=== PATIENT | female | born 1945 | race Caucasian/White ===

== ENCOUNTER 2016-07-25 14:02 | Observation (INO) ==
[2016-07-25] MEDS ORDERED: Naloxone 0.4 MG/ML INJ IVP STA ×2 (14:11→14:40)
--- NOTE | 2016-07-25 14:24 | Emergency Department Note ---
Disposition Clinical Impression: HCAP (healthcare-associated pneumonia) Disposition: Admitted As Inpatient Condition: Fair Time of Disposition: 19:25 Altered Mental Status HPI - General Chief Complaint: ED Altered Mental Status Stated Complaint: AMS Time Seen by Provider: 07/25/16 14:08 Source: EMS Limitations: altered mental status Nursing Notes Reviewed: Yes Vital Signs Reviewed: Yes - History of Present Illness HPI Narrative: Ms. Sarmiento, a 71yo female, [facility] from jail [facility] EMS with CC: altered mentation. jail notes the patient returned from dialysis back to the facility. Appx 1 hr prior to arrival, she became responsive only to pain with unusual black bruise-like marking on her arms and legs. PMH: ESRD on dialysis [facility]. - Related Data Home Medications Medication Instructions Recorded Confirmed Furosemide [Lasix] 80 mg PO BID 09/28/15 07/25/16 Levothyroxine Sodium [Tirosint] 150 mcg PO DAILY 09/28/15 07/25/16 Amlodipine [Norvasc] 10 mg PO DAILY 09/29/15 07/25/16 Clopidogrel [Plavix] 75 mg PO DAILY 09/29/15 07/25/16 Modafinil [Provigil] 200 mg PO QAM 09/29/15 07/25/16 Acetaminophen [Tylenol] 1,000 mg PO Q8HR PRN 12/05/15 07/25/16 Cinacalcet [Sensipar] 30 mg PO DAILY 12/05/15 07/25/16 Hydralazine HCl 50 mg PO BID 12/05/15 07/25/16 Insulin LISPRO [HumaLOG] 2 - 12 unit SQ ACHS 12/05/15 07/25/16 Omeprazole 20 mg PO QAM 12/05/15 07/25/16 B Complex W-C No.20/Folic Acid 1 mg PO DAILY 12/13/15 07/25/16 [Virt-Caps Softgel] Sevelamer [Renvela] 3,200 mg PO TID 12/13/15 07/25/16 Diltiazem HCl [Diltiazem ER] 120 mg PO DAILY 05/02/16 07/25/16 Folic Acid 1 mg PO DAILY 05/02/16 07/25/16 Ipratropium/Albuterol Neb [Duoneb] 3 ml IH Q4HR 05/02/16 07/25/16 Ammonium Lactate [Marisol-Hydrolac] 1 appl TP BID 05/25/16 07/25/16 HYDROcodone/Acet 5/325 mg [[place] 1 tab PO Q8H PRN 07/25/16 07/25/16 5-325 mg] Losartan Potassium [Cozaar] 100 mg PO DAILY 07/25/16 07/25/16 Metoprolol [Lopressor] 100 mg PO BID 07/25/16 07/25/16 Warfarin [Coumadin] 4 mg PO SUWE@1800 07/25/16 07/26/16 Warfarin [Coumadin] 5 mg PO MOTUTHFRSA@1800 07/26/16 07/26/16 Previous Rx's Medication Instructions Recorded Insulin Glargine [Lantus] 5 unit SQ DAILY #0 07/01/16 Gabapentin [Neurontin] 100 mg PO TID #90 capsule 07/26/16 Allergies Allergy/AdvReac Type Severity Reaction Status Date / Time No Known Allergies Allergy Verified 09/28/15 13:34 Limitations: ROS unobtainable due to patients medical condition Past Medical History - Past Medical History Medical history: Reports: arthritis, cardiomyopathy, COPD, coronary artery disease, diabetes, dialysis, GERD, hyperlipidemia, hypertension, osteoporosis, peripheral artery disease, renal disease, thyroid disease, other Surgical history: Reports: appendectomy, cholecystectomy, hip replacement, hysterectomy, orthopedic, other, ABIMAEL/BSO, other Psychiatric history: Reports: anxiety, depression, other - Social History Smoking Status: Current every day smoker Smokeless Tobacco Status: No Alcohol use: Reports: none Drug use: Reports: none, prescription drug abuse, other Physical Exam General: Patient is alert, oriented, and in no acute distress. HEENT: No facial asymmetry. Head is normocephalic and atraumatic. PERRLA. Trachea midline. Cardiovascular: Heart regular rate and rhythm without clicks, rubs, gallops, or murmurs. No JVD. PMI nondisplaced. Respiratory: Symmetric chest rise with poor respiratory effort. Bilateral breath sounds are have wheezing throughout. Abdomen: Bowel sounds present normoactive x-4 quadrants. Abdomen is soft, nondistended. Unable to assess tenderness as patient will not answer. Musculoskeletal: Unable to assess given patient's presentation. Neuro: Unable to assess given patient's presentation. Psych: Patient's affect is appropriate for situation. - General Limitations: altered mental status General appearance: alert, lethargic Course Course Narrative: GCS 13: E4, V5, M4. She will wake up and curse at you with sternal rub. Otherwise she is sleeping. Patient has a history of similar presentation secondary to opiate use. Will administer small increments of narcan. If she does not return to baseline, will perform AMS workup. After 0.4mg Narcan x2, patient's level of alertness has not improved. Will initiate AMS workup. 15:20 I called patient's daughter: Angélica, . We discussed her mother's initial presentation, stable vital signs, level of alertness, and unsuccessful narcan. Discussed the next steps; in particular the AMS workup and pending disposition. Once a disposition is decided, will update daughter. CT head negative. CXR suspicious for LLL atelectasis. This correlates with my physical exam findings. Suspect healthcare associated pneumonia. Will begin empiric antibiotics. Awaiting lab draw. Will page hospitalist once labs drawn. 17:[address] Cook. He requests CBC for the white count as well as CBC prior to accepting the patient. 18:30 Dr. Cook accepts the patient to his service. Vital Signs Temperature 100 F H 07/25/16 14:04 Pulse Rate 64 07/25/16 14:04 Respiratory Rate 16 07/25/16 14:04 Blood Pressure 162/60 07/25/16 14:04 O2 Sat by Pulse Oximetry 100 07/25/16 14:04 Temperature 98.3 F 07/26/16 11:43 Pulse Rate 75 07/26/16 11:43 Respiratory Rate 17 07/26/16 11:43 Blood Pressure 138/45 07/26/16 11:43 O2 Sat by Pulse Oximetry 96 07/26/16 11:43 Oxygen Delivery Oxygen Delivery Room Air Altered Mental Status - Medical Records Medical records reviewed: Yes I reviewed the patient's medical records. - Lab Data Lab results reviewed: Yes I reviewed the patient's lab results. Result diagrams: 07/26/16 05:47 07/26/16 05:47 Lab Results 07/25/16 07/25/16 07/25/16 Range/Units 14:18 16:00 16:11 WBC (4.3-11.1) K/mcL RBC (3.82-4.97) M/mcL Hgb (11.5-15.4) g/dL Hct (35.3-44.9) % MCV (83.0-100.0) fL MCH (28.0-33.3) pg MCHC (31.6-35.5) g/dL RDW (11.5-14.5) % Plt Count (140-400) K/mcL MPV (9.4-12.4) fL Immature Gran % (0-4) % Seg Neutrophils % % Lymphocytes % % Monocytes % % Eosinophils % % Basophils % % Neutrophils # (1.6-8.9) K/mcL Lymphocytes # (0.6-4.6) K/mcL Monocytes # (0.0-1.3) K/mcL Eosinophils # (0.0-0.6) K/mcL Basophils # (0.0-0.2) K/mcL PT 25.3 H (9.4-12.1) Seconds INR 2.3 APTT 42.0 H (26.0-36.0) Seconds Sodium (136-145) mEq/L Potassium (3.5-4.5) mEq/L Chloride (98-109) mEq/L Carbon Dioxide (19-29) mEq/L BUN (7-20) mg/dL Creatinine (0.57-1.11) mg/dL Est GFR ( Amer) (> 60) Est GFR (Non-Af Amer) (> 60) BUN/Creatinine Ratio (6-26) Glucose (70-99) mg/dL POC Glucose 185 H (58-89) Calculated Osmolality (280-300) Calcium (8.6-10.8) mg/dL Troponin I (0-0.03) ng/mL C-Reactive Protein (Less than 5) mg/L Urine Color Yellow (Yellow) Urine Clarity Turbid A (Clear) Urine pH 8.0 (5.0-8.0) pH Units Ur Specific [place] 1.014 (1.010-1.025) Urine Protein >=300 H (Neg-Trace) mg/dL Urine Glucose (UA) 250 H (Normal) mg/dL Urine Ketones Negative (Negative) mg/dL Urine Blood Trace H (Negative) Urine Nitrite Negative (Negative) Urine Bilirubin Negative (Negative) Urine Urobilinogen Normal (Normal) mg/dL Ur Leukocyte Esterase Trace H (Negative) Urine Microscopic RBC 5-15 H (0-3) per hpf Urine Microscopic WBC 30-50 H (0-3) per hpf Ur Squamous Epith Cells Many H (None-Few) per lpf Urine Bacteria Few (None-Few) per hpf Hyaline Casts None Seen (None-Few) per lpf Ur Culture Indicated? YES A (NO) 07/25/16 07/25/16 07/25/16 Range/Units 16:11 16:11 16:11 WBC (4.3-11.1) K/mcL RBC (3.82-4.97) M/mcL Hgb (11.5-15.4) g/dL Hct (35.3-44.9) % MCV (83.0-100.0) fL MCH (28.0-33.3) pg MCHC (31.6-35.5) g/dL RDW (11.5-14.5) % Plt Count (140-400) K/mcL MPV (9.4-12.4) fL Immature Gran % (0-4) % Seg Neutrophils % % Lymphocytes % % Monocytes % % Eosinophils % % Basophils % % Neutrophils # (1.6-8.9) K/mcL Lymphocytes # (0.6-4.6) K/mcL Monocytes # (0.0-1.3) K/mcL Eosinophils # (0.0-0.6) K/mcL Basophils # (0.0-0.2) K/mcL PT (9.4-12.1) Seconds INR APTT (26.0-36.0) Seconds Sodium 140 (136-145) mEq/L Potassium 5.6 H (3.5-4.5) mEq/L Chloride 103 (98-109) mEq/L Carbon Dioxide 24 (19-29) mEq/L BUN 27 H (7-20) mg/dL Creatinine 4.44 H (0.57-1.11) mg/dL Est GFR ( Amer) 12 L (> 60) Est GFR (Non-Af Amer) 10 L (> 60) BUN/Creatinine Ratio 6 (6-26) Glucose 158 H (70-99) mg/dL POC Glucose (58-89) Calculated Osmolality 298 (280-300) Calcium 9.5 (8.6-10.8) mg/dL Troponin I 0.03 (0-0.03) ng/mL C-Reactive Protein 15 H (Less than 5) mg/L Urine Color (Yellow) Urine Clarity (Clear) Urine pH (5.0-8.0) pH Units Ur Specific [place] (1.010-1.025) Urine Protein (Neg-Trace) mg/dL Urine Glucose (UA) (Normal) mg/dL Urine Ketones (Negative) mg/dL Urine Blood (Negative) Urine Nitrite (Negative) Urine Bilirubin (Negative) Urine Urobilinogen (Normal) mg/dL Ur Leukocyte Esterase (Negative) Urine Microscopic RBC (0-3) per hpf Urine Microscopic WBC (0-3) per hpf Ur Squamous Epith Cells (None-Few) per lpf Urine Bacteria (None-Few) per hpf Hyaline Casts (None-Few) per lpf Ur Culture Indicated? (NO) 07/25/16 Range/Units 17:55 WBC 9.6 (4.3-11.1) K/mcL RBC 3.89 (3.82-4.97) M/mcL Hgb 12.3 (11.5-15.4) g/dL Hct 39.9 (35.3-44.9) % MCV 102.6 H (83.0-100.0) fL MCH 31.6 (28.0-33.3) pg MCHC 30.8 L (31.6-35.5) g/dL RDW 15.5 H (11.5-14.5) % Plt Count 167 (140-400) K/mcL MPV 10.7 (9.4-12.4) fL Immature Gran % 0.4 (0-4) % Seg Neutrophils % 81.9 % Lymphocytes % 8.6 % Monocytes % 7.8 % Eosinophils % 1.1 % Basophils % 0.2 % Neutrophils # 7.9 (1.6-8.9) K/mcL Lymphocytes # 0.8 (0.6-4.6) K/mcL Monocytes # 0.8 (0.0-1.3) K/mcL Eosinophils # 0.1 (0.0-0.6) K/mcL Basophils # 0.0 (0.0-0.2) K/mcL PT (9.4-12.1) Seconds INR APTT (26.0-36.0) Seconds Sodium (136-145) mEq/L Potassium (3.5-4.5) mEq/L Chloride (98-109) mEq/L Carbon Dioxide (19-29) mEq/L BUN (7-20) mg/dL Creatinine (0.57-1.11) mg/dL Est GFR ( Amer) (> 60) Est GFR (Non-Af Amer) (> 60) BUN/Creatinine Ratio (6-26) Glucose (70-99) mg/dL POC Glucose (58-89) Calculated Osmolality (280-300) Calcium (8.6-10.8) mg/dL Troponin I (0-0.03) ng/mL C-Reactive Protein (Less than 5) mg/L Urine Color (Yellow) Urine Clarity (Clear) Urine pH (5.0-8.0) pH Units Ur Specific [place] (1.010-1.025) Urine Protein (Neg-Trace) mg/dL Urine Glucose (UA) (Normal) mg/dL Urine Ketones (Negative) mg/dL Urine Blood (Negative) Urine Nitrite (Negative) Urine Bilirubin (Negative) Urine Urobilinogen (Normal) mg/dL Ur Leukocyte Esterase (Negative) Urine Microscopic RBC (0-3) per hpf Urine Microscopic WBC (0-3) per hpf Ur Squamous Epith Cells (None-Few) per lpf Urine Bacteria (None-Few) per hpf Hyaline Casts (None-Few) per lpf Ur Culture Indicated? (NO) - Radiology Data Radiology results reviewed: Yes I reviewed the patient's radiology results. - EKG Data EKG attestation: Yes I reviewed and interpreted this EKG. EKG results narrative: EKG dated 25 Jul 2015 shows sinus rhythm with rate of 82. Normal intervals. Normal axis. Non specific STT changes. Copmared to EKG dated 06/30/16 showing no acute ischemic changes in comparison. Attestation Statement - Attestation Attestation: I examined this patient and my medical decision-making was reviewed with the Resident Physician. I agree with the documented findings, disposition and treatment plan as described.
[2016-07-25 16:13] LABS: Bilirubin,Urine Negative (Negative); Blood,Urine Trace (Negative); Clarity,Urine Turbid (Clear); Color,Urine Yellow (Yellow); Glucose,Urine (UA) 250 mg/dL (Normal); Ketones,Urine Negative (Negative); Leukocyte Esterase,Urine Trace (Negative); Nitrite,Urine Negative (Negative); Protein,Urine >=300 mg/dL (Neg-Trace); Specific Gravity,Urine 1.014 (1.010-1.025); Urobilinogen,Urine Normal (Normal)
[2016-07-25 16:14] LABS: Hyaline Casts,Urine None Seen per lpf (None-Few); Squamous Epithelial Cell,Urine Many per lpf (None-Few); WBC,Urine 30-50 per hpf (0-3)
[2016-07-25] MEDS ORDERED: Levofloxacin 500 MG/100 ML 500 MG/100 ML BAG IVPB ONE (16:17)
[2016-07-25] MEDS ORDERED: Vancomycin 1,000 MG in D5% in Water 250 ML IVPB STA ×2 (16:18→21:54)
[2016-07-25 16:36] LABS: Bacteria,Urine Few per hpf (None-Few)
[2016-07-25 16:46] LABS: INR 2.3; Prothrombin Time 25.3 Seconds (9.4-12.1)
[2016-07-25 16:53] LABS: Calcium 9.5 mg/dL (8.6-10.8); Potassium 5.6 mEq/L (3.5-4.5)
[2016-07-25 18:15] LABS: Basophils % 0.2 %; Eosinophils # 0.1 K/mcL (0.0-0.6); Eosinophils % 1.1 %; Hematocrit 39.9 % (35.3-44.9); Hemoglobin 12.3 g/dL (11.5-15.4); Immature Granulocytes % 0.4 % (0-4); Lymphocytes # 0.8 K/mcL (0.6-4.6); Lymphocytes % 8.6 %; Mean Corpuscular HGB Conc 30.8 g/dL (31.6-35.5); Mean Corpuscular Hemoglobin 31.6 pg (28.0-33.3); Mean Corpuscular Volume 102.6 fL (83.0-100.0); Mean Platelet Volume 10.7 fL (9.4-12.4); Monocytes # 0.8 K/mcL (0.0-1.3); Monocytes % 7.8 %; Neutrophils # 7.9 K/mcL (1.6-8.9); Platelet Count 167 K/mcL (140-400); Red Blood Count 3.89 M/mcL (3.82-4.97); Red Cell Distribution Width 15.5 % (11.5-14.5); Segmented Neutrophils % 81.9 %
[2016-07-25] MEDS ORDERED: Cefepime HCl 2,000 MG in D5% in Water (Mini-Bag+) 100 ML IVPB ONE (19:00)
[2016-07-25] MEDS ORDERED: Lactulose Oral Soln 20 GM/30 ML UDC PO STA (21:04)
--- NOTE | 2016-07-25 21:22 | Internal Med History&Physical ---
<EliazarJames villatoro - Last Filed: 07/25/16 22:13> Date of Encounter: 07/25/16 Time of Encounter: 20:15 Assessment and Plan (1) Acute encephalopathy Current visit: No Status: Resolved According to daughter, patient had episodes of diarrhea and vomiting after her dialysis session today, along with altered mental status. Daughter states that this has happened in the past and seems to happen after her dialysis session. Patient was initially Alert and oriented to person and time, but eventually was Alert and oriented x3. She does not remember what happened at the detention. Etiology possibly Metabolic. Consider altering dialysis parameters. Consult to nephrology for recommendations. empirically treating UTI with ceftriaxone. Patient received empiric Antibiotics in ED. CXR reviewed- increased vascular marking noted, but no definite indications for pneumonia. Patient has normal white count, vitals within normal limits. She does not meet SIRS criteria. Will get another CXR tomorrow morning with AP and lateral views. lactate pending- will trend. (2) Vomiting Current visit: No Status: Acute plan as above. Zofran PRN for nausea. Qualifiers: Vomiting type: unspecified Vomiting Intractability: unspecified Nausea presence: unspecified Qualified Code(s): R11.10 - Vomiting, unspecified (3) ESRD (end stage renal disease) Current visit: No Status: Acute Plan as #1 above. (4) Hyperkalemia Current visit: No Status: Acute potssium upon admission was 5.6. Etiology likely due to ESRD. patient given Kayexalate, lactulose Continue to monitor. (5) UTI (urinary tract infection) Current visit: No Status: Acute Patient's urine was significant for infection. Ceftriaxone Qualifiers: Urinary tract infection type: site unspecified Hematuria presence: without hematuria Qualified Code(s): N39.0 - Urinary tract infection, site not specified (6) COPD (chronic obstructive pulmonary disease) Current visit: No Status: Chronic continue home DuoNeb Qualifiers: COPD type: unspecified COPD Qualified Code(s): J44.9 - Chronic obstructive pulmonary disease, unspecified (7) Diabetes mellitus Current visit: No Status: Chronic low dose sliding scale insulin. Daughter states patient eats anything she wants at the detention. consult to asthma educator. Qualifiers: Diabetes mellitus type: type 2 Diabetes mellitus complication status: with kidney complications Diabetes mellitus complication detail: with chronic kidney disease Diabetes mellitus superintendent container terminal insulin use: with superintendent container terminal use Chronic kidney disease stage: on chronic dialysis Qualified Code(s): E11.22 - Type 2 diabetes mellitus with diabetic chronic kidney disease; N18.6 - End stage renal disease; Z79.4 - custodial (current) use of insulin; Z99.2 - Dependence on renal dialysis (8) HTN (hypertension) Current visit: No Status: Chronic continue hydralazine, metoprolol holding amlodipine. Qualifiers: Hypertension type: essential hypertension Qualified Code(s): I10 - Essential (primary) hypertension (9) Hypothyroidism Current visit: No Status: Chronic continue home med levothyroxine. Qualifiers: Hypothyroidism type: unspecified Qualified Code(s): E03.9 - Hypothyroidism , unspecified (10) PAF (paroxysmal atrial fibrillation) Current visit: No Status: Chronic continue diltiazem pharmacy dosing warfarin (11) DVT prophylaxis Current visit: No Status: Acute pharmacy dosing home med warfarin. Internal Medicine - H&P: HPI Chief complaint: altered mental status Admitted From: Emergency Dept Plans for Post Hospital Care: Home History of present illness: PCP: Dr. Susie PERRY: Angélica Woodard (daughter) Ms. Rico is a 71 year old female with PMHx of hypothyroidism, ESRD (on dialysis F- francisca Aleman), paroxysmal Afib, COPD, DM, HTN, PVD, bilateral carotid artery stenosis. Patient currently resides at [facility] , and has been there about one year for rehab after her hip surgery after she broke her hip from a fall. Patient was very angry about being sent to [facility] and was reluctant to answer questions. All of history was obtained from her daughter Angélica, who is also her POA. Patient received dialysis this morning. After her dialysis session, she called the nurse for help because she had two episodes of vomiting and fecal incontinence with diarrhea. About a half hour after she was cleaned up, the nurses were asking her questions but patient would only stare at them and not respond, which is why she was brought to [place]. Patient's daughter states that these episodes have happened before where she has confusion and altered mentation after her dialysis sessions. She has had mutliple admissions for this. Social History: Has been at [facility] for about a year. Used to live at home with her , but she is currently going through a divorce. Denies history of domestic abuse or domestic violence. She has smoked 1PPD for the past 47 years. Denies alcohol or illicit drug use. Surgical Hx: hip surgery, cholecystectomy, has had multiple foot surgeries by Dr. Traylor. Family Hx: mother: had DM, from a fall at 67. Father had lung cancer and at 65. One sister with no significant medical problems. Has one brother with no significant medical problems. Past Med Surg Social Fam HX - Past Medical History Medical history: arthritis, cardiomyopathy, COPD, coronary artery disease, diabetes, dialysis, GERD, hyperlipidemia, hypertension, osteoporosis, peripheral artery disease, renal disease, thyroid disease, other Psychiatric history: anxiety, depression, other - Past Surgical History Surgical History: appendectomy, cholecystectomy, hip replacement, hysterectomy, orthopedic, other, ABIMAEL/BSO, other - Social History Smoking Status: Current every day smoker Smokeless Tobacco Status: No Alcohol use: none Drug use: none, prescription drug abuse, other - Family History Mother Living Status: Hx Family Cardiac Disorders: Yes (Hypertension hyperlipidemia) Hx Family Endocrine Disorder: Yes (DMII) Father Living Status: Hx Family Cardiac Disorders: Yes (Hypertension hyperlipidemia) Hx Family Cancer: Yes (Lung cancer) Hx Family Endocrine Disorder: Yes (Diabetes) Internal Medicine - H&P: Meds Furosemide [Lasix] 80 mg PO BID 09/28/15 [History] Levothyroxine Sodium [Tirosint] 150 mcg PO DAILY 09/28/15 [History] Amlodipine [Norvasc] 10 mg PO DAILY 09/29/15 [History] Clopidogrel [Plavix] 75 mg PO DAILY 09/29/15 [History] Modafinil [Provigil] 200 mg PO QAM 09/29/15 [History] Acetaminophen [Tylenol] 1,000 mg PO Q8HR PRN 12/05/15 [History] Cinacalcet [Sensipar] 30 mg PO DAILY 12/05/15 [History] Gabapentin [Neurontin] 200 mg PO BID 12/05/15 [History] Hydralazine HCl 50 mg PO BID 12/05/15 [History] Insulin LISPRO [HumaLOG] 2 - 12 unit SQ ACHS 12/05/15 [History] Omeprazole 20 mg PO QAM 12/05/15 [History] B Complex W-C No.20/Folic Acid [Virt-Caps Softgel] 1 mg PO DAILY 12/13/15 [ History] Sevelamer [Renvela] 3,200 mg PO TID 12/13/15 [History] Diltiazem HCl [Diltiazem ER] 120 mg PO DAILY 05/02/16 [History] Folic Acid 1 mg PO DAILY 05/02/16 [History] Ipratropium/Albuterol Neb [Duoneb] 3 ml IH Q4HR 05/02/16 [History] Ammonium Lactate [Marisol-Hydrolac] 1 appl TP BID 05/25/16 [History] Insulin Glargine [Lantus] 5 unit SQ DAILY #0 07/01/16 [Rx] HYDROcodone/Acet 5/325 mg [[place] 5-325 mg] 1 tab PO Q8H PRN 07/25/16 [History] Losartan Potassium [Cozaar] 100 mg PO DAILY 07/25/16 [History] Metoprolol [Lopressor] 100 mg PO BID 07/25/16 [History] Warfarin [Coumadin] 4 mg PO SUWE 07/25/16 [History] Allergies No Known Allergies Allergy (Verified 09/28/15 13:34) All Systems PM: A 10-system review of systems was performed and is negative for pertinent findings except as documented above in the HPI. - Constitutional Constitutional: chills, fatigue, no anorexia, no fever(s) - EENT Eyes: no blurry vision, no change in vision - Cardiovascular Cardiovascular ROS IM: no chest pain, no lightheadedness, no syncope - Respiratory Respiratory: cough, no hemoptysis - Gastrointestinal Gastrointestinal: vomiting, no abdominal pain, no change in bowel habits - Constitutional Vitals: Temp Pulse Resp BP Pulse Ox 100 F H 70 18 107/62 93 L 07/25/16 14:04 07/25/16 19:52 07/25/16 20:01 07/25/16 20:01 07/25/16 19:52 General appearance: Present: A&O X 3, no acute distress - Head Head exam: Present: atraumatic, normocephalic - Eye Eye exam: Present: sclera anicteric - ENT ENT exam: Present: mucous membranes moist - Neck Neck exam general surgery: Present: supple, trachea midline - Respiratory Respiratory exam: Present: rhonchi, wheezes - Cardiovascular Cardiovascular exam: Present: irregular rhythm - GI/Abdominal GI/Abdominal exam: Present: normal bowel sounds, soft. Absent: distended, guarding - Extremities Exam Extremities exam: Absent: pedal edema Additional comments: upper and lower extremities have dark discoloration bilaterally. Lower extremities feel cold-likely due to hx of PVD. Lower extremity pulses diminished. - Neurological Exam Neurological exam: Present: alert, oriented X3. Absent: facial droop - Psychiatric Psychiatric exam: Present: agitated, anxious Internal Med - H&P Results - Labs CBC & Chem 7: 07/25/16 17:55 07/25/16 16:11 <Jesenia Thomas - Last Filed: 07/26/16 02:33> Date of Encounter: 07/25/16 Internal Medicine - H&P: HPI History of present illness: Ms. Rico is a 71 year old female All Systems PM: A 10-system review of systems was performed and is negative for pertinent findings except as documented above in the HPI. - Constitutional Vitals: Temp Pulse Resp BP Pulse Ox 98.3 F 77 18 130/41 83 L 07/25/16 21:18 07/25/16 21:18 07/26/16 00:45 07/25/16 21:18 07/26/16 00:45 Internal Med - H&P Results - Labs CBC & Chem 7: 07/25/16 17:55 07/25/16 16:11 - Attending Attestation I examined this patient and my medical decision-making was reviewed with the CHILD SPECIALIST/PA/Advanced Practice Nurse/Resident Physician. I agree with the documented findings, disposition and treatment plan as described except to the extent set forth below. I have personally examined and evaluated the patient and discussed details with the resident/regulatory intern. 71-year-old female with past medical history significant for ESRD on hemodialysis, Paroxysmal A fib on warfarin. Per the daughter at the bed side, pt had episodes of diarrhea and confusion in the detention. Apparently the staff at detention also noted some skin color changes and sent the pt to the ER. In the ER the patient has given antibiotics for suspected healthcare associated pneumonia. I have personally reviewed the chest x-ray, and also reviewed the radiologists report of chest x-ray - suspicion for a pulmonary edema. Personally am not convinced that there is pneumonia. Repeat chest x-ray in the morning (AP and lateral views), after IV Lasix. Possible UTI and is empirically started on ceftriaxone. Confusion apparently happens on dialysis days, after dialysis I wonder if she has episodes of hypotension with cerebral hypoperfusion, leading to confusion will consult Senior Manager Mmcoe for further advice; and also for hyperkalemia. (pt refused kayexalate). Will get stool culture and c diff toxin to evaluate for diarrhea. Pt's mental status is back to baseline (per daughter), at the time of my evaluation. She is alert and oriented x 3. wants to go back to the SNF. Current smoker - smoking cessation advised. She does not want nicotine patches.
[2016-07-25] MEDS ORDERED: Furosemide 40 MG/4 ML VIAL IVP ONE (21:49)
[2016-07-25] MEDS ORDERED: *HR* HYDROcodone/Acet 5/325 mg TABLET PO PRN (22:44)
[2016-07-25] MEDS ORDERED: Naloxone 0.4 MG/ML INJ IVP PRN (22:53)
[2016-07-25] MEDS ORDERED: Ondansetron 4 MG/2 ML VIAL IVP PRN (22:53)
[2016-07-25] MEDS ORDERED: Acetaminophen 325 MG TABLET PO PRN (22:53)
[2016-07-25] MEDS ORDERED: Dextrose Gel 15 GM PO PRN ×2 (23:01)
[2016-07-25] MEDS ORDERED: *HR* Dextrose 50 % in Water (Syg) 50 ML SYRINGE IVP PRN (23:01)
[2016-07-25] MEDS ORDERED: D5% in Water 1,000 ML IV PRN (23:01)
[2016-07-26] MEDS: Ipratropium/Albuterol Neb 3 ML IH SCH ×4 (00:45→11:23)
[2016-07-26 06:25] LABS: Basophils % 0.3 %; Eosinophils # 0.2 K/mcL (0.0-0.6); Eosinophils % 2.6 %; Hematocrit 37.1 % (35.3-44.9); Hemoglobin 11.3 g/dL (11.5-15.4); Immature Granulocytes % 0.1 % (0-4); Lymphocytes # 1.4 K/mcL (0.6-4.6); Mean Corpuscular HGB Conc 30.5 g/dL (31.6-35.5); Mean Corpuscular Hemoglobin 31.6 pg (28.0-33.3); Mean Corpuscular Volume 103.6 fL (83.0-100.0); Mean Platelet Volume 11.2 fL (9.4-12.4); Monocytes # 1.2 K/mcL (0.0-1.3); Monocytes % 12.4 %; Neutrophils # 6.5 K/mcL (1.6-8.9); Platelet Count 176 K/mcL (140-400); Red Blood Count 3.58 M/mcL (3.82-4.97); Red Cell Distribution Width 15.2 % (11.5-14.5); Segmented Neutrophils % 69.6 %
[2016-07-26 06:26] LABS: INR 2.2; Prothrombin Time 24.6 Seconds (9.4-12.1)
[2016-07-26 06:38] LABS: Albumin 2.9 g/dL (3.5-5.0); Albumin/Globulin Ratio 0.7 (1.1-2.2); Bilirubin,Total 0.4 mg/dL (0.2-1.2); Globulin 4.4 g/dL (2.4-3.5); Magnesium 1.8 mg/dL (1.6-2.6); Phosphorous 6.2 mg/dL (2.3-4.7); Potassium 5.6 mEq/L (3.5-4.5); Total Protein 7.3 g/dL (6.0-8.3)
[2016-07-26] MEDS ORDERED: Furosemide 40 MG TABLET PO SCH (08:00)
--- NOTE | 2016-07-26 08:42 | Nephrology Consult Note ---
Date of Encounter: 07/26/16 Time of Encounter: 08:40 Assessment and Plan (1) ESRD (end stage renal disease) Current Visit: No Status: Acute Patient has incisional disease and receives dialysis every Saturday. I do not believe that the dialysis contributed to the patient's most recent episode of altered mental status. Vital signs were stable on dialysis and she was stable and she left the dialysis unit and when she first arrived at the retirement. I am wondering if she could have some type of recurrent delirium related to symptoms type of medication. I requested updated medication list from the retirement and we will review that list. Today the patient is back at baseline and appears to be stable. (2) Altered mental status Current Visit: No Status: Acute Qualifiers: Altered mental status type: delirium Qualified Code(s): R41.0 - Disorientation, unspecified (3) Anemia in CKD (chronic kidney disease) Current Visit: No Status: Chronic (4) Atrial fibrillation Current Visit: No Status: Chronic Qualifiers: Atrial fibrillation type: chronic Qualified Code(s): I48.2 - Chronic atrial fibrillation (5) COPD (chronic obstructive pulmonary disease) Current Visit: No Status: Chronic Qualifiers: COPD type: unspecified COPD Qualified Code(s): J44.9 - Chronic obstructive pulmonary disease, unspecified History of Present Illness - History of Present Illness This is a 71-year-old female with long-standing end-stage renal disease who receives dialysis in [place] Saturday. Patient had outpatient dialysis yesterday. She remained stable throughout her dialysis run. Postdialysis her vital signs including blood pressure were stable. She was sent back to the retirement. [facility] reported to the dialysis unit there when the patient arrived she was stable and alert. Sometime thereafter patient was noted to have mental status changes and an episode of diarrhea. Patient was subsequently sent to the emergency room and admitted to the hospital for further evaluation. Patient states that when she returned to the retirement from dialysis she did receive some medication. We do not know what that medication is. This morning the patient is sitting up in a chair. She is completely alert and oriented and has no acute complaints. She is requesting discharge back to the retirement. Past Med Surg Social Fam HX - Past Medical History Medical history: arthritis, cardiomyopathy, COPD, coronary artery disease, diabetes, dialysis, GERD, hyperlipidemia, hypertension, osteoporosis, peripheral artery disease, renal disease, thyroid disease, other Psychiatric history: anxiety, depression, other - Past Surgical History Surgical History: appendectomy, cholecystectomy, hip replacement, hysterectomy, orthopedic, other, ABIMAEL/BSO, other - Social History Smoking Status: Current every day smoker Packs per day: 1 Smokeless Tobacco Status: No Alcohol use: none Drug use: none, prescription drug abuse, other - Family History Mother Living Status: Hx Family Cardiac Disorders: Yes (Hypertension hyperlipidemia) Hx Family Endocrine Disorder: Yes (DMII) Father Living Status: Hx Family Cardiac Disorders: Yes (Hypertension hyperlipidemia) Hx Family Cancer: Yes (Lung cancer) Hx Family Endocrine Disorder: Yes (Diabetes) Medications and Allergies Furosemide [Lasix] 80 mg PO BID 09/28/15 [History] Levothyroxine Sodium [Tirosint] 150 mcg PO DAILY 09/28/15 [History] Amlodipine [Norvasc] 10 mg PO DAILY 09/29/15 [History] Clopidogrel [Plavix] 75 mg PO DAILY 09/29/15 [History] Modafinil [Provigil] 200 mg PO QAM 09/29/15 [History] Acetaminophen [Tylenol] 1,000 mg PO Q8HR PRN 12/05/15 [History] Cinacalcet [Sensipar] 30 mg PO DAILY 12/05/15 [History] Gabapentin [Neurontin] 200 mg PO BID 12/05/15 [History] Hydralazine HCl 50 mg PO BID 12/05/15 [History] Insulin LISPRO [HumaLOG] 2 - 12 unit SQ ACHS 12/05/15 [History] Omeprazole 20 mg PO QAM 12/05/15 [History] B Complex W-C No.20/Folic Acid [Virt-Caps Softgel] 1 mg PO DAILY 12/13/15 [ History] Sevelamer [Renvela] 3,200 mg PO TID 12/13/15 [History] Diltiazem HCl [Diltiazem ER] 120 mg PO DAILY 05/02/16 [History] Folic Acid 1 mg PO DAILY 05/02/16 [History] Ipratropium/Albuterol Neb [Duoneb] 3 ml IH Q4HR 05/02/16 [History] Ammonium Lactate [Marisol-Hydrolac] 1 appl TP BID 05/25/16 [History] Insulin Glargine [Lantus] 5 unit SQ DAILY #0 07/01/16 [Rx] HYDROcodone/Acet 5/325 mg [[place] 5-325 mg] 1 tab PO Q8H PRN 07/25/16 [History] Losartan Potassium [Cozaar] 100 mg PO DAILY 07/25/16 [History] Metoprolol [Lopressor] 100 mg PO BID 07/25/16 [History] Warfarin [Coumadin] 4 mg PO SUWE 07/25/16 [History] Allergies No Known Allergies Allergy (Verified 09/28/15 13:34) Review of Systems Constitutional: as per HPI, weakness Nose, mouth and throat: no dizziness, no headache(s) Cardiovascular: as per HPI, dyspnea on exertion Respiratory: as per HPI, cough, dyspnea on exertion Gastrointestinal: no abdominal pain, no change in bowel habits Musculoskeletal: no muscle weakness, no numbness Integumentary: change in pigmentation Neurological: as per HPI, confusion Psychiatric: no depression, no difficulty concentrating Endocrine: as per HPI Exam - Vital Signs Vital signs: Initial Vital Signs Temp Pulse Resp BP Pulse Ox 100 F H 64 16 162/60 100 07/25/16 14:04 07/25/16 14:04 07/25/16 14:04 07/25/16 14:04 07/25/16 14:04 Vital Signs - Last 8 Hours Temp Pulse Resp BP Pulse Ox 07/26/16 08:05 98.1 F 71 16 137/58 94 L 07/26/16 07:35 20 98 07/26/16 04:12 16 95 07/26/16 03:58 98.2 F 69 18 104/35 98 07/26/16 00:45 18 83 L Intake and Output 07/25/16 07/26/16 07/26/16 23:59 07:59 15:59 Intake Total 100 / 200 0 / 0 Output Total 0 / 0 Balance 100 / 200 0 / 0 Intake: IV Fluids 100 / 100 Rocephin 1,000 MG In 100 / 100 Dextrose 5% (Minibag+) 100 ML 100 ML @ 200 mls/ hr IVPB ONCE ONE Rx#: [id number] Oral 0 / 0 Output: Urine 0 / 0 Other: Weight 52.4 kg Blood Glucose* 148 Patient Weight 07/26/16 23:59 Weight 52.4 kg - General Appearance Exam: Patient is alert and oriented. She is in no acute distress. Neck is supple. Lungs diminished breath sounds. No wheezing rales or rhonchi. Heart irregular rate and rhythm with a 2/6 soft ejection murmur. Abdomen shows normal bowel sounds bruits masses, or tenderness. Lower extremities show no peripheral edema. There is a functioning AV fistula in the left arm. Patient has increased pigmentation of her skin in both upper and lower extremities. Results - Lab Results 07/26/16 05:47 07/26/16 05:47 Most recent lab results Calcium 10.0 mg/dL (8.6-10.8) 07/26/16 05:47 Phosphorus 6.2 mg/dL (2.3-4.7) H 07/26/16 05:47 Magnesium 1.8 mg/dL (1.6-2.6) 07/26/16 05:47 Consult Discharge Plan - Plan Referrals: Praveen Tran MD [Primary Care Provider] -
[2016-07-26] MEDS ORDERED: hydrALAZINE 25 MG TABLET PO SCH (09:00)
[2016-07-26] MEDS ORDERED: Gabapentin 100 MG CAPSULE PO SCH (09:00)
[2016-07-26] MEDS ORDERED: Diltiazem CD (24hr) 120 MG CAPSULE PO SCH (09:00)
[2016-07-26] MEDS ORDERED: Folic Acid 1 MG TABLET PO SCH (09:00)
[2016-07-26] MEDS ORDERED: Metoprolol 100 MG TABLET PO SCH (09:00)
[2016-07-26] MEDS ORDERED: Renal Vitamin 1 MG CAPSULE PO SCH (09:00)
[2016-07-26] MEDS ORDERED: amLODIPine 5 MG TABLET PO SCH (09:00)
--- NOTE | 2016-07-26 09:12 | Event Note ---
Date of Encounter: 07/26/16 Time of Encounter: 09:11 The [facility] reports that when the patient returned there from dialysis yesterday she was given 15 medications. Included in those medications are Cardizem 120 mg Lopressor 100 mg hydralazine 50 mg losartan 100 mg and amlodipine 10 mg. I suspect the patient became hypotensive and that was the reason for her mental status changes. She also received gabapentin. She did not receive any narcotic analgesics at that time.
[2016-07-26] MEDS: Insulin LISPRO 300 UNITS/3 ML VIAL SQ SCH ×2 (09:13→11:54)
[2016-07-26 11:45] VITALS: BP 138/45
[2016-07-26] MEDS ORDERED: *HR* HYDROcodone/Acet 5/325 mg TABLET PO PRN (12:18)
[2016-07-26] MEDS ORDERED: Ipratropium/Albuterol Neb 3 ML IH PRN (12:19)
--- NOTE | 2016-07-26 13:42 | Discharge Summary ---
Date of Encounter: 07/27/16 Time of Encounter: 13:39 - Discharge Diagnosis (1) Altered mental status Priority: Primary Status: Acute Qualifiers: Altered mental status type: delirium Qualified Code(s): R41.0 - Disorientation, unspecified (2) Demand ischemia of myocardium Priority: Secondary Status: Acute (3) ESRD (end stage renal disease) Priority: Secondary Status: Acute - Discharge Medications Prescriptions: Gabapentin [Neurontin] 100 mg PO TID #90 capsule Home Medications: Furosemide [Lasix] 80 mg PO BID 09/28/15 [History] Levothyroxine Sodium [Tirosint] 150 mcg PO DAILY 09/28/15 [History] Amlodipine [Norvasc] 10 mg PO DAILY 09/29/15 [History] Clopidogrel [Plavix] 75 mg PO DAILY 09/29/15 [History] Modafinil [Provigil] 200 mg PO QAM 09/29/15 [History] Acetaminophen [Tylenol] 1,000 mg PO Q8HR PRN 12/05/15 [History] Cinacalcet [Sensipar] 30 mg PO DAILY 12/05/15 [History] Hydralazine HCl 50 mg PO BID 12/05/15 [History] Insulin LISPRO [HumaLOG] 2 - 12 unit SQ ACHS 12/05/15 [History] Omeprazole 20 mg PO QAM 12/05/15 [History] B Complex W-C No.20/Folic Acid [Virt-Caps Softgel] 1 mg PO DAILY 12/13/15 [ History] Sevelamer [Renvela] 3,200 mg PO TID 12/13/15 [History] Diltiazem HCl [Diltiazem ER] 120 mg PO DAILY 05/02/16 [History] Folic Acid 1 mg PO DAILY 05/02/16 [History] Ipratropium/Albuterol Neb [Duoneb] 3 ml IH Q4HR 05/02/16 [History] Ammonium Lactate [Marisol-Hydrolac] 1 appl TP BID 05/25/16 [History] Insulin Glargine [Lantus] 5 unit SQ DAILY #0 07/01/16 [Rx] HYDROcodone/Acet 5/325 mg [[place] 5-325 mg] 1 tab PO Q8H PRN 07/25/16 [History] Losartan Potassium [Cozaar] 100 mg PO DAILY 07/25/16 [History] Metoprolol [Lopressor] 100 mg PO BID 07/25/16 [History] Warfarin [Coumadin] 4 mg PO SUWE@1800 07/25/16 [History] Gabapentin [Neurontin] 100 mg PO TID #90 capsule 07/26/16 [Rx] Warfarin [Coumadin] 5 mg PO MOTUTHFRSA@1800 07/26/16 [History] Allergies/Adverse Reactions: Allergies No Known Allergies Allergy (Verified 09/28/15 13:34) Date of admission: 07/25/16 18:47 Primary care physician: Praveen Tran MD Consults: 07/25/16 21:49 Consult to Nephrology [CONS] Routine Consulting Provider: [facility] joao LOPEZ Reason for Consult: ESRD on HD; Hyperkalemia; AMS after HD Call Completed: No 07/25/16 22:59 Consult to Meat Apprentice [CONS] Routine Reason for SW Consult: discharge/ shelter care planning. 07/25/16 23:01 Consult to Knit Goods Cutter Hand [CONS] Stat Comment: Discharging clinician: Ashleigh De La Cruz Anticipated date of discharge: 07/26/16 - Patient Status Disposition: Transfer SNF Condition: Fair Functional capacity at discharge: independent ambulation Overall status at discharge: patient is back to baseline - Discharge Instructions Follow Up With: Praveen Tran MD [Primary Care Provider] - Additional Instructions: she should not get all the anti hypertensive medication at once after HD sesions which is probably making her hypotensive/confused. - Diet and Activity Activity: as per physical therapy Diet: other (renal diet) Interval History: Ms. Rico is a 71 year old female with PMHx of hypothyroidism, ESRD (on dialysis MWF- [facility]), paroxysmal Afib, COPD, DM, HTN, PVD, bilateral carotid artery stenosis. Patient currently resides at [facility] , and has been there about one year for rehab after her hip surgery after she broke her hip from a fall.According to daughter, patient had episodes of diarrhea and vomiting after her dialysis session today, along with altered mental status. Daughter states that this has happened in the past and seems to happen after her dialysis session. Patient was initially Alert and oriented to person and time, but eventually was Alert and oriented x3. She does not remember what happened at the [facility]. Patient received empiric Antibiotics in ED. CXR reviewed- increased vascular marking noted, but no definite indications for pneumonia. Patient has normal white count, vitals within normal limits. She does not meet SIRS criteria. antibiotics was discontinued, CT head was normal/ renal was consulted and reported that her AMS Is less likely due to HD and more from the meds. as per the patient she feels that she is getting too [facility] meds at the CT. her medication list was reviewed, gabapentin dose was adjusted, otherwise she is not on any sedative meds or high dose pain meds. The [facility] reports that when the patient returned there from dialysis yesterday she was given 15 medications. Included in those medications are Cardizem 120 mg Lopressor 100 mg hydralazine 50 mg losartan 100 mg and amlodipine 10 mg. at the hospital she remained stable and her BP remained stable with her mental status at baseline. she is being dc in stable condition. she should not get all the antihypertensives at the same time which can make her hypotensive and confused. this was explained to the patinet and will be relayed to the CT. Hospital course: Ms. Rico is a 71 year old female Time spent discussing smoking cessation with patient: more than 10 minutes - Time Spent with Patient Total time spent providing and/or coordinating discharge services: Greater than 30 minutes - Constitutional Vitals: Temp Pulse Resp BP Pulse Ox 98.3 F 75 17 138/45 96 07/26/16 11:43 07/26/16 11:43 07/26/16 11:43 07/26/16 11:43 07/26/16 11:43 General appearance: Present: A&O X 3, no acute distress Exam: Head Head exam: Present: atraumatic, normocephalic - Eye Eye exam: Present: sclera anicteric - ENT ENT exam: Present: mucous membranes moist - Neck Neck exam general surgery: Present: supple, trachea midline - Respiratory Respiratory exam: Present: rhonchi, wheezes - Cardiovascular Cardiovascular exam: Present: irregular rhythm - GI/Abdominal GI/Abdominal exam: Present: normal bowel sounds, soft. Absent: distended, guarding - Extremities Exam Extremities exam: Absent: pedal edema - Neurological Exam Neurological exam: Present: alert, oriented X3. Absent: facial droop - VTE Reasons for not Prescribing Prophylaxis: Not indicated-Anticoagulated or INR therapeutic
--- NOTE | 2016-07-26 13:53 | Physician Discharge Referral ---
ExtendedCare Referral Info Transfer To: ECF Provider in Charge: princess gonzalez Institutional Level of Care: Intermediate - MR - Diagnosis (1) Altered mental status Status: Acute (2) Demand ischemia of myocardium Status: Acute (3) ESRD (end stage renal disease) Status: Acute - Transfer Medications Prescriptions: Gabapentin [Neurontin] 100 mg PO TID #90 capsule Home Medications: Furosemide [Lasix] 80 mg PO BID 09/28/15 [History] Levothyroxine Sodium [Tirosint] 150 mcg PO DAILY 09/28/15 [History] Amlodipine [Norvasc] 10 mg PO DAILY 09/29/15 [History] Clopidogrel [Plavix] 75 mg PO DAILY 09/29/15 [History] Modafinil [Provigil] 200 mg PO QAM 09/29/15 [History] Acetaminophen [Tylenol] 1,000 mg PO Q8HR PRN 12/05/15 [History] Cinacalcet [Sensipar] 30 mg PO DAILY 12/05/15 [History] Hydralazine HCl 50 mg PO BID 12/05/15 [History] Insulin LISPRO [HumaLOG] 2 - 12 unit SQ ACHS 12/05/15 [History] Omeprazole 20 mg PO QAM 12/05/15 [History] B Complex W-C No.20/Folic Acid [Virt-Caps Softgel] 1 mg PO DAILY 12/13/15 [ History] Sevelamer [Renvela] 3,200 mg PO TID 12/13/15 [History] Diltiazem HCl [Diltiazem ER] 120 mg PO DAILY 05/02/16 [History] Folic Acid 1 mg PO DAILY 05/02/16 [History] Ipratropium/Albuterol Neb [Duoneb] 3 ml IH Q4HR 05/02/16 [History] Ammonium Lactate [Marisol-Hydrolac] 1 appl TP BID 05/25/16 [History] Insulin Glargine [Lantus] 5 unit SQ DAILY #0 07/01/16 [Rx] HYDROcodone/Acet 5/325 mg [[place] 5-325 mg] 1 tab PO Q8H PRN 07/25/16 [History] Losartan Potassium [Cozaar] 100 mg PO DAILY 07/25/16 [History] Metoprolol [Lopressor] 100 mg PO BID 07/25/16 [History] Warfarin [Coumadin] 4 mg PO SUWE 07/25/16 [History] Gabapentin [Neurontin] 100 mg PO TID #90 capsule 07/26/16 [Rx] Allergies/Adverse Reactions: Allergies No Known Allergies Allergy (Verified 09/28/15 13:34) - Respiratory Orders Smoking Cessation: Smoking cessation has been advised. For more information, call the [place] Tobacco Quit Line at 2-942-SBRI-NOW. - Advance Directives Code Status: Full Code - Mobility Orders Chair, Ambulate - Rehabiliation Orders Rehab Potential: Fair Rehab Orders: Evaluation for Physical Therapy, Evaluation for Occupational Therapy - Diet Orders Renal CERTIFICATION: I certify that the transfer of the above named patient to an Extended Care Facility is necessary for the continuing treatment of the diagnosis listed. The above information is true and accurate reflection of patient's current condition. Confidential - Redisclosure prohibited without a patient's written consent.
[2016-07-26] MEDS ORDERED: *HR* Warfarin 5 MG TABLET PO SCH (18:00)
[2016-07-26] MEDS ORDERED: Warfarin perPT PO PRN (18:00)
[2016-07-26] MEDS ORDERED: Insulin LISPRO 300 UNITS/3 ML VIAL SQ SCH (21:00)
[2016-07-27] MEDS ORDERED: Gabapentin 100 MG CAPSULE PO SCH (07:00)
--- NOTE | 2016-07-27 09:56 | Electrocardiograph Report ---
[address] [place] [address] Test Date: 2016-07-25 Pat Name: Lulu Rico Department: 103 Room: 2A22 Gender: F Tester Sound: : 1945 Requested By: Colten Kurtz Order Number: [id number] Reading MD: Gilda Montesinos Measurements Intervals [place] Rate: 82 P: 58 ND: 131 QRS: -5 QRSD: 84 T: 95 QT: 373 QTc: 412 Interpretive Statements SINUS RHYTHM ST DEVIATION AND MODERATE T-WAVE ABNORMALITY, CONSIDER LATERAL ISCHEMIA Electronically Signed On 07-27-2016 9:55:13 EST by Gilda Montesinos
[2016-07-29] MEDS ORDERED: *HR* Warfarin 4 MG TABLET PO SCH (18:00)
== END 2016-07-26 15:34 ==
LOC: EMEROO 14:02 → 3BNU 14:02 → 2ANU 20:14
PROVIDERS: ADMIT Family Medicine; ATTEND Nurse Practitioner Family

== ENCOUNTER 2016-08-28 02:55 | Inpatient (IN) ==
--- NOTE | 2016-08-28 03:00 | Emergency Department Note ---
Disposition Clinical Impression: Hyperkalemia, ESRD (end stage renal disease) on dialysis, HCAP (healthcare- associated pneumonia) Altered mental status Qualifiers: Altered mental status type: unspecified Qualified Code(s): R41.82 - Altered mental status, unspecified Disposition: Admitted As Inpatient Condition: Fair Time of Disposition: 04:18 General Adult HPI - General Chief complaint: ED Shortness of Breath/Dyspnea Stated complaint: Hypoxia Source: EMS Mode of arrival: EMS Limitations: altered mental status Nursing Notes Reviewed: Yes Vital Signs Reviewed: Yes - History of Present Illness HPI Narrative: 71-year-old female with end-stage renal disease reportedly gets hemodialysis Saturday and COPD on 2L home oxygen presents via EMS from longterm for labor breathing, hypoxia and altered mental status. Patient was found to be hypoxic 89% with her 2L oxygen. She reportedly had a fever 100.4 and is not acting her baseline. EMS squad is very familiar with her states this is not her baseline. She opens her eyes to voice and moves all 4 extremities to pain. Point of care glucose 69. Lungs sounds course bilaterally. Sepsis workup initiated. - Related Data Home Medications Medication Instructions Recorded Confirmed Furosemide [Lasix] 80 mg PO BID 09/28/15 07/25/16 Levothyroxine Sodium [Tirosint] 150 mcg PO DAILY 09/28/15 07/25/16 Amlodipine [Norvasc] 10 mg PO DAILY 09/29/15 07/25/16 Clopidogrel [Plavix] 75 mg PO DAILY 09/29/15 07/25/16 Modafinil [Provigil] 200 mg PO QAM 09/29/15 07/25/16 Acetaminophen [Tylenol] 1,000 mg PO Q8HR PRN 12/05/15 07/25/16 Cinacalcet [Sensipar] 30 mg PO DAILY 12/05/15 07/25/16 Hydralazine HCl 50 mg PO BID 12/05/15 07/25/16 Insulin LISPRO [HumaLOG] 2 - 12 unit SQ ACHS 12/05/15 07/25/16 Omeprazole 20 mg PO QAM 12/05/15 07/25/16 B Complex W-C No.20/Folic Acid 1 mg PO DAILY 12/13/15 07/25/16 [Virt-Caps Softgel] Sevelamer [Renvela] 3,200 mg PO TID 12/13/15 07/25/16 Diltiazem HCl [Diltiazem ER] 120 mg PO DAILY 05/02/16 07/25/16 Folic Acid 1 mg PO DAILY 05/02/16 07/25/16 Ipratropium/Albuterol Neb [Duoneb] 3 ml IH Q4HR 05/02/16 07/25/16 Ammonium Lactate [Marisol-Hydrolac] 1 appl TP BID 05/25/16 07/25/16 HYDROcodone/Acet 5/325 mg [[place] 1 tab PO Q8H PRN 07/25/16 07/25/16 5-325 mg] Losartan Potassium [Cozaar] 100 mg PO DAILY 07/25/16 07/25/16 Metoprolol [Lopressor] 100 mg PO BID 07/25/16 07/25/16 Warfarin [Coumadin] 4 mg PO SUWE@1800 07/25/16 07/26/16 Warfarin [Coumadin] 5 mg PO MOTUTHFRSA@1800 07/26/16 07/26/16 Previous Rx's Medication Instructions Recorded Insulin Glargine [Lantus] 5 unit SQ DAILY #0 07/01/16 Gabapentin [Neurontin] 100 mg PO TID #90 capsule 07/26/16 Allergies Allergy/AdvReac Type Severity Reaction Status Date / Time No Known Allergies Allergy Verified 09/28/15 13:34 Limitations: ROS unobtainable due to patients medical condition (Altered mental status) Past Medical History - Past Medical History Attestation: Yes The following information was validated with the patient. Source: patient Medical history: Reports: arthritis, cardiomyopathy, COPD, coronary artery disease, diabetes, dialysis, GERD, hyperlipidemia, hypertension, osteoporosis, peripheral artery disease, renal disease, thyroid disease, other Surgical history: Reports: appendectomy, cholecystectomy, hip replacement, hysterectomy, orthopedic, other, ABIMAEL/BSO, other Psychiatric history: Reports: anxiety, depression, other - Social History Smoking Status: Current every day smoker Smokeless Tobacco Status: No Alcohol use: Reports: none Drug use: Reports: none, prescription drug abuse, other Physical Exam - General Limitations: altered mental status General appearance: in no apparent distress, lethargic - Head Head exam: atraumatic, normocephalic, normal inspection - Eye Eye exam: Present: normal appearance, PERRL, EOMI, miosis - ENT ENT exam: normal exam, normal oropharynx, mucous membranes dry - Neck Neck exam: Present: normal inspection, full ROM, trachea midline - Chest Chest inspection: Present: normal inspection, symmetric chest wall rise. Absent : tenderness, rash - Respiratory Respiratory exam: Present: respiratory distress, other (COARSE BREATH SOUNDS L > R, HYPOXIC) - Expanded Respiratory Exam Location: rales: Left - Cardiovascular Cardiovascular exam: Present: regular rate, normal rhythm, normal heart sounds - Abdominal Exam Abdominal exam: Present: soft, Non-Tender, normal bowel sounds. Absent: tenderness, distention, guarding, rebound, rigidity - Extremities Exam Extremities exam: Present: normal inspection, full ROM, other (right arm shunt with bruit) - Expanded Neurological Exam Coma Scale Eye Opening: To Voice Coma Scale Motor Response: Localizes to Pain Coma Scale Verbal Response: Confused Coma Scale Total: 12 - Psychiatric Psychiatric exam: Present: normal affect, normal mood - Skin Skin exam: Present: warm, dry, intact, normal color Course - Reevaluation(s) Reevaluation #1: Potassium elevated at 7.8. Creatinine is 9. EKG shows some hyperacute T waves. Will treat with calcium, bicarb, albuterol, and D50. CXR reveals left lung consolidation and likely edema, will treat for HCAP. Was previously admitted 07/25 for 48 hours as well as being a dialysis patient. Called dialysis center appears she did not get her dialysis as she was not feeling well and refused treatment. Dr. Nayak is her Price Checker. Will not fluid resuscitate 30 mL/ hr as she is fluid overloaded but will temporize her K with the D5 NS fluids. Troponin is elevated 0.10 suspect this is due to renal insufficiency. CT of the head does not reveal hemorrhage or intracranial abnormality. Time: 04:06 Reevaluation #2: Will treat her hypertension with Labetalol. She continues to respond to pain and will speak a few words before becoming somnolent. She moves all extremities and does not have any focal neuro deficits. Time: 05:31 - Consultations Consultation #1: Spoke with her Price Checker Dr. Nayak, requested hemodialysis but recommends to continue to temporize potassium until dialysis later today. Recommends giving Kaxyelate. Time: 04:34 Consultation #2: Spoke to shante Hinton to admit for HCAP, K 7.8, missed dialysis, and hypoxia. Patient is currently on 6L ventimask 95%. He is aware and will speak with Dr. Nayak for urgent hemodialysis. Time: 04:53 Vital Signs Temperature 97.6 F 08/28/16 02:57 Pulse Rate 79 08/28/16 02:57 Respiratory Rate 18 08/28/16 02:57 Blood Pressure 196/66 08/28/16 02:57 O2 Sat by Pulse Oximetry 97 08/28/16 02:57 Temperature 97.6 F 08/28/16 02:57 Pulse Rate 82 08/28/16 05:58 Respiratory Rate 16 08/28/16 06:09 Blood Pressure 203/75 08/28/16 06:09 O2 Sat by Pulse Oximetry 94 L 08/28/16 05:58 Oxygen Delivery Oxygen Delivery [place] Medical Decision Making - Medical Records Medical records reviewed: Yes I reviewed the patient's medical records. - Lab Data Lab results reviewed: Yes I reviewed the patient's lab results. Result diagrams: 08/28/16 03:13 08/28/16 03:13 Lab Results 08/28/16 08/28/16 08/28/16 Range/Units 03:02 03:13 03:13 WBC 13.3 H (4.3-11.1) K/mcL RBC 3.61 L (3.82-4.97) M/mcL Hgb 11.4 L (11.5-15.4) g/dL Hct 37.0 (35.3-44.9) % MCV 102.5 H (83.0-100.0) fL MCH 31.6 (28.0-33.3) pg MCHC 30.8 L (31.6-35.5) g/dL RDW 14.9 H (11.5-14.5) % Plt Count 167 (140-400) K/mcL MPV 11.1 (9.4-12.4) fL Immature Gran % 0.5 (0-4) % Seg Neutrophils % 76.5 % Lymphocytes % 11.6 % Monocytes % 6.9 % Eosinophils % 3.9 % Basophils % 0.6 % Neutrophils # 10.1 H (1.6-8.9) K/mcL Lymphocytes # 1.5 (0.6-4.6) K/mcL Monocytes # 0.9 (0.0-1.3) K/mcL Eosinophils # 0.5 (0.0-0.6) K/mcL Basophils # 0.1 (0.0-0.2) K/mcL PT (9.4-12.1) Seconds INR APTT (26.0-36.0) Seconds VBG pH (7.32-7.42) pH Units VBG pCO2 (41-51) mmHg VBG pO2 (25-40) mmHg VBG HCO3 (21-27) mEq/L Sodium 138 (136-145) mEq/L Potassium 7.8 H* (3.5-4.5) mEq/L Chloride 100 (98-109) mEq/L Carbon Dioxide 24 (19-29) mEq/L BUN 63 H (7-20) mg/dL Creatinine 9.97 H (0.57-1.11) mg/dL Est GFR ( Amer) 5 L (> 60) Est GFR (Non-Af Amer) 4 L (> 60) BUN/Creatinine Ratio 6 (6-26) Glucose 83 (70-99) mg/dL POC Glucose 79 (58-89) Calculated Osmolality 303 H (280-300) Lactic Acid (0.5-2.2) mmol/L Calcium 9.3 (8.6-10.8) mg/dL Phosphorus 5.8 H (2.3-4.7) mg/dL Magnesium 2.6 (1.6-2.6) mg/dL Total Bilirubin 0.5 (0.2-1.2) mg/dL Direct Bilirubin 0.2 (0.0-0.5) mg/dL Indirect Bilirubin 0.3 (0.0-1.2) mg/dL AST 15 (5-34) Units/L ALT 12 (0-55) Units/L Alkaline Phosphatase 105 (38-126) Units/L Troponin I (0-0.03) ng/mL Serum Total Protein 7.8 (6.0-8.3) g/dL Albumin 2.9 L (3.5-5.0) g/dL Globulin 4.9 H (2.4-3.5) g/dL Albumin/Globulin Ratio 0.6 L (1.1-2.2) 08/28/16 08/28/16 08/28/16 Range/Units 03:13 03:13 03:13 WBC (4.3-11.1) K/mcL RBC (3.82-4.97) M/mcL Hgb (11.5-15.4) g/dL Hct (35.3-44.9) % MCV (83.0-100.0) fL MCH (28.0-33.3) pg MCHC (31.6-35.5) g/dL RDW (11.5-14.5) % Plt Count (140-400) K/mcL MPV (9.4-12.4) fL Immature Gran % (0-4) % Seg Neutrophils % % Lymphocytes % % Monocytes % % Eosinophils % % Basophils % % Neutrophils # (1.6-8.9) K/mcL Lymphocytes # (0.6-4.6) K/mcL Monocytes # (0.0-1.3) K/mcL Eosinophils # (0.0-0.6) K/mcL Basophils # (0.0-0.2) K/mcL PT (9.4-12.1) Seconds INR APTT (26.0-36.0) Seconds VBG pH 7.30 L (7.32-7.42) pH Units VBG pCO2 48 (41-51) mmHg VBG pO2 50 H (25-40) mmHg VBG HCO3 23.6 (21-27) mEq/L Sodium (136-145) mEq/L Potassium (3.5-4.5) mEq/L Chloride (98-109) mEq/L Carbon Dioxide (19-29) mEq/L BUN (7-20) mg/dL Creatinine (0.57-1.11) mg/dL Est GFR ( Amer) (> 60) Est GFR (Non-Af Amer) (> 60) BUN/Creatinine Ratio (6-26) Glucose (70-99) mg/dL POC Glucose (58-89) Calculated Osmolality (280-300) Lactic Acid 0.7 (0.5-2.2) mmol/L Calcium (8.6-10.8) mg/dL Phosphorus (2.3-4.7) mg/dL Magnesium (1.6-2.6) mg/dL Total Bilirubin (0.2-1.2) mg/dL Direct Bilirubin (0.0-0.5) mg/dL Indirect Bilirubin (0.0-1.2) mg/dL AST (5-34) Units/L ALT (0-55) Units/L Alkaline Phosphatase (38-126) Units/L Troponin I 0.10 H* (0-0.03) ng/mL Serum Total Protein (6.0-8.3) g/dL Albumin (3.5-5.0) g/dL Globulin (2.4-3.5) g/dL Albumin/Globulin Ratio (1.1-2.2) 08/28/ Range/Units 03:13 WBC (4.3-11.1) K/mcL RBC (3.82-4.97) M/mcL Hgb (11.5-15.4) g/dL Hct (35.3-44.9) % MCV (83.0-100.0) fL MCH (28.0-33.3) pg MCHC (31.6-35.5) g/dL RDW (11.5-14.5) % Plt Count (140-400) K/mcL MPV (9.4-12.4) fL Immature Gran % (0-4) % Seg Neutrophils % % Lymphocytes % % Monocytes % % Eosinophils % % Basophils % % Neutrophils # (1.6-8.9) K/mcL Lymphocytes # (0.6-4.6) K/mcL Monocytes # (0.0-1.3) K/mcL Eosinophils # (0.0-0.6) K/mcL Basophils # (0.0-0.2) K/mcL PT 30.9 H (9.4-12.1) Seconds INR 2.8 APTT 52.5 H (26.0-36.0) Seconds VBG pH (7.32-7.42) pH Units VBG pCO2 (41-51) mmHg VBG pO2 (25-40) mmHg VBG HCO3 (21-27) mEq/L Sodium (136-145) mEq/L Potassium (3.5-4.5) mEq/L Chloride (98-109) mEq/L Carbon Dioxide (19-29) mEq/L BUN (7-20) mg/dL Creatinine (0.57-1.11) mg/dL Est GFR ( Amer) (> 60) Est GFR (Non-Af Amer) (> 60) BUN/Creatinine Ratio (6-26) Glucose (70-99) mg/dL POC Glucose (58-89) Calculated Osmolality (280-300) Lactic Acid (0.5-2.2) mmol/L Calcium (8.6-10.8) mg/dL Phosphorus (2.3-4.7) mg/dL Magnesium (1.6-2.6) mg/dL Total Bilirubin (0.2-1.2) mg/dL Direct Bilirubin (0.0-0.5) mg/dL Indirect Bilirubin (0.0-1.2) mg/dL AST (5-34) Units/L ALT (0-55) Units/L Alkaline Phosphatase (38-126) Units/L Troponin I (0-0.03) ng/mL Serum Total Protein (6.0-8.3) g/dL Albumin (3.5-5.0) g/dL Globulin (2.4-3.5) g/dL Albumin/Globulin Ratio (1.1-2.2) - Radiology Data Radiology results reviewed: Yes I reviewed the patient's radiology results. Chest X-Ray 08/28/16 03:01 IMPRESSION: Dense consolidation in the left upper lung zone may represent atelectasis, perhaps a result of mucous plugging or central obstruction. Acute pneumonia or asymmetric pulmonary edema may also be considered clinically. D/ / Armando Clarke MD / Armando Clarke MD Interpreting Provider: Armando Clarke MD Head CT 08/28/16 03:04 IMPRESSION: 1. No acute intracranial abnormality, and no interval change. 2. Chronic opacification of mastoid air cells bilaterally. D/ / Armando Clarke MD / Armando Clarke MD Interpreting Provider: Armando Clarke MD - EKG Data EKG #1 EKG attestation: Yes I reviewed and interpreted this EKG. EKG results narrative: EKG performed 0353 normal sinus rhythm 75 bpm, good R-R wave progression, normal axis, there are hyperacute T waves in precordial leads, there are no ST elevations or depressions, no T-wave inversions. Intervals are within normal limits [place] interval 162 QRS 96 QT QTC 385 415. Compared to old EKG performed 10/17 shows normal T waves. No acute ichemic changes. Critical Care Time Critical Care Time: Yes Total Critical Care Time: 35 Attestation: Acute hyperkalemia and hypoxia Attestation Statement - Attestation Attestation: Dr. Domínguez note: Patient was seen in conjunction with resident : Please see history for complete documentation. I placed an [id number] time with the patient and I agree with the patient's treatment and disposition. Patient presented with hypoxia and fluid load and hyperkalemia after refusing her dialysis treatment today which the longterm apparently did not in any way forced her to proceed with and told our RN in the ER that " she didn't want to get up"; x ray and blood work reviewed
[2016-08-28] MEDS ORDERED: *HR* Dextrose 50 % in Water (Syg) 50 ML SYRINGE IVP ONE (03:03)
[2016-08-28 03:31] LABS: Basophils # 0.1 K/mcL (0.0-0.2); Basophils % 0.6 %; Eosinophils # 0.5 K/mcL (0.0-0.6); Eosinophils % 3.9 %; Hemoglobin 11.4 g/dL (11.5-15.4); Immature Granulocytes % 0.5 % (0-4); Lymphocytes # 1.5 K/mcL (0.6-4.6); Lymphocytes % 11.6 %; Mean Corpuscular HGB Conc 30.8 g/dL (31.6-35.5); Mean Corpuscular Hemoglobin 31.6 pg (28.0-33.3); Mean Corpuscular Volume 102.5 fL (83.0-100.0); Mean Platelet Volume 11.1 fL (9.4-12.4); Monocytes # 0.9 K/mcL (0.0-1.3); Monocytes % 6.9 %; Neutrophils # 10.1 K/mcL (1.6-8.9); Platelet Count 167 K/mcL (140-400); Red Blood Count 3.61 M/mcL (3.82-4.97); Red Cell Distribution Width 14.9 % (11.5-14.5); Segmented Neutrophils % 76.5 %
[2016-08-28 03:36] LABS: INR 2.8; Prothrombin Time 30.9 Seconds (9.4-12.1)
[2016-08-28 03:38] LABS: Activated Partial Thrombo Time 52.5 Seconds (26.0-36.0)
[2016-08-28 03:40] LABS: VBG HCO3 23.6 mEq/L (21-27); VBG PH 7.3 pH Units (7.32-7.42)
[2016-08-28 03:45] LABS: Albumin 2.9 g/dL (3.5-5.0); Albumin/Globulin Ratio 0.6 (1.1-2.2); Bilirubin,Direct 0.2 mg/dL (0.0-0.5); Bilirubin,Indirect 0.3 mg/dL (0.0-1.2); Bilirubin,Total 0.5 mg/dL (0.2-1.2); Calcium 9.3 mg/dL (8.6-10.8); Globulin 4.9 g/dL (2.4-3.5); Magnesium 2.6 mg/dL (1.6-2.6); Phosphorous 5.8 mg/dL (2.3-4.7); Total Protein 7.8 g/dL (6.0-8.3)
[2016-08-28 03:47] LABS: Potassium 7.8 mEq/L (3.5-4.5)
[2016-08-28] MEDS ORDERED: Calcium Gluconate 2,000 MG in D5% in Water 100 ML IVPB ONE (03:54)
[2016-08-28] MEDS ORDERED: Sodium Bicarbonate 50 MEQ/50 ML VIAL IVP ONE ×2 (03:57→04:55)
[2016-08-28] MEDS ORDERED: Albuterol 2.5 MG/3 ML NEBULIZER IH ONE (03:58)
[2016-08-28] MEDS ORDERED: D5% in 0.45% NACL 1,000 ML IVC SCH (04:45)
[2016-08-28] MEDS ORDERED: Insulin LISPRO 300 UNITS/3 ML VIAL SQ ONE (04:57)
[2016-08-28] MEDS ORDERED: Furosemide 40 MG/4 ML VIAL IVP ONE (04:59)
[2016-08-28] MEDS ORDERED: *HR* Labetalol 20 MG/4 ML SYRINGE IVP ONE (05:20)
[2016-08-28] MEDS ORDERED: Acetaminophen 650 MG RECTAL SUPP RC PRN (05:38)
[2016-08-28] MEDS ORDERED: Naloxone 0.4 MG/ML INJ IVP PRN (05:38)
[2016-08-28 05:47] LABS: ABG Base Excess 2.2 mEq/L (-2.0 to 3.0); ABG HCO3 27.8 mEQ/L (21-27); ABG Oxygen Saturation 88 % (95-98); ABG PCO2 47 mmHg (35-45); ABG PH 7.38 pH Units (7.32-7.45); ABG PO2 56 mmHg (85-104); ABG TCO2 29.2 mEq/L (20-26)
[2016-08-28 05:48] LABS: Blood Gas FiO2 40 %; Blood Gas Liter Flow 7 L/MIN
[2016-08-28] MEDS ORDERED: D5% in Water 1,000 ML IV PRN (05:50)
[2016-08-28] MEDS ORDERED: Dextrose Gel 15 GM PO PRN ×2 (05:50)
[2016-08-28] MEDS ORDERED: *HR* Dextrose 50 % in Water (Syg) 50 ML SYRINGE IVP PRN (05:50)
--- NOTE | 2016-08-28 05:50 | Internal Med History&Physical ---
<Tashi Marin - Last Filed: 08/28/16 05:49> Time of Encounter: 05:15 Internal Medicine - H&P: HPI History of present illness: Ms. Rico is a 71 year old female Past Med Surg Social Fam HX - Past Medical History Medical history: arthritis, cardiomyopathy, COPD, coronary artery disease, diabetes, dialysis, GERD, hyperlipidemia, hypertension, osteoporosis, peripheral artery disease, renal disease, thyroid disease, other Psychiatric history: anxiety, depression, other - Past Surgical History Surgical History: appendectomy, cholecystectomy, hip replacement, hysterectomy, orthopedic, other, ABIMAEL/BSO, other - Social History Smoking Status: Current every day smoker Smokeless Tobacco Status: No Alcohol use: none Drug use: none, prescription drug abuse, other - Family History Mother Living Status: Hx Family Cardiac Disorders: Yes (Hypertension hyperlipidemia) Hx Family Endocrine Disorder: Yes (DMII) Father Living Status: Hx Family Cardiac Disorders: Yes (Hypertension hyperlipidemia) Hx Family Cancer: Yes (Lung cancer) Hx Family Endocrine Disorder: Yes (Diabetes) Internal Medicine - H&P: Meds Furosemide [Lasix] 80 mg PO BID 09/28/15 [History] Levothyroxine Sodium [Tirosint] 150 mcg PO DAILY 09/28/15 [History] Amlodipine [Norvasc] 10 mg PO DAILY 09/29/15 [History] Clopidogrel [Plavix] 75 mg PO DAILY 09/29/15 [History] Modafinil [Provigil] 200 mg PO QAM 09/29/15 [History] Acetaminophen [Tylenol] 1,000 mg PO Q8HR PRN 12/05/15 [History] Cinacalcet [Sensipar] 30 mg PO DAILY 12/05/15 [History] Hydralazine HCl 50 mg PO BID 12/05/15 [History] Insulin LISPRO [HumaLOG] 2 - 12 unit SQ ACHS 12/05/15 [History] Omeprazole 20 mg PO QAM 12/05/15 [History] B Complex W-C No.20/Folic Acid [Virt-Caps Softgel] 1 mg PO DAILY 12/13/15 [ History] Sevelamer [Renvela] 3,200 mg PO TID 12/13/15 [History] Diltiazem HCl [Diltiazem ER] 120 mg PO DAILY 05/02/16 [History] Folic Acid 1 mg PO DAILY 05/02/16 [History] Ipratropium/Albuterol Neb [Duoneb] 3 ml IH Q4HR 05/02/16 [History] Ammonium Lactate [Marisol-Hydrolac] 1 appl TP BID 05/25/16 [History] Insulin Glargine [Lantus] 5 unit SQ DAILY #0 07/01/16 [Rx] HYDROcodone/Acet 5/325 mg [[place] 5-325 mg] 1 tab PO Q8H PRN 07/25/16 [History] Losartan Potassium [Cozaar] 100 mg PO DAILY 07/25/16 [History] Metoprolol [Lopressor] 100 mg PO BID 07/25/16 [History] Warfarin [Coumadin] 4 mg PO SUWE@1800 07/25/16 [History] Gabapentin [Neurontin] 100 mg PO TID #90 capsule 07/26/16 [Rx] Warfarin [Coumadin] 5 mg PO MOTUTHFRSA@1800 07/26/16 [History] Allergies No Known Allergies Allergy (Verified 09/28/15 13:34) All Systems PM: A 10-system review of systems was performed and is negative for pertinent findings except as documented above in the HPI. - Constitutional Vitals: Temp Pulse Resp BP Pulse Ox 97.6 F 84 17 183/136 93 L 08/28/16 02:57 08/28/16 04:23 08/28/16 05:40 08/28/16 04:23 08/28/16 05:40 Internal Med - H&P Results - Labs CBC & Chem 7: 08/28/16 03:13 08/28/16 03:13 - ABG Interpretation ABG results: 08/28/16 05:30 ABG pH 7.38 ABG pCO2 47 H ABG pO2 56 L ABG HCO3 27.8 H ABG Total CO2 29.2 H ABG O2 Saturation 88 L ABG Base Excess 2.2 <Edilberto Espitia - Last Filed: 08/28/16 05:52> Date of Encounter: 08/28/16 Internal Medicine - H&P: HPI History of present illness: Ms. Rico is a 71 year old female All Systems PM: A 10-system review of systems was performed and is negative for pertinent findings except as documented above in the HPI. - Constitutional Vitals: Temp Pulse Resp BP Pulse Ox 97.6 F 84 17 183/136 93 L 08/28/16 02:57 08/28/16 04:23 08/28/16 05:40 08/28/16 04:23 08/28/16 05:40 Internal Med - H&P Results - Labs CBC & Chem 7: 08/28/16 03:13 08/28/16 03:13 - ABG Interpretation ABG results: 08/28/16 05:30 ABG pH 7.38 ABG pCO2 47 H ABG pO2 56 L ABG HCO3 27.8 H ABG Total CO2 29.2 H ABG O2 Saturation 88 L ABG Base Excess 2.2
--- NOTE | 2016-08-28 05:51 | Event Note ---
Date of Encounter: 08/28/16 Time of Encounter: 05:47 Patient seen and examined the medical transcription supervisor. Patient presented from the group home with altered mental status and hypoxia. Patient is an end-stage renal disease on hemodialysis home missed her dialysis session yesterday. Patient is in acute pulmonary edema has been recording non-rebreather mask on arrival to the emergency room. Agent is also hypercalcemic with a potassium of 7.8 with hypokalemic EKG changes including hyperAcute T waves. I have discussed the case immediately with Dr. Aleman who kindly arranged for immediate dialysis of the patient. Arterial blood gas will be performed. Patient will be placed immediately on BiPAP. Recent blood pressure is 200 systolic and therefore I will start her on nitroglycerin drip. Patient x-ray showing whitening out to the left lung which may be unilateral pulmonary edema however there is shift of mediastinum to the left side so there may be an element of lung collapse. Patient admitted to the intensive care unit. Patient is full code. If no improvement in her respiratory status with BiPAP, patient will be intubated
[2016-08-28] MEDS: Nitroglycerin 25 MG/250 ML INFUS..BTL IVC SCH (05:54)
[2016-08-28] MEDS ORDERED: Vancomycin (wt based) 1,000 MG VIAL IVPB SCH (06:00)
[2016-08-28] MEDS ORDERED: *HR* Heparin 5,000 UNIT/ML VIAL SQ SCH (06:00)
[2016-08-28] MEDS ORDERED: Piperacillin/Tazobactam 3.375 GM in D5% in Water (Mini-Bag+) 100 ML IVPB SCH (06:00)
[2016-08-28] MEDS ORDERED: 0.9 % Sodium Chloride 2,000 ML ONE (06:20)
[2016-08-28] MEDS ORDERED: 0.9 % Sodium Chloride 250 ML IV PRN (06:31)
[2016-08-28] MEDS ORDERED: 0.9 % Sodium Chloride 1,000 ML PRIME SCH (06:45)
[2016-08-28 07:24] LABS: Calcium 9.8 mg/dL (8.6-10.8)
--- NOTE | 2016-08-28 07:40 | Nephrology Consult Note ---
Date of Encounter: 08/28/16 Time of Encounter: 07:38 Assessment and Plan (1) ESRD (end stage renal disease) on dialysis Current Visit: Yes Status: Acute Patient has end-stage renal disease. She presents with hyperkalemia after not receiving her usual dialysis yesterday as an outpatient. She currently is undergoing emergent dialysis with a 1K bath. She presents with an elevated blood pressure. Volume removal on dialysis is 3 kg. Her blood pressure starting to improve. She has hypoxemia and a consolidation at the left upper lobe likely a result of pneumonia possible mucus plugging. She does have underlying COPD and continues to smoke. She will require antibiotics. She will require cultures. She will require the initiation of her usual outpatient antihypertensive medications. (2) HCAP (healthcare-associated pneumonia) Current Visit: Yes Status: Suspected (3) Hyperkalemia Current Visit: Yes Status: Acute History of Present Illness - History of Present Illness This is a 71-year-old female with end-stage renal disease who dialyzes in [place] every Saturday. Patient was transferred from the [facility] to the emergency room because of hypoxemia and mental status changes. Apparently the patient did not receive her dialysis yesterday. She presents now with a potassium of 7.8 elevated blood pressure hypoxemia. She currently is in the intensive care unit on BiPAP. She is undergoing urgent dialysis. She is somewhat responsive but unable to answer a lot of questions. She does follow simple commands. She will arouse to verbal stimuli and she seems to know her name Past Med Surg Social [facility] HX - Past Medical History Medical history: arthritis, cardiomyopathy, COPD, coronary artery disease, diabetes, dialysis, GERD, hyperlipidemia, hypertension, osteoporosis, peripheral artery disease, renal disease, thyroid disease, other Psychiatric history: anxiety, depression, other - Past Surgical History Surgical History: appendectomy, cholecystectomy, hip replacement, hysterectomy, orthopedic, other, ABIMAEL/BSO, other - Social History Smoking Status: Current every day smoker Smokeless Tobacco Status: No Alcohol use: none Drug use: none, prescription drug abuse, other - Family History Mother Living Status: Hx Family Cardiac Disorders: Yes (Hypertension hyperlipidemia) Hx Family Endocrine Disorder: Yes (DMII) Father Living Status: Hx Family Cardiac Disorders: Yes (Hypertension hyperlipidemia) Hx Family Cancer: Yes (Lung cancer) Hx Family Endocrine Disorder: Yes (Diabetes) Medications and Allergies Furosemide [Lasix] 80 mg PO BID 09/28/15 [History] Levothyroxine Sodium [Tirosint] 150 mcg PO DAILY 09/28/15 [History] Clopidogrel [Plavix] 75 mg PO DAILY 09/29/15 [History] Modafinil [Provigil] 200 mg PO QAM 09/29/15 [History] Acetaminophen [Tylenol] 1,000 mg PO Q8HR PRN 12/05/15 [History] Cinacalcet [Sensipar] 30 mg PO DAILY 12/05/15 [History] Insulin LISPRO [HumaLOG] 2 - 12 unit SQ QID PRN 12/05/15 [History] Omeprazole 20 mg PO QAM 12/05/15 [History] B Complex W-C No.20/Folic Acid [Virt-Caps Softgel] 1 mg PO DAILY 12/13/15 [ History] Sevelamer [Renvela] 4,000 mg PO TID 12/13/15 [History] Diltiazem HCl [Diltiazem ER] 120 mg PO DAILY 05/02/16 [History] Folic Acid 1 mg PO DAILY 05/02/16 [History] Ipratropium/Albuterol Neb [Duoneb] 3 ml IH Q4HR 05/02/16 [History] Ammonium Lactate [Marisol-Hydrolac] 1 appl TP BID 05/25/16 [History] HYDROcodone/Acet 5/325 mg [[place] 5-325 mg] 1 tab PO Q8H PRN 07/25/16 [History] Losartan Potassium [Cozaar] 100 mg PO QAM 07/25/16 [History] Metoprolol [Lopressor] 100 mg PO BID 07/25/16 [History] Warfarin [Coumadin] 4 mg PO MOTH 07/25/16 [History] Gabapentin [Neurontin] 100 mg PO TID #90 capsule 07/26/16 [Rx] Warfarin [Coumadin] 5 mg PO SUTUWEFRSA 07/26/16 [History] Insulin Glargine [Lantus] 5 unit SQ HS 08/28/16 [History] Allergies No Known Allergies Allergy (Verified 08/28/16 07:56) Review of Systems ROS unobtainable: due to mental status Exam - Vital Signs Vital signs: Initial Vital Signs Temp Pulse Resp BP Pulse Ox 97.6 F 79 18 196/66 97 08/28/16 02:57 08/28/16 02:57 08/28/16 02:57 08/28/16 02:57 08/28/16 02:57 Vital Signs - Last 8 Hours Temp Pulse Resp BP Pulse Ox 08/28/16 07:00 86 20 208/85 94 L 08/28/16 06:40 99.2 F 83 22 211/74 94 L 08/28/16 06:09 16 203/75 08/28/16 05:58 82 17 204/82 94 L 08/28/16 05:40 17 93 L Intake and Output 08/27/16 08/27/16 08/28/16 15:59 23:59 07:59 Other: Weight 58.7 kg Blood Glucose* 134 Patient Weight 08/28/16 23:59 Weight 58.7 kg - General Appearance Exam: Patient is on BiPAP. She is currently undergoing dialysis. She is in no acute distress. She is able to follow simple commands and arouses to her name. Lungs diminished breath sounds especially on the left. Heart regular rate and rhythm with a 2/6 systolic ejection murmur. Abdomen is soft. Bowel sounds are present. No masses or organomegaly tenderness or guarding. Lower extremities show no peripheral edema. She does have a functioning AV fistula in the right upper extremity. Results - Lab Results 08/31/16 05:07 08/31/16 05:07 Most recent lab results ABG pH 7.38 pH Units (7.32-7.45) 08/28/16 05:30 ABG pCO2 47 mmHg (35-45) H 08/28/16 05:30 ABG pO2 56 mmHg (85-104) L 08/28/16 05:30 ABG HCO3 27.8 mEQ/L (21-27) H 08/28/16 05:30 ABG O2 Saturation 88 % (95-98) L 08/28/16 05:30 Calcium 9.8 mg/dL (8.6-10.8) 08/28/16 07:02 Phosphorus 5.8 mg/dL (2.3-4.7) H 08/28/16 03:13 Magnesium 2.6 mg/dL (1.6-2.6) 08/28/16 03:13 Consult Discharge Plan - Plan Referrals: NO,PCP [Primary Care Provider] -
[2016-08-28] MEDS: Ipratropium/Albuterol Neb 3 ML IH SCH ×5 (07:54→23:11)
[2016-08-28] MEDS: Insulin LISPRO 300 UNITS/3 ML VIAL SQ SCH ×4 (08:14→23:52)
[2016-08-28] MEDS: Vancomycin 1,250 MG in D5% in Water 250 ML IVPB ONE ×2 (08:19→10:15)
[2016-08-28] MEDS: Pantoprazole 40 MG VIAL IVPB SCH (08:33)
[2016-08-28] MEDS ORDERED: *HR* Midazolam HCl 5 MG/5 ML VIAL IVP ONE (08:42)
[2016-08-28] MEDS ORDERED: *HR* Etomidate 20 MG/10 ML AMPUL IVP ONE (08:42)
--- NOTE | 2016-08-28 09:09 | Pulmonology History & Physical ---
Date of Encounter: 08/28/16 Time of Encounter: 09:04 Assessment and Plan (1) Acute metabolic encephalopathy Current visit: Yes Status: Acute 2nd to ESRD and missing dialysis, hyperkalemia and acute on chronic respiratory failure with hypoxia and hypercania 2nd to pulmonary edema/pneumonia -initially patient was only responsive to painful stimuli -undergoing dialysis on BIAPAP and now follows simple commands -continue to monitor repirtory status -CBC and BMP AM -will start home medications after dialysis. (2) Acute and chronic respiratory failure Current visit: Yes Status: Acute suspected 2nd to pneumonia (HCAP) and/ or pulmonary edema 2nd t fluid overload from missing dialysis CXR indicates left side pulmonary edema/ pneumonia/muccous plugging. -patients daughter was called for consent for intubation and diagnostic/ therapeutic bronchoscopy and BAL oxygenation improved on BIAPAP, will continue continue vanc and zosyn reassess respiratory status after dialysis. Qualifiers: Respiratory failure complication: hypoxia and hypercapnia Qualified Code(s) : J96.21 - Acute and chronic respiratory failure with hypoxia; J96.22 - Acute and chronic respiratory failure with hypercapnia (3) ESRD (end stage renal disease) on dialysis Current visit: Yes Status: Acute hx of ESRD with MWF dialysis missed dialysis Saturday undergoing urgent dialysis nephrology following. (4) Hyperkalemia Current visit: Yes Status: Acute presented with K+ of 7.8. EKG showed peaked t waves received calcium gluconate, bicarbonate, D50 and insulin, and albuterol undergoing urgent dialysis BMP after dialysis. (5) HCAP (healthcare-associated pneumonia) Current visit: Yes Status: Suspected CXR shows left sided opacification. Patient came from ECF WBC 13.3 with left shift continue vanc, zosyn (6) Atrial fibrillation Current visit: No Status: Chronic rate controlled. and anti coagulated with warfarin. Qualifiers: Atrial fibrillation type: chronic Qualified Code(s): I48.2 - Chronic atrial fibrillation (7) DVT prophylaxis Current visit: No Status: Acute on warfarin for afib. History of Present Illness Chief complaint: Altered mental status HPI: Ms. Rico is a 71 year old female hx of COPD, ESRD, HTN presented to ER with AMS from ECF. Patient thas MWF dialysis and missed her dialysis yesterday. According to time study statistician report she was altered and responsive to painful stimuli. She had a potassium of 7.8. EKG showed peaked t waves. SHe received calcium gluconate, bicarb, D50 and insulin, albuterol and urgent dialysis. Furthermore she was hypoxemic and hypercapnic requiring BIPAP. CXR showed left lung opacification, possibly pneumonia/mucoucs plugning/pulmonary edema. Past Med Surg Social Fam HX - Past Medical History Medical history: arthritis, cardiomyopathy, COPD, coronary artery disease, diabetes, dialysis, GERD, hyperlipidemia, hypertension, osteoporosis, peripheral artery disease, renal disease, thyroid disease, other Psychiatric history: anxiety, depression, other - Past Surgical History Surgical History: appendectomy, cholecystectomy, hip replacement, hysterectomy, orthopedic, other, ABIMAEL/BSO, other - Social History Smoking Status: Current every day smoker Smokeless Tobacco Status: No Alcohol use: none Drug use: none, prescription drug abuse, other - Family History Mother Living Status: Hx Family Cardiac Disorders: Yes (Hypertension hyperlipidemia) Hx Family Endocrine Disorder: Yes (DMII) Father Living Status: Hx Family Cardiac Disorders: Yes (Hypertension hyperlipidemia) Hx Family Cancer: Yes (Lung cancer) Hx Family Endocrine Disorder: Yes (Diabetes) Medications and Allergies Furosemide [Lasix] 80 mg PO BID 09/28/15 [History] Levothyroxine Sodium [Tirosint] 150 mcg PO DAILY 09/28/15 [History] Clopidogrel [Plavix] 75 mg PO DAILY 09/29/15 [History] Modafinil [Provigil] 200 mg PO QAM 09/29/15 [History] Acetaminophen [Tylenol] 1,000 mg PO Q8HR PRN 12/05/15 [History] Cinacalcet [Sensipar] 30 mg PO DAILY 12/05/15 [History] Insulin LISPRO [HumaLOG] 2 - 12 unit SQ QID PRN 12/05/15 [History] Omeprazole 20 mg PO QAM 12/05/15 [History] B Complex W-C No.20/Folic Acid [Virt-Caps Softgel] 1 mg PO DAILY 12/13/15 [ History] Sevelamer [Renvela] 4,000 mg PO TID 12/13/15 [History] Diltiazem HCl [Diltiazem ER] 120 mg PO DAILY 05/02/16 [History] Folic Acid 1 mg PO DAILY 05/02/16 [History] Ipratropium/Albuterol Neb [Duoneb] 3 ml IH Q4HR 05/02/16 [History] Ammonium Lactate [Marisol-Hydrolac] 1 appl TP BID 05/25/16 [History] HYDROcodone/Acet 5/325 mg [[place] 5-325 mg] 1 tab PO Q8H PRN 07/25/16 [History] Losartan Potassium [Cozaar] 100 mg PO QAM 07/25/16 [History] Metoprolol [Lopressor] 100 mg PO BID 07/25/16 [History] Warfarin [Coumadin] 4 mg PO MOTH 07/25/16 [History] Gabapentin [Neurontin] 100 mg PO TID #90 capsule 07/26/16 [Rx] Warfarin [Coumadin] 5 mg PO SUTUWEFRSA 07/26/16 [History] Insulin Glargine [Lantus] 5 unit SQ HS 08/28/16 [History] Allergies No Known Allergies Allergy (Verified 08/28/16 07:56) ROS unobtainable: due to mental status All Systems: A 10-system review of systems was performed and is negative for pertinent findings except as documented above in the HPI. Physical Examination Vital Signs: Vital Signs, Last 4 Hours Temp Pulse Resp BP Pulse Ox 08/28/16 09:00 122/53 08/28/16 08:45 155/107 08/28/16 08:30 131/91 08/28/16 08:15 161/60 08/28/16 08:00 99.2 F 90 19 179/97 94 L 08/28/16 07:55 20 94 L 08/28/16 07:45 150/116 08/28/16 07:30 191/78 08/28/16 07:15 99.2 F 20 208/70 08/28/16 07:00 86 20 208/85 94 L 08/28/16 06:40 99.2 F 83 22 211/74 94 L 08/28/16 06:09 16 203/75 08/28/16 05:58 82 17 204/82 94 L 08/28/16 05:40 17 93 L General appearance: no acute distress, alert, other (follows simple commands but does not answer questions, has full body tremor ) Eyes: nonicteric Mallampati (class): 2 Effort: mildly labored Inspection: kyphosis Auscultation: left: diminished breath sounds, rales, right: clear Cardiovascular: regular rate and rhythm Gastrointestinal: normoactive bowel sounds, soft, non-tender Integumentary: normal Extremities: no cyanosis, no edema, no clubbing, pulses normal unable to assess due to mental status Results - Laboratory Findings CBC and BMP: 08/28/16 03:13 08/28/16 07:02 ABG ABG pH 7.38 pH Units (7.32-7.45) 08/28/16 05:30 ABG pCO2 47 mmHg (35-45) H 08/28/16 05:30 ABG pO2 56 mmHg (85-104) L 08/28/16 05:30 ABG O2 Saturation 88 % (95-98) L 08/28/16 05:30 PT/INR, D-dimer PT 30.9 Seconds (9.4-12.1) H 08/28/16 03:13 Abnormal lab findings: Abnormal lab results WBC 13.3 K/mcL (4.3-11.1) H 08/28/16 03:13 RBC 3.61 M/mcL (3.82-4.97) L 08/28/16 03:13 Hgb 11.4 g/dL (11.5-15.4) L 08/28/16 03:13 MCV 102.5 fL (83.0-100.0) H 08/28/16 03:13 MCHC 30.8 g/dL (31.6-35.5) L 08/28/16 03:13 RDW 14.9 % (11.5-14.5) H 08/28/16 03:13 Neutrophils # 10.1 K/mcL (1.6-8.9) H 08/28/16 03:13 PT 30.9 Seconds (9.4-12.1) H 08/28/16 03:13 APTT 52.5 Seconds (26.0-36.0) H 08/28/16 03:13 ABG pCO2 47 mmHg (35-45) H 08/28/16 05:30 ABG pO2 56 mmHg (85-104) L 08/28/16 05:30 ABG HCO3 27.8 mEQ/L (21-27) H 08/28/16 05:30 ABG Total CO2 29.2 mEq/L (20-26) H 08/28/16 05:30 ABG O2 Saturation 88 % (95-98) L 08/28/16 05:30 VBG pH 7.30 pH Units (7.32-7.42) L 08/28/16 03:13 VBG pO2 50 mmHg (25-40) H 08/28/16 03:13 Potassium 7.0 mEq/L (3.5-4.5) H* 08/28/16 07:02 BUN 63 mg/dL (7-20) H 08/28/16 07:02 Creatinine 9.83 mg/dL (0.57-1.11) H 08/28/16 07:02 Est GFR ( Amer) 5 (> 60) L 08/28/16 07:02 Est GFR (Non-Af Amer) 4 (> 60) L 08/28/16 07:02 Glucose 128 mg/dL (70-99) H 08/28/16 07:02 POC Glucose 134 (58-89) H 08/28/16 06:42 Calculated Osmolality 308 (280-300) H 08/28/16 07:02 Phosphorus 5.8 mg/dL (2.3-4.7) H 08/28/16 03:13 Troponin I 0.10 ng/mL (0-0.03) H* 08/28/16 03:13 Albumin 2.9 g/dL (3.5-5.0) L 08/28/16 03:13 Globulin 4.9 g/dL (2.4-3.5) H 08/28/16 03:13 Albumin/Globulin Ratio 0.6 (1.1-2.2) L 08/28/16 03:13 - Diagnostic Findings Chest x-ray: report reviewed (right lung opacification )
[2016-08-28] MEDS: Piperacillin/Tazobactam 3.375 GM in D5% in Water (Mini-Bag+) 100 ML IVPB SCH (11:00)
[2016-08-28 11:36] LABS: Calcium 9.1 mg/dL (8.6-10.8)
[2016-08-28] MEDS ORDERED: *HR* FentaNYL (PF) 100 MCG/2 ML VIAL ONE (12:21)
[2016-08-28] MEDS ORDERED: *HR* FentaNYL (PF) 100 MCG/2 ML VIAL IVP ONE (12:29)
[2016-08-28] MEDS ORDERED: Lacri-Lube 3.5 GM TUBE BOTH EYES PRN (12:29)
--- NOTE | 2016-08-28 12:40 | Procedure Note ---
Date of procedure: 08/28/16 Pre-op diagnosis: Atelectasis, acute respiratory failure with hypoxia Post-op diagnosis: same Procedure: Bronchoscopy with washing performed. Immediately following endotracheal intubation, a flexible bronchoscope was placed through the endotracheal tube into the airways. Endotracheal tube was appropriately positioned approximately 2 cm above the wilman. The right-sided airways were clear overall with a few mucoid secretions which were suctioned. There were copious mucoid secretions in the left mainstem bronchus. Therapeutic suctioning and washings were performed, and the specimen was sent for culture. After therapeutic suctioning was performed the left-sided airways were evaluated which revealed normal mucosa. The bronchoscope was withdrawn. Anesthesia: IV sedation (Propofol drip, fentanyl 100 g IV push) Surgeon: Adilson Ferrer Estimated blood loss (cc): 0 Condition: critical Disposition: ICU
--- NOTE | 2016-08-28 12:41 | Procedure Note ---
Date of procedure: 08/28/16 Pre-op diagnosis: Acute respirtory failure Post-op diagnosis: same Procedure: Consent was obtained over the phone by Dr. Manuel with the POA of the patient. Endotracheal intubation A time-out was completed verifying correct patient, procedure, site, positioning , and special equipment if applicable. The patient was placed in a flat position. Sedation was obtained using Versed 5mg, and additionally with Etomidate 20mg. The patient was easily ventilated using an ambu bag. The [employer] was used and inserted into the oropharynx at which time there was a Grade 1 view of the vocal cords. A 7-niuean endotracheal tube was inserted and visualized going through the vocal cords. The stylette was removed. Balloon was inflated. Colorimetric change was visualized on the CO2 meter. Breath sounds were heard in both lung hinojosa equally. The endotracheal tube was placed at 22 cm, measured at the teeth. Dr. Ferrer was present for the entire procedure. A chest x-ray was ordered to assess for~pneumothorax~and verify~ endotrachealtube placement. Estimated Blood Loss: 0 The patient tolerated the procedure well and there were no complications. Anesthesia: GETA Estimated blood loss (cc): 0 IV fluids (cc): 0 Urine output (cc): 0 Condition: stable Disposition: ICU
[2016-08-28] MEDS: FentaNYL (PF) 1,000 MCG in 0.9 % Sodium Chloride 80 ML IVC SCH ×2 (13:19→23:54)
[2016-08-28 13:49] LABS: ABG Base Excess 12.1 mEq/L (-2.0 to 3.0); ABG HCO3 36.7 mEQ/L (21-27); ABG Oxygen Saturation 100 % (95-98); ABG PCO2 47 mmHg (35-45); ABG PO2 278 mmHg (85-104); ABG TCO2 38.1 mEq/L (20-26)
[2016-08-28 13:50] LABS: Blood Gas FiO2 100 %; Blood Gas Respiration Rate 16; Blood Gas VT 400 cc
[2016-08-28] MEDS: Gabapentin 100 MG CAPSULE GTUBE SCH ×2 (13:57→20:08)
[2016-08-28] MEDS ORDERED: Gabapentin 100 MG CAPSULE PO SCH (15:00)
[2016-08-28] MEDS: Lacri-Lube 3.5 GM TUBE BOTH EYES SCH ×3 (15:26→23:52)
--- NOTE | 2016-08-28 15:54 | Electrocardiograph Report ---
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
[2016-08-28] MEDS: Furosemide 40 MG TABLET PO SCH (16:13)
[2016-08-28 17:02] LABS: Bilirubin,Urine Negative (Negative); Blood,Urine Moderate (Negative); Clarity,Urine Turbid (Clear); Color,Urine Yellow (Yellow); Glucose,Urine (UA) 100 mg/dL (Normal); Ketones,Urine Negative (Negative); Leukocyte Esterase,Urine Moderate (Negative); Nitrite,Urine Negative (Negative); PH,Urine 7.5 pH Units (5.0-8.0); Protein,Urine >=1000 mg/dL (Neg-Trace); Specific Gravity,Urine 1.016 (1.010-1.025); Urobilinogen,Urine Normal (Normal)
[2016-08-28 17:04] LABS: Bacteria,Urine None Seen per hpf (None-Few); Hyaline Casts,Urine None Seen per lpf (None-Few); Squamous Epithelial Cell,Urine Many per lpf (None-Few); WBC,Urine TNTC per hpf (0-3)
[2016-08-28 17:09] LABS: Renal Epithelial Cells,Urine Few per hpf (None-Few); Yeast,Urine Few per hpf (None Seen)
[2016-08-28 17:10] LABS: Transitional Epi Cells,Urine Few per hpf (None-Few)
[2016-08-28] MEDS ORDERED: *HR* Warfarin 5 MG TABLET PO SCH (18:00)
[2016-08-28] MEDS ORDERED: *HR* Warfarin 5 MG TABLET GTUBE SCH (18:00)
[2016-08-28 18:41] LABS: Potassium 5.1 mEq/L (3.5-4.5)
[2016-08-28] MEDS: Chlorhexidine Rinse 15 ML MOUTHWASH MM SCH (20:06)
[2016-08-28] MEDS: Metoprolol 100 MG TABLET GTUBE SCH (20:08)
[2016-08-28] MEDS ORDERED: Metoprolol 100 MG TABLET PO SCH (21:00)
[2016-08-29] MEDS: Piperacillin/Tazobactam 3.375 GM in D5% in Water (Mini-Bag+) 100 ML IVPB SCH
[2016-08-29] MEDS: Nitroglycerin 25 MG/250 ML INFUS..BTL IVC SCH ×2 (03:34→05:34)
[2016-08-29 03:46] LABS: ABG Base Excess 9.4 mEq/L (-2.0 to 3.0); ABG HCO3 35.9 mEQ/L (21-27); ABG Oxygen Saturation 87 % (95-98); ABG PCO2 58 mmHg (35-45); ABG PO2 53 mmHg (85-104); ABG TCO2 37.7 mEq/L (20-26)
[2016-08-29 03:47] LABS: Blood Gas FiO2 30 %
[2016-08-29] MEDS: Ipratropium/Albuterol Neb 3 ML IH SCH ×6 (03:54→23:15)
[2016-08-29 03:58] LABS: Basophils # 0.1 K/mcL (0.0-0.2); Basophils % 0.5 %; Eosinophils # 0.6 K/mcL (0.0-0.6); Eosinophils % 5.1 %; Hematocrit 36.3 % (35.3-44.9); Immature Granulocytes % 0.4 % (0-4); Lymphocytes # 2.1 K/mcL (0.6-4.6); Lymphocytes % 19.1 %; Mean Corpuscular HGB Conc 30.3 g/dL (31.6-35.5); Mean Corpuscular Hemoglobin 31.4 pg (28.0-33.3); Mean Corpuscular Volume 103.7 fL (83.0-100.0); Mean Platelet Volume 11.1 fL (9.4-12.4); Monocytes # 1.1 K/mcL (0.0-1.3); Monocytes % 9.8 %; Neutrophils # 7.3 K/mcL (1.6-8.9); Platelet Count 164 K/mcL (140-400); Segmented Neutrophils % 65.1 %
[2016-08-29] MEDS: Lacri-Lube 3.5 GM TUBE BOTH EYES SCH ×2 (04:00→07:54)
[2016-08-29 04:06] LABS: Calcium 9.5 mg/dL (8.6-10.8); Magnesium 2.1 mg/dL (1.6-2.6)
[2016-08-29 04:16] LABS: Potassium 5.4 mEq/L (3.5-4.5)
[2016-08-29] MEDS: Insulin LISPRO 300 UNITS/3 ML VIAL SQ SCH ×4 (05:26→23:44)
[2016-08-29] MEDS ORDERED: Aminoglycoside Consult 1 EACH MC ONE (07:44)
[2016-08-29] MEDS: Metoprolol 100 MG TABLET GTUBE SCH (07:52)
[2016-08-29] MEDS: Chlorhexidine Rinse 15 ML MOUTHWASH MM SCH (07:52)
[2016-08-29] MEDS: Pantoprazole 40 MG VIAL IVPB SCH (07:53)
[2016-08-29] MEDS: Furosemide 40 MG TABLET PO SCH (07:53)
[2016-08-29] MEDS: Gabapentin 100 MG CAPSULE GTUBE SCH (07:53)
[2016-08-29] MEDS ORDERED: Diltiazem CD (24hr) 120 MG CAPSULE PO SCH (09:00)
--- NOTE | 2016-08-29 09:16 | Pulmonology Progress Note ---
Date of Encounter: 08/29/16 Time of Encounter: 09:11 Assessment and Plan (1) Acute metabolic encephalopathy Current Visit: Yes Status: Resolved 2nd to ESRD and missing dialysis, hyperkalemia and acute on chronic respiratory failure with hypoxia and hypercania 2nd to left lung atelectasis 2nd to mucous plug/left pleural effusion. On admission patient was only responsive to painful stimuli. She underwent urgent dialysis yesterday and was intubated to undergo bronchosocopy. -this morning patient is following all commands, alert and awake. -plan is to extubate her this morning -will undergo scheduled dialysis today (2) Acute and chronic respiratory failure Current Visit: Yes Status: Acute suspected 2nd to atelectasis from mucous plug/ plerural effusion CXR on admission indicates left side pneumonia/muccous plugging. -patients underwent intubation and diagnostic/therapeutic bronchoscopy and BAL: left mainstem bronchus had copious mucoid secretions which were suctioned. -repeat CXR shows improvement in left lung opacification BAL, sputum cultures, urine antigens all negative: d/c vancomycin and zosyn and start seven day course of ceftriaxone. Patient passed weaning parameters this morning and will be extubated. Qualifiers: Respiratory failure complication: hypoxia and hypercapnia Qualified Code(s) : J96.21 - Acute and chronic respiratory failure with hypoxia; J96.22 - Acute and chronic respiratory failure with hypercapnia (3) Uncontrolled hypertension Current Visit: Yes Status: Acute Last night patient's BP increased to 200/70. SHe was started on nitro drip. This morning b/p was 155/56 and nitro drip was titrated down. However her BP lynne to 189 systolic. Currently patient is also on Losartan, metoprolol, lasix, diltiazem. -d/c lasix as patient does not produce urine -d/c nitro drip. -start on hydralazine 25mg Q8h. (4) ESRD (end stage renal disease) on dialysis Current Visit: Yes Status: Acute hx of ESRD with MWF dialysis. Missed dialysis Saturday. Patient came in with AMS. Underwent urgent dialysis. Will resume her scheduled dialysis today. patient does not produce urine: will d/c furosemide. Nephrology following. (5) Hyperkalemia Current Visit: Yes Status: Acute presented with K+ of 7.8. EKG showed peaked t waves. Received calcium gluconate , bicarbonate, D50 and insulin, and albuterol and urgent dialysis. -K+ decreased to 4 after dialysis and today is 6 -will undergo dialysis again today. (6) HCAP (healthcare-associated pneumonia) Current Visit: Yes Status: Suspected CXR shows left sided opacification which is more likely atelectasis 2nd to mucous plugging patient respiratory status continues to improve post bronchoscopy -d/c vanc and zosyn and start ceftriaxone. (7) Atrial fibrillation Current Visit: No Status: Chronic rate controlled. and anti coagulated with warfarin. Qualifiers: Atrial fibrillation type: chronic Qualified Code(s): I48.2 - Chronic atrial fibrillation (8) DVT prophylaxis Current Visit: No Status: Acute on warfarin for afib. Subjective Principal diagnosis: AMS and acute respirtory failure Interval history: Overnight patient's BP increased to 200 systolic at 5Am this morning. She was started on nitro drip. Otherwise patient had an uneventful night. This morning patient was started on CPAP and patient passed weaning parameters. She will be extubated today. Objective PUL Vital signs: Last Vital Signs Temp 98.2 F 08/29/16 07:55 Pulse 74 08/29/16 08:00 Resp 13 08/29/16 08:00 BP 155/56 08/29/16 08:00 Pulse Ox 99 08/29/16 08:00 General appearance: no acute distress, alert Eyes: nonicteric ENT: oropharynx moist Mallampati (class): 2 Neck: supple, no JVD Effort: normal Auscultation: bilateral: clear Cardiovascular: regular rate and rhythm Gastrointestinal: normoactive bowel sounds, soft, non-tender Integumentary: normal Extremities: no cyanosis, no edema, no clubbing normal mental status mood appropriate Ventilator Settings Ventilator Settings: Ventilator Settings, Last 8 Hours Ventilator Mode CPAP Ventilator Mode CPAP Ventilator Mode CPAP Ventilator Mode CPAP Ventilator Mode A/C Ventilator Mode A/C Ventilator Mode A/C Ventilator Mode A/C Ventilator Mode A/C Ventilator Mode A/C Ventilator Mode A/C Ventilator Mode A/C Ventilator Tidal Volume 400 Setting Ventilator Tidal Volume 400 Setting Ventilator Tidal Volume 400 Setting Ventilator Tidal Volume 400 Setting Ventilator Tidal Volume 400 Setting Ventilator Tidal Volume 400 Setting Ventilator Tidal Volume 400 Setting Ventilator Tidal Volume 400 Setting Ventilator Tidal Volume 400 Setting Ventilator Respiratory Rate 16 Setting Ventilator Respiratory Rate 16 Setting Ventilator Respiratory Rate 16 Setting Ventilator Respiratory Rate 16 Setting Ventilator Respiratory Rate 16 Setting Ventilator Respiratory Rate 16 Setting Ventilator Respiratory Rate 16 Setting Ventilator Respiratory Rate 16 Setting Actual Respiratory Rate 12 Actual Respiratory Rate 12 Actual Respiratory Rate 12 Actual Respiratory Rate 10 Actual Respiratory Rate 16 Actual Respiratory Rate 16 Actual Respiratory Rate 16 Actual Respiratory Rate 16 Actual Respiratory Rate 16 Actual Respiratory Rate 16 Actual Respiratory Rate 16 Positive End Expiratory 5 Pressure Positive End Expiratory 5 Pressure Positive End Expiratory 5 Pressure Positive End Expiratory 5 Pressure Positive End Expiratory 5 Pressure Positive End Expiratory 5 Pressure Positive End Expiratory 5 Pressure Positive End Expiratory 5 Pressure Positive End Expiratory 5 Pressure Positive End Expiratory 5 Pressure Positive End Expiratory 5 Pressure Peak Inspiratory Airway 14 Pressure Peak Inspiratory Airway 15 Pressure Peak Inspiratory Airway 15 Pressure Peak Inspiratory Airway 17 Pressure Peak Inspiratory Airway 30 Pressure Peak Inspiratory Airway 30 Pressure Peak Inspiratory Airway 30 Pressure Peak Inspiratory Airway 32 Pressure Peak Inspiratory Airway 30 Pressure Peak Inspiratory Airway 30 Pressure Peak Inspiratory Airway 32 Pressure Results - Laboratory Findings CBC and BMP: 08/29/16 03:37 08/29/16 03:37 ABG ABG pH 7.40 pH Units (7.32-7.45) 08/29/16 03:35 ABG pCO2 58 mmHg (35-45) H 08/29/16 03:35 ABG pO2 53 mmHg (85-104) L 08/29/16 03:35 ABG O2 Saturation 87 % (95-98) L 08/29/16 03:35 PT/INR, D-dimer PT 30.9 Seconds (9.4-12.1) H 08/28/16 03:13 Abnormal lab findings: Abnormal lab results WBC 11.2 K/mcL (4.3-11.1) H 08/29/16 03:37 RBC 3.50 M/mcL (3.82-4.97) L 08/29/16 03:37 Hgb 11.0 g/dL (11.5-15.4) L 08/29/16 03:37 MCV 103.7 fL (83.0-100.0) H 08/29/16 03:37 MCHC 30.3 g/dL (31.6-35.5) L 08/29/16 03:37 RDW 15.0 % (11.5-14.5) H 08/29/16 03:37 PT 30.9 Seconds (9.4-12.1) H 08/28/16 03:13 APTT 52.5 Seconds (26.0-36.0) H 08/28/16 03:13 ABG pCO2 58 mmHg (35-45) H 08/29/16 03:35 ABG pO2 53 mmHg (85-104) L 08/29/16 03:35 ABG HCO3 35.9 mEQ/L (21-27) H 08/29/16 03:35 ABG Total CO2 37.7 mEq/L (20-26) H 08/29/16 03:35 ABG O2 Saturation 87 % (95-98) L 08/29/16 03:35 ABG Base Excess 9.4 mEq/L (-2.0 to 3.0) H 08/29/16 03:35 VBG pH 7.30 pH Units (7.32-7.42) L 08/28/16 03:13 VBG pO2 50 mmHg (25-40) H 08/28/16 03:13 Potassium 5.4 mEq/L (3.5-4.5) H 08/29/16 03:37 Chloride 96 mEq/L (98-109) L 08/29/16 03:37 BUN 33 mg/dL (7-20) H 08/29/16 03:37 Creatinine 6.02 mg/dL (0.57-1.11) H 08/29/16 03:37 Est GFR ( Amer) 8 (> 60) L 08/29/16 03:37 Est GFR (Non-Af Amer) 7 (> 60) L 08/29/16 03:37 BUN/Creatinine Ratio 5 (6-26) L 08/29/16 03:37 Phosphorus 5.8 mg/dL (2.3-4.7) H 08/28/16 03:13 Troponin I 0.10 ng/mL (0-0.03) H* 08/28/16 03:13 Albumin 2.9 g/dL (3.5-5.0) L 08/28/16 03:13 Globulin 4.9 g/dL (2.4-3.5) H 08/28/16 03:13 Albumin/Globulin Ratio 0.6 (1.1-2.2) L 08/28/16 03:13 Urine Clarity Turbid (Clear) A 08/28/16 16:50 Urine Protein >=1000 mg/dL (Neg-Trace) H 08/28/16 16:50 Urine Glucose (UA) 100 mg/dL (Normal) H 08/28/16 16:50 Urine Blood Moderate (Negative) H 08/28/16 16:50 Ur Leukocyte Esterase Moderate (Negative) H 08/28/16 16:50 Urine Microscopic RBC 3-5 per hpf (0-3) H 08/28/16 16:50 Urine Microscopic WBC TNTC per hpf (0-3) H 08/28/16 16:50 Ur Squamous Epith Cells Many per lpf (None-Few) H 08/28/16 16:50 Urine Yeast Few per hpf (None Seen) H 08/28/16 16:50 Ur Culture Indicated? YES (NO) A 08/28/16 16:50 - Microbiology Findings Microbiology Findings: Microbiology, Last 48 Hours 08/28/16 14:15 Sputum Culture - Preliminary Sputum 08/28/16 16:50 Legionella Antigen - Final Urine,Catheterized 08/28/16 16:50 Streptococcus pneumoniae Antigen (M - Final Urine,Clean Catch - Diagnostic Findings Chest x-ray: report reviewed (improved left lung opacity and left lung effusion ) - Clinical Findings Intake & Output: Intake & Output 08/28/16 08/29/16 08/29/16 23:59 07:59 15:59 Intake Total 212 / 212 212 / 212 Output Total 50 / 50 0 / 0 0 / 0 Balance 162 / 162 212 / 212 0 / 0 Weight 57.742 kg Consult Discharge Plan - Plan Referrals: NO,PCP [Primary Care Provider] -
[2016-08-29] MEDS ORDERED: 0.9 % Sodium Chloride 250 ML IV PRN (09:52)
[2016-08-29] MEDS ORDERED: 0.9 % Sodium Chloride 2,000 ML ONE (10:06)
--- NOTE | 2016-08-29 10:21 | Nephrology Progress Note ---
Date of Encounter: 08/29/16 Time of Encounter: 09:30 - Assessment and Plan (1) ESRD (end stage renal disease) on dialysis Current Visit: Yes Status: Acute ESRD. Potassium improved following emergent dialysis on 1K bath yesterday. Will do HD today, keeping MWF schedule. Orders given. Subjective Principal diagnosis: AMS and acute respirtory failure Interval history: On vent, attempt to wean. Objective - Vital Signs Vital signs: Vital Signs Temp Pulse Resp BP Pulse Ox 08/29/16 10:00 64 13 152/58 99 08/29/16 09:00 72 12 150/54 99 08/29/16 08:00 74 13 155/56 99 08/29/16 07:55 98.2 F 08/29/16 07:32 12 193/68 100 08/29/16 07:30 74 16 193/68 100 08/29/16 06:30 78 12 197/68 98 08/29/16 06:07 10 98 08/29/16 06:00 77 16 209/65 98 08/29/16 05:00 79 16 209/67 98 08/29/16 04:00 97.7 F 66 16 160/56 90 L 08/29/16 03:55 16 93 L 08/29/16 03:00 71 16 153/52 96 08/29/16 02:00 62 16 148/59 96 08/29/16 01:58 16 94 L 08/29/16 01:00 62 16 135/53 95 08/29/16 00:14 98.9 F 08/29/16 00:00 62 16 115/50 95 08/28/16 23:12 16 97 08/28/16 23:00 66 16 136/50 95 08/28/16 22:31 16 97 08/28/16 22:00 64 16 117/46 97 08/28/16 21:00 65 16 165/78 97 08/28/16 20:32 16 97 08/28/16 20:00 98.7 F 72 16 126/48 95 08/28/16 19:00 68 16 122/46 95 08/28/16 18:00 74 16 106/44 94 L 08/28/16 17:45 16 94 L 08/28/16 17:00 72 16 94/39 93 L 08/28/16 16:00 72 16 114/50 100 08/28/16 15:55 16 103/45 99 08/28/16 15:00 98.7 F 76 16 83/40 95 Intake and Output 08/28/16 08/29/16 08/29/16 23:59 07:59 15:59 Intake Total 212 / 212 212 / 212 Output Total 50 / 50 0 / 0 0 / 0 Balance 162 / 162 212 / 212 0 / 0 Intake: IV Fluids 112 / 112 212 / 212 FentaNYL (PF) 1,000 MCG 90 / 90 52 / 52 In 0.9 % Sodium Chloride 80 ML @ 50 MCG/HR 5 mls/ hr IVC CONT [facility] Rx#: [id number] Nitroglycerin 25 mg In 8 / 8 250 ml @ 5 MCG/MIN 3 mls/ hr IVC .Q24H GARY Rx#: [id number] Diprivan 1,000 mg In 100 22 / 22 52 / 52 ml @ 5 MCG/KG/MIN 1.761 mls/hr IVC .Q24H [facility]ARY Rx#: [id number] Zosyn 3.375 GM In 100 / 100 Dextrose 5% (Minibag+) 100 ML 100 ML @ 25 mls/hr IVPB Q12H GARY Rx#: [id number] Oral 0 / 0 0 / 0 Free Water 100 / 100 Output: Urine 0 / 0 0 / 0 0 / 0 Urethral (Faye) 0 / 0 0 / 0 0 / 0 Catheter 50 / 50 0 / 0 Other: Weight 57.742 kg Blood Glucose* 86 80 Patient Weight 08/29/16 23:59 Weight 57.742 kg - General Appearance General appearance: Present: chronically ill, intubated, frail EENT: Present: mucous membranes moist Neck: Present: no JVD Respiratory: Present: clear Cardiology: Present: no edema, regular rate, regular rhythm Gastrointestinal: Present: hypoactive bowel sounds, no tenderness Integumentary: Present: warm and dry - Lab 08/29/16 03:37 08/29/16 03:37 Most recent lab results ABG pH 7.40 pH Units (7.32-7.45) 08/29/16 03:35 ABG pCO2 58 mmHg (35-45) H 08/29/16 03:35 ABG pO2 53 mmHg (85-104) L 08/29/16 03:35 ABG HCO3 35.9 mEQ/L (21-27) H 08/29/16 03:35 ABG O2 Saturation 87 % (95-98) L 08/29/16 03:35 Calcium 9.5 mg/dL (8.6-10.8) 08/29/16 03:37 Phosphorus 5.8 mg/dL (2.3-4.7) H 08/28/16 03:13 Magnesium 2.1 mg/dL (1.6-2.6) 08/29/16 03:37 Consult Discharge Plan - Plan Referrals: NO,PCP [Primary Care Provider] -
[2016-08-29 10:34] LABS: INR 2.9; Prothrombin Time 32.5 Seconds (9.4-12.1)
[2016-08-29] MEDS ORDERED: *HR* Labetalol 20 MG/4 ML SYRINGE IVP PRN (10:52)
[2016-08-29] MEDS: Ondansetron 4 MG/2 ML VIAL IVP PRN ×2 (12:42→17:01)
[2016-08-29] MEDS: Gabapentin 100 MG CAPSULE PO SCH ×2 (16:36→21:26)
[2016-08-29] MEDS: hydrALAZINE 25 MG TABLET PO SCH ×2 (16:36→23:44)
[2016-08-29] MEDS ORDERED: *HR* Warfarin 5 MG TABLET PO SCH (18:00)
[2016-08-29] MEDS ORDERED: Warfarin perPT PO PRN (18:00)
[2016-08-29] MEDS: Metoprolol 100 MG TABLET PO SCH (21:28)
[2016-08-30] MEDS: Ipratropium/Albuterol Neb 3 ML IH SCH ×5 (04:08→20:32)
[2016-08-30 05:02] LABS: INR 4.2
[2016-08-30 05:33] LABS: Prothrombin Time 47.8 Seconds (9.4-12.1)
[2016-08-30] MEDS: Insulin LISPRO 300 UNITS/3 ML VIAL SQ SCH ×3 (05:33→21:40)
[2016-08-30 07:43] LABS: Basophils # 0.1 K/mcL (0.0-0.2); Basophils % 0.6 %; Eosinophils # 0.5 K/mcL (0.0-0.6); Eosinophils % 4.8 %; Hematocrit 31.1 % (35.3-44.9); Hemoglobin 9.7 g/dL (11.5-15.4); Immature Granulocytes % 0.2 % (0-4); Lymphocytes # 1.5 K/mcL (0.6-4.6); Lymphocytes % 14.1 %; Mean Corpuscular HGB Conc 31.2 g/dL (31.6-35.5); Mean Corpuscular Hemoglobin 32.3 pg (28.0-33.3); Mean Corpuscular Volume 103.7 fL (83.0-100.0); Mean Platelet Volume 11.6 fL (9.4-12.4); Monocytes # 1.2 K/mcL (0.0-1.3); Monocytes % 11.4 %; Neutrophils # 7.2 K/mcL (1.6-8.9); Platelet Count 170 K/mcL (140-400); Red Cell Distribution Width 14.8 % (11.5-14.5); Segmented Neutrophils % 68.9 %
[2016-08-30 07:49] LABS: Calcium 8.8 mg/dL (8.6-10.8); Potassium 4.6 mEq/L (3.5-4.5)
[2016-08-30] MEDS: Pantoprazole 40 MG VIAL IVPB SCH (08:16)
[2016-08-30] MEDS: hydrALAZINE 25 MG TABLET PO SCH ×3 (08:17→23:59)
[2016-08-30] MEDS: Gabapentin 100 MG CAPSULE PO SCH ×2 (08:17→21:36)
[2016-08-30] MEDS: Metoprolol 100 MG TABLET PO SCH ×2 (08:17→21:36)
--- NOTE | 2016-08-30 08:20 | Nephrology Progress Note ---
Date of Encounter: 08/30/16 Time of Encounter: 07:55 - Assessment and Plan (1) ESRD (end stage renal disease) on dialysis Current Visit: Yes Status: Acute ESRD. PNA, COPD. No current labs. HD on Saturday, keeping MWF schedule. Subjective Principal diagnosis: AMS and acute respirtory failure Interval history: extubated on Nc=c O2. States does not remember how came to hospital or surrounding events. Wants to go back to nursing facility. Objective - Vital Signs Vital signs: Vital Signs Temp Pulse Resp BP Pulse Ox 08/30/16 07:51 97.8 F 08/30/16 07:38 18 91 L 08/30/16 07:00 67 20 142/55 92 L 08/30/16 06:00 67 18 158/56 99 08/30/16 05:00 68 16 126/46 96 08/30/16 01:00 65 16 112/44 97 08/30/16 00:00 72 20 139/50 100 08/29/16 23:54 98.0 F 08/29/16 23:15 16 91 L 08/29/16 23:12 73 08/29/16 23:00 73 16 128/51 100 08/29/16 22:00 73 16 124/48 95 08/29/16 21:00 77 16 146/56 94 L 08/29/16 20:00 98.5 F 75 16 121/48 95 08/29/16 19:50 75 08/29/16 19:48 17 100 08/29/16 19:00 76 18 105/47 97 08/29/16 18:00 146 14 85/51 96 08/29/16 17:00 126 14 154/68 99 08/29/16 16:00 131 14 85/57 99 08/29/16 15:00 98.6 F 131 14 100/64 97 08/29/16 14:00 135 16 124/54 99 08/29/16 13:15 98.1 F 18 110/50 08/29/16 13:05 132/56 08/29/16 13:00 132 14 103/67 95 08/29/16 12:50 115/65 08/29/16 12:35 113/70 08/29/16 12:20 113/70 08/29/16 12:05 125/68 08/29/16 12:03 98.1 F 03/15/17 12:00 98.1 F 105 16 125/68 97 08/29/16 11:56 16 97 08/29/16 11:50 135/57 08/29/16 11:35 179/58 08/29/16 11:20 172/58 08/29/16 11:05 181/59 08/29/16 11:00 70 16 185/54 97 08/29/16 10:50 185/54 08/29/16 10:35 98.2 F 16 171/60 08/29/16 10:33 20 99 08/29/16 10:00 64 13 152/58 99 08/29/16 09:00 72 12 150/54 99 Intake and Output 08/29/16 08/30/16 08/30/16 23:59 07:59 15:59 Intake Total Output Total 0 / 0 Balance Intake: IV Fluids Cardizem 125 MG In Dextrose 5% 100 ML @ 5 MG /HR 5 mls/hr IVC .Q24H [facility] Rx#:[id number] Oral 0 / 0 Output: Urine 0 / 0 Other: Weight 55.3 kg Blood Glucose* 112 106 - General Appearance General appearance: Present: chronically ill, frail EENT: Present: mucous membranes moist Neck: Present: no JVD Respiratory: Present: wheezing, rhonchi Cardiology: Present: no murmurs, no edema, regular rate, regular rhythm Gastrointestinal: Present: normoactive bowel sounds, no tenderness Integumentary: Present: warm and dry Neurologic: Present: alert and oriented x3 Psychiatric: Present: mood/affect appropriate, cooperative - Lab 08/30/16 04:12 08/30/16 04:12 Most recent lab results ABG pH 7.40 pH Units (7.32-7.45) 08/29/16 03:35 ABG pCO2 58 mmHg (35-45) H 08/29/16 03:35 ABG pO2 53 mmHg (85-104) L 08/29/16 03:35 ABG HCO3 35.9 mEQ/L (21-27) H 08/29/16 03:35 ABG O2 Saturation 87 % (95-98) L 08/29/16 03:35 Calcium 8.8 mg/dL (8.6-10.8) 08/30/16 04:12 Phosphorus 5.8 mg/dL (2.3-4.7) H 08/28/16 03:13 Magnesium 2.1 mg/dL (1.6-2.6) 08/29/16 03:37 Consult Discharge Plan - Plan Referrals: NO,PCP [Primary Care Provider] -
--- NOTE | 2016-08-30 08:21 | Pulmonology Progress Note ---
Date of Encounter: 08/30/16 Time of Encounter: 08:20 Assessment and Plan (1) Acute metabolic encephalopathy Current Visit: Yes Status: Resolved 2nd to ESRD and missing dialysis, hyperkalemia and acute on chronic respiratory failure with hypoxia and hypercania 2nd to left lung atelectasis 2nd to mucous plug and gram negative pneumonia. On admission patient was only responsive to painful stimuli. She underwent urgent dialysis yesterday and was intubated to undergo bronchosocopy day of admission. Yesterday patient was extubated and has had no complications. Resolved. -this morning patient is following all commands, alert and awake. -will most likely be transferred to hospital floor. -Start clear liquid diet. -PT/OT (2) Acute and chronic respiratory failure Current Visit: Yes Status: Resolved suspected 2nd to atelectasis from mucous plug and gram negative pneumonia CXR on admission indicates left side pneumonia/muccous plugging. -patients underwent intubation and diagnostic/therapeutic bronchoscopy and BAL: left mainstem bronchus had copious mucoid secretions which were suctioned. -repeat CXR shows improvement in left lung opacification BAL, sputum cultures: Gram - logan: continue ceftriaxone day 2 urine antigens all negative CBC and BMP in morning. Qualifiers: Respiratory failure complication: hypoxia and hypercapnia Qualified Code(s) : J96.21 - Acute and chronic respiratory failure with hypoxia; J96.22 - Acute and chronic respiratory failure with hypercapnia (3) HCAP (healthcare-associated pneumonia) Current Visit: Yes Status: Suspected CXR shows left sided opacification which is more likely atelectasis 2nd to mucous plugging patient respiratory status continues to improve post bronchoscopy -gram - pneumonia: continue ceftriaxone. will await sensitivities for any abx changes. (4) Atrial fibrillation Current Visit: No Status: Chronic Yesterday patient's HR incrased to 150s after dialysis. EKG showed afib rvr which was refractory to labetelol. Her BP started to decrease to 90s systolic. She was put on cardizem drip. THis morning patient has been weaned off cardizem drip and will continue with home metoprolol and cardizem. Qualifiers: Atrial fibrillation type: chronic Qualified Code(s): I48.2 - Chronic atrial fibrillation (5) Uncontrolled hypertension Current Visit: Yes Status: Resolved patient's BP increased to 200/70 on night of admission. SHe was started on nitro drip. This morning b/p was 155/56 and nitro drip was titrated down. However her BP lynne to 189 systolic. Resolved. Currently patient is also on Losartan, metoprolol, lasix, diltiazem. -continue hydralazine 25mg Q8h and labetelol PRN. (6) ESRD (end stage renal disease) on dialysis Current Visit: Yes Status: Acute hx of ESRD with MWF dialysis. Missed dialysis Saturday. Patient came in with AMS. Underwent urgent dialysis. Continue MWF dialysis Patient does not produce urine. Nephrology following. (7) Hyperkalemia Current Visit: Yes Status: Acute presented with K+ of 7.8. EKG showed peaked t waves. Received calcium gluconate , bicarbonate, D50 and insulin, and albuterol and urgent dialysis. Patient will usually be hyperkalemic between days of dialysis due to ESRD. (8) DVT prophylaxis Current Visit: No Status: Acute on warfarin for afib. Subjective Principal diagnosis: AMS and acute respirtory failure Interval history: Patient had no acute events overnight. This morning she is awake and alert and conversing well. She has no complaints. Objective PUL Vital signs: Last Vital Signs Temp 97.8 F 08/30/16 07:51 Pulse 67 08/30/16 07:00 Resp 18 08/30/16 07:38 BP 142/55 08/30/16 07:00 Pulse Ox 91 L 08/30/16 07:38 General appearance: no acute distress, alert Effort: normal Auscultation: bilateral: rhonchi Cardiovascular: regular rate and rhythm Gastrointestinal: normoactive bowel sounds, soft, non-tender Integumentary: normal Extremities: no cyanosis, no edema, no clubbing normal mental status mood appropriate Results - Laboratory Findings CBC and BMP: 08/30/16 04:12 08/30/16 04:12 ABG ABG pH 7.40 pH Units (7.32-7.45) 08/29/16 03:35 ABG pCO2 58 mmHg (35-45) H 08/29/16 03:35 ABG pO2 53 mmHg (85-104) L 08/29/16 03:35 ABG O2 Saturation 87 % (95-98) L 08/29/16 03:35 PT/INR, D-dimer PT 47.8 Seconds (9.4-12.1) H* 08/30/16 04:12 Abnormal lab findings: Abnormal lab results RBC 3.00 M/mcL (3.82-4.97) L 08/30/16 04:12 Hgb 9.7 g/dL (11.5-15.4) L 08/30/16 04:12 Hct 31.1 % (35.3-44.9) L 08/30/16 04:12 MCV 103.7 fL (83.0-100.0) H 08/30/16 04:12 MCHC 31.2 g/dL (31.6-35.5) L 08/30/16 04:12 RDW 14.8 % (11.5-14.5) H 08/30/16 04:12 PT 47.8 Seconds (9.4-12.1) H* 08/30/16 04:12 APTT 52.5 Seconds (26.0-36.0) H 08/28/16 03:13 ABG pCO2 58 mmHg (35-45) H 08/29/16 03:35 ABG pO2 53 mmHg (85-104) L 08/29/16 03:35 ABG HCO3 35.9 mEQ/L (21-27) H 08/29/16 03:35 ABG Total CO2 37.7 mEq/L (20-26) H 08/29/16 03:35 ABG O2 Saturation 87 % (95-98) L 08/29/16 03:35 ABG Base Excess 9.4 mEq/L (-2.0 to 3.0) H 08/29/16 03:35 VBG pH 7.30 pH Units (7.32-7.42) L 08/28/16 03:13 VBG pO2 50 mmHg (25-40) H 08/28/16 03:13 Potassium 4.6 mEq/L (3.5-4.5) H 08/30/16 04:12 Chloride 96 mEq/L (98-109) L 08/30/16 04:12 BUN 31 mg/dL (7-20) H 08/30/16 04:12 Creatinine 4.59 mg/dL (0.57-1.11) H 08/30/16 04:12 Est GFR ( Amer) 11 (> 60) L 08/30/16 04:12 Est GFR (Non-Af Amer) 9 (> 60) L 08/30/16 04:12 POC Glucose 106 (58-89) H 08/30/16 05:32 Phosphorus 5.8 mg/dL (2.3-4.7) H 08/28/16 03:13 Troponin I 0.11 ng/mL (0-0.03) H* 08/29/16 16:06 Albumin 2.9 g/dL (3.5-5.0) L 08/28/16 03:13 Globulin 4.9 g/dL (2.4-3.5) H 08/28/16 03:13 Albumin/Globulin Ratio 0.6 (1.1-2.2) L 08/28/16 03:13 Urine Clarity Turbid (Clear) A 08/28/16 16:50 Urine Protein >=1000 mg/dL (Neg-Trace) H 08/28/16 16:50 Urine Glucose (UA) 100 mg/dL (Normal) H 08/28/16 16:50 Urine Blood Moderate (Negative) H 08/28/16 16:50 Ur Leukocyte Esterase Moderate (Negative) H 08/28/16 16:50 Urine Microscopic RBC 3-5 per hpf (0-3) H 08/28/16 16:50 Urine Microscopic WBC TNTC per hpf (0-3) H 08/28/16 16:50 Ur Squamous Epith Cells Many per lpf (None-Few) H 08/28/16 16:50 Urine Yeast Few per hpf (None Seen) H 08/28/16 16:50 Ur Culture Indicated? YES (NO) A 08/28/16 16:50 - Microbiology Findings Microbiology Findings: Microbiology, Last 48 Hours 08/28/16 14:15 Sputum Culture - Preliminary Sputum Gram Negative Logan 08/28/16 16:50 Urine Culture - Final Urine,Clean Catch No growth. 08/28/16 16:50 Legionella Antigen - Final Urine,Catheterized 08/28/16 16:50 Streptococcus pneumoniae Antigen (M - Final Urine,Clean Catch - Clinical Findings Intake & Output: Intake & Output 08/29/16 08/30/16 08/30/16 23:59 07:59 15:59 Intake Total Output Total 0 / 0 Balance Weight 55.3 kg Consult Discharge Plan - Plan Referrals: NO,PCP [Primary Care Provider] -
[2016-08-30] MEDS ORDERED: Diltiazem CD (24hr) 120 MG CAPSULE PO SCH (09:00)
--- NOTE | 2016-08-30 09:03 | ECHO - Doppler Report ---
Echocardiogram Name: Lulu Rico Date of Study: 08/29/2016 Date: 1945 Ht: 63.0 in Medical Record#: [id number] Age: 71 Wt: 127.0 lb Gender: Female BSA: 1.59 Order #: [id number] Location: [facility] Room #: IC10 Reading Physician: Kerry Escalona DO Freelance Makeup Artist: Minerva Coto RDCS Ordering Physician: Adilson Ferrer MD Primary Physician: None Indications: Elevated Troponin Impressions: LVEF 60%. Normal left ventricular size and systolic function. There is evidence of mild diastolic dysfunction of the left ventricle. Moderate-severely increased LV wall thickness. Normal right ventricular size and function. Mild tricuspid regurgitation. At least mild pulmonary hypertension by TR gradient, 39 mmHg. IVC is not well visualized. Left Ventricular Wall Motion: Rest Echo Findings All wall segments showed normal motion. Findings: Study Quality * Technically adequate exam. ECG Findings * Normal sinus rhythm. Left Ventricle * LVEF 60%. * Mild left ventricular diastolic dysfunction. * Moderately to severely thickened LV. Aortic Valve * No aortic regurgitation. * Leaflet morphology is not well visualized. * No aortic stenosis. Mitral Valve * No mitral regurgitation. * No mitral stenosis. * Mildly calcified mitral valve leaflets. Tricuspid Valve * Normal tricuspid valve structure. * Mild tricuspid regurgitation. Pulmonic Valve * Pulmonic valve is not well visualized. * No pulmonic stenosis. * No pulmonic regurgitation. Pulmonary Artery * Pulmonary artery not well visualized. Right Ventricle * Normal right ventricular structure and function. Left Atrium * Normal left atrial size. Right Atrium * Normal right atrial size. Interatrial Septum * Interatrial septum not well evaluated. IVC * The IVC is not well evaluated. Pericardium * There is no pericardial effusion present. Aorta * Normally sized aortic root. History Hypertension Diabetes Hypercholesteremia Family History of CAD History of CAD/PTCA 09/19/2015 a Previous Echo was performed. Measurements: BP: 154/ 68 2D Normal Values RVIDd: 3.01 cm <2.7 cm IVSd: 1.80 cm 0.6 - 1.0 cm LVIDd: 3.80 cm 3.7 - 5.6 cm LVPWd: 1.50 cm 0.6 - 1.1 cm LVIDs: 1.95 cm 1.5 - 3.6 cm AO: 2.10 cm < 4.0 cm LA: 3.30 cm 2.0 - 4.0cm %FS: 48.70 cm >25 % LA volume: 36 Mitral Valve Peak E:1.09 m/sec Peak A:1.22 m/sec E/A Ratio:0.9 Tricuspid Valve TV Regurg Peak Grad: 27.00mmHg TV Regurg Peak Delbert: 2.61m/sec Updated by Kerry Escalona on 08/30/2016 8:59:04 AM electronically signed on 08/30/2016 9:00:19 AM with status of Final Wall Motion Acharya: 1=Normal, 2=Hypokinesis, 3=Akinesis, 4=Dyskinesis, 5=Aneurysmal, 6=Hyperkinetic, X=Not Visualized (Blank)=Missing
[2016-08-30] MEDS ORDERED: Insulin LISPRO 300 UNITS/3 ML VIAL SQ SCH ×2 (11:30→21:00)
[2016-08-30] MEDS ORDERED: Acetaminophen 650 MG RECTAL SUPP RC PRN (14:25)
[2016-08-30] MEDS ORDERED: *HR* Labetalol 20 MG/4 ML SYRINGE IVP PRN (14:25)
[2016-08-30] MEDS ORDERED: Dextrose Gel 15 GM PO PRN ×2 (14:25)
[2016-08-30] MEDS ORDERED: Ondansetron 4 MG/2 ML VIAL IVP PRN (14:25)
[2016-08-30] MEDS ORDERED: *HR* Dextrose 50 % in Water (Syg) 50 ML SYRINGE IVP PRN (14:25)
[2016-08-30] MEDS ORDERED: Naloxone 0.4 MG/ML INJ IVP PRN (14:25)
[2016-08-30] MEDS ORDERED: D5% in Water 1,000 ML IV PRN (14:25)
[2016-08-30] MEDS ORDERED: Warfarin perPT PO PRN (14:25)
[2016-08-30] MEDS: Acetylcysteine 10% 2 ML INHSOL IH SCH ×2 (15:33→20:31)
[2016-08-30] MEDS ORDERED: *HR* Warfarin 4 MG TABLET PO SCH ×2 (18:00)
[2016-08-30] MEDS ORDERED: *HR* Warfarin 4 MG TABLET GTUBE SCH (18:00)
[2016-08-30] MEDS ORDERED: Gabapentin 100 MG CAPSULE PO SCH (21:00)
[2016-08-31] MEDS: Acetylcysteine 10% 2 ML INHSOL IH SCH ×7 (01:01→23:09)
[2016-08-31] MEDS: Ipratropium/Albuterol Neb 3 ML IH SCH ×7 (01:01→23:09)
[2016-08-31 05:50] LABS: Basophils % 0.4 %; Eosinophils # 0.7 K/mcL (0.0-0.6); Eosinophils % 7.6 %; Hematocrit 30.7 % (35.3-44.9); Hemoglobin 9.5 g/dL (11.5-15.4); INR 3.4; Immature Granulocytes % 0.5 % (0-4); Lymphocytes # 1.7 K/mcL (0.6-4.6); Lymphocytes % 17.7 %; Mean Corpuscular HGB Conc 30.9 g/dL (31.6-35.5); Mean Corpuscular Hemoglobin 31.9 pg (28.0-33.3); Mean Platelet Volume 11.3 fL (9.4-12.4); Monocytes # 1.1 K/mcL (0.0-1.3); Monocytes % 11.4 %; Platelet Count 174 K/mcL (140-400); Prothrombin Time 37.6 Seconds (9.4-12.1); Red Blood Count 2.98 M/mcL (3.82-4.97); Red Cell Distribution Width 14.6 % (11.5-14.5); Segmented Neutrophils % 62.4 %
[2016-08-31 06:10] LABS: Calcium 8.4 mg/dL (8.6-10.8); Potassium 4.6 mEq/L (3.5-4.5)
[2016-08-31] MEDS: Insulin LISPRO 300 UNITS/3 ML VIAL SQ SCH ×4 (08:19→21:12)
[2016-08-31] MEDS: Gabapentin 100 MG CAPSULE PO SCH ×2 (08:20→21:09)
[2016-08-31] MEDS ORDERED: Pantoprazole 40 MG VIAL IVPB SCH (09:00)
--- NOTE | 2016-08-31 09:18 | Nephrology Progress Note ---
Date of Encounter: 08/31/16 Time of Encounter: : - Assessment and Plan (1) ESRD (end stage renal disease) on dialysis Current Visit: Yes Status: Acute Patient has end-stage renal disease. She will have her usual dialysis today. Potassium is controlled. Hemoglobin is satisfactory. Blood pressure is suboptimal. Some changes will be made to her antihypertensive medications. She continues on antibiotics for left upper lobe pneumonia. She status post bronchoscopy for removal of a left mainstem bronchus mucous plug. (2) HCAP (healthcare-associated pneumonia) Current Visit: Yes Status: Suspected (3) Hyperkalemia Current Visit: Yes Status: Acute Subjective Principal diagnosis: AMS and acute respirtory failure Interval history: Patient voices no complaints. She is scheduled for her usual dialysis today. Blood pressure control is suboptimal. I will make some changes to her medications. Objective - Vital Signs Vital signs: Vital Signs Temp Pulse Resp BP Pulse Ox 08/31/16 07:31 14 99 08/31/16 06:46 97.9 F 73 14 195/72 99 08/31/16 04:47 97.8 F 62 18 172/57 99 08/31/16 04:27 98 08/31/16 01:01 17 98 08/31/16 00:02 65 08/30/16 23:48 98.9 F 65 20 148/43 98 08/30/16 20:33 99.0 F 70 18 162/58 98 08/30/16 19:26 65 08/30/16 18:02 65 18 133/49 99 08/30/16 16:00 97.5 F L 63 16 126/44 100 08/30/16 15:27 20 100 08/30/16 15:12 68 20 147/57 100 08/30/16 14:17 68 20 147/57 100 08/30/16 12:18 97.7 F 08/30/16 12:00 67 08/30/16 11:41 20 100 08/30/16 10:00 98.0 F 66 20 150/50 100 Intake and Output 08/30/16 08/31/16 08/31/16 23:59 07:59 15:59 Intake Total 220 / 220 120 / 120 Output Total 0 / 0 Balance 220 / 220 120 / 120 Intake: Oral 220 / 220 120 / 120 Output: Urine 0 / 0 Other: Meal Breakfast Percent of Meal Consumed 50% Stool Size Moderate Stool Consistency loose Stool Color Brown # Bowel Movements 0 Blood Glucose* 326 142 - General Appearance Exam: Patient appears alert and oriented. She appears chronically ill. She is in no acute distress. Lungs bilateral rhonchi. Heart irregular rate and rhythm. Abdomen is benign. There is no lower extremity swelling. There is a functioning AV fistula in the right upper extremity. - Lab 08/31/16 05:07 08/31/16 05:07 Most recent lab results ABG pH 7.40 pH Units (7.32-7.45) 08/29/16 03:35 ABG pCO2 58 mmHg (35-45) H 08/29/16 03:35 ABG pO2 53 mmHg (85-104) L 08/29/16 03:35 ABG HCO3 35.9 mEQ/L (21-27) H 08/29/16 03:35 ABG O2 Saturation 87 % (95-98) L 08/29/16 03:35 Calcium 8.4 mg/dL (8.6-10.8) L 08/31/16 05:07 Phosphorus 5.8 mg/dL (2.3-4.7) H 08/28/16 03:13 Magnesium 2.1 mg/dL (1.6-2.6) 08/29/16 03:37 Consult Discharge Plan - Plan Referrals: NO,PCP [Primary Care Provider] -
[2016-08-31] MEDS ORDERED: 0.9 % Sodium Chloride 250 ML IV PRN (09:19)
[2016-08-31] MEDS: Diltiazem CD (24hr) 120 MG CAPSULE PO SCH (09:27)
[2016-08-31] MEDS ORDERED: 0.9 % Sodium Chloride 2,000 ML ONE (09:43)
[2016-08-31] MEDS: hydrALAZINE 25 MG TABLET PO SCH ×3 (11:41→23:50)
[2016-08-31] MEDS: Metoprolol 100 MG TABLET PO SCH ×2 (13:57→21:08)
--- NOTE | 2016-08-31 16:01 | Internal Med Progress Note ---
Date of Encounter: 08/31/16 Time of Encounter: 15:00 - Assessment and plan (1) Acute and chronic respiratory failure Current Visit: Yes Status: Resolved Assessment and plan: Has improved with treatment. Continue to monitor. Qualifiers: Respiratory failure complication: hypoxia Qualified Code(s): J96.21 - Acute and chronic respiratory failure with hypoxia (2) Mucus plugging of bronchi Current Visit: Yes Status: Acute Assessment and plan: Mucus plugging s/p bronch. Doing OK so far. Some rhonchi noted. (3) Hyperkalemia Current Visit: Yes Status: Resolved Assessment and plan: Improved with dialysis. (4) PAF (paroxysmal atrial fibrillation) Current Visit: No Status: Chronic Assessment and plan: No acute issues at this time. (5) Uncontrolled hypertension Current Visit: Yes Status: Chronic Assessment and plan: Better controlled at this time. (6) Anemia in CKD (chronic kidney disease) Current Visit: No Status: Chronic Assessment and plan: Following. Transfuse as needed. (7) Acute metabolic encephalopathy Current Visit: Yes Status: Resolved (8) HCAP (healthcare-associated pneumonia) Current Visit: Yes Status: Suspected Assessment and plan: On abx coverage. (9) ESRD (end stage renal disease) on dialysis Current Visit: Yes Status: Chronic Assessment and plan: Per renal service. - Subjective Interval history: Ms. Rico is currently admitted for acute hypoxic respiratory failure and hyperkalemia. She remains moderate to high risk due to potential for worsening respiratory status. Ms. Rico just returned from dialysis. She is still coughing and congested. No fever or chills. No CP. Tolerated dialysis OK. No specific complaints now. No GI symptoms. Appetite fair. - Constitutional Vitals: Temp Pulse Resp BP Pulse Ox 98 F 68 16 173/64 98 08/31/16 15:23 08/31/16 15:23 08/31/16 15:55 08/31/16 15:23 08/31/16 15:55 General appearance: Present: A&O X 3, answers questions appropriately - Head Head exam: Present: normocephalic - Eye Eye exam: Present: EOMI, conjuntiva pink - ENT ENT exam: Present: mucous membranes moist - Respiratory Respiratory exam: Present: rhonchi. Absent: rales, wheezes - Cardiovascular Cardiovascular exam: Present: RRR. Absent: tachycardia - GI/Abdominal GI/Abdominal exam: Present: soft. Absent: mass, tenderness - Extremities Exam Extremities exam: Present: warm - Neurological Exam Neurological exam: Present: alert, oriented X3, no focal deficits - Psychiatric Psychiatric exam: Present: normal affect, normal mood - Skin Skin exam: Present: warm. Absent: rash Internal Medicine: Result - Labs CBC & Chem 7: 08/31/16 05:07 08/31/16 05:07 Labs: Short CBC 08/31/16 Range/Units 05:07 WBC 9.6 (4.3-11.1) K/mcL Hgb 9.5 L (11.5-15.4) g/dL Hct 30.7 L (35.3-44.9) % Plt Count 174 (140-400) K/mcL Neutrophils # 6.0 (1.6-8.9) K/mcL BMP 08/31/16 05:07 Sodium 140 Potassium 4.6 H Chloride 95 L Carbon Dioxide 28 BUN 45 H D Creatinine 6.35 H Glucose 150 H Calcium 8.4 L - ABG Interpretation ABG results: ABG ABG pH 7.40 pH Units (7.32-7.45) 08/29/16 03:35 ABG pCO2 58 mmHg (35-45) H 08/29/16 03:35 ABG pO2 53 mmHg (85-104) L 08/29/16 03:35 ABG O2 Saturation 87 % (95-98) L 08/29/16 03:35 PT/INR, D-dimer PT 37.6 Seconds (9.4-12.1) H 08/31/16 05:07 - Impressions Impressions Chest X-Ray 08/28/16 15:00 IMPRESSION: 1. Endotracheal tube tip approximately 4.2 cm above the wilman. 2. Overall improvement of airspace opacities and pleural effusion in the left chest. No discrete pneumothorax identified. D/ / 08/28/2016 15:49:52 Winnie Masters MD / [email or web address] Interpreting Provider: Winnie Masters MD Consult Discharge Plan - Plan Referrals: NO,PCP [Primary Care Provider] -
[2016-09-01] MEDS ORDERED: Acetaminophen 325 MG TABLET PO PRN (04:02)
[2016-09-01] MEDS: Ipratropium/Albuterol Neb 3 ML IH SCH ×3 (04:21→11:13)
[2016-09-01] MEDS: Acetylcysteine 10% 2 ML INHSOL IH SCH ×3 (04:21→11:12)
[2016-09-01 06:39] LABS: INR 1.4; Prothrombin Time 15.5 Seconds (9.4-12.1)
[2016-09-01 07:37] VITALS: BP 139/52
--- NOTE | 2016-09-01 07:56 | Nephrology Progress Note ---
Date of Encounter: 09/01/16 Time of Encounter: 07:54 - Assessment and Plan (1) ESRD (end stage renal disease) on dialysis Current Visit: Yes Status: Chronic Patient is stable from a renal perspective. She continues to have dialysis every Saturday. Her blood pressures under better control. She is having frequent loose stools. We will check a stool for C. difficile. (2) HCAP (healthcare-associated pneumonia) Current Visit: Yes Status: Suspected (3) Hyperkalemia Current Visit: Yes Status: Resolved Subjective Principal diagnosis: AMS and acute respirtory failure Interval history: Patient reports she is having frequent loose stools. She denies any shortness of breath. She had dialysis yesterday. Her blood pressure is under better control. Objective - Vital Signs Vital signs: Vital Signs Temp Pulse Resp BP Pulse Ox 09/01/16 07:31 98.5 F 69 16 139/52 92 L 09/01/16 04:21 18 98 09/01/16 04:14 98.3 F 67 16 124/50 99 08/31/16 23:18 98.2 F 70 18 160/60 100 08/31/16 23:09 18 90 L 08/31/16 21:17 98.3 F 66 18 156/51 96 08/31/16 20:28 18 98 08/31/16 15:55 16 98 08/31/16 15:23 98 F 68 16 173/64 98 08/31/16 13:37 98.4 F 72 16 159/64 97 08/31/16 12:55 22 127/41 08/31/16 12:40 157/49 08/31/16 12:25 162/48 08/31/16 12:10 150/49 08/31/16 11:55 158/51 08/31/16 11:40 161/54 08/31/16 11:25 157/55 08/31/16 11:10 146/53 08/31/16 10:55 140/47 08/31/16 10:40 144/53 08/31/16 10:25 139/51 08/31/16 10:10 151/53 08/31/16 09:55 97.9 F 24 167/61 08/31/16 09:28 155/59 Intake and Output 08/31/16 08/31/16 09/01/16 15:59 23:59 07:59 Intake Total 840 / 840 120 / 120 Output Total 2600 / 2600 0 / 0 Balance -1760 / -1760 120 / 120 Intake: Oral 240 / 240 120 / 120 Intake, Rinseback and 600 / 600 Flushes Output: Urine 0 / 0 0 / 0 Total Dialysis Output 2600 / 2600 Other: Meal Lunch Dinner Percent of Meal Consumed 85% 20% Stool Size Small Stool Consistency loose Stool Color Brown # Voids 2 # Bowel Movement Diapers 1 Blood Glucose* 128 289 181 Hemodialysis Net Fluid 2600 Removed (mL) - General Appearance Exam: Patient is alert and oriented. She is in no acute distress. She appears chronically ill. Lungs diminished breath sounds. Heart irregular rate and rhythm. Abdomen is benign. There is no peripheral edema. There is a functioning AV fistula in the right upper extremity. - Lab 08/31/16 05:07 08/31/16 05:07 Most recent lab results ABG pH 7.40 pH Units (7.32-7.45) 08/29/16 03:35 ABG pCO2 58 mmHg (35-45) H 08/29/16 03:35 ABG pO2 53 mmHg (85-104) L 08/29/16 03:35 ABG HCO3 35.9 mEQ/L (21-27) H 08/29/16 03:35 ABG O2 Saturation 87 % (95-98) L 08/29/16 03:35 Calcium 8.4 mg/dL (8.6-10.8) L 08/31/16 05:07 Phosphorus 5.8 mg/dL (2.3-4.7) H 08/28/16 03:13 Magnesium 2.1 mg/dL (1.6-2.6) 08/29/16 03:37 Consult Discharge Plan - Plan Referrals: NO,PCP [Primary Care Provider] -
[2016-09-01] MEDS: Insulin LISPRO 300 UNITS/3 ML VIAL SQ SCH (08:24)
[2016-09-01] MEDS: Gabapentin 100 MG CAPSULE PO SCH (08:25)
[2016-09-01] MEDS: Diltiazem CD (24hr) 120 MG CAPSULE PO SCH (08:25)
[2016-09-01] MEDS: Metoprolol 100 MG TABLET PO SCH (08:25)
[2016-09-01] MEDS: hydrALAZINE 25 MG TABLET PO SCH (08:25)
--- NOTE | 2016-09-01 08:38 | Discharge Summary ---
Date of Encounter: 09/01/16 Time of Encounter: 08:15 - Discharge Diagnosis (1) Acute and chronic respiratory failure Priority: Primary Status: Resolved Qualifiers: Respiratory failure complication: hypoxia Qualified Code(s): J96.21 - Acute and chronic respiratory failure with hypoxia (2) Pneumonia Priority: Primary Status: Acute Comments: Acinetobacter lwolfii Qualifiers: Pneumonia type: due to other aerobic Gram-negative bacteria Laterality: right Lung location: upper lobe of lung Qualified Code(s): J15.6 - Pneumonia due to other aerobic Gram-negative bacteria (3) Mucus plugging of bronchi Priority: Primary Status: Resolved (4) Hyperkalemia Priority: Primary Status: Resolved (5) PAF (paroxysmal atrial fibrillation) Priority: Secondary Status: Chronic (6) Uncontrolled hypertension Priority: Secondary Status: Chronic (7) Anemia in CKD (chronic kidney disease) Priority: Secondary Status: Chronic (8) Acute metabolic encephalopathy Priority: Primary Status: Resolved (9) ESRD (end stage renal disease) on dialysis Priority: Secondary Status: Chronic - Discharge Medications Prescriptions: HYDROcodone/Acet 5/325 mg [Carol[place] 5-325 mg] 1 tab PO Q8H PRN #10 tablet PRN Reason: Moderate to Severe Pain Levofloxacin [Levaquin] 750 mg PO Q48H #4 tablet Home Medications: Furosemide [Lasix] 80 mg PO BID 09/28/15 [History] Levothyroxine Sodium [Tirosint] 150 mcg PO DAILY 09/28/15 [History] Clopidogrel [Plavix] 75 mg PO DAILY 09/29/15 [History] Modafinil [Provigil] 200 mg PO QAM 09/29/15 [History] Acetaminophen [Tylenol] 1,000 mg PO Q8HR PRN 12/05/15 [History] Cinacalcet [Sensipar] 30 mg PO DAILY 12/05/15 [History] Insulin LISPRO [HumaLOG] 2 - 12 unit SQ QID PRN 12/05/15 [History] Omeprazole 20 mg PO QAM 12/05/15 [History] B Complex W-C No.20/Folic Acid [Virt-Caps Softgel] 1 mg PO DAILY 12/13/15 [ History] Diltiazem HCl [Diltiazem ER] 120 mg PO DAILY 05/02/16 [History] Folic Acid 1 mg PO DAILY 05/02/16 [History] Ipratropium/Albuterol Neb [Duoneb] 3 ml IH Q4HR 05/02/16 [History] Ammonium Lactate [Marisol-Hydrolac] 1 appl TP BID 05/25/16 [History] Metoprolol [Lopressor] 100 mg PO BID 07/25/16 [History] Warfarin [Coumadin] 4 mg PO MOTH 07/25/16 [History] Warfarin [Coumadin] 5 mg PO SUTUWEFRSA 07/26/16 [History] Insulin Glargine [Lantus] 5 unit SQ HS 08/28/16 [History] Diltiazem CD (24hr) [Cardizem CD] 120 mg PO DAILY cap.er.24h 09/01/16 [Rx] Gabapentin [Neurontin] 100 mg PO BID capsule 09/01/16 [Rx] GuaiFENesin ER [Mucinex] 1,200 mg PO BID tbbp.12hr 09/01/16 [Rx] HYDROcodone/Acet 5/325 mg [[place] 5-325 mg] 1 tab PO Q8H PRN #10 tablet 09/01/16 [Rx] HydrALAZINE 25 mg PO Q8HR tablet 09/01/16 [Rx] Levofloxacin [Levaquin] 750 mg PO Q48H #4 tablet 09/01/16 [Rx] Losartan [Cozaar] 50 mg PO DAILY tablet 09/01/16 [Rx] Omeprazole [PriLOSEC] 20 mg PO DAILY@0730 capsule. 09/01/16 [Rx] Sevelamer [Renvela] 1,600 mg PO TIDWM tablet 09/01/16 [Rx] Allergies/Adverse Reactions: Allergies No Known Allergies Allergy (Verified 08/28/16 07:56) Procedures/tests Complete & Pending: Procedures Performed prior 72 hours Category Date Time Status EV echocardiogram Routine Y 08/29/16 13:25 Completed Date of admission: 08/28/16 14:12 Primary care physician: PCP NO Consults: 08/29/16 10:00 Consult to Dialysis [CONS] ONCE 08/30/16 08:14 Consult to Occupational Therapy [CONS] Routine Comment: Evaluate, develop and implement POC Consult to Physical Therapy [CONS] Routine Comment: Evaluate, develop and implement POC 08/31/16 08:56 Consult to [employer] Helper [CONS] Routine Reason for SW Consult: rtn to wmp 08/31/16 09:30 Consult to Dialysis [CONS] ONCE Discharging clinician: Bala Roberts Anticipated date of discharge: 09/01/16 - Patient Status Disposition: Transfer LTC Condition: Fair Functional capacity at discharge: uses cane/walker Overall status at discharge: patient is progressing back to baseline - Discharge Instructions Follow Up With: NO,PCP [Primary Care Provider] - - Diet and Activity Activity: increase activity as tolerated Diet: advance to your usual diet Hospital course: Ms. Rico is a 71 year old female dialysis dependent presented to ED with acute mental status change. She had missed a day of dialysis and was found unresponsive. In ED she was found to be hyperkalemic and admitted to the ICU after acute treatment. CXR at that time was concerning for acute pneumonia and possible mucus plugging. Ms. Rico was admitted to ICU. Emergent dialysis was performed. She initially was maintained on bipap but ultimately was endotracheally intubated. Shortly after she undewent bronchoscopy and a large mucus plug was removed. This resulted in improvement of her CXR. She was able to be extubated the next day. Cultures ultimately grew Acinetobacter lwolfii. Abx were adjusted. She was transferred to [facility] and had routine dialysis. She had continued improvement in her symptoms. On 09/01/16 she was up in the chair eating breakfast. She had no new issues. Her BP was stable and she was afebrile. At that time she was felt ready for return to [facility]. - Time Spent with Patient Total time spent providing and/or coordinating discharge services: 44min - Constitutional Vitals: Temp Pulse Resp BP Pulse Ox 98.5 F 69 16 139/52 92 L 09/01/16 07:31 09/01/16 07:31 09/01/16 07:31 09/01/16 07:31 09/01/16 07:31 General appearance: Present: A&O X 3, answers questions appropriately - Head Head exam: Present: normocephalic - Eye Eye exam: Present: EOMI, conjuntiva pink - ENT ENT exam: Present: mucous membranes moist - Respiratory Respiratory exam: Present: decreased breath sounds, CTAB - Cardiovascular Cardiovascular exam: Present: RRR. Absent: tachycardia - GI/Abdominal GI/Abdominal exam: Present: soft. Absent: tenderness - Extremities Exam Extremities exam: Present: warm - Neurological Exam Neurological exam: Present: alert, oriented X3, no focal deficits - Skin Skin exam: Present: dry, warm. Absent: rash
--- NOTE | 2016-09-01 08:58 | Physician Discharge Referral ---
ExtendedCare Referral Info Transfer To: [facility] Provider in Charge after Transfer: PCP Institutional Level of Care: Intermediate - MR - Diagnosis (1) Acute and chronic respiratory failure Priority: Primary Status: Resolved (2) Pneumonia Priority: Primary Status: Acute (3) Mucus plugging of bronchi Priority: Primary Status: Resolved (4) Hyperkalemia Priority: Primary Status: Resolved (5) PAF (paroxysmal atrial fibrillation) Priority: Secondary Status: Chronic (6) Uncontrolled hypertension Priority: Secondary Status: Chronic (7) Anemia in CKD (chronic kidney disease) Priority: Secondary Status: Chronic (8) Acute metabolic encephalopathy Priority: Secondary Status: Resolved (9) ESRD (end stage renal disease) on dialysis Priority: Secondary Status: Chronic Expected Duration of Placement: Greater than 30 days Prognosis: Fair Aware of Diagnosis: Patient Aware of Prognosis: Patient - Transfer Medications Prescriptions: HYDROcodone/Acet 5/325 mg [Brun[place] 5-325 mg] 1 tab PO Q8H PRN #10 tablet PRN Reason: Moderate to Severe Pain Levofloxacin [Levaquin] 750 mg PO Q48H #4 tablet Home Medications: Furosemide [Lasix] 80 mg PO BID 09/28/15 [History] Levothyroxine Sodium [Tirosint] 150 mcg PO DAILY 09/28/15 [History] Clopidogrel [Plavix] 75 mg PO DAILY 09/29/15 [History] Modafinil [Provigil] 200 mg PO QAM 09/29/15 [History] Acetaminophen [Tylenol] 1,000 mg PO Q8HR PRN 12/05/15 [History] Cinacalcet [Sensipar] 30 mg PO DAILY 12/05/15 [History] Insulin LISPRO [HumaLOG] 2 - 12 unit SQ QID PRN 12/05/15 [History] Omeprazole 20 mg PO QAM 12/05/15 [History] B Complex W-C No.20/Folic Acid [Virt-Caps Softgel] 1 mg PO DAILY 12/13/15 [ History] Diltiazem HCl [Diltiazem ER] 120 mg PO DAILY 05/02/16 [History] Folic Acid 1 mg PO DAILY 05/02/16 [History] Ipratropium/Albuterol Neb [Duoneb] 3 ml IH Q4HR 05/02/16 [History] Ammonium Lactate [Marisol-Hydrolac] 1 appl TP BID 05/25/16 [History] Metoprolol [Lopressor] 100 mg PO BID 07/25/16 [History] Warfarin [Coumadin] 4 mg PO MOTH 07/25/16 [History] Warfarin [Coumadin] 5 mg PO SUTUWEFRSA 07/26/16 [History] Insulin Glargine [Lantus] 5 unit SQ HS 08/28/16 [History] Diltiazem CD (24hr) [Cardizem CD] 120 mg PO DAILY cap.er.24h 09/01/16 [Rx] Gabapentin [Neurontin] 100 mg PO BID capsule 09/01/16 [Rx] GuaiFENesin ER [Mucinex] 1,200 mg PO BID tbbp.12hr 09/01/16 [Rx] HYDROcodone/Acet 5/325 mg [Brunson 5-325 mg] 1 tab PO Q8H PRN #10 tablet 09/01/16 [Rx] HydrALAZINE 25 mg PO Q8HR tablet 09/01/16 [Rx] Levofloxacin [Levaquin] 750 mg PO Q48H #4 tablet 09/01/16 [Rx] Losartan [Cozaar] 50 mg PO DAILY tablet 09/01/16 [Rx] Omeprazole [PriLOSEC] 20 mg PO DAILY@0730 capsule. 09/01/16 [Rx] Sevelamer [Renvela] 1,600 mg PO TIDWM tablet 09/01/16 [Rx] Allergies/Adverse Reactions: Allergies No Known Allergies Allergy (Verified 08/28/16 07:56) - Respiratory Orders Other (Keep sat greater than 90%) Smoking Cessation: Smoking cessation has been advised. For more information, call the [place] Tobacco Quit Line at 4-882-BVEY-NOW. - Ancillary Orders May use pressure relief devices daily prn, May go on TROY w/family/respon constitution party w /meds at nurse discretion PRN, May consult with Dentist, Office Employee, Hydraulic Press In Operator PRN - Advance Directives Code Status: Full Code - History and Physical History/Physical reviewed & approved w/add comments: Pt more alert and less dyspneic - Mobility Orders Ambulate - Rehabiliation Orders Rehab Potential: Fair Rehab Orders: Evaluation for Physical Therapy, Evaluation for Occupational Therapy - Treatments Skin tear care topically daily PRN per policy, May check for fecal impaction rectally daily PRN, Fleet enema rectally every other day PRN cleansing purposes - Diet Orders No Concentrated Sweets, Renal CERTIFICATION: I certify that the transfer of the above named patient to an Extended Care Facility is necessary for the continuing treatment of the diagnosis listed. The above information is true and accurate reflection of patient's current condition. Confidential - Redisclosure prohibited without a patient's written consent.
[2016-09-01] MEDS ORDERED: *HR* Warfarin 5 MG TABLET PO ONE (18:00)
== END 2016-09-01 11:19 | DRG 208 ==
LOC: EMEROO 02:55 → ICNU 02:55 → SUATTDRO 14:12 → 2ANU 08-30 20:30
PROVIDERS: ADMIT Hospitalist; ATTEND Internal Medicine

== ENCOUNTER 2016-11-26 06:01 | Inpatient (IN) ==
[2016-11-26] MEDS ORDERED: 0.9 % Sodium Chloride 1,000 ML IVC ONE (06:07)
[2016-11-26] MEDS ORDERED: Acetaminophen 650 MG RECTAL SUPP RC ONE (06:09)
--- NOTE | 2016-11-26 06:09 | Emergency Department Note ---
Disposition Clinical Impression: HCAP (healthcare-associated pneumonia), ESRD (end stage renal disease), Hyperkalemia, Elevated troponin Sepsis Qualifiers: Sepsis type: sepsis due to unspecified organism Qualified Code(s): A41.9 - Sepsis, unspecified organism Altered mental status Qualifiers: Altered mental status type: unspecified Qualified Code(s): R41.82 - Altered mental status, unspecified Disposition: Still a Patient Condition: Serious Referrals: Joey Rihcards Jr, MD [Primary Care Provider] - Forms: ED Satisfaction Letter Altered Mental Status HPI - General Chief Complaint: ED Altered Mental Status Stated Complaint: AMS, lethargic Time Seen by Provider: 11/26/16 06:06 Source: EMS Mode of arrival: EMS Limitations: altered mental status Nursing Notes Reviewed: Yes Vital Signs Reviewed: Yes - History of Present Illness HPI Narrative: 71-year-old female history of CAD, and stage renal disease dialysis dependent, COPD who presents to the ER from dialysis due to altered mental status and decreased responsiveness. EMS reports that when she arrived at the dialysis center there was concern for her mental status. They report that she is usually more with it. Patient arrives altered with an initial GCS of 9. She does withdraw to pain and would follow simple commands. We spoke with the nursing facility who reports at 4 AM she was in her normal state of health and mentating appropriately. They do report that she has had multiple episodes of pneumonia in the past. Patient is febrile here at 103.2 with a heart rate in the 90s. She is unable to provide any history. 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 confirmed by: caregiver Pain Severity: none Context: other (Dialysis dependent) Associated symptoms: Reports: cough, fever - Related Data Home Medications Medication Instructions Recorded Confirmed Furosemide [Lasix] 80 mg PO BID 09/28/15 08/28/16 Levothyroxine Sodium [Tirosint] 150 mcg PO DAILY 09/28/15 08/28/16 Clopidogrel [Plavix] 75 mg PO DAILY 09/29/15 08/28/16 Modafinil [Provigil] 200 mg PO QAM 09/29/15 08/28/16 Acetaminophen [Tylenol] 1,000 mg PO Q8HR PRN 12/05/15 08/28/16 Cinacalcet [Sensipar] 30 mg PO DAILY 12/05/15 08/28/16 Insulin LISPRO [HumaLOG] 2 - 12 unit SQ QID PRN 12/05/15 08/28/16 Omeprazole 20 mg PO QAM 12/05/15 08/28/16 B Complex W-C No.20/Folic Acid 1 mg PO DAILY 12/13/15 08/28/16 [Virt-Caps Softgel] Diltiazem HCl [Diltiazem ER] 120 mg PO DAILY 05/02/16 08/28/16 Folic Acid 1 mg PO DAILY 05/02/16 08/28/16 Ipratropium/Albuterol Neb [Duoneb] 3 ml IH Q4HR 05/02/16 08/28/16 Ammonium Lactate [Marisol-Hydrolac] 1 appl TP BID 05/25/16 08/28/16 Metoprolol [Lopressor] 100 mg PO BID 07/25/16 08/28/16 Warfarin [Coumadin] 4 mg PO MOTH 07/25/16 08/28/16 Warfarin [Coumadin] 5 mg PO SUTUWEFRSA 07/26/16 08/28/16 Insulin Glargine [Lantus] 5 unit SQ HS 08/28/16 08/28/16 Previous Rx's Medication Instructions Recorded Diltiazem CD (24hr) [Cardizem CD] 120 mg PO DAILY cap.er.24h 09/01/16 Gabapentin [Neurontin] 100 mg PO BID capsule 09/01/16 GuaiFENesin ER [Mucinex] 1,200 mg PO BID tbbp.12hr 09/01/16 HYDROcodone/Acet 5/325 mg [[place] 1 tab PO Q8H PRN #10 tablet 09/01/16 5-325 mg] Levofloxacin [Levaquin] 750 mg PO Q48H #4 tablet 09/01/16 Losartan [Cozaar] 50 mg PO DAILY tablet 09/01/16 Omeprazole [PriLOSEC] 20 mg PO DAILY@0730 capsule. 09/01/16 Sevelamer [Renvela] 1,600 mg PO TIDWM tablet 09/01/16 hydrALAZINE [HydrALAZINE] 25 mg PO Q8HR tablet 09/01/16 Allergies Allergy/AdvReac Type Severity Reaction Status Date / Time No Known Allergies Allergy Verified 08/28/16 07:56 Limitations: ROS unobtainable due to patients medical condition Past Medical History - Past Medical History Attestation: Yes The following information was validated with the patient. Source: old records reviewed Medical history: Reports: arthritis, cardiomyopathy, COPD, coronary artery disease, diabetes, dialysis, GERD, hyperlipidemia, hypertension, osteoporosis, peripheral artery disease, renal disease, thyroid disease, other Surgical history: Reports: appendectomy, cholecystectomy, hip replacement, hysterectomy, orthopedic, other, ABIMAEL/BSO, other Psychiatric history: Reports: anxiety, depression, other WHOLESALE DIAMOND BROKER history: Reports: no WHOLESALE DIAMOND BROKER history - Social History Smoking Status: Current every day smoker Smokeless Tobacco Status: No Alcohol use: Reports: none Drug use: Reports: none, prescription drug abuse, other Physical Exam - General Limitations: altered mental status General appearance: obtunded - Head Head exam: atraumatic, normocephalic, normal inspection - Eye Eye exam: Present: normal appearance, EOMI - ENT ENT exam: normal exam - Neck Neck exam: Present: normal inspection - Chest Chest inspection: Present: normal inspection, symmetric chest wall rise - Respiratory Respiratory exam: Present: other (There are diminished breath sounds on the left with rhonchi.). Absent: respiratory distress, wheezes, accessory muscle use - Cardiovascular Cardiovascular exam: Present: regular rate, normal rhythm, normal heart sounds - Abdominal Exam Abdominal exam: Present: soft, Non-Tender. Absent: tenderness - Extremities Exam Extremities exam: Present: normal inspection - Expanded Upper Extremity Exam Shoulder exam: Present: normal inspection Arm exam: Present: normal inspection Elbow exam: Present: normal inspection Forearm/Wrist exam: Present: normal inspection Hand exam: Present: normal inspection - Expanded Lower Extremity Exam Hip/Pelvis exam: Present: normal inspection Upper leg exam: Present: normal inspection Knee exam: Present: normal inspection Lower leg exam: Present: normal inspection Ankle exam: Present: normal inspection Foot/toe exam: Present: normal inspection - Neurological Exam Neurological exam: Present: other (Follows simple commands and withdraws to pain. She does arouse with needle stick for IV placement) - Expanded Neurological Exam Coma Scale Eye Opening: To Pain Coma Scale Motor Response: Localizes to Pain Coma Scale Verbal Response: Incomprehensible Coma Scale Total: 9 - Skin Skin exam: Present: warm, dry, intact, normal color Course Course Narrative: Patient seen and examined. Vital signs reviewed. She is febrile here at 103.2 with a heart rate in the 90s. We will get blood cultures and lactate as well as labs, CT of her head and chest x-ray. We will begin IV fluid resuscitation. Patient ordered rectal Tylenol for her fever. - Reevaluation(s) Reevaluation #1: Patient did have a desaturation event here to 80-89% on room air and placed on nasal cannula at 6 L. We attempted BiPAP but the patient would not comply. Her chest x-ray shows developing pneumonia given her dialysis she meets healthcare associated pneumonia criteria. We will start her on vancomycin and Zosyn and Levaquin. Her potassium also resulted at 6.7 with a creatinine of 8.2. She does have some slightly peaked T waves and will receive insulin D50 and calcium. Vital Signs Temperature 103.2 F H 11/26/16 06:03 Pulse Rate 90 11/26/16 06:03 Respiratory Rate 18 11/26/16 06:03 Blood Pressure 157/59 11/26/16 06:03 O2 Sat by Pulse Oximetry 93 11/26/16 06:03 Temperature 103.2 F H 11/26/16 06:03 Pulse Rate 90 11/26/16 06:03 Respiratory Rate 18 11/26/16 06:03 Blood Pressure 157/59 11/26/16 06:03 O2 Sat by Pulse Oximetry 98 11/26/16 06:13 Oxygen Delivery Oxygen Delivery Room Air Altered Mental Status - MDM Narrative Medical decision making narrative: 71-year-old female presents to the ER from dialysis due to altered mental status and decreased responsiveness. The nursing facility reports that she was her usual self at 4 AM this morning prior to going to dialysis. At dialysis it was noted that she had decreased responsiveness. She did not receive any dialysis prior to arrival. Upon arrival she has a GCS of 9 and is guarding her airway. She was the satting to 88-89% and placed on 6 L nasal cannula. Her x- ray shows concern for pneumonia. She is febrile here with her in the 90s and meet sepsis criteria. Patient receiving antibiotics for healthcare associated pneumonia. Although she meets sepsis criteria the patient only received 1 L of fluids in the ED as her blood pressure is stable and she appears volume overloaded with a BNP over 4000. Her potassium was also 6.7 and treated with insulin, D50 and calcium due to some hyperacute T waves. Her workup is currently pending and will be signed out to the daysilft team. - Lab Data Lab results reviewed: Yes I reviewed the patient's lab results. Result diagrams: 11/26/16 06:15 11/26/16 06:15 Lab Results 11/26/16 11/26/16 11/26/16 Range/Units 06:15 06:15 06:15 WBC 14.3 H (4.3-11.1) K/mcL RBC 3.08 L (3.82-4.97) M/mcL Hgb 10.1 L (11.5-15.4) g/dL Hct 33.2 L (35.3-44.9) % MCV 107.8 H (83.0-100.0) fL MCH 32.8 (28.0-33.3) pg MCHC 30.4 L (31.6-35.5) g/dL RDW 13.7 (11.5-14.5) % Plt Count 209 (140-400) K/mcL MPV 10.9 (9.4-12.4) fL Immature Gran % 0.5 (0-4) % Seg Neutrophils % 84.2 % Lymphocytes % 6.6 % Monocytes % 7.4 % Eosinophils % 1.0 % Basophils % 0.3 % Neutrophils # 12.1 H (1.6-8.9) K/mcL Lymphocytes # 1.0 (0.6-4.6) K/mcL Monocytes # 1.1 (0.0-1.3) K/mcL Eosinophils # 0.1 (0.0-0.6) K/mcL Basophils # 0.0 (0.0-0.2) K/mcL PT 14.7 H (9.4-12.1) Seconds INR 1.4 APTT 37.6 H (26.0-36.0) Seconds Sodium 137 (136-145) mEq/L Potassium 6.7 H* (3.5-4.5) mEq/L Chloride 95 L (98-109) mEq/L Carbon Dioxide 26 (19-29) mEq/L BUN 49 H (7-20) mg/dL Creatinine 8.20 H (0.57-1.11) mg/dL Est GFR ( Amer) 6 L (> 60) Est GFR (Non-Af Amer) 5 L (> 60) BUN/Creatinine Ratio 6 (6-26) Glucose 159 H (70-99) mg/dL Calculated Osmolality 300 (280-300) Lactic Acid (0.5-2.2) mmol/L Calcium 10.0 (8.6-10.8) mg/dL Phosphorus 7.9 H (2.3-4.7) mg/dL Magnesium 2.3 (1.6-2.6) mg/dL Total Bilirubin 0.5 (0.2-1.2) mg/dL Direct Bilirubin 0.3 (0.0-0.5) mg/dL Indirect Bilirubin 0.2 (0.0-1.2) mg/dL AST 15 (5-34) Units/L ALT 11 (0-55) Units/L Alkaline Phosphatase 88 (38-126) Units/L Troponin I (0-0.03) ng/mL B-Natriuretic Peptide (0-100) pg/mL Serum Total Protein 8.4 H (6.0-8.3) g/dL Albumin 3.0 L (3.5-5.0) g/dL Globulin 5.4 H (2.4-3.5) g/dL Albumin/Globulin Ratio 0.6 L (1.1-2.2) 11/26/16 11/26/16 11/26/16 Range/Units 06:15 06:15 06:15 WBC (4.3-11.1) K/mcL RBC (3.82-4.97) M/mcL Hgb (11.5-15.4) g/dL Hct (35.3-44.9) % MCV (83.0-100.0) fL MCH (28.0-33.3) pg MCHC (31.6-35.5) g/dL RDW (11.5-14.5) % Plt Count (140-400) K/mcL MPV (9.4-12.4) fL Immature Gran % (0-4) % Seg Neutrophils % % Lymphocytes % % Monocytes % % Eosinophils % % Basophils % % Neutrophils # (1.6-8.9) K/mcL Lymphocytes # (0.6-4.6) K/mcL Monocytes # (0.0-1.3) K/mcL Eosinophils # (0.0-0.6) K/mcL Basophils # (0.0-0.2) K/mcL PT (9.4-12.1) Seconds INR APTT (26.0-36.0) Seconds Sodium (136-145) mEq/L Potassium (3.5-4.5) mEq/L Chloride (98-109) mEq/L Carbon Dioxide (19-29) mEq/L BUN (7-20) mg/dL Creatinine (0.57-1.11) mg/dL Est GFR ( Amer) (> 60) Est GFR (Non-Af Amer) (> 60) BUN/Creatinine Ratio (6-26) Glucose (70-99) mg/dL Calculated Osmolality (280-300) Lactic Acid 1.0 (0.5-2.2) mmol/L Calcium (8.6-10.8) mg/dL Phosphorus (2.3-4.7) mg/dL Magnesium (1.6-2.6) mg/dL Total Bilirubin (0.2-1.2) mg/dL Direct Bilirubin (0.0-0.5) mg/dL Indirect Bilirubin (0.0-1.2) mg/dL AST (5-34) Units/L ALT (0-55) Units/L Alkaline Phosphatase (38-126) Units/L Troponin I 0.05 H* (0-0.03) ng/mL B-Natriuretic Peptide 4355 H (0-100) pg/mL Serum Total Protein (6.0-8.3) g/dL Albumin (3.5-5.0) g/dL Globulin (2.4-3.5) g/dL Albumin/Globulin Ratio (1.1-2.2) - Radiology Data Radiology results reviewed: Yes I reviewed the patient's radiology results. - EKG Data EKG attestation: Yes I reviewed and interpreted this EKG. EKG results narrative: EKG demonstrates sinus rhythm with a rate of 91 bpm. Normal axis. Normal intervals. No ST elevations or depressions. No acute ischemic findings. Critical Care Time Critical Care Time: Yes Total Critical Care Time: 45 Attestation: Critical care performed: Time is exclusive of separately billable procedures. Time includes: direct patient care, patient reassessment, coordination of patient care, interpretation of data (laboratory data, radiology data, and respiratory data), review of patient's medical records, medical consultation and documentation of patient care. Procedures included in critical care time: Procedures excluded from critical care time: Ted - Ted Situation: Demographics, MOA Background: Presenting Complaint, Relevant PMH, Meds, & Allergies Assessment: Vital Signs, Course and respsone to treatment, Exam Concerns, Patient/Family Expectation, Pertinant Lab Results, Outstanding Labs Recommendation: Barrier(s) to disposition, Recommendation based on pending studies, treatments, or consults [place] Report Given to: [facility] physicians Ted Repor Time: 06:51 Attestation Statement - Attestation Attestation: I, Riley Villa MD, personally evaluated this patient and discussed their management with the resident physician. I reviewed the resident's note and agree with the documented findings, medical decision making, and plan of care. 71-year-old female presents to the emergency department by ambulance from dialysis with altered mental status and fever. She is a jail resident and when taken to dialysis this morning she was found to be febrile and dialysis center here. On arrival here patient is unresponsive but does respond to painful stimuli. She is in no distress. Temperature is 103.2 orally. No respiratory distress. Oxygen saturation in the upper 90s on room air. senior living reports the patient was normal this morning when she left the jail. She is a full code. She has a history of recurrent pneumonia and has had to be intubated in the past. On examination patient is a well-developed well-nourished elderly female. There is no cyanosis or diaphoresis. She does respond to painful stimuli only. Mucous membranes are dry. Breath sounds are decreased bilaterally with some coarse bilateral rales. No wheezes noted. Heart regular with a mild tachycardia. Abdomen is soft with normal bowel sounds. Chest x-ray concerning for pneumonia. She meets severe sepsis criteria. Cultures obtained and antibiotics initiated. At shift change patient is being signed out to the oncoming patient team, Dr. Ford and Dr. Hitchcock.
[2016-11-26 06:19] LABS: Basophils % 0.3 %; Eosinophils # 0.1 K/mcL (0.0-0.6); Hematocrit 33.2 % (35.3-44.9); Hemoglobin 10.1 g/dL (11.5-15.4); Immature Granulocytes % 0.5 % (0-4); Lymphocytes % 6.6 %; Mean Corpuscular HGB Conc 30.4 g/dL (31.6-35.5); Mean Corpuscular Hemoglobin 32.8 pg (28.0-33.3); Mean Corpuscular Volume 107.8 fL (83.0-100.0); Mean Platelet Volume 10.9 fL (9.4-12.4); Monocytes # 1.1 K/mcL (0.0-1.3); Monocytes % 7.4 %; Neutrophils # 12.1 K/mcL (1.6-8.9); Platelet Count 209 K/mcL (140-400); Red Blood Count 3.08 M/mcL (3.82-4.97); Red Cell Distribution Width 13.7 % (11.5-14.5); Segmented Neutrophils % 84.2 %
[2016-11-26 06:24] LABS: INR 1.4; Prothrombin Time 14.7 Seconds (9.4-12.1)
[2016-11-26 06:26] LABS: Activated Partial Thrombo Time 37.6 Seconds (26.0-36.0)
[2016-11-26 06:33] LABS: Albumin/Globulin Ratio 0.6 (1.1-2.2); Bilirubin,Direct 0.3 mg/dL (0.0-0.5); Bilirubin,Indirect 0.2 mg/dL (0.0-1.2); Bilirubin,Total 0.5 mg/dL (0.2-1.2); Globulin 5.4 g/dL (2.4-3.5); Magnesium 2.3 mg/dL (1.6-2.6); Phosphorous 7.9 mg/dL (2.3-4.7); Total Protein 8.4 g/dL (6.0-8.3)
[2016-11-26] MEDS ORDERED: Piperacillin/Tazobactam 3.375 GM in D5% in Water (Mini-Bag+) 100 ML IVPB ONE (06:34)
[2016-11-26] MEDS ORDERED: Vancomycin 1,000 MG in D5% in Water 250 ML IVPB ONE (06:34)
[2016-11-26] MEDS ORDERED: Levofloxacin 750 MG/150 ML 750 MG/150 ML BAG IVPB ONE (06:34)
[2016-11-26 06:35] LABS: Potassium 6.7 mEq/L (3.5-4.5)
[2016-11-26] MEDS ORDERED: Calcium Gluconate 1,000 MG in D5% in Water 100 ML IVPB ONE (06:36)
[2016-11-26] MEDS ORDERED: Insulin Human Regular 10 UNIT in 0.9 % Sodium Chloride 10 ML IV ONE (06:36)
[2016-11-26] MEDS ORDERED: *HR* Dextrose 50 % in Water (Syg) 50 ML SYRINGE IVP ONE (06:36)
--- NOTE | 2016-11-26 07:21 | Emergency Department Note ---
Disposition Clinical Impression: HCAP (healthcare-associated pneumonia), ESRD (end stage renal disease), Hyperkalemia, Elevated troponin, Otitis media Altered mental status Qualifiers: Altered mental status type: unspecified Qualified Code(s): R41.82 - Altered mental status, unspecified Mastoiditis Qualifiers: Laterality: bilateral Qualified Code(s): H70.93 - Unspecified mastoiditis, bilateral Disposition: Admitted As Inpatient Condition: Serious Referrals: Joey Richards Jr, MD [Primary Care Provider] - Forms: ED Satisfaction Letter General Adult HPI - General Chief complaint: ED Altered Mental Status Stated complaint: AMS, lethargic Time Seen by Provider: 11/26/16 06:06 Source: EMS Mode of arrival: EMS Limitations: altered mental status Nursing Notes Reviewed: Yes Vital Signs Reviewed: Yes - History of Present Illness Pain Scale: 0 - Related Data Home Medications Medication Instructions Recorded Confirmed Furosemide [Lasix] 80 mg PO BID 09/28/15 08/28/16 Levothyroxine Sodium [Tirosint] 150 mcg PO DAILY 09/28/15 08/28/16 Clopidogrel [Plavix] 75 mg PO DAILY 09/29/15 08/28/16 Modafinil [Provigil] 200 mg PO QAM 09/29/15 08/28/16 Acetaminophen [Tylenol] 1,000 mg PO Q8HR PRN 12/05/15 08/28/16 Cinacalcet [Sensipar] 30 mg PO DAILY 12/05/15 08/28/16 Insulin LISPRO [HumaLOG] 2 - 12 unit SQ QID PRN 12/05/15 08/28/16 Omeprazole 20 mg PO QAM 12/05/15 08/28/16 B Complex W-C No.20/Folic Acid 1 mg PO DAILY 12/13/15 08/28/16 [Virt-Caps Softgel] Diltiazem HCl [Diltiazem ER] 120 mg PO DAILY 05/02/16 08/28/16 Folic Acid 1 mg PO DAILY 05/02/16 08/28/16 Ipratropium/Albuterol Neb [Duoneb] 3 ml IH Q4HR 05/02/16 08/28/16 Ammonium Lactate [Marisol-Hydrolac] 1 appl TP BID 05/25/16 08/28/16 Metoprolol [Lopressor] 100 mg PO BID 07/25/16 08/28/16 Warfarin [Coumadin] 4 mg PO MOTH 07/25/16 08/28/16 Warfarin [Coumadin] 5 mg PO SUTUWEFRSA 07/26/16 08/28/16 Insulin Glargine [Lantus] 5 unit SQ HS 08/28/16 08/28/16 Previous Rx's Medication Instructions Recorded Diltiazem CD (24hr) [Cardizem CD] 120 mg PO DAILY cap.er.24h 09/01/16 Gabapentin [Neurontin] 100 mg PO BID capsule 09/01/16 GuaiFENesin ER [Mucinex] 1,200 mg PO BID tbbp.12hr 09/01/16 HYDROcodone/Acet 5/325 mg [[place] 1 tab PO Q8H PRN #10 tablet 09/01/16 5-325 mg] Levofloxacin [Levaquin] 750 mg PO Q48H #4 tablet 09/01/16 Losartan [Cozaar] 50 mg PO DAILY tablet 09/01/16 Omeprazole [PriLOSEC] 20 mg PO DAILY@0730 capsule. 09/01/16 Sevelamer [Renvela] 1,600 mg PO TIDWM tablet 09/01/16 hydrALAZINE [HydrALAZINE] 25 mg PO Q8HR tablet 09/01/16 Allergies Allergy/AdvReac Type Severity Reaction Status Date / Time No Known Allergies Allergy Verified 08/28/16 07:56 Past Medical History - Past Medical History Medical history: Reports: arthritis, cardiomyopathy, COPD, coronary artery disease, diabetes, dialysis, GERD, hyperlipidemia, hypertension, osteoporosis, peripheral artery disease, renal disease, thyroid disease, other Surgical history: Reports: appendectomy, cholecystectomy, hip replacement, hysterectomy, orthopedic, other, ABIMAEL/BSO, other Psychiatric history: Reports: anxiety, depression, other SURGICAL ASSISTANT history: Reports: no SURGICAL ASSISTANT history - Social History Smoking Status: Current every day smoker Smokeless Tobacco Status: No Alcohol use: Reports: none Drug use: Reports: none, prescription drug abuse, other Physical Exam - General Limitations: altered mental status General appearance: obtunded Course Vital Signs Pulse Rate 93 11/26/16 06:02 Blood Pressure 177/62 11/26/16 06:02 Temperature 103.2 F H 11/26/16 06:03 Pulse Rate 83 06/12/17 07:13 Respiratory Rate 16 11/26/16 07:13 Blood Pressure 124/55 11/26/16 07:13 O2 Sat by Pulse Oximetry 100 11/26/16 07:17 Oxygen Delivery Oxygen Delivery Nasal Cannula Medical Decision Making - MDM Narrative Medical decision making narrative: I examined this patient and my medical decision-making was reviewed with the TROUBLE OPERATOR/PA/Advanced Practice Nurse/Resident Physician. I agree with the documented findings, disposition and treatment plan as described except to the extent set forth below. Patient was signed out from the evening ER physician Dr. Villa to Dr. Ford and myself, I agree with Dr. Ford evaluation and management plan supervised the care of the patient outstay. Patient been worked up during the evening for an altered mental status. She is a renal dialysis patient once unable to receive dialysis this morning. Patient does not have any complaints but is not very verbal here. She had IV established does have elevated white count and was apparently febrile since she got cultured and started on antibiotics. CT scan was ordered chest x-rays ordered and we spoke with Dr. Yost who is her oracle bpm developer, he said he will be happy to consult on her admit to hospitalist. Waiting to speak with hospitalist and waiting on final read of x-rays by radiology and then we will update the hospitalist on her need for admission. Chest X-Ray 11/26/16 06:07 IMPRESSION: Bilateral airspace disease suspicious for pneumonia. D/ / Zac Greco MD / Zac Greco MD Interpreting Provider: Zac Greco MD Head CT 11/26/16 06:08 IMPRESSION: 1. Small vessel chronic ischemic changes with no acute hemorrhage or definite evidence for acute ischemia. 2. Bilateral mastoiditis with left-sided otitis media. D/ / Zac Greco MD / Zac Greco MD Interpreting Provider: Zac Greco MD 0720 hrs. patient has concerns and chest x-ray pneumonia and on CT for mastoiditis. Up with left-sided otitis media. She is getting antibiotics going now. We will page hospitalist in bring her in for admission. Patient does not appear septic at this time. Her lactate is normal. 737 hours: Hospices accepted patient. - Lab Data Result diagrams: 11/26/16 06:15 11/26/16 06:15 Lab Results 11/26/16 11/26/16 11/26/16 Range/Units 06:15 06:15 06:15 WBC 14.3 H (4.3-11.1) K/mcL RBC 3.08 L (3.82-4.97) M/mcL Hgb 10.1 L (11.5-15.4) g/dL Hct 33.2 L (35.3-44.9) % MCV 107.8 H (83.0-100.0) fL MCH 32.8 (28.0-33.3) pg MCHC 30.4 L (31.6-35.5) g/dL RDW 13.7 (11.5-14.5) % Plt Count 209 (140-400) K/mcL MPV 10.9 (9.4-12.4) fL Immature Gran % 0.5 (0-4) % Seg Neutrophils % 84.2 % Lymphocytes % 6.6 % Monocytes % 7.4 % Eosinophils % 1.0 % Basophils % 0.3 % Neutrophils # 12.1 H (1.6-8.9) K/mcL Lymphocytes # 1.0 (0.6-4.6) K/mcL Monocytes # 1.1 (0.0-1.3) K/mcL Eosinophils # 0.1 (0.0-0.6) K/mcL Basophils # 0.0 (0.0-0.2) K/mcL PT 14.7 H (9.4-12.1) Seconds INR 1.4 APTT 37.6 H (26.0-36.0) Seconds Sodium 137 (136-145) mEq/L Potassium 6.7 H* (3.5-4.5) mEq/L Chloride 95 L (98-109) mEq/L Carbon Dioxide 26 (19-29) mEq/L BUN 49 H (7-20) mg/dL Creatinine 8.20 H (0.57-1.11) mg/dL Est GFR ( Amer) 6 L (> 60) Est GFR (Non-Af Amer) 5 L (> 60) BUN/Creatinine Ratio 6 (6-26) Glucose 159 H (70-99) mg/dL Calculated Osmolality 300 (280-300) Lactic Acid (0.5-2.2) mmol/L Calcium 10.0 (8.6-10.8) mg/dL Phosphorus 7.9 H (2.3-4.7) mg/dL Magnesium 2.3 (1.6-2.6) mg/dL Total Bilirubin 0.5 (0.2-1.2) mg/dL Direct Bilirubin 0.3 (0.0-0.5) mg/dL Indirect Bilirubin 0.2 (0.0-1.2) mg/dL AST 15 (5-34) Units/L ALT 11 (0-55) Units/L Alkaline Phosphatase 88 (38-126) Units/L Troponin I (0-0.03) ng/mL B-Natriuretic Peptide (0-100) pg/mL Serum Total Protein 8.4 H (6.0-8.3) g/dL Albumin 3.0 L (3.5-5.0) g/dL Globulin 5.4 H (2.4-3.5) g/dL Albumin/Globulin Ratio 0.6 L (1.1-2.2) 11/26/16 11/26/16 11/26/16 Range/Units 06:15 06:15 06:15 WBC (4.3-11.1) K/mcL RBC (3.82-4.97) M/mcL Hgb (11.5-15.4) g/dL Hct (35.3-44.9) % MCV (83.0-100.0) fL MCH (28.0-33.3) pg MCHC (31.6-35.5) g/dL RDW (11.5-14.5) % Plt Count (140-400) K/mcL MPV (9.4-12.4) fL Immature Gran % (0-4) % Seg Neutrophils % % Lymphocytes % % Monocytes % % Eosinophils % % Basophils % % Neutrophils # (1.6-8.9) K/mcL Lymphocytes # (0.6-4.6) K/mcL Monocytes # (0.0-1.3) K/mcL Eosinophils # (0.0-0.6) K/mcL Basophils # (0.0-0.2) K/mcL PT (9.4-12.1) Seconds INR APTT (26.0-36.0) Seconds Sodium (136-145) mEq/L Potassium (3.5-4.5) mEq/L Chloride (98-109) mEq/L Carbon Dioxide (19-29) mEq/L BUN (7-20) mg/dL Creatinine (0.57-1.11) mg/dL Est GFR ( Amer) (> 60) Est GFR (Non-Af Amer) (> 60) BUN/Creatinine Ratio (6-26) Glucose (70-99) mg/dL Calculated Osmolality (280-300) Lactic Acid 1.0 (0.5-2.2) mmol/L Calcium (8.6-10.8) mg/dL Phosphorus (2.3-4.7) mg/dL Magnesium (1.6-2.6) mg/dL Total Bilirubin (0.2-1.2) mg/dL Direct Bilirubin (0.0-0.5) mg/dL Indirect Bilirubin (0.0-1.2) mg/dL AST (5-34) Units/L ALT (0-55) Units/L Alkaline Phosphatase (38-126) Units/L Troponin I 0.05 H* (0-0.03) ng/mL B-Natriuretic Peptide 4355 H (0-100) pg/mL Serum Total Protein (6.0-8.3) g/dL Albumin (3.5-5.0) g/dL Globulin (2.4-3.5) g/dL Albumin/Globulin Ratio (1.1-2.2)
--- NOTE | 2016-11-26 07:32 | Emergency Department Note ---
Disposition Clinical Impression: HCAP (healthcare-associated pneumonia), ESRD (end stage renal disease), Hyperkalemia, Elevated troponin Altered mental status Qualifiers: Altered mental status type: unspecified Qualified Code(s): R41.82 - Altered mental status, unspecified Mastoiditis Qualifiers: Laterality: bilateral Qualified Code(s): H70.93 - Unspecified mastoiditis, bilateral Otitis media Qualifiers: Laterality: left Suppurative otitis media location: unspecified location Disposition: Still a Patient Condition: Serious Referrals: Joey Richards Jr, MD [Primary Care Provider] - Forms: ED Satisfaction Letter Altered Mental Status HPI - General Chief Complaint: ED Altered Mental Status Stated Complaint: AMS, lethargic Time Seen by Provider: 11/26/16 06:06 Source: EMS Mode of arrival: EMS Limitations: altered mental status - History of Present Illness Pain Severity: none Associated symptoms: Reports: cough, fever - Related Data Home Medications Medication Instructions Recorded Confirmed Furosemide [Lasix] 80 mg PO BID 09/28/15 08/28/16 Levothyroxine Sodium [Tirosint] 150 mcg PO DAILY 09/28/15 08/28/16 Clopidogrel [Plavix] 75 mg PO DAILY 09/29/15 08/28/16 Modafinil [Provigil] 200 mg PO QAM 09/29/15 08/28/16 Acetaminophen [Tylenol] 1,000 mg PO Q8HR PRN 12/05/15 08/28/16 Cinacalcet [Sensipar] 30 mg PO DAILY 12/05/15 08/28/16 Insulin LISPRO [HumaLOG] 2 - 12 unit SQ QID PRN 12/05/15 08/28/16 Omeprazole 20 mg PO QAM 12/05/15 08/28/16 B Complex W-C No.20/Folic Acid 1 mg PO DAILY 12/13/15 08/28/16 [Virt-Caps Softgel] Diltiazem HCl [Diltiazem ER] 120 mg PO DAILY 05/02/16 08/28/16 Folic Acid 1 mg PO DAILY 05/02/16 08/28/16 Ipratropium/Albuterol Neb [Duoneb] 3 ml IH Q4HR 05/02/16 08/28/16 Ammonium Lactate [Marisol-Hydrolac] 1 appl TP BID 05/25/16 08/28/16 Metoprolol [Lopressor] 100 mg PO BID 07/25/16 08/28/16 Warfarin [Coumadin] 4 mg PO MOTH 07/25/16 08/28/16 Warfarin [Coumadin] 5 mg PO [id number] 07/26/16 08/28/16 Insulin Glargine [Lantus] 5 unit SQ HS 08/28/16 08/28/16 Previous Rx's Medication Instructions Recorded Diltiazem CD (24hr) [Cardizem CD] 120 mg PO DAILY cap.er.24h 09/01/16 Gabapentin [Neurontin] 100 mg PO BID capsule 09/01/16 GuaiFENesin ER [Mucinex] 1,200 mg PO BID tbbp.12hr 09/01/16 HYDROcodone/Acet 5/325 mg [[place] 1 tab PO Q8H PRN #10 tablet 09/01/16 5-325 mg] Levofloxacin [Levaquin] 750 mg PO Q48H #4 tablet 09/01/16 Losartan [Cozaar] 50 mg PO DAILY tablet 09/01/16 Omeprazole [PriLOSEC] 20 mg PO DAILY@0730 capsule. 09/01/16 Sevelamer [Renvela] 1,600 mg PO TIDWM tablet 09/01/16 hydrALAZINE [HydrALAZINE] 25 mg PO Q8HR tablet 09/01/16 Allergies Allergy/AdvReac Type Severity Reaction Status Date / Time No Known Allergies Allergy Verified 08/28/16 07:56 Past Medical History - Past Medical History Medical history: Reports: arthritis, cardiomyopathy, COPD, coronary artery disease, diabetes, dialysis, GERD, hyperlipidemia, hypertension, osteoporosis, peripheral artery disease, renal disease, thyroid disease, other Surgical history: Reports: appendectomy, cholecystectomy, hip replacement, hysterectomy, orthopedic, other, ABIMAEL/BSO, other Psychiatric history: Reports: anxiety, depression, other LICENSED PRACTICAL NURSE history: Reports: no LICENSED PRACTICAL NURSE history - Social History Smoking Status: Current every day smoker Smokeless Tobacco Status: No Alcohol use: Reports: none Drug use: Reports: none, prescription drug abuse, other Physical Exam - General Limitations: altered mental status General appearance: obtunded Course - Reevaluation(s) Reevaluation #1: Patient taken over at signout from Dr. Thanh. Patient seen and evaluated at bedside. Patient awakens to verbal stimuli and is not in any respiratory distress on nasal cannula. Patient is able to respond in complete sentences to questions. Patient does have rhonchorous breath sounds bilaterally. CT scan concerning for left otitis media as well as mastoiditis. On clinical exam the left TM is erythematous and bulging. Patient is alert and been given calcium as well as insulin and dextrose. Patient been given vancomycin, Levaquin, Zosyn. Dr. Quesada was called and the patient will be set up for dialysis later today. Hospitalist Dr. Osei was called, the case was discussed, the patient was accepted for admission. Patient does not receive 30cc/kg secondary to her history of heart disease as well as dialysis. Patient's heart rate and blood pressure stable at this time. Lactate normal Vital Signs Pulse Rate 93 11/26/16 06:02 Blood Pressure 177/62 11/26/16 06:02 Temperature 103.2 F H 11/26/16 06:03 Pulse Rate 83 11/26/16 07:13 Respiratory Rate 16 11/26/16 07:13 Blood Pressure 124/55 11/26/16 07:13 O2 Sat by Pulse Oximetry 100 11/26/16 07:17 Oxygen Delivery Oxygen Delivery Nasal Cannula Altered Mental Status - Lab Data Result diagrams: 11/26/16 06:15 11/26/16 06:15 Lab Results 11/26/16 11/26/16 11/26/16 Range/Units 06:15 06:15 06:15 WBC 14.3 H (4.3-11.1) K/mcL RBC 3.08 L (3.82-4.97) M/mcL Hgb 10.1 L (11.5-15.4) g/dL Hct 33.2 L (35.3-44.9) % MCV 107.8 H (83.0-100.0) fL MCH 32.8 (28.0-33.3) pg MCHC 30.4 L (31.6-35.5) g/dL RDW 13.7 (11.5-14.5) % Plt Count 209 (140-400) K/mcL MPV 10.9 (9.4-12.4) fL Immature Gran % 0.5 (0-4) % Seg Neutrophils % 84.2 % Lymphocytes % 6.6 % Monocytes % 7.4 % Eosinophils % 1.0 % Basophils % 0.3 % Neutrophils # 12.1 H (1.6-8.9) K/mcL Lymphocytes # 1.0 (0.6-4.6) K/mcL Monocytes # 1.1 (0.0-1.3) K/mcL Eosinophils # 0.1 (0.0-0.6) K/mcL Basophils # 0.0 (0.0-0.2) K/mcL PT 14.7 H (9.4-12.1) Seconds INR 1.4 APTT 37.6 H (26.0-36.0) Seconds Sodium 137 (136-145) mEq/L Potassium 6.7 H* (3.5-4.5) mEq/L Chloride 95 L (98-109) mEq/L Carbon Dioxide 26 (19-29) mEq/L BUN 49 H (7-20) mg/dL Creatinine 8.20 H (0.57-1.11) mg/dL Est GFR ( Amer) 6 L (> 60) Est GFR (Non-Af Amer) 5 L (> 60) BUN/Creatinine Ratio 6 (6-26) Glucose 159 H (70-99) mg/dL Calculated Osmolality 300 (280-300) Lactic Acid (0.5-2.2) mmol/L Calcium 10.0 (8.6-10.8) mg/dL Phosphorus 7.9 H (2.3-4.7) mg/dL Magnesium 2.3 (1.6-2.6) mg/dL Total Bilirubin 0.5 (0.2-1.2) mg/dL Direct Bilirubin 0.3 (0.0-0.5) mg/dL Indirect Bilirubin 0.2 (0.0-1.2) mg/dL AST 15 (5-34) Units/L ALT 11 (0-55) Units/L Alkaline Phosphatase 88 (38-126) Units/L Troponin I (0-0.03) ng/mL B-Natriuretic Peptide (0-100) pg/mL Serum Total Protein 8.4 H (6.0-8.3) g/dL Albumin 3.0 L (3.5-5.0) g/dL Globulin 5.4 H (2.4-3.5) g/dL Albumin/Globulin Ratio 0.6 L (1.1-2.2) 11/26/16 11/26/16 11/26/16 Range/Units 06:15 06:15 06:15 WBC (4.3-11.1) K/mcL RBC (3.82-4.97) M/mcL Hgb (11.5-15.4) g/dL Hct (35.3-44.9) % MCV (83.0-100.0) fL MCH (28.0-33.3) pg MCHC (31.6-35.5) g/dL RDW (11.5-14.5) % Plt Count (140-400) K/mcL MPV (9.4-12.4) fL Immature Gran % (0-4) % Seg Neutrophils % % Lymphocytes % % Monocytes % % Eosinophils % % Basophils % % Neutrophils # (1.6-8.9) K/mcL Lymphocytes # (0.6-4.6) K/mcL Monocytes # (0.0-1.3) K/mcL Eosinophils # (0.0-0.6) K/mcL Basophils # (0.0-0.2) K/mcL PT (9.4-12.1) Seconds INR APTT (26.0-36.0) Seconds Sodium (136-145) mEq/L Potassium (3.5-4.5) mEq/L Chloride (98-109) mEq/L Carbon Dioxide (19-29) mEq/L BUN (7-20) mg/dL Creatinine (0.57-1.11) mg/dL Est GFR ( Amer) (> 60) Est GFR (Non-Af Amer) (> 60) BUN/Creatinine Ratio (6-26) Glucose (70-99) mg/dL Calculated Osmolality (280-300) Lactic Acid 1.0 (0.5-2.2) mmol/L Calcium (8.6-10.8) mg/dL Phosphorus (2.3-4.7) mg/dL Magnesium (1.6-2.6) mg/dL Total Bilirubin (0.2-1.2) mg/dL Direct Bilirubin (0.0-0.5) mg/dL Indirect Bilirubin (0.0-1.2) mg/dL AST (5-34) Units/L ALT (0-55) Units/L Alkaline Phosphatase (38-126) Units/L Troponin I 0.05 H* (0-0.03) ng/mL B-Natriuretic Peptide 4355 H (0-100) pg/mL Serum Total Protein (6.0-8.3) g/dL Albumin (3.5-5.0) g/dL Globulin (2.4-3.5) g/dL Albumin/Globulin Ratio (1.1-2.2) TPA Checklist - LKW: 3-4.5 hrs Add. Contraindications Patient/family understanding: The patient/family members have been counseled and understood the risk, benefit , and alternatives of treatment.
[2016-11-26] MEDS ORDERED: Acetaminophen 325 MG TABLET PO PRN (07:35)
[2016-11-26] MEDS ORDERED: Naloxone 0.4 MG/ML INJ IVP PRN (07:35)
[2016-11-26] MEDS ORDERED: Ondansetron 4 MG/2 ML VIAL IVP PRN (07:35)
--- NOTE | 2016-11-26 07:45 | Internal Med History&Physical ---
Date of Encounter: 11/26/16 Time of Encounter: 07:50 Assessment and Plan (1) Sepsis Current visit: Yes Status: Acute SIRS 3/4 (fever, leukocytosis and tachcyardia). source is otitis media complicated by mastoiditis and PNA. Patient lives in a [facility]ci and was sent this morning to dialysis center where she was found altered. Patient is very confused and only oriented to person, she does not remember what happened. Her only complain is excruciating feet pain and is requesting to have her home dose of gabapentin now. Upon questioning, she reports left sided hearing loss. She denies any headache, earache, chest pain, shortness of breath, diarrhea, abdominal pain, bleeding, or cough. In our ED, patient was febrile 103.2, tachycardic and confused. WBC 14. CT head showed left-sided otitis media and bilateral mastoiditis. CXR shows bibasal airspace disease. Started on IV Vancomycin, levaquin and Zosyn. received 1L IVF. blood cultures taken. Qualifiers: Sepsis type: sepsis due to unspecified organism Qualified Code(s): A41.9 - Sepsis, unspecified organism (2) Otitis media Current visit: Yes Status: Acute plan as above. Qualifiers: Otitis media type: suppurative Laterality: left Chronicity: acute Recurrence: not specified as recurrent Spontaneous tympanic membrane rupture: without spontaneous rupture Qualified Code(s): H66.002 - Acute suppurative otitis media without spontaneous rupture of ear drum, left ear (3) Mastoiditis Current visit: Yes Status: Acute plan as sepsis Qualifiers: Laterality: bilateral Qualified Code(s): H70.93 - Unspecified mastoiditis, bilateral (4) Acute metabolic encephalopathy Current visit: Yes Status: Acute secondary to infection. treat underlying etiology. (5) Elevated troponin Current visit: Yes Status: Chronic minimal elevation of troponin at 0.05. history of chronic elevation of troponins up to 0.64 while on afib rvr in 12/2015. likely demand ischemia due to sepsis. front desk monitor. (6) End stage renal disease on dialysis Current visit: No Status: Chronic consulted nephrology. (7) Hyperkalemia Current visit: Yes Status: Acute K 6.7. EKG reviewed by me, minimal peaked t waves. received IV insulin/dextrose and calcium gluconate in ED. stat kayexalate. repeat K. (8) HCAP (healthcare-associated pneumonia) Current visit: Yes Status: Acute Zosyn, levaquin, and vancomycin. nebs. mucinex. budesonide. check sputum culture , legionella/strep antigen and respiratory panel. (9) HTN (hypertension) Current visit: No Status: Chronic hold antihypertensive due to sepsis. Qualifiers: Hypertension type: essential hypertension Qualified Code(s): I10 - Essential (primary) hypertension (10) COPD (chronic obstructive pulmonary disease) Current visit: No Status: Chronic nebs. Qualifiers: COPD type: COPD with acute lower respiratory infection Qualified Code(s): J44.0 - Chronic obstructive pulmonary disease with acute lower respiratory infection (11) Atrial fibrillation Current visit: No Status: Chronic hr is adequate. continue home meds. Qualifiers: Atrial fibrillation type: chronic Qualified Code(s): I48.2 - Chronic atrial fibrillation (12) Diabetes mellitus Current visit: No Status: Chronic sliding scale insulin. diabetic diet. 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 Rico is a 71 year old female with past medical history of ESRD on HD, CAD, atrial fibrillation, COPD, HTN, and DM who lives in a fci and was sent this morning to dialysis center where she was found altered. Patient is very confused and oriented to person, she does not remember what happened. Her only complain is severe feet pain and is requesting to have her gabapentin now. Upon questioning, she reports left sided hearing loss. She denies any headache, earache, chest pain, shortness of breath, diarrhea, abdominal pain, bleeding, LE edema or cough. In our ED, patient was febrile 103.2, tachycardic and confused. WBC 14. CT head showed left-sided otitis media and bilateral mastoiditis. CXR shows bibasal airspace disease. Started on IV Vancomycin, levaquin and Zosyn. Past Med Surg Social Fam HX - Past Medical History Medical history: arthritis, cardiomyopathy, COPD, coronary artery disease, diabetes, dialysis, GERD, hyperlipidemia, hypertension, osteoporosis, peripheral artery disease, renal disease, thyroid disease, other Psychiatric history: anxiety, depression, other - Past Surgical History Surgical History: appendectomy, cholecystectomy, hip replacement, hysterectomy, orthopedic, other, ABIMAEL/BSO, other - Social History Smoking Status: Current every day smoker Smokeless Tobacco Status: No Alcohol use: none Drug use: none, prescription drug abuse, other - Family History Mother Living Status: Hx Family Cardiac Disorders: Yes (Hypertension hyperlipidemia) Hx Family Endocrine Disorder: Yes (DMII) Father Living Status: Hx Family Cardiac Disorders: Yes (Hypertension hyperlipidemia) Hx Family Cancer: Yes (Lung cancer) Hx Family Endocrine Disorder: Yes (Diabetes) Internal Medicine - H&P: Meds Furosemide [Lasix] 80 mg PO BID 09/28/15 [History] Levothyroxine Sodium [Tirosint] 150 mcg PO 0630 09/28/15 [History] Clopidogrel [Plavix] 75 mg PO DAILY 09/29/15 [History] Modafinil [Provigil] 200 mg PO QAM 09/29/15 [History] Acetaminophen [Tylenol] 1,000 mg PO Q8HR PRN 12/05/15 [History] Cinacalcet [Sensipar] 30 mg PO DAILY 12/05/15 [History] Insulin LISPRO [HumaLOG] 2 - 12 unit SQ QID PRN 12/05/15 [History] B Complex W-C No.20/Folic Acid [Virt-Caps Softgel] 1 mg PO DAILY 12/13/15 [ History] Diltiazem HCl [Diltiazem ER] 120 mg PO DAILY 05/02/16 [History] Folic Acid 1 mg PO DAILY 05/02/16 [History] Ipratropium/Albuterol Neb [Duoneb] 3 ml IH Q4HR 05/02/16 [History] Metoprolol [Lopressor] 100 mg PO BID 07/25/16 [History] Gabapentin [Neurontin] 100 mg PO BID capsule 09/01/16 [Rx] HYDROcodone/Acet 5/325 mg [[place] 5-325 mg] 1 tab PO Q8H PRN #10 tablet 09/01/16 [Rx] Losartan [Cozaar] 50 mg PO DAILY tablet 09/01/16 [Rx] Omeprazole [PriLOSEC] 20 mg PO DAILY@0730 capsule. 09/01/16 [Rx] hydrALAZINE [HydrALAZINE] 25 mg PO Q8HR tablet 09/01/16 [Rx] Chlorpheniramine/Dextromethorp [Coricidin Hbp Cough & Cold Tab] 1 each PO Q4H PRN 11/26/16 [History] Fexofenadine HCl [Allergy Relief] 180 mg PO DAILY 11/26/16 [History] GuaiFENesin ER [Mucinex] 1,200 mg PO BID PRN 11/26/16 [History] Insulin DETEMIR [Levemir] 5 unit SQ HS 11/26/16 [History] Sevelamer [Renvela] 800 mg PO TIDWM 11/26/16 [History] Warfarin Sodium [Coumadin] 6 mg PO HS 11/26/16 [History] Allergies No Known Allergies Allergy (Verified 08/28/16 07:56) ROS unobtainable: due to mental status All Systems PM: A 10-system review of systems was performed and is negative for pertinent findings except as documented above in the HPI. - Constitutional Vitals: Temp Pulse Resp BP Pulse Ox 103.2 F H 83 16 124/55 100 11/26/16 06:03 11/26/16 07:13 11/26/16 07:13 11/26/16 07:13 11/26/16 07:17 General appearance: Present: A&O X 1, mild distress (pain in both feet.), pleasant. Absent: answers questions appropriately - Eye Eye exam: Present: sclera anicteric - ENT Additional comments: no tragus sign. - Neck Neck exam general surgery: Present: supple, trachea midline. Absent: lymphadenopathy - Respiratory Respiratory exam: Present: rales, rhonchi. Absent: wheezes - Cardiovascular Cardiovascular exam: Present: irregular rhythm - GI/Abdominal GI/Abdominal exam: Present: normal bowel sounds, soft. Absent: distended, tenderness - Extremities Exam Extremities exam: Absent: pedal edema - Neurological Exam Neurological exam: Present: alert Additional comments: moves all her extremities.strength 5/5. - Skin Skin exam: Absent: intact (distal leg: healing ulcer, no signs of infection. ) Internal Med - H&P Results - Labs CBC & Chem 7: 11/26/16 06:15 11/26/16 08:27 Labs: Short CBC 11/26/16 Range/Units 06:15 WBC 14.3 H (4.3-11.1) K/mcL Hgb 10.1 L (11.5-15.4) g/dL Hct 33.2 L (35.3-44.9) % Plt Count 209 (140-400) K/mcL Neutrophils # 12.1 H (1.6-8.9) K/mcL BMP 11/26/16 06:15 Sodium 137 Potassium 6.7 H* Chloride 95 L Carbon Dioxide 26 BUN 49 H Creatinine 8.20 H Glucose 159 H Calcium 10.0 Cardiac Enzymes 11/26/16 Range/Units 06:15 Troponin I 0.05 H* (0-0.03) ng/mL Liver Function 11/26/16 Range/Units 06:15 Total Bilirubin 0.5 (0.2-1.2) mg/dL Direct Bilirubin 0.3 (0.0-0.5) mg/dL AST 15 (5-34) Units/L ALT 11 (0-55) Units/L Alkaline Phosphatase 88 (38-126) Units/L Albumin 3.0 L (3.5-5.0) g/dL - Impressions ITS Impressions Chest X-Ray 11/26/16 06:07 IMPRESSION: Bilateral airspace disease suspicious for pneumonia. D/ / Zac Greco MD / Zac Greco MD Interpreting Provider: Zac Greco MD Head CT 11/26/16 06:08 IMPRESSION: 1. Small vessel chronic ischemic changes with no acute hemorrhage or definite evidence for acute ischemia. 2. Bilateral mastoiditis with left-sided otitis media. D/ / Zac Greco MD / Zac Greco MD Interpreting Provider: Zac Greco MD
[2016-11-26] MEDS ORDERED: Ipratropium/Albuterol Neb 3 ML IH ONE (08:00)
[2016-11-26] MEDS ORDERED: Dextrose Gel 15 GM PO PRN ×2 (08:04)
[2016-11-26] MEDS ORDERED: *HR* Dextrose 50 % in Water (Syg) 50 ML SYRINGE IVP PRN (08:04)
[2016-11-26] MEDS ORDERED: D5% in Water 1,000 ML IVC PRN (08:04)
--- NOTE | 2016-11-26 08:58 | Nephrology Consult Note ---
Date of Encounter: 11/26/16 Time of Encounter: 08:56 Assessment and Plan (1) End stage renal disease on dialysis Current Visit: No Status: Chronic The patient has end-stage renal disease, could have a hyperkalemia. She will undergo dialysis this morning. She presents with altered mental status likely related to [facility]. She also presents with fever or evidence of pneumonia as well as otitis media and mastoiditis. Cultures have been done and she has been placed on empiric antibiotics. (2) Altered mental status Current Visit: No Status: Resolved Qualifiers: Altered mental status type: delirium Qualified Code(s): R41.0 - Disorientation, unspecified (3) COPD (chronic obstructive pulmonary disease) Current Visit: No Status: Chronic Qualifiers: COPD type: COPD with acute lower respiratory infection Qualified Code(s): J44.0 - Chronic obstructive pulmonary disease with acute lower respiratory infection (4) Pneumonia Current Visit: No Status: Acute Qualifiers: Pneumonia type: due to unspecified organism Laterality: bilateral Lung location: unspecified part of lung Qualified Code(s): J18.9 - Pneumonia, unspecified organism History of Present Illness - History of Present Illness This is a 71-year-old female with end-stage renal disease. She receives dialysis every Saturday in [place]. Patient presented [facility] the [facility] early this morning at around 5:30 AM. Patient was noted to be unresponsive. She could not be aroused. She subsequently was sent to the emergency room. She was noted to have a temperature of 103.2. Chest x-ray suggested bilateral airspace disease possible pneumonia. CT scan of the head suggested otitis media and mastoiditis. Patient has been cultured and placed on empiric antibiotics. Patient is now seen and examined in the emergency room. Currently she is alert and oriented and her mental status is back to her usual baseline. She is requesting additional gabapentin for bilateral foot pain. Patient was noted to have a white count of 14.3 and a potassium of 6.7. Potassium was 5.6 on recheck. Patient has a history of poor compliance with dialysis. She frequently signs off early. She continues to smoke even though she has been counseled multiple times regarding the need to discontinue smoking in the face of progressive chronic lung disease and recurrent pneumonia. Past Med Surg Social Fam HX - Past Medical History Medical history: arthritis, cardiomyopathy, COPD, coronary artery disease, diabetes, dialysis, GERD, hyperlipidemia, hypertension, osteoporosis, peripheral artery disease, renal disease, thyroid disease, other Psychiatric history: anxiety, depression, other - Past Surgical History Surgical History: appendectomy, cholecystectomy, hip replacement, hysterectomy, orthopedic, other, ABIMAEL/BSO, other - Social History Smoking Status: Current every day smoker Smokeless Tobacco Status: No Alcohol use: none Drug use: none, prescription drug abuse, other - Family History Mother Living Status: Hx Family Cardiac Disorders: Yes (Hypertension hyperlipidemia) Hx Family Endocrine Disorder: Yes (DMII) Father Living Status: Hx Family Cardiac Disorders: Yes (Hypertension hyperlipidemia) Hx Family Cancer: Yes (Lung cancer) Hx Family Endocrine Disorder: Yes (Diabetes) Medications and Allergies Furosemide [Lasix] 80 mg PO BID 09/28/15 [History] Levothyroxine Sodium [Tirosint] 150 mcg PO DAILY 09/28/15 [History] Clopidogrel [Plavix] 75 mg PO DAILY 09/29/15 [History] Modafinil [Provigil] 200 mg PO QAM 09/29/15 [History] Acetaminophen [Tylenol] 1,000 mg PO Q8HR PRN 12/05/15 [History] Cinacalcet [Sensipar] 30 mg PO DAILY 12/05/15 [History] Insulin LISPRO [HumaLOG] 2 - 12 unit SQ QID PRN 12/05/15 [History] Omeprazole 20 mg PO QAM 12/05/15 [History] B Complex W-C No.20/Folic Acid [Virt-Caps Softgel] 1 mg PO DAILY 12/13/15 [ History] Diltiazem HCl [Diltiazem ER] 120 mg PO DAILY 05/02/16 [History] Folic Acid 1 mg PO DAILY 05/02/16 [History] Ipratropium/Albuterol Neb [Duoneb] 3 ml IH Q4HR 05/02/16 [History] Ammonium Lactate [Marisol-Hydrolac] 1 appl TP BID 05/25/16 [History] Metoprolol [Lopressor] 100 mg PO BID 07/25/16 [History] Warfarin [Coumadin] 4 mg PO MOTH 07/25/16 [History] Warfarin [Coumadin] 5 mg PO SUTUWEFRSA 07/26/16 [History] Insulin Glargine [Lantus] 5 unit SQ HS 08/28/16 [History] Diltiazem CD (24hr) [Cardizem CD] 120 mg PO DAILY cap.er.24h 09/01/16 [Rx] Gabapentin [Neurontin] 100 mg PO BID capsule 09/01/16 [Rx] GuaiFENesin ER [Mucinex] 1,200 mg PO BID tbbp.12hr 09/01/16 [Rx] HYDROcodone/Acet 5/325 mg [Stratton 5-325 mg] 1 tab PO Q8H PRN #10 tablet 09/01/16 [Rx] Levofloxacin [Levaquin] 750 mg PO Q48H #4 tablet 09/01/16 [Rx] Losartan [Cozaar] 50 mg PO DAILY tablet 09/01/16 [Rx] Omeprazole [PriLOSEC] 20 mg PO DAILY@0730 capsule. 09/01/16 [Rx] Sevelamer [Renvela] 1,600 mg PO TIDWM tablet 09/01/16 [Rx] hydrALAZINE [HydrALAZINE] 25 mg PO Q8HR tablet 09/01/16 [Rx] Allergies No Known Allergies Allergy (Verified 08/28/16 07:56) Review of Systems Constitutional: as per HPI Eyes: bilateral: blurred vision (patient denies), diplopia (patient denies) Nose, mouth and throat: no dizziness, no headache(s) Cardiovascular: dyspnea, dyspnea on exertion, edema Respiratory: cough, dyspnea, dyspnea on exertion, wheezing Gastrointestinal: no abdominal pain, no change in bowel habits Musculoskeletal: no muscle weakness, no numbness Musculoskeletal: bilateral: foot pain Integumentary: bleeding lesions, sores, unusual bruising, no hirsutism, no striae Neurological: as per HPI, weakness Psychiatric: no depression, no difficulty concentrating Endocrine: as per HPI Hematologic/Lymphatic: no easy bruising, no lymphadenopathy Exam - Vital Signs Vital signs: Initial Vital Signs Pulse BP 93 177/62 11/26/16 06:02 11/26/16 06:02 Vital Signs - Last 8 Hours Temp Resp BP 11/26/16 08:14 99.0 F 18 147/44 Intake and Output 11/25/16 11/26/16 11/26/16 23:59 07:59 15:59 Intake Total 110 / 110 150 / 150 Balance 110 / 110 150 / 150 Intake: IV Fluids 110 / 110 150 / 150 Calcium Gluconate 1,000 110 / 110 MG In Dextrose 5% 100 ML @ 220 mls/hr IVPB ONCE ONE Rx#:[id number] Levaquin Premix 750mg/150 150 / 150 mL 750 mg In 150 ml @ 100 mls/hr IVPB ONCE ONE Rx#:[id number] - General Appearance Exam: Patient is seen and examined in the emergency room. She is easily awakened. She is oriented to person time and place. She is in no acute distress. Temperature is now 99 degrees. Blood pressure 147/44. Neck supple. Lungs exhibit diminished breath sounds bilateral rhonchi and wheezing. Heart regular rate and rhythm with a 2/6 soft ejection murmur. Abdomen is benign. There is mild H M.D. swelling. There is evidence of venous stasis as well as arterial insufficiency. There is a functioning AV fistula in the right upper extremity. Results - Lab Results 11/26/16 06:15 11/26/16 08:27 Most recent lab results Calcium 10.0 mg/dL (8.6-10.8) 11/26/16 06:15 Phosphorus 7.9 mg/dL (2.3-4.7) H 11/26/16 06:15 Magnesium 2.3 mg/dL (1.6-2.6) 11/26/16 06:15 Consult Discharge Plan - Plan Referrals: Joey Richards Jr, MD [Primary Care Provider] -
[2016-11-26] MEDS ORDERED: 0.9 % Sodium Chloride 250 ML IVC PRN (09:01)
--- NOTE | 2016-11-26 10:21 | Electrocardiograph Report ---
[address] [place] [address] Test Date: 2016-11-26 Pat Name: Lulu Rico Department: 105 Room: 2A34 Gender: F Md Physician Dermatologist: : [id number] Requested By: Daryl Law Order Number: [id number] Reading MD: Jim Hunter MD Measurements Intervals [employer] Rate: 91 P: 40 DC: 120 QRS: -1 QRSD: 91 T: 110 QT: 354 QTc: 402 Interpretive Statements SINUS RHYTHM LATERAL ISCHEMIA BASELINE ARTIFACT Poor R wave progression Electronically Signed On 11-26-2016 10:20:01 EDT by Jim Hunter MD
[2016-11-26 11:32] LABS: Hepatitis B Surface Antibody 23.91 mIU/mL
[2016-11-26 11:35] LABS: Hepatitis B Surface Antigen Reactive (Nonreactive)
[2016-11-26] MEDS: Acetylcysteine 10% 2 ML INHSOL IH SCH ×3 (11:49→22:27)
[2016-11-26] MEDS: Budesonide Neb 0.25 MG/2 ML IH SCH ×2 (11:50→22:27)
[2016-11-26] MEDS: Insulin LISPRO 300 UNITS/3 ML VIAL SQ SCH ×3 (14:21→22:05)
[2016-11-26] MEDS: Pantoprazole 40 MG VIAL IVP SCH (14:28)
[2016-11-26] MEDS: Gabapentin 100 MG CAPSULE PO SCH ×2 (14:30→22:02)
[2016-11-26] MEDS: *HR* Heparin 5,000 UNIT/ML VIAL SQ SCH (16:53)
[2016-11-26] MEDS: Ipratropium/Albuterol Neb 3 ML IH SCH ×2 (17:22→22:27)
[2016-11-26] MEDS: *HR* HYDROcodone/Acet 5/325 mg TABLET PO PRN (17:59)
[2016-11-26 20:36] LABS: Adenovirus Not Detected (Not Detect); Bordetella Pertussis Not Detected (Not Detect); Chlamydophila pneumoniae Not Detected (Not Detect); Coronavirus 229E Not Detected (Not Detect); Coronavirus HKU1 Not Detected (Not Detect); Coronavirus NL63 Not Detected (Not Detect); Coronavirus OC43 Not Detected (Not Detect); Human Metapneumovirus Not Detected (Not Detect); Human Rhinovirus/Enterovirus Not Detected (Not Detect); Influenza A Subtype 2009 H1 Not Detected (Not Detect); Influenza A Untypeable Not Detected (Not Detect); Influenza B Not Detected (Not Detect); Mycoplasma pneumoniae Not Detected (Not Detect); Parainfluenza Virus 1 Not Detected (Not Detect); Parainfluenza Virus 2 Not Detected (Not Detect); Parainfluenza Virus 3 Not Detected (Not Detect); Parainfluenza Virus 4 Not Detected (Not Detect); Respiratory Syncytial Virus Not Detected (Not Detect)
[2016-11-27] MEDS: *HR* HYDROcodone/Acet 5/325 mg TABLET PO PRN ×2 (02:17→02:40)
[2016-11-27] MEDS: *HR* Heparin 5,000 UNIT/ML VIAL SQ SCH ×2 (05:29→17:21)
[2016-11-27 07:18] LABS: Basophils % 0.5 %; Eosinophils # 0.2 K/mcL (0.0-0.6); Eosinophils % 2.6 %; Hematocrit 29.4 % (35.3-44.9); Hemoglobin 9.1 g/dL (11.5-15.4); Immature Granulocytes % 0.8 % (0-4); Lymphocytes # 1.4 K/mcL (0.6-4.6); Lymphocytes % 17.7 %; Mean Corpuscular Hemoglobin 32.9 pg (28.0-33.3); Mean Corpuscular Volume 106.1 fL (83.0-100.0); Mean Platelet Volume 11.1 fL (9.4-12.4); Monocytes # 0.7 K/mcL (0.0-1.3); Neutrophils # 5.4 K/mcL (1.6-8.9); Platelet Count 169 K/mcL (140-400); Red Blood Count 2.77 M/mcL (3.82-4.97); Red Cell Distribution Width 13.4 % (11.5-14.5); Segmented Neutrophils % 69.4 %
[2016-11-27 07:26] LABS: Calcium 10.2 mg/dL (8.6-10.8); Phosphorous 7.1 mg/dL (2.3-4.7); Potassium 5.3 mEq/L (3.5-4.5)
[2016-11-27] MEDS: Ipratropium/Albuterol Neb 3 ML IH SCH ×3 (07:42→22:54)
[2016-11-27] MEDS: Acetylcysteine 10% 2 ML INHSOL IH SCH ×3 (07:44→22:55)
[2016-11-27] MEDS: hydrALAZINE 25 MG TABLET PO SCH ×2 (09:00→17:21)
[2016-11-27] MEDS: Gabapentin 100 MG CAPSULE PO SCH ×2 (09:00→20:59)
[2016-11-27] MEDS: Pantoprazole 40 MG VIAL IVP SCH (09:00)
[2016-11-27] MEDS: Insulin LISPRO 300 UNITS/3 ML VIAL SQ SCH ×4 (09:01→20:58)
--- NOTE | 2016-11-27 10:04 | Internal Med Progress Note ---
<Tashi Marin - Last Filed: 11/27/16 16:08> Date of Encounter: 11/27/16 Time of Encounter: 09:50 - Assessment and plan (1) Sepsis Current Visit: Yes Status: Acute Assessment and plan: Patient is resident of [facility]. Presents today with altered mental status, otitis media, mastoiditis, and findings suspicious for pneumonia on chest x-ray. Patient had tachycardia, elevated temperature, and leukocytosis at the time of presentation. Patient started on empiric antibiotics and cultures obtained. Continue empiric Zosyn, Levaquin, and vancomycin day 2 Blood cultures taken will wait results for consideration of de-escalation of antibiotics Continue pain control Continue breathing treatments with DuoNeb's and budesonide Dose medications renally Qualifiers: Sepsis type: sepsis due to unspecified organism Qualified Code(s): A41.9 - Sepsis, unspecified organism (2) Otitis media Current Visit: Yes Status: Acute Assessment and plan: On otoscope examination of patient ear, no perforation observed with bulging of tympanic membrane and dried blood seen in external auditory canal. Findings concerning for otitis media Plan as above Qualifiers: Otitis media type: suppurative Laterality: left Chronicity: acute Recurrence: not specified as recurrent Spontaneous tympanic membrane rupture: without spontaneous rupture Qualified Code(s): H66.002 - Acute suppurative otitis media without spontaneous rupture of ear drum, left ear (3) Pneumonia Current Visit: No Status: Acute Assessment and plan: Plan as above Qualifiers: Pneumonia type: due to unspecified organism Laterality: bilateral Lung location: unspecified part of lung Qualified Code(s): J18.9 - Pneumonia, unspecified organism (4) Mastoiditis of both sides Current Visit: No Status: Acute Assessment and plan: Bilateral Mastoiditis seen on CT examination of the patient had Plan as above (5) Hyperkalemia Current Visit: Yes Status: Acute Assessment and plan: Patient potassium 6.7 at presentation. Underwent dialysis yesterday with improvement of her potassium seen. Today potassium at 5.3, will continue to monitor on telemetry We will recheck potassium in the morning (6) Acute metabolic encephalopathy Current Visit: Yes Status: Resolved Assessment and plan: Patient metabolic encephalopathy likely secondary to infection, will treat underlying etiology as above (7) ESRD (end stage renal disease) on dialysis Current Visit: No Status: Chronic Assessment and plan: Patient has ESRD on HD, follows with Dr. Aleman. Hyperkalemia observed at presentation, taken for HD yesterday with improvement patient potassium seen. Currently at 5.3. Nephrology is following and appreciate continued recommendations for management/ care Continue to observe renal function with daily labs Reglan dose medications (8) HTN (hypertension) Current Visit: No Status: Chronic Assessment and plan: Patient home blood pressure medications were held due to concerns of sepsis. Currently patient is hypertensive and will begin to reintroduce home blood pressure medications. Home blood pressure medications consist of metoprolol, losartan, diltiazem. Patient has 25 mg by mouth hydralazine ordered currently Will begin to reintroduce patient home antihypertensive medications Qualifiers: Hypertension type: essential hypertension Qualified Code(s): I10 - Essential (primary) hypertension (9) Atrial fibrillation Current Visit: No Status: Chronic Assessment and plan: Heart rate will controlled currently, no signs of RVR. Continue home warfarin, dosed per pharmacy Qualifiers: Atrial fibrillation type: chronic Qualified Code(s): I48.2 - Chronic atrial fibrillation (10) COPD (chronic obstructive pulmonary disease) Current Visit: No Status: Chronic Assessment and plan: No wheezing auscultated on exam Continue breathing treatments with duo nebs, budesonide Supplemental oxygen as needed, wean as tolerated Qualifiers: COPD type: COPD with acute lower respiratory infection Qualified Code(s): J44.0 - Chronic obstructive pulmonary disease with acute lower respiratory infection (11) Diabetes mellitus Current Visit: No Status: Chronic Assessment and plan: We will start low-dose sliding scale insulin before meals at bedtime Continue Diabetic diet 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 Does not appear to be ACS at this time (13) DVT prophylaxis Current Visit: No Status: Acute Assessment and plan: Patient has history of atrial fibrillation currently on Coumadin. Subtherapeutic with INR of 1.4. Continued Coumadin dose per pharmacy We will start EPCDs - Subjective Interval history: Patient reports feeling well this morning with no complaints. She denies ear pain, dizziness, or headache. She denies ever/chills, denies shortness of breath, reports diaphoresis at night normally. Denies nausea/vomiting. - Constitutional Vitals: Temp Pulse Resp BP Pulse Ox 98.4 F 69 16 176/62 100 11/27/16 07:15 11/27/16 07:15 11/27/16 07:45 11/27/16 07:15 11/27/16 07:45 General appearance: Present: A&O X 1, pleasant. Absent: answers questions appropriately Exam: General: Cooperative, pleasant, no acute distress, alert and oriented 3, answers questions appropriately HEENT: Normocephalic, atraumatic, neck supple, trachea midline, Conjunctiva pink , sclera anicteric, oral mucosa moist, no orophargeal erythema or exudates, otoscope examination: Cerumen present, tympanic membrane intact with slight wall gene identified, dried blood on wall of external auditory meatus Respiratory: No accessory muscle usage, bilateral Rales auscultated in lung bases Cardiovascular: Regular rate and rhythm, S1 and S2 present, no murmurs/rubs/ gallops/clicks appreciated GI/abdominal: Nondistended, nontender, soft, normal bowel sounds, no peritoneal signs Extremities: No calf tenderness, noncyanotic, no pedal edema appreciated, warm, lower extremity pulses palpable and symmetrical Neurological: Alert and oriented 3, no facial droop, no focal deficits Skin: Dry, intact, chronic darkening of hands and legs Internal Medicine: Result - Labs CBC & Chem 7: 11/27/16 06:58 11/27/16 06:58 Labs: Short CBC 11/27/16 Range/Units 06:58 WBC 7.8 (4.3-11.1) K/mcL Hgb 9.1 L (11.5-15.4) g/dL Hct 29.4 L (35.3-44.9) % Plt Count 169 (140-400) K/mcL Neutrophils # 5.4 (1.6-8.9) K/mcL BMP 11/27/16 06:58 Sodium 136 Potassium 5.3 H Chloride 97 L Carbon Dioxide 29 BUN 27 H D Creatinine 4.72 H Glucose 136 H Calcium 10.2 Cardiac Enzymes 11/26/16 Range/Units 14:02 Troponin I 0.05 H* (0-0.03) ng/mL - ABG Interpretation ABG results: PT/INR, D-dimer PT 14.7 Seconds (9.4-12.1) H 11/26/16 06:15 Consult Discharge Plan - Plan Referrals: Joey Richards Jr, MD [Primary Care Provider] - 12/04/16 11:00 am <Christine Monahan - Last Filed: 11/27/16 17:22> Date of Encounter: 11/27/16 - Assessment and plan (1) Sepsis Current Visit: Yes Status: Acute Qualifiers: Sepsis type: sepsis due to unspecified organism Qualified Code(s): A41.9 - Sepsis, unspecified organism (2) Otitis media Current Visit: Yes Status: Acute Qualifiers: Otitis media type: suppurative Laterality: left Chronicity: acute Recurrence: not specified as recurrent Spontaneous tympanic membrane rupture: without spontaneous rupture Qualified Code(s): H66.002 - Acute suppurative otitis media without spontaneous rupture of ear drum, left ear (3) Mastoiditis Current Visit: Yes Status: Acute Qualifiers: Laterality: bilateral Qualified Code(s): H70.93 - Unspecified mastoiditis, bilateral (4) Acute metabolic encephalopathy Current Visit: Yes Status: Resolved (5) Elevated troponin Current Visit: Yes Status: Chronic (6) End stage renal disease on dialysis Current Visit: No Status: Chronic (7) Hyperkalemia Current Visit: Yes Status: Acute (8) HCAP (healthcare-associated pneumonia) Current Visit: Yes Status: Acute (9) HTN (hypertension) Current Visit: No Status: Chronic Qualifiers: Hypertension type: essential hypertension Qualified Code(s): I10 - Essential (primary) hypertension (10) COPD (chronic obstructive pulmonary disease) Current Visit: No Status: Chronic Qualifiers: COPD type: COPD with acute lower respiratory infection Qualified Code(s): J44.0 - Chronic obstructive pulmonary disease with acute lower respiratory infection (11) Atrial fibrillation Current Visit: No Status: Chronic Qualifiers: Atrial fibrillation type: chronic Qualified Code(s): I48.2 - Chronic atrial fibrillation (12) Diabetes mellitus Current Visit: No Status: Chronic Qualifiers: Diabetes mellitus type: type 2 Diabetes mellitus complication status: with kidney complications Diabetes mellitus complication detail: with chronic kidney disease 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 Chronic kidney disease stage: on chronic dialysis Qualified Code(s): E11.22 - Type 2 diabetes mellitus with diabetic chronic kidney disease; N18.6 - End stage renal disease; Z79.4 - intermediate (current) use of insulin; Z99.2 - Dependence on renal dialysis (13) Tobacco use Current Visit: No Status: Chronic - Constitutional Vitals: Temp Pulse Resp BP Pulse Ox 98.2 F 69 16 193/50 99 11/27/16 16:15 11/27/16 16:15 11/27/16 16:15 11/27/16 16:15 11/27/16 16:15 Internal Medicine: Result - Labs CBC & Chem 7: 11/27/16 06:58 11/27/16 06:58 Labs: Short CBC 11/27/16 Range/Units 06:58 WBC 7.8 (4.3-11.1) K/mcL Hgb 9.1 L (11.5-15.4) g/dL Hct 29.4 L (35.3-44.9) % Plt Count 169 (140-400) K/mcL Neutrophils # 5.4 (1.6-8.9) K/mcL BMP 11/27/16 06:58 Sodium 136 Potassium 5.3 H Chloride 97 L Carbon Dioxide 29 BUN 27 H D Creatinine 4.72 H Glucose 136 H Calcium 10.2 - ABG Interpretation ABG results: PT/INR, D-dimer PT 15.2 Seconds (9.4-12.1) H 11/27/16 10:07 - Attending Attestation I examined this patient and reviewed laboratory, imaging and all diagnostic data. My medical decision-making was reviewed with Dr Tashi Marin - Resident Physician. I agree with the documented findings, disposition and treatment plan as described above.
[2016-11-27 10:23] LABS: INR 1.4; Prothrombin Time 15.2 Seconds (9.4-12.1)
[2016-11-27] MEDS: Budesonide Neb 0.25 MG/2 ML IH SCH ×2 (10:27→22:54)
[2016-11-27] MEDS ORDERED: Levofloxacin 500 MG/100 ML 500 MG/100 ML BAG IVPB SCH (11:00)
[2016-11-27] MEDS ORDERED: Vancomycin 1,000 MG in D5% in Water 250 ML IVPB SCH (11:00)
[2016-11-27] MEDS ORDERED: Aminoglycoside Consult 1 EACH MC ONE (12:00)
[2016-11-27] MEDS ORDERED: Vancomycin 1,000 MG in D5% in Water 250 ML IVPB ONE (12:00)
[2016-11-27] MEDS ORDERED: Ipratropium/Albuterol Neb 3 ML IH SCH (12:00)
[2016-11-27] MEDS: Metoprolol 100 MG TABLET PO SCH ×2 (12:21→20:59)
[2016-11-27] MEDS ORDERED: Warfarin perPT PO PRN (18:00)
[2016-11-27] MEDS ORDERED: *HR* Warfarin 3 MG TABLET PO ONE (18:00)
[2016-11-28] MEDS: hydrALAZINE 25 MG TABLET PO SCH ×2 (00:51→16:31)
[2016-11-28 04:47] LABS: INR 1.2; Prothrombin Time 13.4 Seconds (9.4-12.1)
[2016-11-28 04:52] LABS: Basophils % 0.2 %; Eosinophils # 0.2 K/mcL (0.0-0.6); Eosinophils % 2.5 %; Hematocrit 26.4 % (35.3-44.9); Hemoglobin 8.1 g/dL (11.5-15.4); Immature Granulocytes % 0.5 % (0-4); Lymphocytes # 1.4 K/mcL (0.6-4.6); Lymphocytes % 15.7 %; Mean Corpuscular HGB Conc 30.7 g/dL (31.6-35.5); Mean Corpuscular Hemoglobin 32.5 pg (28.0-33.3); Monocytes # 0.7 K/mcL (0.0-1.3); Neutrophils # 6.3 K/mcL (1.6-8.9); Platelet Count 163 K/mcL (140-400); Red Blood Count 2.49 M/mcL (3.82-4.97); Red Cell Distribution Width 13.2 % (11.5-14.5); Segmented Neutrophils % 73.1 %
[2016-11-28 04:56] LABS: Calcium 9.5 mg/dL (8.6-10.8); Magnesium 1.9 mg/dL (1.6-2.6); Phosphorous 7.8 mg/dL (2.3-4.7); Potassium 5.4 mEq/L (3.5-4.5)
[2016-11-28] MEDS: *HR* Heparin 5,000 UNIT/ML VIAL SQ SCH (05:13)
[2016-11-28] MEDS: Acetylcysteine 10% 2 ML INHSOL IH SCH ×2 (07:25→16:05)
[2016-11-28] MEDS: Ipratropium/Albuterol Neb 3 ML IH SCH ×2 (07:25→16:05)
[2016-11-28] MEDS: Budesonide Neb 0.25 MG/2 ML IH SCH (07:26)
[2016-11-28] MEDS: Gabapentin 100 MG CAPSULE PO SCH (07:59)
[2016-11-28] MEDS: Insulin LISPRO 300 UNITS/3 ML VIAL SQ SCH ×3 (08:00→17:03)
[2016-11-28] MEDS: Pantoprazole 40 MG VIAL IVP SCH (08:00)
[2016-11-28] MEDS ORDERED: 0.9 % Sodium Chloride 250 ML IVC PRN (08:39)
--- NOTE | 2016-11-28 08:39 | Nephrology Progress Note ---
Date of Encounter: 11/28/16 Time of Encounter: 08:37 - Assessment and Plan (1) End stage renal disease on dialysis Current Visit: No Status: Chronic Patient will undergo dialysis today. She will be dialyzed on a 2K bath. Phosphorus is 7.8. The Renvela will be increased. Hemoglobin is 8.1. She is currently on Aranesp. (2) COPD (chronic obstructive pulmonary disease) Current Visit: No Status: Chronic Qualifiers: COPD type: COPD with acute lower respiratory infection Qualified Code(s): J44.0 - Chronic obstructive pulmonary disease with acute lower respiratory infection (3) Pneumonia Current Visit: No Status: Acute Qualifiers: Pneumonia type: due to unspecified organism Laterality: bilateral Lung location: unspecified part of lung Qualified Code(s): J18.9 - Pneumonia, unspecified organism Subjective Interval history: Patient denies any complaints. Mental status is at baseline. She does continue to have a productive cough. She denies any shortness of breath. She is scheduled for her usual dialysis today. Objective - Vital Signs Vital signs: Vital Signs Temp Pulse Resp BP Pulse Ox 11/28/16 07:26 18 98 11/28/16 06:33 99.2 F 75 18 169/51 92 11/28/16 00:29 97.9 F 74 16 182/54 96 11/27/16 22:55 16 99 11/27/16 19:54 97.9 F 68 16 173/70 98 11/27/16 16:15 98.2 F 69 16 193/50 99 11/27/16 11:43 98.4 F 76 16 152/64 96 11/27/16 10:29 16 93 Intake and Output 11/27/16 11/28/16 11/28/16 23:59 07:59 15:59 Other: Weight 63.4 kg Blood Glucose* 167 259 Patient Weight 11/28/16 23:59 Weight 63.4 kg - General Appearance Exam: Patient is alert and oriented. She is in no acute distress. Lungs bilateral rhonchi and diminished breath sounds. Heart irregular rate and rhythm. Abdomen is benign. There is minimal lower extremity swelling. There is a right arm AV fistula. - Lab 11/28/16 04:34 11/28/16 04:34 Most recent lab results Calcium 9.5 mg/dL (8.6-10.8) 11/28/16 04:34 Phosphorus 7.8 mg/dL (2.3-4.7) H 11/28/16 04:34 Magnesium 1.9 mg/dL (1.6-2.6) 11/28/16 04:34 - VTE Documentation of Mechanical Device: Intermittent pneumatic compression device Consult Discharge Plan - Plan Referrals: Joey Richards Jr, MD [Primary Care Provider] - 12/04/16 11:00 am
[2016-11-28] MEDS ORDERED: Folic Acid 1 MG TABLET PO SCH (09:00)
[2016-11-28] MEDS ORDERED: Diltiazem CD (24hr) 120 MG CAPSULE PO SCH (09:30)
--- NOTE | 2016-11-28 10:07 | Internal Med Progress Note ---
<Tashi Marin - Last Filed: 11/28/16 10:21> Date of Encounter: 11/28/16 Time of Encounter: 09:15 - Assessment and plan (1) Sepsis Current Visit: Yes Status: Acute Assessment and plan: Patient is resident of [facility]. Presented yesterday with altered mental status, otitis media, mastoiditis, and findings suspicious for pneumonia on chest x-ray. Patient had tachycardia, elevated temperature, and leukocytosis at the time of presentation. Patient started on empiric antibiotics and cultures obtained. She has since had resolution of her temperature, heart rate, leukocytosis. Continue empiric Zosyn, Levaquin, and vancomycin day 3 Preliminary blood cultures taken on 11/26/16 preliminarily show no growth to date Sputum cultures show no growth Continue pain control Continue breathing treatments with DuoNeb's and budesonide Dose medications renally Qualifiers: Sepsis type: sepsis due to unspecified organism Qualified Code(s): A41.9 - Sepsis, unspecified organism (2) Otitis media Current Visit: Yes Status: Acute Assessment and plan: On otoscope examination of patient ear, no perforation observed with bulging of tympanic membrane and dried blood seen in external auditory canal. Findings concerning for otitis media Plan as above Qualifiers: Otitis media type: suppurative Laterality: left Chronicity: acute Recurrence: not specified as recurrent Spontaneous tympanic membrane rupture: without spontaneous rupture Qualified Code(s): H66.002 - Acute suppurative otitis media without spontaneous rupture of ear drum, left ear (3) Pneumonia Current Visit: No Status: Acute Assessment and plan: Plan as above Qualifiers: Pneumonia type: due to unspecified organism Laterality: bilateral Lung location: unspecified part of lung Qualified Code(s): J18.9 - Pneumonia, unspecified organism (4) Mastoiditis of both sides Current Visit: No Status: Acute Assessment and plan: Bilateral Mastoiditis seen on CT examination of the patient had Plan as above (5) Hyperkalemia Current Visit: Yes Status: Acute Assessment and plan: Patient potassium 6.7 at presentation. Underwent dialysis yesterday with improvement of her potassium seen. Today potassium at 5.4, DIalysis per usual schedule, HD today Nephrology is following will continue to monitor on telemetry We will recheck potassium in the morning (6) Acute metabolic encephalopathy Current Visit: Yes Status: Resolved Assessment and plan: Patient presented with metabolic encephalopathy likely secondary to infection, will treat underlying etiology as above patient appears to be at baseline (7) ESRD (end stage renal disease) on dialysis Current Visit: No Status: Chronic Assessment and plan: Patient has ESRD on HD, follows with Dr. Aleman. Hyperkalemia observed at presentation, taken for HD yesterday with improvement patient potassium seen. Currently at 5.4. Nephrology is following and appreciate continued recommendations for management/ care Continue to observe renal function with daily labs Reglan dose medications (8) HTN (hypertension) Current Visit: No Status: Chronic Assessment and plan: Patient home blood pressure medications were held due to concerns of sepsis. Currently patient is hypertensive and will begin to reintroduce home blood pressure medications. Home blood pressure medications consist of metoprolol, losartan, diltiazem. Patient has 25 mg by mouth hydralazine ordered currently Will start diltiazem today Will begin to reintroduce patient home antihypertensive medications Qualifiers: Hypertension type: essential hypertension Qualified Code(s): I10 - Essential (primary) hypertension (9) Atrial fibrillation Current Visit: No Status: Chronic Assessment and plan: Heart rate will controlled currently, no signs of RVR. Current INR sub- therapeutic Continue home warfarin, dosed per pharmacy Qualifiers: Atrial fibrillation type: chronic Qualified Code(s): I48.2 - Chronic atrial fibrillation (10) COPD (chronic obstructive pulmonary disease) Current Visit: No Status: Chronic Assessment and plan: No wheezing auscultated on exam Continue breathing treatments with duo nebs, budesonide Supplemental oxygen as needed, wean as tolerated Qualifiers: COPD type: COPD with acute lower respiratory infection Qualified Code(s): J44.0 - Chronic obstructive pulmonary disease with acute lower respiratory infection (11) Diabetes mellitus Current Visit: No Status: Chronic Assessment and plan: We will start low-dose sliding scale insulin before meals at bedtime Continue Diabetic diet Qualifiers: Diabetes mellitus type: type 2 Diabetes mellitus complication status: with kidney complications Diabetes mellitus complication detail: with chronic kidney disease Diabetes mellitus terminal superintendent insulin use: with terminal superintendent use Chronic kidney disease stage: on chronic dialysis Qualified Code(s): E11.22 - Type 2 diabetes mellitus with diabetic chronic kidney disease; N18.6 - End stage renal disease; Z79.4 - terminal superintendent (current) use of insulin; Z99.2 - Dependence on renal dialysis (12) Anemia Current Visit: Yes Status: Acute Assessment and plan: Given patient does not urinate, any fluid input will contribute to dilution of her Hgb. Will continue to monitor. Nephrology following due to patient chronic anemia with her ESRD. Qualifiers: Anemia type: unspecified type Qualified Code(s): D64.9 - Anemia, unspecified (13) Elevated troponin Current Visit: No Status: Chronic Assessment and plan: Patient has long history of slightly elevated troponins, current levels are not usually elevated above her baseline and likely explained by her other medical conditions currently. Does not appear to be ACS at this time (14) DVT prophylaxis Current Visit: No Status: Acute Assessment and plan: Patient has history of atrial fibrillation currently on Coumadin. Subtherapeutic with INR of 1.2. Continued Coumadin dose per pharmacy We will start EPCDs - Subjective Interval history: Patient reports doing well this morning, but she continues to report loss of hearing in her left ear. She has no other concerns/complaints this morning feels like she is comfortable to go home. She denies any other symptoms. - Constitutional Vitals: Temp Pulse Resp BP Pulse Ox 99.2 F 75 18 169/51 98 11/28/16 06:33 11/28/16 06:33 11/28/16 07:26 11/28/16 06:33 11/28/16 07:26 General appearance: Present: A&O X 1, pleasant Exam: General: Cooperative, pleasant, no acute distress, alert and oriented 3, answers questions appropriately HEENT: Normocephalic, atraumatic, neck supple, trachea midline, Conjunctiva pink , sclera anicteric, oral mucosa moist, no orophargeal erythema or exudates Respiratory: No accessory muscle usage, slight bilateral Rales auscultated in lung bases Cardiovascular: Regular rate and rhythm, S1 and S2 present, no murmurs/rubs/ gallops/clicks appreciated GI/abdominal: Nondistended, nontender, soft, normal bowel sounds, no peritoneal signs Extremities: No calf tenderness, noncyanotic, no pedal edema appreciated, warm, lower extremity pulses palpable and symmetrical Neurological: Alert and oriented 3, no facial droop, no focal deficits Skin: Dry, intact, chronic darkening of hands and legs Internal Medicine: Result - Labs CBC & Chem 7: 11/28/16 04:34 11/28/16 04:34 Labs: Short CBC 11/28/16 Range/Units 04:34 WBC 8.7 (4.3-11.1) K/mcL Hgb 8.1 L (11.5-15.4) g/dL Hct 26.4 L (35.3-44.9) % Plt Count 163 (140-400) K/mcL Neutrophils # 6.3 (1.6-8.9) K/mcL BMP 11/28/16 04:34 Sodium 134 L Potassium 5.4 H Chloride 96 L Carbon Dioxide 24 BUN 42 H D Creatinine 6.24 H Glucose 273 H Calcium 9.5 - ABG Interpretation ABG results: PT/INR, D-dimer PT 13.4 Seconds (9.4-12.1) H 11/28/16 04:34 - VTE Documentation of Mechanical Device: Intermittent pneumatic compression device Consult Discharge Plan - Plan Referrals: Joey Richards Jr, MD [Primary Care Provider] - 12/04/16 11:00 am <Christine Monahan - Last Filed: 11/28/16 16:26> Date of Encounter: 11/28/16 - Assessment and plan (1) Sepsis Current Visit: Yes Status: Acute Qualifiers: Sepsis type: sepsis due to unspecified organism Qualified Code(s): A41.9 - Sepsis, unspecified organism (2) Otitis media Current Visit: Yes Status: Acute Qualifiers: Otitis media type: suppurative Laterality: left Chronicity: acute Recurrence: not specified as recurrent Spontaneous tympanic membrane rupture: without spontaneous rupture Qualified Code(s): H66.002 - Acute suppurative otitis media without spontaneous rupture of ear drum, left ear (3) Mastoiditis Current Visit: Yes Status: Acute Qualifiers: Laterality: bilateral Qualified Code(s): H70.93 - Unspecified mastoiditis, bilateral (4) Acute metabolic encephalopathy Current Visit: Yes Status: Resolved (5) Elevated troponin Current Visit: Yes Status: Chronic (6) End stage renal disease on dialysis Current Visit: No Status: Chronic (7) Hyperkalemia Current Visit: Yes Status: Acute (8) HCAP (healthcare-associated pneumonia) Current Visit: Yes Status: Acute (9) HTN (hypertension) Current Visit: No Status: Chronic Qualifiers: Hypertension type: essential hypertension Qualified Code(s): I10 - Essential (primary) hypertension (10) COPD (chronic obstructive pulmonary disease) Current Visit: No Status: Chronic Qualifiers: COPD type: COPD with acute lower respiratory infection Qualified Code(s): J44.0 - Chronic obstructive pulmonary disease with acute lower respiratory infection (11) Atrial fibrillation Current Visit: No Status: Chronic Qualifiers: Atrial fibrillation type: chronic Qualified Code(s): I48.2 - Chronic atrial fibrillation (12) Diabetes mellitus Current Visit: No Status: Chronic Qualifiers: Diabetes mellitus type: type 2 Diabetes mellitus complication status: with kidney complications Diabetes mellitus complication detail: with chronic kidney disease Diabetes mellitus skilled nursing insulin use: with terminal superintendent use Chronic kidney disease stage: on chronic dialysis Qualified Code(s): E11.22 - Type 2 diabetes mellitus with diabetic chronic kidney disease; N18.6 - End stage renal disease; Z79.4 - retirement (current) use of insulin; Z99.2 - Dependence on renal dialysis (13) Tobacco use Current Visit: No Status: Chronic - Constitutional Vitals: Temp Pulse Resp BP Pulse Ox 98.2 F 75 18 171/68 96 11/28/16 15:38 11/28/16 15:38 11/28/16 16:05 11/28/16 15:38 11/28/16 16:05 Internal Medicine: Result - Labs CBC & Chem 7: 11/28/16 04:34 11/28/16 04:34 Labs: Short CBC 11/28/16 Range/Units 04:34 WBC 8.7 (4.3-11.1) K/mcL Hgb 8.1 L (11.5-15.4) g/dL Hct 26.4 L (35.3-44.9) % Plt Count 163 (140-400) K/mcL Neutrophils # 6.3 (1.6-8.9) K/mcL BMP 11/28/16 04:34 Sodium 134 L Potassium 5.4 H Chloride 96 L Carbon Dioxide 24 BUN 42 H D Creatinine 6.24 H Glucose 273 H Calcium 9.5 - ABG Interpretation ABG results: PT/INR, D-dimer PT 13.4 Seconds (9.4-12.1) H 11/28/16 04:34 - Impressions Impressions Head CT 11/28/16 09:30 IMPRESSION: No acute intracranial abnormality. Stable appearance of bilateral mastoid effusions and opacification of the left middle ear. D/ / 11/28/2016 11:48:51 Irma Molina MD / juan jose Interpreting Provider: Irma Molina MD - Attending Attestation I examined this patient and reviewed laboratory, imaging and all diagnostic data. My medical decision-making was reviewed with Dr Joel Mott - Resident Physician. I agree with the documented findings, disposition and treatment plan as described above.
[2016-11-28] MEDS ORDERED: 0.9 % Sodium Chloride 2,000 ML ONE (11:01)
[2016-11-28 15:49] VITALS: BP 171/68
[2016-11-28] MEDS: Metoprolol 100 MG TABLET PO SCH (16:33)
--- NOTE | 2016-11-28 16:52 | Discharge Summary ---
Date of Encounter: 11/28/16 Time of Encounter: 16:47 - Discharge Diagnosis (1) Sepsis Priority: Primary Status: Acute Qualifiers: Sepsis type: sepsis due to unspecified organism Qualified Code(s): A41.9 - Sepsis, unspecified organism (2) Otitis media Priority: Primary Status: Acute Qualifiers: Otitis media type: suppurative Laterality: left Chronicity: acute Recurrence: not specified as recurrent Spontaneous tympanic membrane rupture: without spontaneous rupture Qualified Code(s): H66.002 - Acute suppurative otitis media without spontaneous rupture of ear drum, left ear (3) Mastoiditis Priority: Primary Status: Acute Qualifiers: Laterality: bilateral Qualified Code(s): H70.93 - Unspecified mastoiditis, bilateral (4) Acute metabolic encephalopathy Priority: Primary Status: Resolved (5) Elevated troponin Priority: Primary Status: Chronic (6) End stage renal disease on dialysis Priority: Primary Status: Chronic (7) Hyperkalemia Priority: Primary Status: Acute (8) HCAP (healthcare-associated pneumonia) Priority: Primary Status: Acute (9) HTN (hypertension) Priority: Secondary Status: Chronic Qualifiers: Hypertension type: essential hypertension Qualified Code(s): I10 - Essential (primary) hypertension (10) COPD (chronic obstructive pulmonary disease) Priority: Secondary Status: Chronic Qualifiers: COPD type: COPD with acute lower respiratory infection Qualified Code(s): J44.0 - Chronic obstructive pulmonary disease with acute lower respiratory infection (11) Atrial fibrillation Priority: Secondary Status: Chronic Qualifiers: Atrial fibrillation type: chronic Qualified Code(s): I48.2 - Chronic atrial fibrillation (12) Diabetes mellitus Priority: Secondary Status: Chronic Qualifiers: Diabetes mellitus type: type 2 Diabetes mellitus complication status: with kidney complications Diabetes mellitus complication detail: with chronic kidney disease Diabetes mellitus laborer marine terminal insulin use: with nursing home use Chronic kidney disease stage: on chronic dialysis Qualified Code(s): E11.22 - Type 2 diabetes mellitus with diabetic chronic kidney disease; N18.6 - End stage renal disease; Z79.4 - [facility]PC (current) use of insulin; Z99.2 - Dependence on renal dialysis (13) Tobacco use Priority: Secondary Status: Chronic - Discharge Medications Prescriptions: HYDROcodone/Acet 5/325 mg [[place] 5-325 mg] 1 tab PO Q8H PRN #10 tablet PRN Reason: Moderate to Severe Pain Levofloxacin [Levaquin] 500 mg PO Q48H #6 tablet Home Medications: Furosemide [Lasix] 80 mg PO BID 09/28/15 [History] Levothyroxine Sodium [Tirosint] 150 mcg PO 0630 09/28/15 [History] Clopidogrel [Plavix] 75 mg PO DAILY 09/29/15 [History] Modafinil [Provigil] 200 mg PO QAM 09/29/15 [History] Acetaminophen [Tylenol] 1,000 mg PO Q8HR PRN 12/05/15 [History] Cinacalcet [Sensipar] 30 mg PO DAILY 12/05/15 [History] Insulin LISPRO [HumaLOG] 2 - 12 unit SQ QID PRN 12/05/15 [History] B Complex W-C No.20/Folic Acid [Virt-Caps Softgel] 1 mg PO DAILY 12/13/15 [ History] Diltiazem HCl [Diltiazem ER] 120 mg PO DAILY 05/02/16 [History] Folic Acid 1 mg PO DAILY 05/02/16 [History] Ipratropium/Albuterol Neb [Duoneb] 3 ml IH Q4HR 05/02/16 [History] Metoprolol [Lopressor] 100 mg PO BID 07/25/16 [History] Gabapentin [Neurontin] 100 mg PO BID capsule 09/01/16 [Rx] Losartan [Cozaar] 50 mg PO DAILY tablet 09/01/16 [Rx] Omeprazole [PriLOSEC] 20 mg PO DAILY@0730 capsule. 09/01/16 [Rx] Chlorpheniramine/Dextromethorp [Coricidin Hbp Cough & Cold Tab] 1 each PO Q4H PRN 11/26/16 [History] Fexofenadine HCl [Allergy Relief] 180 mg PO DAILY 11/26/16 [History] GuaiFENesin ER [Mucinex] 1,200 mg PO BID PRN 11/26/16 [History] Insulin DETEMIR [Levemir] 5 unit SQ HS 11/26/16 [History] Sevelamer [Renvela] 800 mg PO TIDWM 11/26/16 [History] Warfarin Sodium [Coumadin] 6 mg PO HS 11/26/16 [History] Acetylcysteine 10% 2 ml IH [id number] inhsol 11/28/16 [Rx] Budesonide Neb [Pulmicort Neb] 0.25 mg IH BIDR inhsol 11/28/16 [Rx] Darbepoetin [Aranesp] 60 mcg SQ QWEEK syringe 11/28/16 [Rx] HYDROcodone/Acet 5/325 mg [[place] 5-325 mg] 1 tab PO Q8H PRN #10 tablet 11/28/16 [Rx] Levofloxacin [Levaquin] 500 mg PO Q48H #6 tablet 11/28/16 [Rx] hydrALAZINE [HydrALAZINE] 75 mg PO Q8HR tablet 11/28/16 [Rx] Allergies/Adverse Reactions: Allergies No Known Allergies Allergy (Verified 08/28/16 07:56) Procedures/tests Complete & Pending: Procedures Performed prior 72 hours Category Date Time Status CT head/brain wo con [CT] Routine Cat Scan 11/28/16 09:30 Draft Date of admission: 11/26/16 07:48 Primary care physician: Joey Richards Jr, MD Consults: 11/26/16 07:57 Consult to Nephrology [CONS] Routine Consulting Provider: [facility] JESSICA Reason for Consult: ESRD HD. hyperkalemia Call Completed: Yes 11/26/16 09:15 Consult to Dialysis [CONS] ONCE 11/26/16 10:58 Consult to Nitrate Operator [CONS] Routine Reason for SW Consult: return to ECF 11/26/16 19:10 Consult to Wound Care [CONS] Routine Reason for Consult: Bilateral heel wounds Call Completed: No 11/28/16 08:45 Consult to Dialysis [CONS] ONCE - Patient Status Disposition: Transfer SNF Condition: Good Functional capacity at discharge: uses cane/walker Overall status at discharge: patient is progressing back to baseline - Discharge Instructions Follow Up With: Joey Richards Jr, MD [Primary Care Provider] - 12/04/16 11:00 am (f/u in ENT clinic in 1 week) - Diet and Activity Activity: resume usual activities as tolerated Diet: diabetic diet, low fat, low cholesterol, low salt diet, other (renal) Hospital course: Ms. Rico is a 71 year old female with past medical history of ESRD on HD, CAD, atrial fibrillation, COPD, HTN, and DM who lives in a shelter and was found confused in dialysis center. positive for left sided hearing loss. She denies any headache, earache, chest pain, shortness of breath, diarrhea, abdominal pain, bleeding, LE edema or cough. In our ED, patient was febrile 103.2, tachycardic and confused. WBC 14. CT head showed left-sided otitis media and bilateral mastoiditis. CXR shows bibasal airspace disease. Started on IV Vancomycin, levaquin and Zosyn with fast clinical improvement. Blood cultures were negative. She was de-escalated to IV levaquin without any complications. repeat CT head showed stable mastoiditis and left otitis media. her blood pressure medications were adjusted for a BP < 170/95 PLAN: continue oral levaquin for a total of 14 days. Follow up in the ENT clinic in 1 week. - Time Spent with Patient Total time spent providing and/or coordinating discharge services: - Constitutional Vitals: Temp Pulse Resp BP Pulse Ox 98.2 F 75 18 171/68 96 11/28/16 15:38 11/28/16 15:38 11/28/16 16:05 11/28/16 15:38 11/28/16 16:05 General appearance: Present: A&O X 1, pleasant - VTE Documentation of Mechanical Device: Intermittent pneumatic compression device
--- NOTE | 2016-11-28 17:04 | Physician Discharge Referral ---
ExtendedCare Referral Info Transfer To: [facility] Provider in Charge: yumi Provider in Charge after Transfer: PCP Institutional Level of Care: Skilled - Diagnosis (1) Sepsis Status: Acute (2) Otitis media Status: Acute (3) Mastoiditis Status: Acute (4) Acute metabolic encephalopathy Status: Resolved (5) Elevated troponin Status: Chronic (6) End stage renal disease on dialysis Status: Chronic (7) Hyperkalemia Status: Acute (8) HCAP (healthcare-associated pneumonia) Status: Acute (9) HTN (hypertension) Status: Chronic (10) COPD (chronic obstructive pulmonary disease) Status: Chronic (11) Atrial fibrillation Status: Chronic (12) Diabetes mellitus Status: Chronic (13) Tobacco use Status: Chronic - Transfer Medications Prescriptions: HYDROcodone/Acet 5/325 mg [[place] 5-325 mg] 1 tab PO Q8H PRN #10 tablet PRN Reason: Moderate to Severe Pain Levofloxacin [Levaquin] 500 mg PO Q48H #6 tablet Home Medications: Furosemide [Lasix] 80 mg PO BID 09/28/15 [History] Levothyroxine Sodium [Tirosint] 150 mcg PO 0630 09/28/15 [History] Clopidogrel [Plavix] 75 mg PO DAILY 09/29/15 [History] Modafinil [Provigil] 200 mg PO QAM 09/29/15 [History] Acetaminophen [Tylenol] 1,000 mg PO Q8HR PRN 12/05/15 [History] Cinacalcet [Sensipar] 30 mg PO DAILY 12/05/15 [History] Insulin LISPRO [HumaLOG] 2 - 12 unit SQ QID PRN 12/05/15 [History] B Complex W-C No.20/Folic Acid [Virt-Caps Softgel] 1 mg PO DAILY 12/13/15 [ History] Diltiazem HCl [Diltiazem ER] 120 mg PO DAILY 05/02/16 [History] Folic Acid 1 mg PO DAILY 05/02/16 [History] Ipratropium/Albuterol Neb [Duoneb] 3 ml IH Q4HR 05/02/16 [History] Metoprolol [Lopressor] 100 mg PO BID 07/25/16 [History] Gabapentin [Neurontin] 100 mg PO BID capsule 09/01/16 [Rx] Losartan [Cozaar] 50 mg PO DAILY tablet 09/01/16 [Rx] Omeprazole [PriLOSEC] 20 mg PO DAILY@0730 capsule. 09/01/16 [Rx] Chlorpheniramine/Dextromethorp [Coricidin Hbp Cough & Cold Tab] 1 each PO Q4H PRN 11/26/16 [History] Fexofenadine HCl [Allergy Relief] 180 mg PO DAILY 11/26/16 [History] GuaiFENesin ER [Mucinex] 1,200 mg PO BID PRN 11/26/16 [History] Insulin DETEMIR [Levemir] 5 unit SQ HS 11/26/16 [History] Sevelamer [Renvela] 800 mg PO TIDWM 11/26/16 [History] Warfarin Sodium [Coumadin] 6 mg PO HS 11/26/16 [History] Acetylcysteine 10% 2 ml IH [id number] inhsol 11/28/16 [Rx] Budesonide Neb [Pulmicort Neb] 0.25 mg IH BIDR inhsol 11/28/16 [Rx] Darbepoetin [Aranesp] 60 mcg SQ QWEEK syringe 11/28/16 [Rx] HYDROcodone/Acet 5/325 mg [[place] 5-325 mg] 1 tab PO Q8H PRN #10 tablet 11/28/16 [Rx] Levofloxacin [Levaquin] 500 mg PO Q48H #6 tablet 11/28/16 [Rx] hydrALAZINE [HydrALAZINE] 75 mg PO Q8HR tablet 11/28/16 [Rx] Allergies/Adverse Reactions: Allergies No Known Allergies Allergy (Verified 08/28/16 07:56) - Respiratory Orders Oxygen / L per min (3), Other (pulmonary toilet) Smoking Cessation: Smoking cessation has been advised. For more information, call the [place] Tobacco Quit Line at 7-721-KGAZ-NOW. - Lab Orders Lab Orders: Other (include drug levels w/frequency) (INR daily monitor) - Ancillary Orders May use pressure relief devices daily prn, May go on TROY w/family/respon democrat w /meds at nurse discretion PRN - Advance Directives Code Status: Full Code - Mobility Orders Other (per PT) - Rehabiliation Orders Rehab Potential: Fair Rehab Orders: Evaluation for Physical Therapy, Evaluation for Occupational Therapy - Treatments Skin tear care topically daily PRN per policy, May check for fecal impaction rectally daily PRN List/Other: follow up in the ENT clinic in 1 week - Diet Orders No Added Salt (CARL), No Concentrated Sweets, Renal, Cardiac CERTIFICATION: I certify that the transfer of the above named patient to an Extended Care Facility is necessary for the continuing treatment of the diagnosis listed. The above information is true and accurate reflection of patient's current condition. Confidential - Redisclosure prohibited without a patient's written consent.
[2016-11-28] MEDS ORDERED: *HR* Warfarin 3 MG TABLET PO ONE (18:00)
[2016-11-28] MEDS ORDERED: Aminoglycoside Consult 1 EACH MC ONE (18:23)
== END 2016-11-28 18:24 | DRG 871 ==
LOC: 2ANU 06:01 → EMEROO 06:01 → SUATTDRO 07:48 → 2ANU 09:20
PROVIDERS: ADMIT Internal Medicine; ATTEND Internal Medicine

== ENCOUNTER 2017-01-13 16:08 | Inpatient (IN) ==
--- NOTE | 2017-01-13 16:13 | Emergency Department Note ---
Disposition Clinical Impression: Hyperkalemia Mental status change Qualifiers: Altered mental status type: unspecified Qualified Code(s): R41.82 - Altered mental status, unspecified UTI (urinary tract infection) Qualifiers: Urinary tract infection type: acute cystitis Hematuria presence: with hematuria Qualified Code(s): N30.01 - Acute cystitis with hematuria Disposition: Admitted As Inpatient Condition: Fair Forms: ED Satisfaction Letter Time of Disposition: 18:24 Altered Mental Status HPI - General Chief Complaint: ED Altered Mental Status Stated Complaint: AMS Time Seen by Provider: 01/13/17 16:09 Source: EMS Mode of arrival: EMS Limitations: altered mental status Nursing Notes Reviewed: Yes Vital Signs Reviewed: Yes - History of Present Illness HPI Narrative: 71-year-old dialysis patient's comes [facility] for altered mental status. She was pretty much unresponsive for the squad they were getting ready to bag her but gave her a milligram of Narcan and it did seem to improve her status on arrival here she is somnolent but arouses and answers questions. MD complaint: altered mental status Onset (ago): Just GENETICS PHYSICIAN Timing confirmed by: caregiver Associated symptoms: Reports: denies other symptoms - Related Data Home Medications Medication Instructions Recorded Confirmed Furosemide [Lasix] 80 mg PO BID 09/28/15 11/26/16 Levothyroxine Sodium [Tirosint] [place] [address]/28/15 11/26/16 Clopidogrel [Plavix] 75 mg PO DAILY 09/29/15 11/26/16 Modafinil [Provigil] 200 mg PO QAM 09/29/15 11/26/16 Acetaminophen [Tylenol] 1,000 mg PO Q8HR PRN 12/05/15 11/26/16 Cinacalcet [Sensipar] 30 mg PO DAILY 12/05/15 11/26/16 Insulin LISPRO [HumaLOG] 2 - 12 unit SQ QID PRN 12/05/15 11/26/16 B Complex W-C No.20/Folic Acid 1 mg PO DAILY 12/13/15 11/26/16 [Virt-Caps Softgel] Diltiazem HCl [Diltiazem ER] 120 mg PO DAILY 05/02/16 11/26/16 Folic Acid 1 mg PO DAILY 05/02/16 11/26/16 Ipratropium/Albuterol Neb [Duoneb] 3 ml IH Q4HR 05/02/16 11/26/16 Metoprolol [Lopressor] 100 mg PO BID 07/25/16 11/26/16 Chlorpheniramine/Dextromethorp 1 each PO Q4H PRN 11/26/16 11/26/16 [Coricidin Hbp Cough & Cold Tab] Fexofenadine HCl [Allergy Relief] 180 mg PO DAILY 11/26/16 11/26/16 GuaiFENesin ER [Mucinex] 1,200 mg PO BID PRN 11/26/16 11/26/16 Insulin DETEMIR [Levemir] 5 unit SQ HS 11/26/16 11/26/16 Sevelamer [Renvela] 800 mg PO TIDWM 11/26/16 11/26/16 Warfarin Sodium [Coumadin] 6 mg PO HS 11/26/16 11/26/16 Previous Rx's Medication Instructions Recorded Gabapentin [Neurontin] 100 mg PO BID capsule 09/01/16 Losartan [Cozaar] 50 mg PO DAILY tablet 09/01/16 Omeprazole [PriLOSEC] 20 mg PO DAILY@0730 capsule. 09/01/16 Acetylcysteine 10% 2 ml IH [id number] inhsol 11/28/16 Budesonide Neb [Pulmicort Neb] 0.25 mg IH BIDR inhsol 11/28/16 Darbepoetin [Aranesp] 60 mcg SQ QWEEK syringe 11/28/16 HYDROcodone/Acet 5/325 mg [[place] 1 tab PO Q8H PRN #10 tablet 11/28/16 5-325 mg] Levofloxacin [Levaquin] 500 mg PO Q48H #6 tablet 11/28/16 hydrALAZINE [HydrALAZINE] 75 mg PO Q8HR tablet 11/28/16 Allergies Allergy/AdvReac Type Severity Reaction Status Date / Time No Known Allergies Allergy Verified 08/28/16 07:56 All systems ED: reviewed and negative except as stated. Constitutional: Denies: fever, chills, weakness, weight change Eyes: Denies: eye pain, eye discharge, vision change ENT ED: Denies: ear pain, throat pain, dental pain, hearing loss, epistaxis, congestion, dysphagia Cardiovascular: Denies: chest pain, palpitations, dyspnea on exertion, edema, syncope Respiratory: Denies: cough, dyspnea, wheezes, hemoptysis, stridor Gastrointestinal: Denies: abdominal pain, nausea, vomiting, diarrhea, constipation, hematemesis, melena, hematochezia Genitourinary: Denies: dysuria, frequency, hematuria, discharge Musculoskeletal: Denies: back pain, neck pain, arthralgia, myalgia Integumentary: Denies: rash, abrasion, lesions Neurological: Reports: other (Altered mental status). Denies: headache, weakness, numbness, paresthesias, confusion, vertigo Psychiatric: Denies: anxiety, depression, suicidal thoughts, homicidal thoughts , auditory hallucinations, visual hallucinations Endocrine: Denies: fatigue Hematological/Lymphatic: Denies: easy bleeding, easy bruising Allergic/Immunologic: Denies: facial swelling, urticaria Past Medical History - Past Medical History Medical history: Reports: arthritis, cardiomyopathy, COPD, coronary artery disease, diabetes, dialysis, GERD, hyperlipidemia, hypertension, osteoporosis, peripheral artery disease, renal disease, thyroid disease, other Surgical history: Reports: appendectomy, cholecystectomy, hip replacement, hysterectomy, orthopedic, other, ABIMAEL/BSO, other Psychiatric history: Reports: anxiety, depression, other FAST FOOD MANAGER history: Reports: no FAST FOOD MANAGER history - Social History Smoking Status: Current every day smoker Smokeless Tobacco Status: No Alcohol use: Reports: none Drug use: Reports: none, prescription drug abuse, other Physical Exam - General Limitations: altered mental status General appearance: alert, in no apparent distress - Head Head exam: atraumatic, normocephalic, normal inspection - Eye Eye exam: Present: normal appearance, PERRL, EOMI - ENT ENT exam: normal exam, normal oropharynx, mucous membranes moist - Neck Neck exam: Present: normal inspection, full ROM, trachea midline - Chest Chest inspection: Present: normal inspection, symmetric chest wall rise - Respiratory Respiratory exam: Present: normal lung sounds bilaterally - Cardiovascular Cardiovascular exam: Present: regular rate, normal rhythm, normal heart sounds - Abdominal Exam Abdominal exam: Present: soft, Non-Tender. Absent: tenderness, distention, guarding, rebound, rigidity - Extremities Exam Extremities exam: Present: normal inspection, full ROM. Absent: tenderness, pedal edema - Expanded Lower Extremity Exam Neurovascular/Tendon exam: Absent: motor deficit, sensory deficit, tendon deficit Gait: not tested/not observed - Back Exam Back exam: Present: normal inspection - Expanded Neurological Exam Patient oriented to: Present: place Coma Scale Eye Opening: Spontaneous Coma Scale Motor Response: Obeys Commands Coma Scale Verbal Response: Oriented Coma Scale Total: 15 - Psychiatric Psychiatric exam: Present: normal affect - Skin Skin exam: Present: warm, dry, intact, normal color Course - Reevaluation(s) Reevaluation #1: 71-year-old female who [facility] basically unresponsive was given Narcan and had improvement in her mental status. Workup here included too numerous to count white cells in her urine she does make some urine she is a dialysis patient. She was found to have a potassium of 6.9. She was treated with IV antibiotics and hyperkalemia regiment. Time: 18:19 - Consultations Consultation #1: Discussed with Jennie Anderson, admit Time: 18:34 Consultation #2: Discussed with , admit Kayexalate either orally or rectally and repeat potassium in 4 hours Time: 18:37 Vital Signs Temperature 98.9 F 01/13/17 16:09 Pulse Rate 59 01/13/17 16:09 Respiratory Rate 24 01/13/17 16:09 Blood Pressure 145/60 01/13/17 16:09 O2 Sat by Pulse Oximetry 98 01/13/17 16:09 Temperature 98.9 F 01/13/17 16:09 Pulse Rate 67 01/13/17 18:19 Respiratory Rate 14 01/13/17 18:28 Blood Pressure 166/55 01/13/17 18:19 O2 Sat by Pulse Oximetry 100 01/13/17 18:28 Oxygen Delivery Oxygen Delivery Nasal Cannula Altered Mental Status - Lab Data Result diagrams: 01/13/17 17:46 01/13/17 17:46 Lab Results 01/13/17 01/13/17 01/13/17 Range/Units 16:14 16:59 16:59 WBC (4.3-11.1) K/mcL RBC (3.82-4.97) M/mcL Hgb (11.5-15.4) g/dL Hct (35.3-44.9) % MCV (83.0-100.0) fL MCH (28.0-33.3) pg MCHC (31.6-35.5) g/dL RDW (11.5-14.5) % Plt Count (140-400) K/mcL MPV (9.4-12.4) fL Immature Gran % (0-4) % Seg Neutrophils % % Lymphocytes % % Monocytes % % Eosinophils % % Basophils % % Neutrophils # (1.6-8.9) K/mcL Lymphocytes # (0.6-4.6) K/mcL Monocytes # (0.0-1.3) K/mcL Eosinophils # (0.0-0.6) K/mcL Basophils # (0.0-0.2) K/mcL PT (9.4-12.1) Seconds INR APTT (26.0-36.0) Seconds ABG pH 7.38 (7.32-7.45) pH Units ABG pCO2 43 (35-45) mmHg ABG pO2 72 L (85-104) mmHg ABG HCO3 25.4 (21-27) mEQ/L ABG Total CO2 26.7 H (20-26) mEq/L ABG O2 Saturation 94 L (95-98) % ABG Base Excess 0.1 (-2.0 to 3.0) mEq/L Blood Gas Modality ARB Inspired O2 100 % Sodium (136-145) mEq/L Potassium (3.5-4.5) mEq/L Chloride (98-109) mEq/L Carbon Dioxide (19-29) mEq/L BUN (7-20) mg/dL Creatinine (0.57-1.11) mg/dL Est GFR ( Amer) (> 60) Est GFR (Non-Af Amer) (> 60) BUN/Creatinine Ratio (6-26) Glucose (70-99) mg/dL Calculated Osmolality (280-300) Calcium (8.6-10.8) mg/dL Total Bilirubin (0.2-1.2) mg/dL Direct Bilirubin (0.0-0.5) mg/dL Indirect Bilirubin (0.0-1.2) mg/dL AST (5-34) Units/L ALT (0-55) Units/L Alkaline Phosphatase (38-126) Units/L Troponin I (0-0.03) ng/mL Serum Total Protein (6.0-8.3) g/dL Albumin (3.5-5.0) g/dL Globulin (2.4-3.5) g/dL Albumin/Globulin Ratio (1.1-2.2) Urine Color Brown (Yellow) Urine Clarity Turbid A (Clear) Urine pH 7.5 (5.0-8.0) pH Units Ur Specific Reader 1.018 (1.010-1.025) Urine Protein >=300 H (Neg-Trace) mg/dL Urine Glucose (UA) 250 H (Normal) mg/dL Urine Ketones Negative (Negative) mg/dL Urine Blood Small H (Negative) Urine Nitrite Negative (Negative) Urine Bilirubin Negative (Negative) Urine Urobilinogen Normal (Normal) mg/dL Ur Leukocyte Esterase Large H (Negative) Urine Microscopic RBC TNTC H (0-3) per hpf Urine Microscopic WBC TNTC H (0-3) per hpf Ur Squamous Epith Cells Many H (None-Few) per lpf Ur Transition Epith Cell Moderate H (None-Few) per hpf Ur Renal Epithelial Cell Few (None-Few) per hpf Calcium Oxalate Crystal Present Amorphous Sediment Many H (Few) Urine Bacteria Moderate H (None-Few) per hpf Hyaline Casts None Seen (None-Few) per lpf Ur Culture Indicated? YES A (NO) Urine Opiates Screen Negative (Skgbbm=107) ng/mL Ur Barbiturates Screen Negative (Pgrjym=179) ng/mL Ur Phencyclidine Scrn Negative (Cutoff=25) ng/mL Ur Amphetamines Screen Negative (Kfgeut=2337) ng/mL U Benzodiazepines Scrn Negative (Mdlkbt=108) ng/mL Urine Cocaine Screen Negative (Cutoff= 300) ng/mL U Marijuana (THC) Screen Negative (Cutoff = 50) ng/mL Ethyl Alcohol (0-10) mg/dL 01/13/17 01/13/17 01/13/17 Range/Units 17:46 17:46 17:46 WBC 12.9 H (4.3-11.1) K/mcL RBC 3.37 L (3.82-4.97) M/mcL Hgb 10.8 L (11.5-15.4) g/dL Hct 35.2 L (35.3-44.9) % MCV 104.5 H (83.0-100.0) fL MCH 32.0 (28.0-33.3) pg MCHC 30.7 L (31.6-35.5) g/dL RDW 13.6 (11.5-14.5) % Plt Count 230 (140-400) K/mcL MPV 10.3 (9.4-12.4) fL Immature Gran % 0.5 (0-4) % Seg Neutrophils % 87.7 % Lymphocytes % 5.7 % Monocytes % 4.7 % Eosinophils % 1.0 % Basophils % 0.4 % Neutrophils # 11.3 H (1.6-8.9) K/mcL Lymphocytes # 0.7 (0.6-4.6) K/mcL Monocytes # 0.6 (0.0-1.3) K/mcL Eosinophils # 0.1 (0.0-0.6) K/mcL Basophils # 0.1 (0.0-0.2) K/mcL PT 26.1 H (9.4-12.1) Seconds INR 2.4 APTT 51.0 H (26.0-36.0) Seconds ABG pH (7.32-7.45) pH Units ABG pCO2 (35-45) mmHg ABG pO2 (85-104) mmHg ABG HCO3 (21-27) mEQ/L ABG Total CO2 (20-26) mEq/L ABG O2 Saturation (95-98) % ABG Base Excess (-2.0 to 3.0) mEq/L Blood Gas Modality Inspired O2 % Sodium 127 L (136-145) mEq/L Potassium 6.9 H* (3.5-4.5) mEq/L Chloride 89 L (98-109) mEq/L Carbon Dioxide 23 (19-29) mEq/L BUN 32 H (7-20) mg/dL Creatinine 6.39 H (0.57-1.11) mg/dL Est GFR ( Amer) 8 L (> 60) Est GFR (Non-Af Amer) 6 L (> 60) BUN/Creatinine Ratio 5 L (6-26) Glucose 183 H (70-99) mg/dL Calculated Osmolality 276 L (280-300) Calcium 10.5 (8.6-10.8) mg/dL Total Bilirubin 0.7 (0.2-1.2) mg/dL Direct Bilirubin 0.2 (0.0-0.5) mg/dL Indirect Bilirubin 0.5 (0.0-1.2) mg/dL AST 25 (5-34) Units/L ALT 22 (0-55) Units/L Alkaline Phosphatase 125 (38-126) Units/L Troponin I (0-0.03) ng/mL Serum Total Protein 8.7 H (6.0-8.3) g/dL Albumin 3.4 L (3.5-5.0) g/dL Globulin 5.3 H (2.4-3.5) g/dL Albumin/Globulin Ratio 0.6 L (1.1-2.2) Urine Color (Yellow) Urine Clarity (Clear) Urine pH (5.0-8.0) pH Units Ur Specific Reader (1.010-1.025) Urine Protein (Neg-Trace) mg/dL Urine Glucose (UA) (Normal) mg/dL Urine Ketones (Negative) mg/dL Urine Blood (Negative) Urine Nitrite (Negative) Urine Bilirubin (Negative) Urine Urobilinogen (Normal) mg/dL Ur Leukocyte Esterase (Negative) Urine Microscopic RBC (0-3) per hpf Urine Microscopic WBC (0-3) per hpf Ur Squamous Epith Cells (None-Few) per lpf Ur Transition Epith Cell (None-Few) per hpf Ur Renal Epithelial Cell (None-Few) per hpf Calcium Oxalate Crystal Amorphous Sediment (Few) Urine Bacteria (None-Few) per hpf Hyaline Casts (None-Few) per lpf Ur Culture Indicated? (NO) Urine Opiates Screen (Ebkxhq=356) ng/mL Ur Barbiturates Screen (Ckctzj=427) ng/mL Ur Phencyclidine Scrn (Cutoff=25) ng/mL Ur Amphetamines Screen (Jgrvjy=3405) ng/mL U Benzodiazepines Scrn (Bkhlek=458) ng/mL Urine Cocaine Screen (Cutoff= 300) ng/mL U Marijuana (THC) Screen (Cutoff = 50) ng/mL Ethyl Alcohol < 10 (0-10) mg/dL 01/13/17 Range/Units 17:46 WBC (4.3-11.1) K/mcL RBC (3.82-4.97) M/mcL Hgb (11.5-15.4) g/dL Hct (35.3-44.9) % MCV (83.0-100.0) fL MCH (28.0-33.3) pg MCHC (31.6-35.5) g/dL RDW (11.5-14.5) % Plt Count (140-400) K/mcL MPV (9.4-12.4) fL Immature Gran % (0-4) % Seg Neutrophils % % Lymphocytes % % Monocytes % % Eosinophils % % Basophils % % Neutrophils # (1.6-8.9) K/mcL Lymphocytes # (0.6-4.6) K/mcL Monocytes # (0.0-1.3) K/mcL Eosinophils # (0.0-0.6) K/mcL Basophils # (0.0-0.2) K/mcL PT (9.4-12.1) Seconds INR APTT (26.0-36.0) Seconds ABG pH (7.32-7.45) pH Units ABG pCO2 (35-45) mmHg ABG pO2 (85-104) mmHg ABG HCO3 (21-27) mEQ/L ABG Total CO2 (20-26) mEq/L ABG O2 Saturation (95-98) % ABG Base Excess (-2.0 to 3.0) mEq/L Blood Gas Modality Inspired O2 % Sodium (136-145) mEq/L Potassium (3.5-4.5) mEq/L Chloride (98-109) mEq/L Carbon Dioxide (19-29) mEq/L BUN (7-20) mg/dL Creatinine (0.57-1.11) mg/dL Est GFR ( Amer) (> 60) Est GFR (Non-Af Amer) (> 60) BUN/Creatinine Ratio (6-26) Glucose (70-99) mg/dL Calculated Osmolality (280-300) Calcium (8.6-10.8) mg/dL Total Bilirubin (0.2-1.2) mg/dL Direct Bilirubin (0.0-0.5) mg/dL Indirect Bilirubin (0.0-1.2) mg/dL AST (5-34) Units/L ALT (0-55) Units/L Alkaline Phosphatase (38-126) Units/L Troponin I 0.07 H* (0-0.03) ng/mL Serum Total Protein (6.0-8.3) g/dL Albumin (3.5-5.0) g/dL Globulin (2.4-3.5) g/dL Albumin/Globulin Ratio (1.1-2.2) Urine Color (Yellow) Urine Clarity (Clear) Urine pH (5.0-8.0) pH Units Ur Specific Reader (1.010-1.025) Urine Protein (Neg-Trace) mg/dL Urine Glucose (UA) (Normal) mg/dL Urine Ketones (Negative) mg/dL Urine Blood (Negative) Urine Nitrite (Negative) Urine Bilirubin (Negative) Urine Urobilinogen (Normal) mg/dL Ur Leukocyte Esterase (Negative) Urine Microscopic RBC (0-3) per hpf Urine Microscopic WBC (0-3) per hpf Ur Squamous Epith Cells (None-Few) per lpf Ur Transition Epith Cell (None-Few) per hpf Ur Renal Epithelial Cell (None-Few) per hpf Calcium Oxalate Crystal Amorphous Sediment (Few) Urine Bacteria (None-Few) per hpf Hyaline Casts (None-Few) per lpf Ur Culture Indicated? (NO) Urine Opiates Screen (Idyirc=916) ng/mL Ur Barbiturates Screen (Foaspm=141) ng/mL Ur Phencyclidine Scrn (Cutoff=25) ng/mL Ur Amphetamines Screen (Zuwucz=9002) ng/mL U Benzodiazepines Scrn (Lmjzkt=025) ng/mL Urine Cocaine Screen (Cutoff= 300) ng/mL U Marijuana (THC) Screen (Cutoff = 50) ng/mL Ethyl Alcohol (0-10) mg/dL - EKG Data EKG attestation: Yes I reviewed and interpreted this EKG. EKG shows normal: sinus rhythm Rate: normal Rhythm: NSR Interpretation: no acute changes TPA Checklist - LKW: 3-4.5 hrs Add. Warnings/Precautions Patient/family understanding: The patient/family members have been counseled and understood the risk, benefit , and alternatives of treatment.
[2017-01-13 16:22] LABS: ABG Base Excess 0.1 mEq/L (-2.0 to 3.0); ABG HCO3 25.4 mEQ/L (21-27); ABG Oxygen Saturation 94 % (95-98); ABG PCO2 43 mmHg (35-45); ABG PH 7.38 pH Units (7.32-7.45); ABG PO2 72 mmHg (85-104); ABG TCO2 26.7 mEq/L (20-26); Blood Gas FiO2 100 %
[2017-01-13 17:12] LABS: Bilirubin,Urine Negative (Negative); Blood,Urine Small (Negative); Clarity,Urine Turbid (Clear); Glucose,Urine (UA) 250 mg/dL (Normal); Ketones,Urine Negative (Negative); Leukocyte Esterase,Urine Large (Negative); Nitrite,Urine Negative (Negative); PH,Urine 7.5 pH Units (5.0-8.0); Protein,Urine >=300 mg/dL (Neg-Trace); Specific Gravity,Urine 1.018 (1.010-1.025); Urobilinogen,Urine Normal (Normal)
[2017-01-13 17:14] LABS: Hyaline Casts,Urine None Seen per lpf (None-Few); Squamous Epithelial Cell,Urine Many per lpf (None-Few); WBC,Urine TNTC per hpf (0-3)
[2017-01-13 17:15] LABS: Color,Urine Brown (Yellow)
[2017-01-13 17:18] LABS: Amphetamine Screen,Urine Negative ng/mL (Cutoff=1000); Barbiturate Screen,Urine Negative ng/mL (Cutoff=200); Benzodiazepines Screen,Urine Negative ng/mL (Cutoff=200); Cannabinoid Screen,Urine Negative ng/mL (Cutoff = 50); Cocaine Screen,Urine Negative ng/mL (Cutoff= 300); Opiate Screen,Urine Negative ng/mL (Cutoff=300); Phencyclidine Screen,Urine Negative ng/mL (Cutoff=25)
[2017-01-13 17:23] LABS: Calcium Oxalate Crystals,Urine Present; Renal Epithelial Cells,Urine Few per hpf (None-Few); Transitional Epi Cells,Urine Moderate per hpf (None-Few)
[2017-01-13 17:24] LABS: Amorphous Sediment,Urine Many (Few); Bacteria,Urine Moderate per hpf (None-Few)
[2017-01-13 17:29] LABS: RBC,Urine TNTC per hpf (0-3)
[2017-01-13 17:57] LABS: Basophils # 0.1 K/mcL (0.0-0.2); Basophils % 0.4 %; Eosinophils # 0.1 K/mcL (0.0-0.6); Hematocrit 35.2 % (35.3-44.9); Hemoglobin 10.8 g/dL (11.5-15.4); Immature Granulocytes % 0.5 % (0-4); Lymphocytes # 0.7 K/mcL (0.6-4.6); Lymphocytes % 5.7 %; Mean Corpuscular HGB Conc 30.7 g/dL (31.6-35.5); Mean Corpuscular Volume 104.5 fL (83.0-100.0); Mean Platelet Volume 10.3 fL (9.4-12.4); Monocytes # 0.6 K/mcL (0.0-1.3); Monocytes % 4.7 %; Neutrophils # 11.3 K/mcL (1.6-8.9); Platelet Count 230 K/mcL (140-400); Red Blood Count 3.37 M/mcL (3.82-4.97); Red Cell Distribution Width 13.6 % (11.5-14.5); Segmented Neutrophils % 87.7 %
[2017-01-13 18:00] LABS: INR 2.4; Prothrombin Time 26.1 Seconds (9.4-12.1)
[2017-01-13 18:11] LABS: Alanine Aminotransferase 22 Units/L (0-55); Albumin 3.4 g/dL (3.5-5.0); Albumin/Globulin Ratio 0.6 (1.1-2.2); Alkaline Phosphatase 125 Units/L (38-126); Aspartate Amino Transferase 25 Units/L (5-34); BUN/Creatinine Ratio 5 (6-26); Bilirubin,Direct 0.2 mg/dL (0.0-0.5); Bilirubin,Indirect 0.5 mg/dL (0.0-1.2); Bilirubin,Total 0.7 mg/dL (0.2-1.2); Blood Urea Nitrogen 32 mg/dL (7-20); Calcium 10.5 mg/dL (8.6-10.8); Carbon Dioxide 23 mEq/L (19-29); Chloride 89 mEq/L (98-109); Globulin 5.3 g/dL (2.4-3.5); Glucose 183 mg/dL (70-99); Osmolality,Calculated 276 (280-300); Sodium 127 mEq/L (136-145); Total Protein 8.7 g/dL (6.0-8.3); eGFR For African Americans 8 (> 60); eGFR For Non-African Americans 6 (> 60)
[2017-01-13 18:12] LABS: Ethanol < 10 mg/dL (0-10)
[2017-01-13] MEDS ORDERED: Sodium Bicarbonate 50 MEQ/50 ML VIAL IVP ONE (18:14)
[2017-01-13] MEDS ORDERED: Albuterol 2.5 MG/3 ML NEBULIZER IH ONE (18:14)
[2017-01-13 18:15] LABS: Potassium 6.9 mEq/L (3.5-4.5)
[2017-01-13] MEDS: Insulin Human Regular 10 UNIT in 0.9 % Sodium Chloride 10 ML IV ONE ×2 (19:06→21:38)
[2017-01-13] MEDS: *HR* Dextrose 50 % in Water (Syg) 50 ML SYRINGE IVP ONE ×2 (19:06→21:37)
[2017-01-13] MEDS ORDERED: Ondansetron 4 MG/2 ML VIAL IVP PRN (19:23)
[2017-01-13] MEDS ORDERED: Naloxone 0.4 MG/ML INJ IVP PRN (19:23)
[2017-01-13] MEDS ORDERED: D5% in Water 1,000 ML IVC PRN (19:38)
--- NOTE | 2017-01-13 19:53 | Internal Med History&Physical ---
Date of Encounter: 01/13/17 Time of Encounter: 19:00 Assessment and Plan (1) Acute metabolic encephalopathy Current visit: Yes Status: Acute 1 patient was found by nursing staff today at her ECF unresponsive upon arrival by the EMS patient was given Narcan and was somewhat arousable. She was brought to the ER CT of her head was negative, suspect that this is related to electrolytes imbalance secondary to her renal disease. Potassium was 6.9 sodium was 127 she was treated with hyperkalemia -ER physician did speak with Dr. Quesada who request recheck a potassium in 4 hours she will require dialysis in the a.m. however no improvement she will be dialyzed this evening. Urinalysis was sent there was a large amount of leuk esterase as well as moderate of Bacteria, cultures were drawn and urine culture sent she was given Rocephin. I do not suspect that this is the cause of her encephalopathy however we will continue with Rocephin for now awaiting culture results. 2 place patient on aspiration precautions (2) ESRD (end stage renal disease) Current visit: Yes Status: Acute 1 we will continue to closely monitor electrolytes-nephrology has been consulted and she will undergo dialysis either tonight or tomorrow morning 2 monitor intake and output daily weights 3 avoid nephrotoxins (3) Elevated troponin Current visit: Yes Status: Acute 1 this appears to be chronic, we will continue to trend 2 continuous cardiac monitoring (4) Hyperkalemia Current visit: Yes Status: Acute 1 presently potassium is 6.9 there is no tenting of T waves at this time. Patient was given The late glucose insulin and bicarbonate. We will recheck potassium in 4 hours if there is no improvement we will notify Dr. Quesada for urgent dialysis. 2 continuous cardiac monitoring (5) UTI (urinary tract infection) Current visit: Yes Status: Acute 1 we will continue with Rocephin-pending urine and blood culture results Qualifiers: Urinary tract infection type: site unspecified Hematuria presence: without hematuria Qualified Code(s): N39.0 - Urinary tract infection, site not specified (6) Atrial fibrillation Current visit: No Status: Chronic 1 presently rate controlled we will continue with Cardizem as well as Coumadin pharmacy to dose present INR is 2.4 goal is 2-3 Qualifiers: Atrial fibrillation type: chronic Qualified Code(s): I48.2 - Chronic atrial fibrillation (7) COPD (chronic obstructive pulmonary disease) Current visit: No Status: Chronic 1 is stable we will continue with oxygen titrated to maintain SPO2 greater than 92% 2 continue with bronchodilators Qualifiers: COPD type: COPD with acute lower respiratory infection Qualified Code(s): J44.0 - Chronic obstructive pulmonary disease with acute lower respiratory infection (8) Diabetes mellitus Current visit: No Status: Chronic 1 presently the patient is nothing by mouth due to altered mental state. 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 Chronic kidney disease stage: on chronic dialysis Qualified Code(s): E11.22 - Type 2 diabetes mellitus with diabetic chronic kidney disease; N18.6 - End stage renal disease; Z79.4 - residential (current) use of insulin; Z99.2 - Dependence on renal dialysis (9) Hypothyroidism Current visit: No Status: Chronic 1 continue with Synthroid Qualifiers: Hypothyroidism type: unspecified Qualified Code(s): E03.9 - Hypothyroidism , unspecified (10) DVT prophylaxis Current visit: Yes Status: Acute Patient is on Coumadin-SCDs Internal Medicine - H&P: HPI Chief complaint: AMS Admitted From: Emergency Dept Plans for Post Hospital Care: Transfer Long-Term Facility History of present illness: Ms. Rico is a 71 year old female past medical history of COPD coronary disease diabetes end-stage renal disease on dialysis hypertension atrial fibrillation PAD thyroid disease. Patient resides in an ECF she was found by the nursing staff unresponsive. Upon arrival of the EMS she was given Narcan which she did arouse. She was brought to the ER for evaluation. Upon arrival to ER lab work was obtained which did reveal the ABC at 12.9 sodium 127 potassium was 6.9 BUN is 32 creatinine 6.39 troponin was 0.07 ABG pH 7.3 PCO2 43 PO2 72 bicarbonate 25.4 urinalysis large amount of leuk esterase moderate amount urine bacteria. CT of head was obtained which was negative for any intracranial abnormalities. She was treated with IV antibiotics and hyperkalemic regiment. ER physician did speak with Dr. Quesada advised to administer collects late either orally or rectally and repeat potassium in 4 hours. Patient's been there for further workup and evaluation. Renaldo patient is lethargic she does arouse to verbal stimuli she is oriented to name and place. She does fall asleep during assessment and is not cooperative. She is maintaining her airway oxygen saturations are 100% on 2 L nasal cannula. Her lung sounds are clear heart sounds are regular S1-S2 with no rubs clicks murmurs noted. EKG with no peaked T waves she is hemodynamically stable at this time. I reviewed this case with who agrees with plan Past Med Surg Social Fam HX - Past Medical History Medical history: arthritis, cardiomyopathy, COPD, coronary artery disease, diabetes, dialysis, GERD, hyperlipidemia, hypertension, osteoporosis, peripheral artery disease, renal disease, thyroid disease, other Psychiatric history: anxiety, depression, other - Past Surgical History Surgical History: appendectomy, cholecystectomy, hip replacement, hysterectomy, orthopedic, other, ABIMAEL/BSO, other - Social History Smoking Status: Current every day smoker Smokeless Tobacco Status: No Alcohol use: none Drug use: none, prescription drug abuse, other - Family History Mother Living Status: Hx Family Cardiac Disorders: Yes (Hypertension hyperlipidemia) Hx Family Endocrine Disorder: Yes (DMII) Father Living Status: Hx Family Cardiac Disorders: Yes (Hypertension hyperlipidemia) Hx Family Cancer: Yes (Lung cancer) Hx Family Endocrine Disorder: Yes (Diabetes) Internal Medicine - H&P: Meds Furosemide [Lasix] 80 mg PO BID 09/28/15 [History] Levothyroxine Sodium [Tirosint] 150 mcg PO 0630 09/28/15 [History] Clopidogrel [Plavix] 75 mg PO DAILY 09/29/15 [History] Modafinil [Provigil] 200 mg PO QAM 09/29/15 [History] Acetaminophen [Tylenol] 1,000 mg PO Q8HR PRN 12/05/15 [History] Cinacalcet [Sensipar] 30 mg PO DAILY 12/05/15 [History] Insulin LISPRO [HumaLOG] 2 - 12 unit SQ QID PRN 12/05/15 [History] B Complex W-C No.20/Folic Acid [Virt-Caps Softgel] 1 mg PO DAILY 12/13/15 [ History] Diltiazem HCl [Diltiazem ER] 120 mg PO DAILY 05/02/16 [History] Folic Acid 1 mg PO DAILY 05/02/16 [History] Ipratropium/Albuterol Neb [Duoneb] 3 ml IH Q4HR 05/02/16 [History] Metoprolol [Lopressor] 100 mg PO BID 07/25/16 [History] Gabapentin [Neurontin] 100 mg PO BID capsule 09/01/16 [Rx] Losartan [Cozaar] 50 mg PO DAILY tablet 09/01/16 [Rx] Omeprazole [PriLOSEC] 20 mg PO DAILY@0730 capsule. 09/01/16 [Rx] Chlorpheniramine/Dextromethorp [Coricidin Hbp Cough & Cold Tab] 1 each PO Q4H PRN 11/26/16 [History] Fexofenadine HCl [Allergy Relief] 180 mg PO DAILY 11/26/16 [History] GuaiFENesin ER [Mucinex] 1,200 mg PO BID PRN 11/26/16 [History] Insulin DETEMIR [Levemir] 5 unit SQ HS 11/26/16 [History] Sevelamer [Renvela] 800 mg PO TIDWM 11/26/16 [History] Warfarin Sodium [Coumadin] 6 mg PO HS 11/26/16 [History] Acetylcysteine 10% 2 ml IH [id number] inhsol 11/28/16 [Rx] Budesonide Neb [Pulmicort Neb] 0.25 mg IH BIDR inhsol 11/28/16 [Rx] Darbepoetin [Aranesp] 60 mcg SQ QWEEK syringe 11/28/16 [Rx] HYDROcodone/Acet 5/325 mg [[place] 5-325 mg] 1 tab PO Q8H PRN #10 tablet 11/28/16 [Rx] Levofloxacin [Levaquin] 500 mg PO Q48H #6 tablet 11/28/16 [Rx] hydrALAZINE [HydrALAZINE] 75 mg PO Q8HR tablet 11/28/16 [Rx] Allergies No Known Allergies Allergy (Verified 08/28/16 07:56) ROS unobtainable: due to mental status All Systems PM: A 10-system review of systems was performed and is negative for pertinent findings except as documented above in the HPI. - Constitutional Vitals: Temp Pulse Resp BP Pulse Ox 98.9 F 67 15 166/55 100 01/13/17 16:09 01/13/17 18:19 01/13/17 19:27 01/13/17 19:27 01/13/17 18:28 General appearance: Present: cachectic, A&O X 2 - Head Head exam: Present: atraumatic, normocephalic - Eye Eye exam: Present: PERRL, conjuntiva pink, sclera anicteric Pupils: Present: PERRL - Neck Neck exam general surgery: Present: supple, trachea midline. Absent: lymphadenopathy - Respiratory Respiratory exam: Present: CTAB. Absent: accessory muscle use, rales, rhonchi, wheezes - Cardiovascular Cardiovascular exam: Present: RRR, +S1, +S2. Absent: diastolic murmur, gallop, rubs, systolic murmur - GI/Abdominal GI/Abdominal exam: Present: normal bowel sounds, soft, no peritoneal signs. Absent: distended, tenderness - Extremities Exam Extremities exam: Present: warm, radial pulses palpable and symetrical. Absent : calf tenderness, cyanotic, pedal edema - Neurological Exam Neurological exam: Absent: pronater drift, facial droop, speech deficit - Skin Skin exam: Present: dry, intact Additional comments: Mucous membranes appear dry. She has multiple areas of bruising at different stages of healing Internal Med - H&P Results - Labs CBC & Chem 7: 01/13/17 17:46 01/13/17 17:46 - Diagnostic Studies Other Images Additional comments: Chest X-Ray 01/13/17 16:10 IMPRESSION: Left basilar aeration is improved from 11/26/2016. Left basilar subsegmental atelectasis or focal scarring. D/ / Reynaldo Nicole MD / Reynaldo Nicole MD Interpreting Provider: Reynaldo Nicole MD Head CT 01/13/17 16:10 IMPRESSION: No acute intracranial abnormality. D/ / Stella Ruiz MD / Stella Ruiz MD Interpreting Provider: Stella Ruiz MD
[2017-01-13] MEDS ORDERED: Albuterol 2.5 MG/3 ML NEBULIZER IH PRN (20:26)
[2017-01-13] MEDS ORDERED: *HR* Warfarin 3 MG TABLET PO ONE (21:00)
[2017-01-13] MEDS: Metoprolol 100 MG TABLET PO SCH (21:44)
[2017-01-13] MEDS: hydrALAZINE 25 MG TABLET PO SCH (21:45)
[2017-01-13] MEDS: Ipratropium/Albuterol Neb 3 ML IH SCH (22:43)
[2017-01-13] MEDS: Budesonide Neb 0.25 MG/2 ML IH SCH (22:43)
[2017-01-13 23:54] LABS: Calcium 9.7 mg/dL (8.6-10.8)
[2017-01-13 23:56] LABS: Potassium 6.5 mEq/L (3.5-4.5)
[2017-01-14] MEDS ORDERED: *HR* Dextrose 50 % in Water (Syg) 50 ML SYRINGE IVP ONE (00:09)
[2017-01-14] MEDS ORDERED: Insulin Human Regular 10 UNIT in 0.9 % Sodium Chloride 10 ML IV ONE (00:09)
[2017-01-14] MEDS ORDERED: Calcium Chloride 1,000 MG in 0.9 % Sodium Chloride 100 ML IVPB ONE (00:10)
[2017-01-14] MEDS: Insulin LISPRO 300 UNITS/3 ML VIAL SQ SCH ×4 (00:28→17:04)
[2017-01-14] MEDS: MetroNIDAZOLE 500 MG/100 ML 500 MG/100 ML BAG IVPB SCH ×3 (00:47→11:35)
[2017-01-14] MEDS: Ipratropium/Albuterol Neb 3 ML IH SCH ×4 (04:26→23:21)
[2017-01-14 04:45] LABS: Hemoglobin 9.4 g/dL (11.5-15.4); Mean Corpuscular HGB Conc 31.3 g/dL (31.6-35.5); Mean Corpuscular Hemoglobin 32.4 pg (28.0-33.3); Mean Corpuscular Volume 103.4 fL (83.0-100.0); Mean Platelet Volume 10.5 fL (9.4-12.4); Platelet Count 200 K/mcL (140-400); Red Cell Distribution Width 13.8 % (11.5-14.5)
[2017-01-14 04:48] LABS: INR 2.4; Prothrombin Time 26.1 Seconds (9.4-12.1)
[2017-01-14 04:59] LABS: Albumin 2.9 g/dL (3.5-5.0); Albumin/Globulin Ratio 0.6 (1.1-2.2); Bilirubin,Total 0.7 mg/dL (0.2-1.2); Calcium 10.3 mg/dL (8.6-10.8); Globulin 4.5 g/dL (2.4-3.5); Potassium 5.6 mEq/L (3.5-4.5); Total Protein 7.4 g/dL (6.0-8.3)
[2017-01-14] MEDS: *HR* Acetylcysteine 20% 600 MG/3 ML ORAL SYRINGE PO SCH ×2 (05:19→14:34)
[2017-01-14] MEDS: hydrALAZINE 25 MG TABLET PO SCH ×3 (06:22→21:58)
[2017-01-14] MEDS ORDERED: Diltiazem CD (24hr) 120 MG CAPSULE PO SCH (09:00)
--- NOTE | 2017-01-14 10:15 | Nephrology Consult Note ---
Date of Encounter: 01/14/17 Time of Encounter: 09:40 Assessment and Plan (1) End stage renal disease on dialysis Current Visit: No Status: Chronic Altered mental status, toxicology negative. Patient at baseline this morning. Hyperkalemia. Will do HD today, keeping MWF schedule, orders given. History of Present Illness - Reason for Consult end stage renal disease - History of Present Illness Ms. Rico is a 71 year old female with ESRD, missed last dialysis. Other PMH- arthritis, cardiomyopathy, COPD, coronary artery disease, diabetes, dialysis, GERD, hyperlipidemia, hypertension, osteoporosis, peripheral artery disease, renal disease, thyroid disease,appendectomy, cholecystectomy, hip replacement, hysterectomy, orthopedic, other, ABIMAEL/BSO, Was transferred via squad from nursing facility with mental status changes that improved when given Narcan, however, toxicology labs negative. Urine showed TNTC WBC. K 6.9. Empiric ATB and Kaexylate given. This AM, Ms. Rico is at her baseline mentation, wants to go back to nursing facilty. Past Med Surg Social Fam HX - Past Medical History Medical history: arthritis, cardiomyopathy, COPD, coronary artery disease, diabetes, dialysis, GERD, hyperlipidemia, hypertension, osteoporosis, peripheral artery disease, renal disease, thyroid disease, other Psychiatric history: anxiety, depression, other - Past Surgical History Surgical History: appendectomy, cholecystectomy, hip replacement, hysterectomy, orthopedic, other, ABIMAEL/BSO, other - Social History Smoking Status: Current every day smoker Packs per day: 0.5 Smokeless Tobacco Status: No Alcohol use: none Drug use: none, prescription drug abuse, other - Family History Mother Living Status: Hx Family Cardiac Disorders: Yes (Hypertension hyperlipidemia) Hx Family Endocrine Disorder: Yes (DMII) Father Living Status: Hx Family Cardiac Disorders: Yes (Hypertension hyperlipidemia) Hx Family Cancer: Yes (Lung cancer) Hx Family Endocrine Disorder: Yes (Diabetes) Medications and Allergies Furosemide [Lasix] 80 mg PO BID 09/28/15 [History] Levothyroxine Sodium [Tirosint] 150 mcg PO 0630 09/28/15 [History] Clopidogrel [Plavix] 75 mg PO DAILY 09/29/15 [History] Modafinil [Provigil] 200 mg PO QAM 09/29/15 [History] Acetaminophen [Tylenol] 1,000 mg PO Q8HR PRN 12/05/15 [History] Cinacalcet [Sensipar] 30 mg PO DAILY 12/05/15 [History] Insulin LISPRO [HumaLOG] See Protocol SQ BID 12/05/15 [History] B Complex W-C No.20/Folic Acid [Virt-Caps Softgel] 1 mg PO DAILY 12/13/15 [ History] Diltiazem HCl [Diltiazem ER] 120 mg PO DAILY 05/02/16 [History] Ipratropium/Albuterol Neb [Duoneb] 3 ml IH Q4HR 05/02/16 [History] Metoprolol [Lopressor] 100 mg PO BID 07/25/16 [History] Losartan [Cozaar] 50 mg PO DAILY tablet 09/01/16 [Rx] Chlorpheniramine/Dextromethorp [Coricidin Hbp Cough & Cold Tab] 1 each PO Q4H PRN 11/26/16 [History] Fexofenadine HCl [Allergy Relief] 180 mg PO DAILY 11/26/16 [History] GuaiFENesin ER [Mucinex] 1,200 mg PO BID 11/26/16 [History] Insulin DETEMIR [Levemir] 5 unit SQ HS 11/26/16 [History] Sevelamer [Renvela] 800 mg PO TIDWM 11/26/16 [History] Warfarin Sodium [Coumadin] 7 mg PO HS 11/26/16 [History] Budesonide Neb [Pulmicort Neb] 0.25 mg IH BIDR inhsol 11/28/16 [Rx] HYDROcodone/Acet 5/325 mg [[place] 5-325 mg] 1 tab PO Q8H PRN #10 tablet 11/28/16 [Rx] hydrALAZINE [HydrALAZINE] 75 mg PO Q8HR tablet 11/28/16 [Rx] Acetylcysteine [D-Nzvjgn-z-Cysteine] 600 mg PO BID 01/13/17 [History] Folic Acid/Vit Bcomp,C [Renal-Darinel Tablet] 0.8 mg PO DAILY 01/13/17 [History] Gabapentin [Neurontin] 200 mg PO BID 01/13/17 [History] Omeprazole [PriLOSEC] 20 mg PO DAILY 01/13/17 [History] Allergies No Known Allergies Allergy (Verified 08/28/16 07:56) Review of Systems All Systems: reviewed and no additional remarkable complaints except as stated Exam - Vital Signs Vital signs: Initial Vital Signs Temp Pulse Resp BP Pulse Ox 98.9 F 59 24 145/60 98 01/13/17 16:09 01/13/17 16:09 01/13/17 16:09 01/13/17 16:09 01/13/17 16:09 Vital Signs - Last 8 Hours Temp Pulse Resp BP Pulse Ox 01/14/17 06:30 99.2 F 76 16 162/56 100 01/14/17 04:31 16 148/51 98 01/14/17 03:50 98.7 F 73 16 148/51 96 Intake and Output 01/13/17 01/14/17 01/14/17 23:59 07:59 15:59 Intake Total 100 / 100 200 / 200 0 / 0 Balance 100 / 100 200 / 200 0 / 0 Intake: IV Fluids 100 / 100 200 / 200 Flagyl Premix 500 MG/100 200 / 200 ML 500 mg In 100 ml @ 100 mls/hr IVPB Q6HR [facility] Rx# :[id number] Rocephin 1,000 MG In 100 / 100 Dextrose 5% (Minibag+) 100 ML 100 ML @ 200 mls/ hr IVPB ONCE ONE Rx#: [id number] Oral 0 / 0 0 / 0 Other: Meal NPO Weight 58.6 kg Blood Glucose* 189 87 - General Appearance General appearance: chronically ill, frail EENT: mucous membranes moist Neck: no JVD Respiratory: clear Cardiology: no edema, regular rate, regular rhythm Gastrointestinal: normoactive bowel sounds, hypoactive bowel sounds Integumentary: warm and dry Psychiatric: mood/affect appropriate, cooperative Results - Lab Results 01/14/17 04:32 01/14/17 04:32 Most recent lab results ABG pH 7.38 pH Units (7.32-7.45) 01/13/17 16:14 ABG pCO2 43 mmHg (35-45) 01/13/17 16:14 ABG pO2 72 mmHg (85-104) L 01/13/17 16:14 ABG HCO3 25.4 mEQ/L (21-27) 01/13/17 16:14 ABG O2 Saturation 94 % (95-98) L 01/13/17 16:14 Calcium 10.3 mg/dL (8.6-10.8) 01/14/17 04:32 Consult Discharge Plan - Plan Referrals: Joey Richards Jr, MD [Primary Care Provider] - (Patient will follow up with PCP at the [facility])
[2017-01-14] MEDS: Budesonide Neb 0.25 MG/2 ML IH SCH ×2 (10:22→23:22)
[2017-01-14] MEDS ORDERED: 0.9 % Sodium Chloride 250 ML IVC PRN (10:24)
[2017-01-14] MEDS ORDERED: 0.9 % Sodium Chloride 1,000 ML PRIME SCH (10:30)
[2017-01-14] MEDS: Metoprolol 100 MG TABLET PO SCH ×2 (11:33→21:58)
[2017-01-14] MEDS: Renal Vitamin 1 MG CAPSULE PO SCH (11:34)
[2017-01-14] MEDS ORDERED: *HR* Dextrose 50 % in Water (Syg) 50 ML SYRINGE IVP PRN (14:25)
[2017-01-14] MEDS ORDERED: Dextrose Gel 15 GM PO PRN ×2 (14:25)
[2017-01-14] MEDS ORDERED: *HR* HYDROcodone/Acet 5/325 mg TABLET PO PRN (14:28)
--- NOTE | 2017-01-14 15:38 | Internal Med Progress Note ---
<Reynaldo Fuentes - Last Filed: 01/14/17 15:32> Date of Encounter: 01/14/17 Time of Encounter: 15:33 - Assessment and plan (1) End stage renal disease on dialysis Current Visit: Yes Status: Chronic Assessment and plan: Patient had dialysis today. We will closely monitor electrolyets. Continue to monitr intake and output, and daily weights. avoid nephrotoxins. continue renal diet (2) Hyperkalemia Current Visit: Yes Status: Acute Assessment and plan: Presently K+ is 5.6 with no peaked T waves. Patient was given glucose, insulin and bicarbonate, and received dialysis today. Will recheck BMP in AM. Continue cardiac monitoring (3) C. difficile diarrhea Current Visit: Yes Status: Acute Assessment and plan: Patient has a positive C. Diff. Patient was switched from Flagyl IV to PO TID (4) Altered mental status Current Visit: No Status: Resolved Assessment and plan: Continue to monitor. patient close to baseline mental status. Qualifiers: Altered mental status type: delirium Qualified Code(s): R41.0 - Disorientation, unspecified (5) Leg pain, right Current Visit: Yes Status: Acute Assessment and plan: Patient reports continues excruciating pain in right leg and hip. Ct of hip and L-spine taken today. Report in progress. If findings are negative, consider discharge tomorrow. (6) Hypothyroidism Current Visit: No Status: Chronic Assessment and plan: continue home synthroid Qualifiers: Hypothyroidism type: unspecified Qualified Code(s): E03.9 - Hypothyroidism , unspecified (7) COPD (chronic obstructive pulmonary disease) Current Visit: No Status: Chronic Assessment and plan: stable with O2 titrated to maintain satO2 above 92%. Conine with bronchodilators. Qualifiers: COPD type: COPD with acute lower respiratory infection Qualified Code(s): J44.0 - Chronic obstructive pulmonary disease with acute lower respiratory infection (8) Atrial fibrillation Current Visit: No Status: Chronic Assessment and plan: continue rate control with cardizem as well as pharmacy to therapeutic monitor INR goals. Qualifiers: Atrial fibrillation type: chronic Qualified Code(s): I48.2 - Chronic atrial fibrillation (9) Diabetes mellitus Current Visit: No Status: Chronic Assessment and plan: patient is NPO due to AMS. 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 Continue rocephin for now. Patient is oliguric. Qualifiers: Urinary tract infection type: site unspecified Hematuria presence: without hematuria Qualified Code(s): N39.0 - Urinary tract infection, site not specified (11) DVT prophylaxis Current Visit: Yes Status: Acute Assessment and plan: Patient is on Coumadin. - Time Spent With Patient 25 - 35 minutes - Subjective Interval history: 71 year old female on Day 2 of admission ESRD on hemodialysis MWF who was originally admitted for progressive AMS. 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 Patient continues to have complaints about right leg pain. She also reports feeling thirsty and having a dry mouth after NPO. - Constitutional Vitals: Temp Pulse Resp BP Pulse Ox 98 F 74 17 187/52 100 01/14/17 10:50 01/14/17 10:50 01/14/17 10:50 01/14/17 10:50 01/14/17 10:50 General appearance: Present: cachectic, A&O X 2 - Head Head exam: Present: atraumatic, normocephalic - Respiratory Respiratory exam: Present: CTAB. Absent: accessory muscle use, rales, rhonchi, wheezes - Cardiovascular Cardiovascular exam: Present: RRR, +S1, +S2. Absent: diastolic murmur, gallop, rubs, systolic murmur - Expanded Lower Extremities Exam Hip exam: Present: external rotation, tenderness Upper Leg exam: Present: swelling (unitlateral swelling on R), tenderness Knee exam: Present: swelling (Right), tenderness (Right). Absent: full ROM Lower Leg exam: Present: swelling (Right), tenderness (Right) Gait: Present: unable to bear weight - Psychiatric Psychiatric exam: Present: agitated (discomfort from leg pain) Internal Medicine: Result - Labs CBC & Chem 7: 01/14/17 04:32 01/14/17 04:32 Labs: Short CBC 01/14/17 Range/Units 04:32 WBC 11.4 H (4.3-11.1) K/mcL Hgb 9.4 L (11.5-15.4) g/dL Hct 30.0 L (35.3-44.9) % Plt Count 200 (140-400) K/mcL BMP 01/13/17 01/14/17 23:32 04:32 Sodium 130 L 133 L Potassium 6.5 H* 5.6 H Chloride 90 L 91 L Carbon Dioxide 25 31 H BUN 37 H 37 H Creatinine 6.70 H 7.01 H Glucose 118 H 73 Calcium 9.7 10.3 Cardiac Enzymes 01/13/17 01/14/17 Range/Units 23:32 04:32 Troponin I 0.03 0.07 H* (0-0.03) ng/mL Liver Function 01/14/17 Range/Units 04:32 Total Bilirubin 0.7 (0.2-1.2) mg/dL AST 18 (5-34) Units/L ALT 17 (0-55) Units/L Alkaline Phosphatase 105 (38-126) Units/L Albumin 2.9 L (3.5-5.0) g/dL - ABG Interpretation ABG results: ABG ABG pH 7.38 pH Units (7.32-7.45) 01/13/17 16:14 ABG pCO2 43 mmHg (35-45) 01/13/17 16:14 ABG pO2 72 mmHg (85-104) L 01/13/17 16:14 ABG O2 Saturation 94 % (95-98) L 01/13/17 16:14 PT/INR, D-dimer PT 26.1 Seconds (9.4-12.1) H 01/14/17 04:32 Consult Discharge Plan - Plan Referrals: Joey Richards Jr, MD [Primary Care Provider] - (Patient will follow up with PCP at the [facility]) <Casimiro Neri T - Last Filed: 01/14/17 17:17> Date of Encounter: 01/14/17 - Constitutional Vitals: Temp Pulse Resp BP Pulse Ox 98.5 F 64 17 171/52 100 01/14/17 16:37 01/14/17 16:37 01/14/17 16:37 01/14/17 16:37 01/14/17 16:37 Internal Medicine: Result - Labs CBC & Chem 7: 01/14/17 04:32 01/14/17 04:32 Labs: Short CBC 01/14/17 Range/Units 04:32 WBC 11.4 H (4.3-11.1) K/mcL Hgb 9.4 L (11.5-15.4) g/dL Hct 30.0 L (35.3-44.9) % Plt Count 200 (140-400) K/mcL BMP 01/13/17 01/14/17 23:32 04:32 Sodium 130 L 133 L Potassium 6.5 H* 5.6 H Chloride 90 L 91 L Carbon Dioxide 25 31 H BUN 37 H 37 H Creatinine 6.70 H 7.01 H Glucose 118 H 73 Calcium 9.7 10.3 Cardiac Enzymes 01/13/17 01/14/17 Range/Units 23:32 04:32 Troponin I 0.03 0.07 H* (0-0.03) ng/mL Liver Function 01/14/17 Range/Units 04:32 Total Bilirubin 0.7 (0.2-1.2) mg/dL AST 18 (5-34) Units/L ALT 17 (0-55) Units/L Alkaline Phosphatase 105 (38-126) Units/L Albumin 2.9 L (3.5-5.0) g/dL - ABG Interpretation ABG results: ABG ABG pH 7.38 pH Units (7.32-7.45) 01/13/17 16:14 ABG pCO2 43 mmHg (35-45) 01/13/17 16:14 ABG pO2 72 mmHg (85-104) L 01/13/17 16:14 ABG O2 Saturation 94 % (95-98) L 01/13/17 16:14 PT/INR, D-dimer PT 26.1 Seconds (9.4-12.1) H 01/14/17 04:32 - Impressions Impressions Hip CT 01/14/17 09:30 IMPRESSION: 1. Osteopenia. No displaced fracture. 2. Mild right hip degenerative change. Prior right femoral ORIF. D/ / 01/14/2017 15:42:15 Abraham Patino MD / juan Interpreting Provider: Abraham Patino MD Lumbar Spine CT 01/14/17 09:30 IMPRESSION: No evidence of acute fracture or malalignment. Multilevel degenerative change as above. Patchy consolidation in both bases, atelectasis versus pneumonia. D/ / Hla Allison MD / Hal Allison MD Interpreting Provider: Hal Allison MD - Attending Attestation I examined this patient and my medical decision-making was reviewed with the Resident Physician on 01/14/17. I agree with the documented findings, disposition and treatment plan as described except to the extent set forth below. Patient is seen and examined at bedside 71 F, SNF resident with Afib on Coumadin, COPD, active tobacco use, ESRD on HD, CAD, PAD, recurrent falls, recently discharged for management of sepsis Admitted for management of acute metabolic encephalopathy, hyperkalemia, C. diff diarrhea, UTI. She does not have fever, tachycardia, and does nor have sepsis She does have suspected UTI, and C.diff She complained of pain in her R hip, following a fall two days prior to presentation Physical Exam: Uncontrolled BP, laying flat in bed in no form of respiratory distress, chronically ill-looking, chest is CTAB, Heart sounds S1, S2, Abdomen is not tender, bilateral lower extremities with several healed lesions, poor perfusion, RLE externally rotated and tender, ROM Labs and Imaging reviewed: Leukocytosis, improving, Hyperkalemia, hyponatremia, Elevated Urea and creatinine at baseline, metabolic alkalosis, ammonia is WNL, troponin slighlty elevated (chronically elevated), UA is dirty, Hip and Lumbar CT shows an old healed fracture with deformity A/P *Acute metabolic encephalopathy-Poor compliance with HD, multiple elcetrolyte abnormalities. Mental status is back to baseline. Resume home meds, change meds to po *Hyponatremia/Hyperkalemia: For HD *C.diff: Mild-Moderate: Monitor WBC, continue flagyl. Abdomen is benign *Suspected UTI: Patient is chronically oliguric. Continue ceftriaxone, deescalate if culture is negative *Afib: rate controlled, INR is therapeutic *HTN: chronically uncontrolled, titrate medications Rest of details as in resident physician's documentation Patient is high risk of fall
[2017-01-14] MEDS: Acetylcysteine 10% 2 ML INHSOL IH SCH (16:48)
[2017-01-14] MEDS: metroNIDAZOLE 500 MG TABLET PO SCH (17:20)
--- NOTE | 2017-01-14 17:48 | Electrocardiograph Report ---
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 ARTIFACT LEADS AVR, AVL, AVF Electronically Signed On 01-14-2017 17:47:08 EDT by Kerry Escalona
[2017-01-14] MEDS ORDERED: *HR* Warfarin 5 MG TABLET PO ONE (18:00)
[2017-01-14] MEDS ORDERED: Warfarin perPT PO PRN (18:00)
[2017-01-14] MEDS ORDERED: Insulin LISPRO 300 UNITS/3 ML VIAL SQ SCH (21:00)
[2017-01-15] MEDS: metroNIDAZOLE 500 MG TABLET PO SCH ×3 (00:13→11:57)
[2017-01-15] MEDS: Ipratropium/Albuterol Neb 3 ML IH SCH ×2 (04:35→10:25)
[2017-01-15] MEDS: Acetylcysteine 10% 2 ML INHSOL IH SCH (04:36)
[2017-01-15] MEDS: hydrALAZINE 25 MG TABLET PO SCH ×2 (06:29→14:34)
[2017-01-15 07:41] LABS: INR 3.6; Prothrombin Time 40.8 Seconds (9.4-12.1)
[2017-01-15 07:57] LABS: Basophils % 0.5 %; Eosinophils # 0.3 K/mcL (0.0-0.6); Hematocrit 30.6 % (35.3-44.9); Hemoglobin 9.2 g/dL (11.5-15.4); Immature Granulocytes % 0.2 % (0-4); Lymphocytes % 11.4 %; Mean Corpuscular HGB Conc 30.1 g/dL (31.6-35.5); Mean Corpuscular Hemoglobin 31.6 pg (28.0-33.3); Mean Corpuscular Volume 105.2 fL (83.0-100.0); Mean Platelet Volume 10.5 fL (9.4-12.4); Monocytes # 0.9 K/mcL (0.0-1.3); Monocytes % 10.3 %; Neutrophils # 6.6 K/mcL (1.6-8.9); Platelet Count 216 K/mcL (140-400); Red Blood Count 2.91 M/mcL (3.82-4.97); Red Cell Distribution Width 13.7 % (11.5-14.5); Segmented Neutrophils % 74.6 %
--- NOTE | 2017-01-15 08:01 | Nephrology Progress Note ---
Date of Encounter: 01/15/17 Time of Encounter: 07:59 - Assessment and Plan (1) Benign hypertension with ESRD (end-stage renal disease) Current Visit: Yes Status: Acute The patient will continue to receive dialysis every Saturday. Caution needs to be used with regards to sedating medications in this patient. She does exhibit drug-seeking behavior from time to time. She will be placed on Aranesp for her anemia. Adjustments to her antihypertensive medications will be made. (2) Anemia in chronic kidney disease (CKD) Current Visit: Yes Status: Acute Qualifiers: Chronic kidney disease stage: on chronic dialysis Qualified Code(s): N18.6 - End stage renal disease; D63.1 - Anemia in chronic kidney disease; Z99.2 - Dependence on renal dialysis (3) Altered mental status Current Visit: No Status: Resolved Qualifiers: Altered mental status type: delirium Qualified Code(s): R41.0 - Disorientation, unspecified (4) Narcotic overdose Current Visit: No Status: Acute Qualifiers: Encounter type: initial encounter Injury intent: accidental or unintentional Qualified Code(s): T40.601A - Poisoning by unspecified narcotics , accidental (unintentional), initial encounter (5) End stage renal disease on dialysis Current Visit: Yes Status: Chronic Subjective Interval history: Patient is alert and oriented today. Her mental status is returned to her usual baseline. She is complaining of some right knee pain. She reports having a fall but she is uncertain as to when that occurred. She does have a effusion around the right knee on physical exam. Blood pressure is elevated. She status post dialysis yesterday. Cultures are negative. Objective - Vital Signs Vital signs: Vital Signs Temp Pulse Resp BP Pulse Ox 01/15/17 07:17 98.3 F 73 17 178/54 100 01/15/17 04:36 18 94 01/15/17 04:08 98.8 F 70 19 154/50 94 01/14/17 23:54 98.7 F 74 18 183/50 99 01/14/17 23:22 16 92 01/14/17 21:47 98.8 F 67 17 167/54 97 01/14/17 21:10 99.2 F 18 131/39 01/14/17 20:50 135/49 01/14/17 20:35 116/51 01/14/17 20:05 131/44 01/14/17 19:35 157/74 01/14/17 19:05 154/66 01/14/17 18:50 148/52 01/14/17 18:35 173/56 01/14/17 18:20 174/51 01/14/17 18:05 99.8 F H 18 166/52 01/14/17 16:47 16 99 01/14/17 16:37 98.5 F 64 17 171/52 100 01/14/17 10:50 98 F 74 17 187/52 100 01/14/17 10:22 20 100 01/14/17 08:25 100 Intake and Output 01/14/17 01/14/17 01/15/17 15:59 23:59 07:59 Intake Total 0 / 0 700 / 700 240 / 240 Output Total 3600 / 3600 Balance 0 / 0 -2900 / -2900 240 / 240 Intake: IV Fluids 100 / 100 Rocephin 1,000 MG In 100 / 100 Dextrose 5% (Minibag+) 100 ML 100 ML @ 200 mls/ hr IVPB Q24H [facility] Rx#: [id number] Oral 0 / 0 0 / 0 240 / 240 Intake, Rinseback and 600 / 600 Flushes Output: Urine 3600 / 3600 Other: Meal NPO Weight 57.7 kg Blood Glucose* 99 90 91 Hemodialysis Net Fluid 3000 Removed (mL) Patient Weight 01/15/17 23:59 Weight 57.7 kg - General Appearance Exam: Patient is alert and oriented. She is in no acute distress. Blood pressure 170 /54. She appears chronically ill. She demonstrates muscle wasting. Lungs diminished breath sounds. Heart irregular rate and rhythm. Abdomen shows normal bowel sounds of bruits masses or megaly or tenderness. There is no lower extremity swelling. There is an effusion around the right knee. There is a functioning AV fistula in the right upper extremity. - Lab 01/15/17 07:12 01/14/17 04:32 Most recent lab results ABG pH 7.38 pH Units (7.32-7.45) 01/13/17 16:14 ABG pCO2 43 mmHg (35-45) 01/13/17 16:14 ABG pO2 72 mmHg (85-104) L 01/13/17 16:14 ABG HCO3 25.4 mEQ/L (21-27) 01/13/17 16:14 ABG O2 Saturation 94 % (95-98) L 01/13/17 16:14 Calcium 10.3 mg/dL (8.6-10.8) 01/14/17 04:32 Consult Discharge Plan - Plan Referrals: Joey Richards Jr, MD [Primary Care Provider] - (Patient will follow up with PCP at the [facility])
[2017-01-15] MEDS: Metoprolol 100 MG TABLET PO SCH (08:07)
[2017-01-15] MEDS: Renal Vitamin 1 MG CAPSULE PO SCH (08:07)
[2017-01-15 08:12] LABS: Calcium 9.9 mg/dL (8.6-10.8); Potassium 4.7 mEq/L (3.5-4.5)
[2017-01-15 08:22] LABS: INR 3.6; Prothrombin Time 40.4 Seconds (9.4-12.1)
[2017-01-15] MEDS ORDERED: Diltiazem CD (24hr) 180 MG CAPSULE PO SCH (09:00)
[2017-01-15] MEDS: Insulin LISPRO 300 UNITS/3 ML VIAL SQ SCH ×2 (09:14→11:59)
--- NOTE | 2017-01-15 09:52 | Discharge Summary ---
<Casimiro Neri T - Last Filed: 01/15/17 14:54> Date of Encounter: 01/15/17 - Discharge Medications Prescriptions: metroNIDAZOLE [Metronidazole] 500 mg PO Q6HR #32 tablet Home Medications: Furosemide [Lasix] 80 mg PO BID 09/28/15 [History] Levothyroxine Sodium [Tirosint] 150 mcg PO 0630 09/28/15 [History] Clopidogrel [Plavix] 75 mg PO DAILY 09/29/15 [History] Modafinil [Provigil] 200 mg PO QAM 09/29/15 [History] Acetaminophen [Tylenol] 1,000 mg PO Q8HR PRN 12/05/15 [History] Cinacalcet [Sensipar] 30 mg PO DAILY 12/05/15 [History] Insulin LISPRO [HumaLOG] See Protocol SQ BID 12/05/15 [History] B Complex W-C No.20/Folic Acid [Virt-Caps Softgel] 1 mg PO DAILY 12/13/15 [ History] Diltiazem HCl [Diltiazem ER] 180 mg PO DAILY 05/02/16 [History] Ipratropium/Albuterol Neb [Duoneb] 3 ml IH Q4HR 05/02/16 [History] Metoprolol [Lopressor] 100 mg PO BID 07/25/16 [History] Losartan [Cozaar] 50 mg PO DAILY tablet 09/01/16 [Rx] Chlorpheniramine/Dextromethorp [Coricidin Hbp Cough & Cold Tab] 1 each PO Q4H PRN 11/26/16 [History] Fexofenadine HCl [Allergy Relief] 180 mg PO DAILY 11/26/16 [History] GuaiFENesin ER [Mucinex] 1,200 mg PO BID 11/26/16 [History] Insulin DETEMIR [Levemir] 5 unit SQ HS 11/26/16 [History] Sevelamer [Renvela] 800 mg PO TIDWM 11/26/16 [History] Warfarin Sodium [Coumadin] 7 mg PO HS 11/26/16 [History] Budesonide Neb [Pulmicort Neb] 0.25 mg IH BIDR inhsol 11/28/16 [Rx] HYDROcodone/Acet 5/325 mg [[place] 5-325 mg] 1 tab PO Q8H PRN #10 tablet 11/28/16 [Rx] hydrALAZINE [HydrALAZINE] 75 mg PO Q8HR tablet 11/28/16 [Rx] Acetylcysteine [Q-Zfljhh-u-Cysteine] 600 mg PO BID 01/13/17 [History] Folic Acid/Vit Bcomp,C [Renal-Darinel Tablet] 0.8 mg PO DAILY 01/13/17 [History] Gabapentin [Neurontin] 200 mg PO BID 01/13/17 [History] Omeprazole [PriLOSEC] 20 mg PO DAILY 01/13/17 [History] metroNIDAZOLE [Metronidazole] 500 mg PO Q6HR #32 tablet 01/15/17 [Rx] Allergies/Adverse Reactions: Allergies No Known Allergies Allergy (Verified 08/28/16 07:56) Procedures/tests Complete & Pending: Procedures Performed prior 72 hours Category Date Time Status CT hip RT wo con [CT] Routine Cat Scan 01/14/17 09:[address] lumbar spine wo con [CT] Routine Cat Scan 01/14/17 09:30 Completed Date of admission: 01/13/17 18:47 Primary care physician: Joey Richards Jr, MD Consults: 01/14/17 08:34 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 Rico is a 71 year old female - Time Spent with Patient Total time spent providing and/or coordinating discharge services: - Constitutional Vitals: Temp Pulse Resp BP Pulse Ox 97.8 F 63 17 157/60 100 01/15/17 11:13 01/15/17 11:13 01/15/17 11:13 01/15/17 11:13 01/15/17 10:25 - Attending Attestation I examined this patient and my medical decision-making was reviewed with the Resident Physician on 01/15/17 I agree with the documented findings, disposition and treatment plan as described except to the extent set forth below. Patient is seen and examined at bedside 71 F, SNF resident with Afib on Coumadin, COPD, active tobacco use, ESRD on HD, CAD, PAD, recurrent falls, recently discharged for management of sepsis Admitted for management of acute metabolic encephalopathy, hyperkalemia, C. diff diarrhea, suspected UTI. She is not septic in this admission She also had a fall at er SNF 2 days prior to presentation, hip imaging reveealed an old fracture which healed with deformity. No new fracture Patient is seen and evaluated at bedside today, denied new comlains Physical Exam: VSS, not in any form of distress, laying flat in bed, moves all limbs equivocally, AAOX3, CTAB, S1, S2, afib, no m/g/r, abdomen is benign, lower extremity with poor perfusion and patient moved both lower limbs without difficulty today Labs and Imaging reviewed: Leukocytosis resolved, Hb is stable, Hyperkalemia, hyponatremia-resolved, Elevated Urea and creatinine at baseline, metabolic alkalosis resolved, ammonia is WNL, troponin slighlty elevated (chronically elevated), Urine culture has no growth. C.diff positive A/P *Acute metabolic encephalopathy-resolved, possibly due to multiple electroluyte abnormalities, No neuro deficits, patient is back to baseline. *Hyponatremia/Hyperkalemia: Resolved *C.diff: Mild-Moderate: Leukocytosis is improving, no acute abdomen, patient is stable to be discharged on 8 more days of po flagyl Other chronic medical problems are stable, Diltiazem increased to achieve BP control Rest of details as in resident physician's documentation <Reynaldo Fuentes - Last Filed: 01/15/17 16:36> Date of Encounter: 01/15/17 Time of Encounter: 09:50 - Discharge Diagnosis (1) Altered mental status Priority: Primary Status: Resolved Qualifiers: Altered mental status type: delirium Qualified Code(s): R41.0 - Disorientation, unspecified (2) End stage renal disease on dialysis Priority: Secondary Status: Chronic (3) Hyperkalemia Priority: Secondary Status: Chronic (4) C. difficile diarrhea Priority: Secondary Status: Acute (5) Leg pain, right Priority: Secondary Status: Acute (6) Hypothyroidism Priority: Secondary Status: Chronic Qualifiers: Hypothyroidism type: unspecified Qualified Code(s): E03.9 - Hypothyroidism , unspecified (7) COPD (chronic obstructive pulmonary disease) Priority: Secondary Status: Chronic Qualifiers: COPD type: COPD with acute lower respiratory infection Qualified Code(s): J44.0 - Chronic obstructive pulmonary disease with acute lower respiratory infection (8) Atrial fibrillation Priority: Secondary Status: Chronic Qualifiers: Atrial fibrillation type: chronic Qualified Code(s): I48.2 - Chronic atrial fibrillation (9) Diabetes mellitus Priority: Secondary Status: Chronic Qualifiers: Diabetes mellitus type: type 2 Diabetes mellitus complication status: with kidney complications Diabetes mellitus complication detail: with chronic kidney disease Diabetes mellitus ad terminal makeup operator insulin use: with snf use Chronic kidney disease stage: on chronic dialysis Qualified Code(s): E11.22 - Type 2 diabetes mellitus with diabetic chronic kidney disease; N18.6 - End stage renal disease; 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; Z99.2 - Dependence on renal dialysis (10) UTI (urinary tract infection) Priority: Secondary Status: Acute Qualifiers: Urinary tract infection type: site unspecified Hematuria presence: without hematuria Qualified Code(s): N39.0 - Urinary tract infection, site not specified (11) DVT prophylaxis Priority: Secondary Status: Acute Procedures/tests Complete & Pending: Procedures Performed prior 72 hours Category Date Time Status CT hip RT wo con [CT] Routine Cat Scan 01/14/17 09:[address] lumbar spine wo con [CT] Routine Cat Scan 01/14/17 09:30 Completed Date of admission: 01/13/17 18:47 Primary care physician: Joey Richards Jr, MD Consults: 01/14/17 08:34 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 Rico is a 71 year old female admitted on 01/13/17 due to progressing Altered Mental Status/acute metabolic encephalopathy, electrolyte imbalance, and possible source of infection. She is a snf SNF and ESRD with HD MWF. She reportedly missed her dialysis session the saturday prior to admission. In the ED she received IV antibiotics Ceftriaxone empiricially due to large amounts of luekocyte esterase found in urine analysis, and received glucose, insulin, bicarbonate due to serum potassium at 6.9. Head CT was negative. There were no P waves found on EKG. As well, she was placed on Aspiration precautions. She received dialysis on 01/14/17. In the morning, the healthcare providers who know patient well reported that she was back to baseline mental status and her K+ was 5.6. Blood and Urine Cultures came back negative. She tested positive for C. Diff and was treated with IV Metronidazole 500 mg/100 for 2 days prior to switching to oral Metronidazole 500 mg QID for 8 days. WBC on admission was 12.9, upon discharge WBC downtrended to 8.8. Nephrology was consulted and agreed with hospital course. Patient reported falling on Saturday prior to arriving to hospital and excruciating pain in her right leg. On physical exam, right leg was externally rotated, and exquisitely tender upon light palpation. CT hip and lumbar spine showed no acute processes, and multiple chronic degenerative changes. Chronic Afib was rate controlled with cardizem and INR was kept at therapeutic levels. Patient's Chronic poorly controlled HTN was managed with home metoprolol, losartan, and hydralazine. COPD was managed with home dose O2 3-4.5 L NC and duoneb was given every 4 hours , pulmicort 0.25 mg was given twice a day. Patient SatO2 remained 94-100%. Chronic Hypothyroidism was controlled with home synthroid. This is a resident progress note generated at [facility]. I, Dr. Reynaldo Fuentes, am being precepted by the doctor annotated below. I have free and unrestricted access to the attending and they are present for all aspects of any procedures performed - Time Spent with Patient Total time spent providing and/or coordinating discharge services: - Constitutional Vitals: Temp Pulse Resp BP Pulse Ox 98.3 F 73 17 178/54 100 01/15/17 07:17 01/15/17 07:17 01/15/17 07:17 01/15/17 07:01/15/17 08:32 General appearance: Present: cachectic, A&O X 2 (oriented to person, and place.) - Head Head exam: Present: atraumatic, normocephalic - Neck Neck exam general surgery: Present: full ROM, normal inspection - Respiratory Respiratory exam: Present: decreased breath sounds - Cardiovascular Cardiovascular exam: Present: irregular rhythm - GI/Abdominal GI/Abdominal exam: Present: normal bowel sounds, soft, no peritoneal signs. Absent: distended, tenderness - Expanded Lower Extremities Exam Hip exam: Present: external rotation (right hip) Upper Leg exam: Present: erythema, swelling, tenderness Knee exam: Present: swelling, tenderness Lower Leg exam: Present: swelling, tenderness Gait: Present: unable to bear weight
[2017-01-15] MEDS: Budesonide Neb 0.25 MG/2 ML IH SCH (10:25)
[2017-01-15 11:18] VITALS: BP 157/60
--- NOTE | 2017-01-15 14:54 | Physician Discharge Referral ---
ExtendedCare Referral Info Transfer To: [facility] Provider in Charge: Dr. Neri Provider in Charge after Transfer: PCP Institutional Level of Care: Skilled - Diagnosis (1) Altered mental status Status: Resolved (2) Hypothyroidism Status: Chronic (3) Atrial fibrillation with RVR Status: Acute (4) COPD (chronic obstructive pulmonary disease) Status: Chronic (5) Chronic kidney disease Status: Acute (6) Diabetes mellitus Status: Chronic (7) HTN (hypertension) Status: Chronic (8) Altered mental status Status: Resolved - Transfer Medications Prescriptions: metroNIDAZOLE [Metronidazole] 500 mg PO Q6HR #32 tablet metroNIDAZOLE [Flagyl] 32 tab PO QID #1 Home Medications: Furosemide [Lasix] 80 mg PO BID 09/28/15 [History] Levothyroxine Sodium [Tirosint] 150 mcg PO 0630 09/28/15 [History] Clopidogrel [Plavix] 75 mg PO DAILY 09/29/15 [History] Modafinil [Provigil] 200 mg PO QAM 09/29/15 [History] Acetaminophen [Tylenol] 1,000 mg PO Q8HR PRN 12/05/15 [History] Cinacalcet [Sensipar] 30 mg PO DAILY 12/05/15 [History] Insulin LISPRO [HumaLOG] See Protocol SQ BID 12/05/15 [History] B Complex W-C No.20/Folic Acid [Virt-Caps Softgel] 1 mg PO DAILY 12/13/15 [ History] Diltiazem HCl [Diltiazem ER] 180 mg PO DAILY 05/02/16 [History] Ipratropium/Albuterol Neb [Duoneb] 3 ml IH Q4HR 05/02/16 [History] Metoprolol [Lopressor] 100 mg PO BID 07/25/16 [History] Losartan [Cozaar] 50 mg PO DAILY tablet 09/01/16 [Rx] Chlorpheniramine/Dextromethorp [Coricidin Hbp Cough & Cold Tab] 1 each PO Q4H PRN 11/26/16 [History] Fexofenadine HCl [Allergy Relief] 180 mg PO DAILY 11/26/16 [History] GuaiFENesin ER [Mucinex] 1,200 mg PO BID 11/26/16 [History] Insulin DETEMIR [Levemir] 5 unit SQ HS 11/26/16 [History] Sevelamer [Renvela] 800 mg PO TIDWM 11/26/16 [History] Warfarin Sodium [Coumadin] 7 mg PO HS 11/26/16 [History] Budesonide Neb [Pulmicort Neb] 0.25 mg IH BIDR inhsol 11/28/16 [Rx] HYDROcodone/Acet 5/325 mg [[place] 5-325 mg] 1 tab PO Q8H PRN #10 tablet 11/28/16 [Rx] hydrALAZINE [HydrALAZINE] 75 mg PO Q8HR tablet 11/28/16 [Rx] Acetylcysteine [D-Wndlwj-a-Cysteine] 600 mg PO BID 01/13/17 [History] Folic Acid/Vit Bcomp,C [Renal-Darinel Tablet] 0.8 mg PO DAILY 01/13/17 [History] Gabapentin [Neurontin] 200 mg PO BID 01/13/17 [History] Omeprazole [PriLOSEC] 20 mg PO DAILY 01/13/17 [History] metroNIDAZOLE [Flagyl] 32 tab PO QID #1 01/15/17 [Rx] metroNIDAZOLE [Metronidazole] 500 mg PO Q6HR #32 tablet 01/15/17 [Rx] Allergies/Adverse Reactions: Allergies No Known Allergies Allergy (Verified 08/28/16 07:56) - Respiratory Orders Oxygen / L per min Smoking Cessation: Smoking cessation has been advised. For more information, call the [place] Tobacco Quit Line at 0-490-RBNG-NOW. - Ancillary Orders May use pressure relief devices daily prn, May go on TROY w/family/respon alliance party w /meds at nurse discretion PRN, May consult with Dentist, Manager Sterile, Tv News Director PRN - Advance Directives Code Status: Full Code - Mobility Orders Bedrest - Rehabiliation Orders Rehab Potential: Fair Rehab Orders: Sternal Precautions, ROM Exercises, Evaluation for Physical Therapy, Evaluation for Occupational Therapy, Evaluation for Speech Therapy - Treatments Skin tear care topically daily PRN per policy, May check for fecal impaction rectally daily PRN, Fleet enema rectally every other day PRN cleansing purposes - Diet Orders Renal CERTIFICATION: I certify that the transfer of the above named patient to an Extended Care Facility is necessary for the continuing treatment of the diagnosis listed. The above information is true and accurate reflection of patient's current condition. Confidential - Redisclosure prohibited without a patient's written consent.
== END 2017-01-15 15:45 | DRG 70 ==
LOC: 2ANU 16:08 → EMEROO 16:08 → OBSVTOIN 18:47 → 2ANU 19:40
PROVIDERS: ADMIT Family Medicine; ATTEND Internal Medicine

== ENCOUNTER 2017-06-04 14:54 | Inpatient (IN) ==
--- NOTE | 2017-06-04 15:18 | Emergency Department Note ---
Disposition Clinical Impression: Toe necrosis Cellulitis Qualifiers: Site of cellulitis: extremity Site of cellulitis of extremity: toe Laterality: right Qualified Code(s): L03.031 - Cellulitis of right toe Disposition: Admitted As Inpatient Condition: Fair Referrals: Joey Richards Jr, MD [Primary Care Provider] - Forms: ED Satisfaction Letter Time of Disposition: 18:07 General Adult HPI - General Chief complaint: ED Extremity Problem,Nontraumatic Stated complaint: Right Foot Infection Time Seen by Provider: 06/04/17 14:57 Source: patient Limitations: no limitations Nursing Notes Reviewed: Yes Vital Signs Reviewed: Yes - History of Present Illness HPI Narrative: Patient is a 72-year-old female presents the emergency department with a black painful right fifth toe. She states that this began approximately one week ago. States that the pain began at that time as well. She reports that the pain comes and goes. Patient states that it has been getting worse. Patient denies any injury to the toe. Patient rates the pain as a 10 out of 10 at this time. Upon chart review it appears that she has been seen multiple times for this issue. Most recently it was suggested that she have angiography but was unable to be done due to patient having elevated INR. - Related Data Home Medications Medication Instructions Recorded Confirmed Furosemide [Lasix] 80 mg PO BID 09/28/15 05/23/17 Levothyroxine Sodium [Tirosint] 150 mcg PO 0630 09/28/15 05/23/17 Clopidogrel [Plavix] 75 mg PO HS 09/29/15 05/23/17 Modafinil [Provigil] 200 mg PO QAM 09/29/15 05/23/17 Acetaminophen [Tylenol] 1,000 mg PO Q8HR PRN 12/05/15 05/23/17 Cinacalcet [Sensipar] 30 mg PO DAILY 12/05/15 05/23/17 Insulin LISPRO [HumaLOG] 2 - 12 unit SQ BID 12/05/15 05/23/17 Ipratropium/Albuterol Neb [Duoneb] 3 ml IH Q4HR 05/02/16 05/23/17 Metoprolol [Lopressor] 100 mg PO BID 07/25/16 05/23/17 Fexofenadine HCl [Allergy Relief] 180 mg PO DAILY 11/26/16 05/23/17 Insulin DETEMIR [Levemir] 5 unit SQ HS 11/26/16 05/23/17 Sevelamer [Renvela] 800 mg PO TIDWM 11/26/16 05/29/17 Acetylcysteine 600 mg PO BID 01/13/17 05/23/17 [J-Jfmajn-j-Cysteine] Folic Acid/Vit Bcomp,C [Renal-Darinel 0.8 mg PO DAILY 01/13/17 05/23/17 Tablet] Alendronate Sodium [Fosamax] 70 mg PO TH 02/17/17 05/23/17 Diltiazem HCl [Diltiazem ER] 180 mg PO DAILY 02/17/17 05/23/17 Folic Acid 1 mg PO DAILY 02/17/17 05/23/17 Guaifenesin [Mucus Relief] 400 mg PO BID 02/17/17 05/23/17 Acetaminophen [Tylenol] 650 mg PO Q4H PRN 05/23/17 05/23/17 Dextrose [Glucose Gel] 30 gm PO ONCE PRN 05/23/17 05/23/17 Guaifenesin [Tussin] 200 mg PO Q4H PRN 05/23/17 05/23/17 L. Acidophilus/Pectin, Whiteside 1 each PO DAILY 05/23/17 05/23/17 [Acidophilus Capsule] Loperamide HCl [Imodium A-D] 2 mg PO PER PKG DI PRN MDD 16 mg 05/23/17 05/23/17 Losartan Potassium [Cozaar] 50 mg PO DAILY 05/23/17 05/23/17 MOM Conc [MILK OF MAGNESIA conc] 30 ml PO DAILY PRN 05/23/17 05/23/17 Mag Hydrox/Al Hydrox/Simeth 10 ml PO Q4H PRN 05/23/17 05/23/17 [Antacid Suspension] Oxygen 2 l NS AD PRN 05/23/17 05/29/17 Gabapentin [Neurontin] 200 mg PO BID 06/04/17 06/04/17 Omeprazole [PriLOSEC] 20 mg PO DAILY 06/04/17 06/04/17 Vits A and D/White Pet/Lanolin [A 1 appl TP BID 06/04/17 06/04/17 and D Ointment] Warfarin [Coumadin] 5 mg PO HS 06/04/17 06/04/17 Previous Rx's Medication Instructions Recorded Budesonide Neb [Pulmicort Neb] 0.25 mg IH BIDR inhsol 11/28/16 hydrALAZINE [HydrALAZINE] 75 mg PO Q8HR tablet 11/28/16 HYDROcodone/Acet 5/325 mg [[place] 1 tab PO Q4H PRN #20 tablet 05/25/17 5-325 mg] Morphine Sulfate [Morphine Oral 5 mg PO Q2H PRN #100 ml 05/25/17 Solution] Allergies Allergy/AdvReac Type Severity Reaction Status Date / Time No Known Allergies Allergy Verified 05/29/17 08:54 All systems ED: reviewed and negative except as stated. Musculoskeletal: Reports: other Integumentary: Reports: other (Black right 5th toe, Skin tear on right nunez) Past Medical History - Past Medical History Medical history: Reports: arthritis, COPD, diabetes, dialysis, GERD, hyperlipidemia, hypertension, osteoporosis, peripheral artery disease, renal disease, thyroid disease Surgical history: Reports: appendectomy, cholecystectomy, hip replacement, hysterectomy, orthopedic, other, ABIMAEL/BSO, other Psychiatric history: Reports: anxiety, depression, other HOUSING DIRECTOR history: Reports: no HOUSING DIRECTOR history - Social History Smoking Status: Current every day smoker Smokeless Tobacco Status: No Alcohol use: Reports: none Drug use: Reports: none, prescription drug abuse, other Physical Exam - General Limitations: no limitations General appearance: alert, other (Appears to be uncomfortable) - Head Head exam: atraumatic, normocephalic - Eye Eye exam: Present: normal appearance, PERRL, EOMI - Neck Neck exam: Present: normal inspection, trachea midline - Respiratory Respiratory exam: Present: normal lung sounds bilaterally. Absent: respiratory distress, wheezes - Cardiovascular Cardiovascular exam: Present: regular rate, normal rhythm, +S1, +S2 - Abdominal Exam Abdominal exam: Present: soft, Non-Tender, normal bowel sounds - Expanded Lower Extremity Exam Lower leg exam: Present: other (Skin tear on the right nunez) Foot/toe exam: Present: tenderness, swelling, ecchymosis, other (Black 5th toe on the right.) Neurovascular/Tendon exam: Present: pulse deficit, extremity cold to touch ( Right foot cool to the touch). Absent: normal capillary refill - Neurological Exam Neurological exam: Present: alert, oriented X3 - Psychiatric Psychiatric exam: Present: normal affect, normal mood - Skin Skin exam: Present: other (Bluish color to the right foot. Black right 5th toe. Skin tear on rigth nunez.) Course Vital Signs Temperature 98 F 06/04/17 15:03 Pulse Rate 78 06/04/17 15:03 Respiratory Rate 16 06/04/17 15:03 Blood Pressure 161/65 06/04/17 15:03 O2 Sat by Pulse Oximetry 93 06/04/17 15:03 Temperature 98 F 06/04/17 15:03 Pulse Rate 78 06/04/17 15:03 Respiratory Rate 16 06/04/17 15:03 Blood Pressure 161/65 06/04/17 15:03 O2 Sat by Pulse Oximetry 93 06/04/17 15:03 Oxygen Delivery Oxygen Delivery Room Air Medical Decision Making - MDM Narrative Medical decision making narrative: Due the patient having a black right fifth digit we will obtain ABIs and do a sepsis workup. We will also obtain x-rays of the right foot. Ensure the right foot did not show any acute fracture or osteomyelitis. I called and spoke with Dr. Godinez who is on for vascular surgery and he felt that it was reasonable to admit the patient to the hospital and that Dr. Vera could see her tomorrow. We also did an PHIL which showed the right at 0.3. She had an elevated white count we will start the patient on antibiotics. We will start vancomycin and Zosyn to cover for pseudomonas to the patient being a diabetic. The patient has a angiography scheduled. I called and spoke to Dr. Batista the hospitalist and he has accepted the patient to their services. The patient will be admitted to the hospital at this time. - Medical Records Medical records reviewed: Yes I reviewed the patient's medical records. - Lab Data Lab results reviewed: Yes I reviewed the patient's lab results. Result diagrams: 06/04/17 16:04 06/04/17 16:04 Lab Results 06/04/17 06/04/17 06/04/17 Range/Units 16:04 16:04 16:04 WBC 14.8 H (4.3-11.1) K/mcL RBC 3.17 L (3.82-4.97) M/mcL Hgb 10.1 L (11.5-15.4) g/dL Hct 33.0 L (35.3-44.9) % MCV 104.1 H (83.0-100.0) fL MCH 31.9 (28.0-33.3) pg MCHC 30.6 L (31.6-35.5) g/dL RDW 14.4 (11.5-14.5) % Plt Count 314 (140-400) K/mcL MPV 10.6 (9.4-12.4) fL Immature Gran % 0.7 (0-4) % Seg Neutrophils % 80.7 % Lymphocytes % 9.9 % Monocytes % 7.1 % Eosinophils % 1.4 % Basophils % 0.2 % Neutrophils # 11.9 H (1.6-8.9) K/mcL Lymphocytes # 1.5 (0.6-4.6) K/mcL Monocytes # 1.1 (0.0-1.3) K/mcL Eosinophils # 0.2 (0.0-0.6) K/mcL Basophils # 0.0 (0.0-0.2) K/mcL ESR (0-15) mm/hr PT 18.5 H (9.4-12.1) Seconds INR 1.7 APTT 38.1 H (26.0-36.0) Seconds Sodium 134 L (136-145) mEq/L Potassium 4.6 (3.5-5.1) mEq/L Chloride 94 L (98-107) mEq/L Carbon Dioxide 28 (23-29) mEq/L BUN 29 H (8-23) mg/dL Creatinine 5.74 H (0.60-1.20) mg/dL Est GFR ( Amer) 9 L (> 60) Est GFR (Non-Af Amer) 7 L (> 60) BUN/Creatinine Ratio 5 L (6-26) Glucose 268 H (70-105) mg/dL Calculated Osmolality 293 (280-300) Lactic Acid (0.5-2.2) mmol/L Calcium 9.2 (8.6-10.3) mg/dL Phosphorus 4.3 (2.7-4.5) mg/dL Magnesium 2.3 (1.6-2.6) mg/dL Total Bilirubin 0.3 (0.3-1.0) mg/dL Direct Bilirubin 0.1 (0.0-0.2) mg/dL Indirect Bilirubin 0.2 (0.0-1.2) mg/dL AST 9 L (13-39) Units/L ALT 6 L (7-52) Units/L Alkaline Phosphatase 89 (34-104) Units/L C-Reactive Protein (Less than 10) mg/L Serum Total Protein 7.4 (6.4-8.9) g/dL Albumin 3.3 L (3.5-5.7) g/dL Globulin 4.1 H (2.4-3.5) g/dL Albumin/Globulin Ratio 0.8 L (1.1-2.2) 06/04/17 06/04/17 06/04/17 Range/Units 16:04 16:10 16:10 WBC (4.3-11.1) K/mcL RBC (3.82-4.97) M/mcL Hgb (11.5-15.4) g/dL Hct (35.3-44.9) % MCV (83.0-100.0) fL MCH (28.0-33.3) pg MCHC (31.6-35.5) g/dL RDW (11.5-14.5) % Plt Count (140-400) K/mcL MPV (9.4-12.4) fL Immature Gran % (0-4) % Seg Neutrophils % % Lymphocytes % % Monocytes % % Eosinophils % % Basophils % % Neutrophils # (1.6-8.9) K/mcL Lymphocytes # (0.6-4.6) K/mcL Monocytes # (0.0-1.3) K/mcL Eosinophils # (0.0-0.6) K/mcL Basophils # (0.0-0.2) K/mcL ESR >= 130 H (0-15) mm/hr PT (9.4-12.1) Seconds INR APTT (26.0-36.0) Seconds Sodium (136-145) mEq/L Potassium (3.5-5.1) mEq/L Chloride (98-107) mEq/L Carbon Dioxide (23-29) mEq/L BUN (8-23) mg/dL Creatinine (0.60-1.20) mg/dL Est GFR ( Amer) (> 60) Est GFR (Non-Af Amer) (> 60) BUN/Creatinine Ratio (6-26) Glucose (70-105) mg/dL Calculated Osmolality (280-300) Lactic Acid 0.6 (0.5-2.2) mmol/L Calcium (8.6-10.3) mg/dL Phosphorus (2.7-4.5) mg/dL Magnesium (1.6-2.6) mg/dL Total Bilirubin (0.3-1.0) mg/dL Direct Bilirubin (0.0-0.2) mg/dL Indirect Bilirubin (0.0-1.2) mg/dL AST (13-39) Units/L ALT (7-52) Units/L Alkaline Phosphatase (34-104) Units/L C-Reactive Protein 98 H (Less than 10) mg/L Serum Total Protein (6.4-8.9) g/dL Albumin (3.5-5.7) g/dL Globulin (2.4-3.5) g/dL Albumin/Globulin Ratio (1.1-2.2) - Radiology Data Radiology results reviewed: Yes I reviewed the patient's radiology results. - EKG Data EKG #1 EKG attestation: Yes I reviewed and interpreted this EKG. EKG results narrative: EKG showed a sinus rhythm with nonspecific T-wave abnormalities. Rate of 77 bpm , [place] interval of 140, QRS duration of 102, QTC of 418 with a normal axis. This is compared to previous EKG on 05/30/17 there are no acute changes noted between these 2 EKGs. Critical Care Time Critical Care Time: Yes Total Critical Care Time: 35 Attestation: Critical care performed: Time is exclusive of separately billable procedures. Time includes: direct patient care, patient reassessment, coordination of patient care, interpretation of data (laboratory data, radiology data, and respiratory data), review of patient's medical records, medical consultation and documentation of patient care. Procedures included in critical care time: Procedures excluded from critical care time: Attestation Statement - Attestation Attestation: I, Garfield Martell DO, examined this patient [id number] and my medical decision-making was reviewed with Dr. Bo Riley, Resident Physician. I agree with the documented findings, disposition and treatment plan as described except to the extent set forth below. Please see my progress notes for details. 72-year-old female [facility] right foot wound and pain. Detailed chart review is completed considering she has been here multiple times over the last several weeks. Patient has known peripheral vascular disease with recent ABIs of 0.18 in the right lower extremity and 0.46 in the left lower extremity. Patient is currently being followed by vascular. On presentation here patient denies any chest pain shortness of breath headache vision changes nausea vomiting or diarrhea. Denies any fevers or chills. Her main complaint is right foot pain and a discolored right little toe. On physical exam at this time patient does have what appears to be venous stasis discoloration in the lower extremities. She also has associated skin deterioration in the anterior aspect of the leg. She has what appears to be dry gangrene of the little toe on the right foot. Pulses are diminished and unable to be palpated at this time. Based on chart review as well as the evaluation patient will have sepsis treatment course completed here CBC chemistry ESR CRP. Plain film of the right foot will be reported this time repeat ABIs will be collected. Vascular consultation will be completed and then discussion with the hospitalist for admission will be established. Patient is concerning for possible progression of her vascular disease as well as concern for necrotic foot and toe. Detailed evaluation to be completed. See detailed IQ mentation the physical exam, medical intervention , medical decision-making disposition and the resident physician's note. Antibiotic regimen to be established at this time. 1700 Patient has newly elevated white blood cell count. X-ray does not show any signs of free air or bony abnormality at this point. No visible signs of deterioration or concern for osteomyelitis. CRP and ESR still pending. Patient will be discussed with the on-call vascular surgeon and then discuss admission for cellulitis and progressive peripheral vascular disease.. Patient will most likely need definitive management in the hospital setting. 35 minutes of critical care added to this patient's treatment course at this time.
[2017-06-04 16:14] LABS: Basophils % 0.2 %; Eosinophils # 0.2 K/mcL (0.0-0.6); Eosinophils % 1.4 %; Hemoglobin 10.1 g/dL (11.5-15.4); Immature Granulocytes % 0.7 % (0-4); Lymphocytes # 1.5 K/mcL (0.6-4.6); Lymphocytes % 9.9 %; Mean Corpuscular HGB Conc 30.6 g/dL (31.6-35.5); Mean Corpuscular Hemoglobin 31.9 pg (28.0-33.3); Mean Corpuscular Volume 104.1 fL (83.0-100.0); Mean Platelet Volume 10.6 fL (9.4-12.4); Monocytes # 1.1 K/mcL (0.0-1.3); Monocytes % 7.1 %; Neutrophils # 11.9 K/mcL (1.6-8.9); Platelet Count 314 K/mcL (140-400); Red Blood Count 3.17 M/mcL (3.82-4.97); Red Cell Distribution Width 14.4 % (11.5-14.5); Segmented Neutrophils % 80.7 %
[2017-06-04 16:19] LABS: INR 1.7; Prothrombin Time 18.5 Seconds (9.4-12.1)
[2017-06-04 16:22] LABS: Activated Partial Thrombo Time 38.1 Seconds (26.0-36.0)
[2017-06-04 16:27] LABS: Albumin 3.3 g/dL (3.5-5.7); Albumin/Globulin Ratio 0.8 (1.1-2.2); Bilirubin,Direct 0.1 mg/dL (0.0-0.2); Bilirubin,Indirect 0.2 mg/dL (0.0-1.2); Bilirubin,Total 0.3 mg/dL (0.3-1.0); Calcium 9.2 mg/dL (8.6-10.3); Globulin 4.1 g/dL (2.4-3.5); Magnesium 2.3 mg/dL (1.6-2.6); Phosphorous 4.3 mg/dL (2.7-4.5); Potassium 4.6 mEq/L (3.5-5.1); Total Protein 7.4 g/dL (6.4-8.9)
[2017-06-04] MEDS ORDERED: Vancomycin 1,000 MG in D5% in Water 250 ML IVPB ONE (17:30)
[2017-06-04] MEDS ORDERED: Piperacillin/Tazobactam 3.375 GM in Water for inj. (sterile) 20 ML IVP ONE (17:30)
[2017-06-04] MEDS ORDERED: Vancomycin 750 MG in D5% in Water 250 ML IVPB ONE (17:32)
[2017-06-04] MEDS ORDERED: *HR* Morphine 2 MG/ML SYRINGE IVP ONE (20:45)
[2017-06-04] MEDS ORDERED: Acetaminophen 325 MG TABLET PO PRN (21:49)
[2017-06-04] MEDS ORDERED: Naloxone 0.4 MG/ML INJ IVP PRN (21:49)
[2017-06-04] MEDS ORDERED: Vancomycin 750 MG in D5% in Water 250 ML IVPB SCH (22:00)
--- NOTE | 2017-06-04 22:12 | Internal Med History&Physical ---
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 She has previously been seen by vascular surgery and podiatry in the past. She presented to the ER today with lower extremity pain and what appears to be dry gangrene to right fifth digit. She does have an elevated white count x-rays were obtained which did not reveal any osteomyelitis or gas. Blood cultures were obtained and the patient was initiated on vancomycin and Zosyn which we will continue. ER physician did speak with Dr. [id number] for vascular surgery- Dr Mishra who will see patient in a.m. Consult podiatry-I did speak with Dr. Jose who will see patient tomorrow I will hold Coumadin tonight present INR is 1.7 for any possible surgical intervention tomorrow T (2) End stage renal disease on dialysis Current visit: No Status: Chronic Consult nephrology spoke with Dr. Quesada patient will undergo dialysis in the a.m. Monitor intake and output daily weights Renally dose antibiotics (3) PAF (paroxysmal atrial fibrillation) Current visit: No Status: Chronic [facility] patient is in sinus rhythm we will continue with metoprolol. We will hold Coumadin tonight for possible surgical intervention in a.m. and resume after procedures are completed (4) COPD (chronic obstructive pulmonary disease) Current visit: No Status: Chronic Presently patient appears to be stable we will continue with oxygen and bronchodilators Qualifiers: COPD type: COPD with acute lower respiratory infection Qualified Code(s): J44.0 - Chronic obstructive pulmonary disease with acute lower respiratory infection (5) HTN (hypertension) Current visit: No Status: Chronic Presently controlled we will continue with metoprolol and hydralazine Qualifiers: Hypertension type: essential hypertension Qualified Code(s): I10 - Essential (primary) hypertension (6) DVT prophylaxis Current visit: Yes Status: Chronic 1 continue with Coumadin after surgical procedure Internal Medicine - H&P: HPI Chief complaint: R foot pain Admitted From: Emergency Dept Plans for Post Hospital Care: Home History of present illness: Ms. Rico is a 72 year old female past medical history of PVD hypertension end- stage renal disease COPD on home oxygen diabetes hypothyroid GERD CAD. Patient has been followed by Dr. Traylor and Dr. Pizarro for dry gangrene of right fifth digit. ABIs were completed on 05/30/2017 right posterior tibial 1.81 noncompressible right dorsalis pedis 0.34 severely diminished. She presented today to the ER with increased pain to right lower extremity. Lab work was obtained which did show elevated white count which was new x-ray of right foot did not demonstrate any free air or bony abnormalities no signs of deterioration or concerns for osteomyelitis. ER physician did speak with Dr. Godinez on-call for vascular surgery who will see patient in a.m. Patient has been admitted for further workup and evaluation concern for necrotic foot and toe progression of vascular disease. Presently she is hemodynamically stable at this time . Past Med Surg Social Fam HX - Past Medical History Medical history: arthritis, COPD, diabetes, dialysis, GERD, hyperlipidemia, hypertension, osteoporosis, peripheral artery disease, renal disease, thyroid disease Psychiatric history: anxiety, depression, other - Past Surgical History Surgical History: appendectomy, cholecystectomy, hip replacement, hysterectomy, orthopedic, other, ABIMAEL/BSO, other - Social History Smoking Status: Current every day smoker Smokeless Tobacco Status: No Alcohol use: none Drug use: none, prescription drug abuse, other - Family History Mother History Unknown: Yes Living Status: Hx Family Cardiac Disorders: Yes (Hypertension hyperlipidemia) Hx Family Endocrine Disorder: Yes (DMII) Father History Unknown: Yes Living Status: Hx Family Cardiac Disorders: Yes (Hypertension hyperlipidemia) Hx Family Cancer: Yes (Lung cancer) Hx Family Endocrine Disorder: Yes (Diabetes) Internal Medicine - H&P: Meds Furosemide [Lasix] 80 mg PO BID 09/28/15 [History] Levothyroxine Sodium [Tirosint] 150 mcg PO 0630 09/28/15 [History] Clopidogrel [Plavix] 75 mg PO HS 09/29/15 [History] Modafinil [Provigil] 200 mg PO QAM 09/29/15 [History] Acetaminophen [Tylenol] 1,000 mg PO Q8HR PRN 12/05/15 [History] Cinacalcet [Sensipar] 30 mg PO DAILY 12/05/15 [History] Insulin LISPRO [HumaLOG] 2 - 12 unit SQ BID 12/05/15 [History] Ipratropium/Albuterol Neb [Duoneb] 3 ml IH Q4HR 05/02/16 [History] Metoprolol [Lopressor] 100 mg PO BID 07/25/16 [History] Fexofenadine HCl [Allergy Relief] 180 mg PO DAILY 11/26/16 [History] Insulin DETEMIR [Levemir] 5 unit SQ HS 11/26/16 [History] Sevelamer [Renvela] 800 mg PO TIDWM 11/26/16 [History] Budesonide Neb [Pulmicort Neb] 0.25 mg IH BIDR inhsol 11/28/16 [Rx] hydrALAZINE [HydrALAZINE] 75 mg PO Q8HR tablet 11/28/16 [Rx] Acetylcysteine [V-[place]-j-Cysteine] 600 mg PO BID 01/13/17 [History] Folic Acid/Vit Bcomp,C [Renal-Darinel Tablet] 0.8 mg PO DAILY 01/13/17 [History] Alendronate Sodium [Fosamax] 70 mg PO TH 02/17/17 [History] Diltiazem HCl [Diltiazem ER] 180 mg PO DAILY 02/17/17 [History] Folic Acid 1 mg PO DAILY 02/17/17 [History] Guaifenesin [Mucus Relief] 400 mg PO BID 02/17/17 [History] Acetaminophen [Tylenol] 650 mg PO Q4H PRN 05/23/17 [History] Dextrose [Glucose Gel] 30 gm PO ONCE PRN 05/23/17 [History] Guaifenesin [Tussin] 200 mg PO Q4H PRN 05/23/17 [History] L. Acidophilus/Pectin, [place] [Acidophilus Capsule] 1 each PO DAILY 05/23/17 [ History] Loperamide HCl [Imodium A-D] 2 mg PO PER PKG DI PRN MDD 16 mg 05/23/17 [History] Losartan Potassium [Cozaar] 50 mg PO DAILY 05/23/17 [History] MOM Conc [MILK OF MAGNESIA conc] 30 ml PO DAILY PRN 05/23/17 [History] Mag Hydrox/Al Hydrox/Simeth [Antacid Suspension] 10 ml PO Q4H PRN 05/23/17 [ History] Oxygen 2 l NS AD PRN 05/23/17 [History] HYDROcodone/Acet 5/325 mg [[place] 5-325 mg] 1 tab PO Q4H PRN #20 tablet 05/25/17 [Rx] Morphine Sulfate [Morphine Oral Solution] 5 mg PO Q2H PRN #100 ml 05/25/17 [Rx] Gabapentin [Neurontin] 200 mg PO BID 06/04/17 [History] Omeprazole [PriLOSEC] 20 mg PO DAILY 06/04/17 [History] Vits A and D/White Pet/Lanolin [A and D Ointment] 1 appl TP BID 06/04/17 [ History] Warfarin [Coumadin] 5 mg PO HS 06/04/17 [History] 3 Allergy/AdvReac Type Severity Reaction Status Date / Time No Known Allergies Allergy Verified 05/29/17 08:54 All Systems PM: A 10-system review of systems was performed and is negative for pertinent findings except as documented above in the HPI. - Constitutional Constitutional: no chills, no fever(s), no night sweats - EENT Eyes: no change in vision, no discharge, no pain, no photophobia Nose, mouth and throat: no dysphagia, no nasal discharge, no neck pain, no sore throat - Cardiovascular Cardiovascular ROS IM: no chest pain, no diaphoresis, no dyspnea, no lightheadedness, no palpitations, no syncope - Respiratory Respiratory: no cough, no dyspnea, no wheezing, no excessive phlegm production - Gastrointestinal Gastrointestinal: no abdominal pain, no diarrhea, no hematemesis, no hematochezia, no melena, no nausea, no vomiting - Genitourinary Genitourinary: no change in urinary stream, no dysuria, no flank pain, no hematuria - Musculoskeletal Musculoskeletal ROS IM: no numbness, no tingling - Integumentary Integumentary IM: non-healing lesions, no rash, no unusual bruising - Neurological Neurological ROS: no confusion, no convulsions, no focal weakness, no numbness, no tingling, no tremor(s) - Hematologic/Lymphatic Hematologic/Lymphatic: no easy bruising - Constitutional Vitals: Temp Pulse Resp BP Pulse Ox 98.1 F 70 14 123/35 94 06/04/17 20:04 06/04/17 20:04 06/04/17 20:04 06/04/17 20:04 06/04/17 20:04 General appearance: Present: A&O X 3 - Head Head exam: Present: atraumatic, normocephalic - Eye Eye exam: Present: PERRL, conjuntiva pink, sclera anicteric Pupils: Present: PERRL - Neck Neck exam general surgery: Present: supple, trachea midline. Absent: lymphadenopathy - Respiratory Respiratory exam: Present: CTAB. Absent: accessory muscle use, rales, rhonchi, wheezes - Cardiovascular Cardiovascular exam: Present: RRR, +S1, +S2. Absent: diastolic murmur, gallop, rubs, systolic murmur - GI/Abdominal GI/Abdominal exam: Present: normal bowel sounds, soft, no peritoneal signs. Absent: distended, tenderness - Extremities Exam Extremities exam: Absent: calf tenderness, cyanotic, pedal edema Additional comments: Venous stasis discoloration to lower extremities bilaterally with possible venous stasis ulcer to right anterior aspect of leg. Appears to be dry gangrene to right fifth digit-dark with some bloody drainage - Neurological Exam Neurological exam: Present: CN II-XII intact, oriented X3, no focal deficits. Absent: pronater drift, facial droop, speech deficit - Skin Skin exam: Present: dry, intact Internal Med - H&P Results - Labs CBC & Chem 7: 06/04/17 16:04 06/04/17 16:04 - EKG Data EKG shows normal: sinus rhythm - EKG Data Prior EKG available for review: yes When compared to previous EKG: there is no significant change - Diagnostic Studies Other Images Additional comments: Foot X-Ray 06/04/17 15:27 IMPRESSION: No acute bony or joint abnormality. No definite evidence for osteomyelitis. D/ / Richard Romero MD / Richard Romero MD Interpreting Provider: Richard Romero MD <Genaro Kate - Last Filed: 06/05/17 09:15> Date of Encounter: 06/04/17 Internal Medicine - H&P: HPI History of present illness: Ms. Rico is a 72 year old female All Systems PM: A 10-system review of systems was performed and is negative for pertinent findings except as documented above in the HPI. - Constitutional Vitals: Temp Pulse Resp BP Pulse Ox 102.8 F H 87 16 102/53 100 06/05/17 06:48 06/05/17 06:48 06/05/17 07:52 06/05/17 06:48 06/05/17 07:52 Internal Med - H&P Results - Labs CBC & Chem 7: 06/05/17 04:30 06/05/17 04:30 Labs: Short CBC 06/05/17 Range/Units 04:30 WBC 16.5 H (4.3-11.1) K/mcL Hgb 10.1 L (11.5-15.4) g/dL Hct 32.4 L (35.3-44.9) % Plt Count 345 (140-400) K/mcL Neutrophils # 13.7 H (1.6-8.9) K/mcL BMP 06/05/17 04:30 Sodium 136 Potassium 4.5 Chloride 96 L Carbon Dioxide 26 BUN 35 H Creatinine 6.35 H Glucose 202 H Calcium 9.1 - Attending Attestation History and physical reviewed, plan discussed with nurse practitioner. Agreed with the plan as listed above. Significant signs or volume depletion, consider gentle hydration, awaiting vascular surgery as well as podiatry. Continue empiric coverage with antibiotic until final culture
[2017-06-04] MEDS ORDERED: D5% in Water 1,000 ML IVC PRN (22:48)
[2017-06-04] MEDS ORDERED: *HR* Dextrose 50 % in Water (Syg) 50 ML SYRINGE IVP PRN (22:48)
[2017-06-04] MEDS ORDERED: Dextrose Gel 15 GM/37.5 ML TUBE PO PRN ×2 (22:48)
[2017-06-04] MEDS: hydrALAZINE 25 MG TABLET PO SCH (23:03)
[2017-06-04] MEDS: Budesonide Neb 0.25 MG/2 ML IH SCH (23:33)
[2017-06-04] MEDS: Ipratropium/Albuterol Neb 3 ML IH SCH (23:34)
[2017-06-05] MEDS: Insulin LISPRO 300 UNITS/3 ML VIAL SQ SCH ×4 (00:16→18:56)
[2017-06-05] MEDS ORDERED: Insulin LISPRO 300 UNITS/3 ML VIAL SQ ONE ×2 (01:31→02:38)
[2017-06-05] MEDS: Ipratropium/Albuterol Neb 3 ML IH SCH ×5 (03:35→20:04)
[2017-06-05 05:05] LABS: INR 1.8; Prothrombin Time 19.4 Seconds (9.4-12.1)
[2017-06-05 05:48] LABS: Basophils % 0.2 %; Eosinophils # 0.2 K/mcL (0.0-0.6); Eosinophils % 1.4 %; Hematocrit 32.4 % (35.3-44.9); Hemoglobin 10.1 g/dL (11.5-15.4); Immature Granulocytes % 0.5 % (0-4); Lymphocytes # 1.3 K/mcL (0.6-4.6); Mean Corpuscular HGB Conc 31.2 g/dL (31.6-35.5); Mean Corpuscular Hemoglobin 32.5 pg (28.0-33.3); Mean Corpuscular Volume 104.2 fL (83.0-100.0); Mean Platelet Volume 10.9 fL (9.4-12.4); Monocytes # 1.1 K/mcL (0.0-1.3); Monocytes % 6.7 %; Neutrophils # 13.7 K/mcL (1.6-8.9); Platelet Count 345 K/mcL (140-400); Red Blood Count 3.11 M/mcL (3.82-4.97); Red Cell Distribution Width 14.5 % (11.5-14.5); Segmented Neutrophils % 83.2 %
[2017-06-05] MEDS: Piperacillin/Tazobactam 3.375 GM/200 ML BAG IVPB SCH ×2 (05:51→18:59)
[2017-06-05] MEDS: hydrALAZINE 25 MG TABLET PO SCH (06:03)
[2017-06-05 07:09] LABS: Calcium 9.1 mg/dL (8.6-10.3); Magnesium 2.2 mg/dL (1.6-2.6); Phosphorous 4.4 mg/dL (2.7-4.5); Potassium 4.5 mEq/L (3.5-5.1)
[2017-06-05] MEDS: Budesonide Neb 0.25 MG/2 ML IH SCH ×2 (07:50→20:04)
[2017-06-05] MEDS: Furosemide 40 MG TABLET PO SCH ×2 (08:09→18:58)
[2017-06-05] MEDS: *HR* Acetylcysteine 20% 600 MG/3 ML ORAL SYRINGE PO SCH (08:09)
[2017-06-05] MEDS: Diltiazem CD (24hr) 180 MG CAPSULE PO SCH (08:10)
[2017-06-05] MEDS: Lactobacillus 1 EACH CAP.SPRINK PO SCH (08:10)
[2017-06-05] MEDS: Folic Acid 1 MG TABLET PO SCH (08:11)
[2017-06-05] MEDS: Renal Vitamin 1 MG CAPSULE PO SCH (08:13)
[2017-06-05] MEDS: *HR* Morphine 2 MG/ML SYRINGE IVP PRN ×3 (08:21→18:58)
[2017-06-05] MEDS ORDERED: Gabapentin 100 MG CAPSULE PO SCH (09:00)
[2017-06-05] MEDS ORDERED: GuaiFENesin Liq 200 MG/10 ML UDC PO SCH (09:00)
[2017-06-05] MEDS ORDERED: Metoprolol 100 MG TABLET PO SCH (09:00)
--- NOTE | 2017-06-05 09:40 | Internal Med Progress Note ---
Date of Encounter: 06/05/17 Time of Encounter: 09:45 - Assessment and plan (1) Toe necrosis Current Visit: Yes Status: Acute Assessment and plan: Continue with broad-spectrum antibiotics. The patient has been started on admission on Vanco and Zosyn. We will follow up on cultures. The patient is to be seen by surgery. Remain nothing by mouth. Will hold Coumadin. She is also on Plavix which I will hold. I will leave that up to surgery to hold a few he will need surgical intervention. . (2) Hypothyroidism Current Visit: No Status: Chronic Assessment and plan: Continue with levothyroxine. Qualifiers: Hypothyroidism type: unspecified Qualified Code(s): E03.9 - Hypothyroidism , unspecified (3) End stage renal disease on dialysis Current Visit: No Status: Chronic Assessment and plan: Nephrology consulted. The patient is end-stage renal disease on dialysis. Dialysis to be resumed per schedule. Continue with Sensipar (4) PAF (paroxysmal atrial fibrillation) Current Visit: No Status: Chronic Assessment and plan: Rate controlled on metoprolol and Cardizem. Anticoagulated with Coumadin but that is on hold. (5) COPD (chronic obstructive pulmonary disease) Current Visit: No Status: Chronic Assessment and plan: Not in exacerbation. He is on chronic O2. Continue with inhalers. Qualifiers: COPD type: COPD with acute lower respiratory infection Qualified Code(s): J44.0 - Chronic obstructive pulmonary disease with acute lower respiratory infection (6) Diabetes mellitus Current Visit: No Status: Chronic Assessment and plan: Continue with insulin sliding scale. Continue with Accu-Cheks. Qualifiers: Diabetes mellitus type: type 2 Diabetes mellitus complication status: with kidney complications Diabetes mellitus complication detail: with chronic kidney disease Diabetes mellitus sales person insulin use: with alf use Chronic kidney disease stage: on chronic dialysis Qualified Code(s): E11.22 - Type 2 diabetes mellitus with diabetic chronic kidney disease; N18.6 - End stage renal disease; N18.6 - End stage renal disease; N18.6 - End stage renal disease; N18.6 - End stage renal disease; Z79.4 - senior living (current) use of insulin; Z79.4 - cooling pipe inspector (current) use of insulin; Z79.4 - cooling pipe inspector (current ) use of insulin; Z79.4 - cooling pipe inspector (current) use of insulin; Z99.2 - Dependence on renal dialysis; Z99.2 - Dependence on renal dialysis; Z99.2 - Dependence on renal dialysis; Z99.2 - Dependence on renal dialysis (7) HTN (hypertension) Current Visit: No Status: Chronic Assessment and plan: Blood pressure is actually on the lower side. She is on many different agents. I would hold his hydralazine and losartan today. Continue with metoprolol and Cardizem and Lasix for now. Qualifiers: Hypertension type: essential hypertension Qualified Code(s): I10 - Essential (primary) hypertension (8) PVD (peripheral vascular disease) Current Visit: No Status: Acute Assessment and plan: Vascular surgery has been consulted. hold Plavix. (9) DVT prophylaxis Current Visit: No Status: Acute Assessment and plan: Patient is on Coumadin but that is on hold in anticipation of any surgeries. - Subjective Interval history: Patient was seen and examined. Admitted for right foot fifth digit gangrene. Remains on antibiotics. Patient has had a temperature of 102.8 this morning. Cultures have been collected admission. - Constitutional Vitals: Temp Pulse Resp BP Pulse Ox 102.8 F H 87 16 102/53 100 06/05/17 06:48 06/05/17 06:48 06/05/17 07:52 06/05/17 06:48 06/05/17 07:52 General appearance: Present: A&O X 3 Exam: GEN: NAD CVS: RRR. S1, S2, No m/r/g RESP: CTAB ABD: Soft, NT, ND, +BS EXT: venous stasis discoloration to lower extremities bilaterally with possible venous stasis ulcer to right anterior aspect of leg. Appears to be dry gangrene to right fifth digit-dark with some bloody drainage NEURO: Nonfocal Internal Medicine: Result - Labs CBC & Chem 7: 06/05/17 04:30 06/05/17 04:30 Labs: Short CBC 06/05/17 Range/Units 04:30 WBC 16.5 H (4.3-11.1) K/mcL Hgb 10.1 L (11.5-15.4) g/dL Hct 32.4 L (35.3-44.9) % Plt Count 345 (140-400) K/mcL Neutrophils # 13.7 H (1.6-8.9) K/mcL [facility] 06/05/17 04:30 Sodium 136 Potassium 4.5 Chloride 96 L Carbon Dioxide 26 BUN 35 H Creatinine 6.35 H Glucose 202 H Calcium 9.1 - ABG Interpretation ABG results: PT/INR, D-dimer PT 19.4 Seconds (9.4-12.1) H 06/05/17 04:30 Consult Discharge Plan - Plan Referrals: Joey Richards Jr, MD [Primary Care Provider] -
--- NOTE | 2017-06-05 09:59 | Nephrology Consult Note ---
Date of Encounter: 06/05/17 Time of Encounter: 09:15 Assessment and Plan (1) End stage renal disease on dialysis Current Visit: No Status: Chronic PVD-vascular surgery to consult. Empiric antibiotic coverage. ESRD- HD today, keeping MWF schedule. Orders given. (2) Peripheral arterial occlusive disease Current Visit: No Status: Acute History of Present Illness - Reason for Consult end stage renal disease - History of Present Illness Ms. Rico is a 72 year old female with ESRD who dialyzes at [facility]. Last diaysis on Saturday. Other PMH- arthritis, COPD, diabetes, dialysis, GERD, hyperlipidemia, hypertension, osteoporosis, peripheral artery disease, renal disease, thyroid disease, Anxiety/depression, appendectomy, cholecystectomy, hip replacement, hysterectomy, orthopedic, other, ABIMAEL/BSO. Ms. Rico was sent to ER from nursing facility with complaints of worsening right foot pain. She was recently discharged from [place] for same with recommendation for angiography but did not have done. Patient is hypersomnolent at time of consult, arouses though dozes off readily. Right foot appears dusky with gangrenous 5th digit and surrounding area. Appears increased in size compared to last visit. TEmp earlier of 102.8, blood cultures drawn, on Vanco and Zosyn. Past Med Surg Social Fam HX - Past Medical History Medical history: arthritis, COPD, diabetes, dialysis, GERD, hyperlipidemia, hypertension, osteoporosis, peripheral artery disease, renal disease, thyroid disease Psychiatric history: anxiety, depression, other - Past Surgical History Surgical History: appendectomy, cholecystectomy, hip replacement, hysterectomy, orthopedic, other, ABIMAEL/BSO, other - Social History Smoking Status: Current every day smoker Smokeless Tobacco Status: No Alcohol use: none Drug use: none, prescription drug abuse, other - Family History Mother History Unknown: Yes Living Status: Hx Family Cardiac Disorders: Yes (Hypertension hyperlipidemia) Hx Family Endocrine Disorder: Yes (DMII) Father History Unknown: Yes Living Status: Hx Family Cardiac Disorders: Yes (Hypertension hyperlipidemia) Hx Family Cancer: Yes (Lung cancer) Hx Family Endocrine Disorder: Yes (Diabetes) Medications and Allergies Furosemide [Lasix] 80 mg PO BID 09/28/15 [History] Levothyroxine Sodium [Tirosint] 150 mcg PO 0630 09/28/15 [History] Clopidogrel [Plavix] 75 mg PO HS 09/29/15 [History] Modafinil [Provigil] 200 mg PO QAM 09/29/15 [History] Acetaminophen [Tylenol] 1,000 mg PO Q8HR PRN 12/05/15 [History] Cinacalcet [Sensipar] 30 mg PO DAILY 12/05/15 [History] Insulin LISPRO [HumaLOG] 2 - 12 unit SQ BID 12/05/15 [History] Ipratropium/Albuterol Neb [Duoneb] 3 ml IH Q4HR 05/02/16 [History] Metoprolol [Lopressor] 100 mg PO BID 07/25/16 [History] Fexofenadine HCl [Allergy Relief] 180 mg PO DAILY 11/26/16 [History] Insulin DETEMIR [Levemir] 5 unit SQ HS 11/26/16 [History] Sevelamer [Renvela] 800 mg PO TIDWM 11/26/16 [History] Budesonide Neb [Pulmicort Neb] 0.25 mg IH BIDR inhsol 11/28/16 [Rx] hydrALAZINE [HydrALAZINE] 75 mg PO Q8HR tablet 11/28/16 [Rx] Acetylcysteine [X-Rxtpsv-m-Cysteine] 600 mg PO BID 01/13/17 [History] Folic Acid/Vit Bcomp,C [Renal-Darinel Tablet] 0.8 mg PO DAILY 01/13/17 [History] Alendronate Sodium [Fosamax] 70 mg PO TH 02/17/17 [History] Diltiazem HCl [Diltiazem ER] 180 mg PO DAILY 02/17/17 [History] Folic Acid 1 mg PO DAILY 02/17/17 [History] Guaifenesin [Mucus Relief] 400 mg PO BID 02/17/17 [History] Acetaminophen [Tylenol] 650 mg PO Q4H PRN 05/23/17 [History] Dextrose [Glucose Gel] 30 gm PO ONCE PRN 05/23/17 [History] Guaifenesin [Tussin] 200 mg PO Q4H PRN 05/23/17 [History] L. Acidophilus/Pectin, [place] [Acidophilus Capsule] 1 each PO DAILY 05/23/17 [ History] Loperamide HCl [Imodium A-D] 2 mg PO PER PKG DI PRN MDD 16 mg 05/23/17 [History] Losartan Potassium [Cozaar] 50 mg PO DAILY 05/23/17 [History] MOM Conc [MILK OF MAGNESIA conc] 30 ml PO DAILY PRN 05/23/17 [History] Mag Hydrox/Al Hydrox/Simeth [Antacid Suspension] 10 ml PO Q4H PRN 05/23/17 [ History] Oxygen 2 l NS AD PRN 05/23/17 [History] HYDROcodone/Acet 5/325 mg [[place] 5-325 mg] 1 tab PO Q4H PRN #20 tablet 05/25/17 [Rx] Morphine Sulfate [Morphine Oral Solution] 5 mg PO Q2H PRN #100 ml 05/25/17 [Rx] Gabapentin [Neurontin] 200 mg PO BID 06/04/17 [History] Omeprazole [PriLOSEC] 20 mg PO DAILY 06/04/17 [History] Vits A and D/White Pet/Lanolin [A and D Ointment] 1 appl TP BID 06/04/17 [ History] Warfarin [Coumadin] 5 mg PO HS 06/04/17 [History] 3 Allergy/AdvReac Type Severity Reaction Status Date / Time No Known Allergies Allergy Verified 05/29/17 08:54 Review of Systems ROS unobtainable: due to mental status Exam - Vital Signs Vital signs: Initial Vital Signs Temp Pulse Resp BP Pulse Ox 98 F 78 16 161/65 93 06/04/17 15:03 06/04/17 15:03 06/04/17 15:03 06/04/17 15:03 06/04/17 15:03 Vital Signs - Last 8 Hours Temp Pulse Resp BP Pulse Ox 06/05/17 07:52 16 100 06/05/17 06:48 102.8 F H 87 14 102/53 94 06/05/17 04:05 97.6 F 87 16 115/49 100 Intake and Output 06/04/17 06/05/17 06/05/17 23:59 07:59 15:59 Intake Total 270 / 270 240 / 240 Output Total 0 / 0 Balance 270 / 270 240 / 240 Intake: IV Fluids 270 / 270 Vancocin 750 MG In Dextrose 5% 250 / 250 250 ML @ 250 mls/hr IVPB ONCE ONE Rx#:[id number] Oral 240 / 240 Output: Urine 0 / 0 Other: Meal Soup, crackers and orange sherbert. NPO Percent of Meal Consumed 100% # Urine Diapers 0 # Bowel Movement Diapers 0 Weight 54.068 kg Blood Glucose* 161 Patient Weight 06/05/17 23:59 Weight 54.068 kg - General Appearance General appearance: chronically ill EENT: mucous membranes moist Neck: no JVD Respiratory: clear Cardiology: no edema, regular rate, regular rhythm - Dialysis Access Dialysis Vascular Access: Arteriovenous Fistula Gastrointestinal: normoactive bowel sounds, no tenderness Integumentary: warm and dry Additional Comments: Right foot appears dusky with gangrenous 5th digit and surrounding area. Appears increased in size compared to last visit. Results - Lab Results 06/05/17 04:30 06/05/17 04:30 Most recent lab results Calcium 9.1 mg/dL (8.6-10.3) 06/05/17 04:30 Phosphorus 4.4 mg/dL (2.7-4.5) 06/05/17 04:30 Magnesium 2.2 mg/dL (1.6-2.6) 06/05/17 04:30 Consult Discharge Plan - Plan Referrals: Joey Richards Jr, MD [Primary Care Provider] -
--- NOTE | 2017-06-05 12:53 | Vascular/Endovasc Consult Note ---
Date of Encounter: 06/05/17 Time of Encounter: 08:00 Assessment and Plan (1) Altered mental status Current Visit: Yes Status: Acute It is difficult to assess the patient's mental status. As best I can determine on her previous visit earlier this month she was more awake and alert. There are no family members at the bedside to question about her overall mental status or history of dementia. Qualifiers: Altered mental status type: delirium Qualified Code(s): R41.0 - Disorientation, unspecified (2) Cachexia Current Visit: Yes Status: Chronic Patient demonstrates overall failure to thrive. She looks older than her stated age. She appears to be in ill health on a chronic basis with diffuse muscle wasting. 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 Noninvasive testing from May 30 indicates significant disease bilaterally area on my visit this morning I cannot obtain any history and so my data is obtained from previous records. She was initially planned to have an outpatient angiogram this upcoming Saturday. Due to her mental status and elevated white count and fever I would suggest that she had a CT angiogram of her aorta with bilateral lower extremity runoff today. My initial impression is that she is a poor candidate for intervention and may actually require limb amputation. I am awaiting family members to arrive to speak to them to clarify what the patient' s overall status is and to determine the level of aggressive intervention. Nevertheless we will continue with the evaluation with a CT angiogram at this time. We will continue to hold her Coumadin and Plavix in anticipation of possible intervention but the overall prognosis is poor. - History of Present Illness Consult date: 06/05/17 Consult reason: Right toe gangrene History of present illness: Ms. Rico is a 72 year old female Who was seen in consultation after admission from the emergency room last night. This is my first evaluation of the patient. The patient is an inpatient at an extended care facility. She was noted apparently to have cellulitis and worsening of the gangrenous changes in her right toe and was sent to the emergency room. From there she was admitted to the hospital and placed on the hospitalist service. Of note the patient was hospitalized earlier this month. She has a long history of lower extremity vascular disease. She had been seen in consultation earlier this month by Dr. Olmedo. Also she appears to have had a previous intervention in 2010 with bilateral lower extremity cryo-plasties. Unfortunately on her visit today the patient is somnolent and noncommunicative. The original plan was for the patient to have an angiogram this upcoming Saturday. She did not have the angiogram during her previous hospitalization because her INR was elevated. She takes Coumadin for cardiac arrhythmias. During that previous admission the patient had an ankle brachial index measured of 0.34 on the right dorsalis pedis artery. The remaining vessels were noncompressible including the left ankle. The waveforms were severely diminished at the right ankle and moderately diminished at the left ankle. A previous measurement in December 2012 showed an ankle-brachial index of 0.48 on the right and 0.81 on the left. Past Med Surg Social Fam HX - Past Medical History Medical history: arthritis, COPD, diabetes, dialysis, GERD, hyperlipidemia, hypertension, osteoporosis, peripheral artery disease, renal disease, thyroid disease Psychiatric history: anxiety, depression, other - Past Surgical History Surgical History: appendectomy, cholecystectomy, hip replacement, hysterectomy, orthopedic, other, ABIMAEL/BSO, other - Social History Smoking Status: Current every day smoker Smokeless Tobacco Status: No Alcohol use: none Drug use: none, prescription drug abuse, other - Family History Mother History Unknown: Yes Living Status: Hx Family Cardiac Disorders: Yes (Hypertension hyperlipidemia) Hx Family Endocrine Disorder: Yes (DMII) Father History Unknown: Yes Living Status: Hx Family Cardiac Disorders: Yes (Hypertension hyperlipidemia) Hx Family Cancer: Yes (Lung cancer) Hx Family Endocrine Disorder: Yes (Diabetes) Medications and Allergies Furosemide [Lasix] 80 mg PO BID 09/28/15 [History] Levothyroxine Sodium [Tirosint] 150 mcg PO 0630 09/28/15 [History] Clopidogrel [Plavix] 75 mg PO HS 09/29/15 [History] Modafinil [Provigil] 200 mg PO QAM 09/29/15 [History] Acetaminophen [Tylenol] 1,000 mg PO Q8HR PRN 12/05/15 [History] Cinacalcet [Sensipar] 30 mg PO DAILY 12/05/15 [History] Insulin LISPRO [HumaLOG] 2 - 12 unit SQ BID 12/05/15 [History] Ipratropium/Albuterol Neb [Duoneb] 3 ml IH Q4HR 05/02/16 [History] Metoprolol [Lopressor] 100 mg PO BID 07/25/16 [History] Fexofenadine HCl [Allergy Relief] 180 mg PO DAILY 11/26/16 [History] Insulin DETEMIR [Levemir] 5 unit SQ HS 11/26/16 [History] Sevelamer [Renvela] 800 mg PO TIDWM 11/26/16 [History] Budesonide Neb [Pulmicort Neb] 0.25 mg IH BIDR inhsol 11/28/16 [Rx] hydrALAZINE [HydrALAZINE] 75 mg PO Q8HR tablet 11/28/16 [Rx] Acetylcysteine [K-Rnnjgy-j-Cysteine] 600 mg PO BID 01/13/17 [History] Folic Acid/Vit Bcomp,C [Renal-Darinel Tablet] 0.8 mg PO DAILY 01/13/17 [History] Alendronate Sodium [Fosamax] 70 mg PO TH 02/17/17 [History] Diltiazem HCl [Diltiazem ER] 180 mg PO DAILY 02/17/17 [History] Folic Acid 1 mg PO DAILY 02/17/17 [History] Guaifenesin [Mucus Relief] 400 mg PO BID 02/17/17 [History] Acetaminophen [Tylenol] 650 mg PO Q4H PRN 05/23/17 [History] Dextrose [Glucose Gel] 30 gm PO ONCE PRN 05/23/17 [History] Guaifenesin [Tussin] 200 mg PO Q4H PRN 05/23/17 [History] L. Acidophilus/Pectin, [place] [Acidophilus Capsule] 1 each PO DAILY 05/23/17 [ History] Loperamide HCl [Imodium A-D] 2 mg PO PER PKG DI PRN MDD 16 mg 05/23/17 [History] Losartan Potassium [Cozaar] 50 mg PO DAILY 05/23/17 [History] MOM Conc [MILK OF MAGNESIA conc] 30 ml PO DAILY PRN 05/23/17 [History] Mag Hydrox/Al Hydrox/Simeth [Antacid Suspension] 10 ml PO Q4H PRN 05/23/17 [ History] Oxygen 2 l NS AD PRN 05/23/17 [History] HYDROcodone/Acet 5/325 mg [[place] 5-325 mg] 1 tab PO Q4H PRN #20 tablet 05/25/17 [Rx] Morphine Sulfate [Morphine Oral Solution] 5 mg PO Q2H PRN #100 ml 05/25/17 [Rx] Gabapentin [Neurontin] 200 mg PO BID 06/04/17 [History] Omeprazole [PriLOSEC] 20 mg PO DAILY 06/04/17 [History] Vits A and D/White Pet/Lanolin [A and D Ointment] 1 appl TP BID 06/04/17 [ History] Warfarin [Coumadin] 5 mg PO HS 06/04/17 [History] 3 Allergy/AdvReac Type Severity Reaction Status Date / Time No Known Allergies Allergy Verified 05/29/17 08:54 All Systems Review: A 10-system review of systems was performed and is negative for pertinent findings except as documented above in the HPI. Exam Vital Signs, Last 4 Hours Temp Pulse Resp BP Pulse Ox 06/05/17 10:52 20 91 06/05/17 10:42 99.7 F H 78 16 109/57 91 General: Present: Other. Absent: Conversant, Well developed, Well nourished HEENT: Present: Trachea midline Neck: Absent: JVD, Left Carotid bruit, Right Carotid bruit, Tracheal deviation Cardiac: Present: Irregular Rhythm Lungs: Present: Decreased breath sounds Neuro: Present: Other (The patient is very somnolent. She does not speak spontaneously and does not respond to commands.) Abdomen: Present: Soft, Non-tender. Absent: Masses Vascular: Present: Pulse, absent (I do not palpate popliteal or pedal pulses bilaterally.), Pulse, diminished (Bilateral femoral pulses are diminished), Color/Temperature (The patient's right foot is cool to the touch and pale. She has gangrenous changes involving the entire right fifth toe and the base of the toe. There is some extension of this gangrenous change onto the lateral aspect of the right fourth toe. There are no blebs. There are no ulcerations proximally.), Other (No ulcerations are present on the left foot.). Absent: Amputation(s) Consult Discharge Plan - Plan Referrals: Joey Richards Jr, MD [Primary Care Provider] -
--- NOTE | 2017-06-05 12:59 | Podiatry Consult Note ---
Date of Encounter: 06/05/17 Time of Encounter: 12:30 Assessment and Plan (1) Toe necrosis Current visit: Yes Status: Acute Assessment: Ischemic insult and dry gangrene of toe #5 right foot Plan: Awaiting vascular recommendations - Patient will need vascular intervention if possible to restore blood flow to area- PHIL preliminary PHIL Bilateral; PHIL right .3 SEVERE Disease. No change in PHIL value since PHIL 05/30/17 PHIL left NON COMPRESSIBLE artery If bloodflow is able to be restored, we will follow with amputation of toe #5 of right foot and debridement of any further ischemic tissue Explained to patient- she is not receptive to plan or understanding of condition at this time Will continue to follow at this time Gangrene is dry- may apply dry dressing if desired otherwise just keep clean and dry and protected from injury Spoke with nurse about plan and to continue to reenforce this to patient . 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 Rico is a 72 year old female has been consulted to podiatry regarding and necrotic fifth toe of the right foot. She is a poor historian. States necrosis of toe began about one week ago however she was seen in podiatry clinic and evaluated per Dr. Traylor approximately 1 month ago at that time the toe was necrotic. it was discussed with her that she would need vascular intervention prior to any surgical procedure performed to toe. Patient states she has pain to toe rates pain 7 out of 10. Patient states she is inpatient at [facility]. Patient denies any known fevers or chills. Denies any shortness of breath or chest pain. Past medical history significant for COPD, diabetes, dialysis, peripheral artery disease, renal disease, thyroid disease Past Med Surg Social Fam HX - Past Medical History Medical history: arthritis, COPD, diabetes, dialysis, GERD, hyperlipidemia, hypertension, osteoporosis, peripheral artery disease, renal disease, thyroid disease Psychiatric history: anxiety, depression, other - Past Surgical History Surgical History: appendectomy, cholecystectomy, hip replacement, hysterectomy, orthopedic, other, ABIMAEL/BSO, other - Social History Smoking Status: Current every day smoker Smokeless Tobacco Status: No Alcohol use: none Drug use: none, prescription drug abuse, other - Family History Mother History Unknown: Yes Living Status: Hx Family Cardiac Disorders: Yes (Hypertension hyperlipidemia) Hx Family Endocrine Disorder: Yes (DMII) Father History Unknown: Yes Living Status: Hx Family Cardiac Disorders: Yes (Hypertension hyperlipidemia) Hx Family Cancer: Yes (Lung cancer) Hx Family Endocrine Disorder: Yes (Diabetes) Medications and Allergies Furosemide [Lasix] 80 mg PO BID 09/28/15 [History] Levothyroxine Sodium [Tirosint] 150 mcg PO 0630 09/28/15 [History] Clopidogrel [Plavix] 75 mg PO HS 09/29/15 [History] Modafinil [Provigil] 200 mg PO QAM 09/29/15 [History] Acetaminophen [Tylenol] 1,000 mg PO Q8HR PRN 12/05/15 [History] Cinacalcet [Sensipar] 30 mg PO DAILY 12/05/15 [History] Insulin LISPRO [HumaLOG] 2 - 12 unit SQ BID 12/05/15 [History] Ipratropium/Albuterol Neb [Duoneb] 3 ml IH Q4HR 05/02/16 [History] Metoprolol [Lopressor] 100 mg PO BID 07/25/16 [History] Fexofenadine HCl [Allergy Relief] 180 mg PO DAILY 11/26/16 [History] Insulin DETEMIR [Levemir] 5 unit SQ HS 11/26/16 [History] Sevelamer [Renvela] 800 mg PO TIDWM 11/26/16 [History] Budesonide Neb [Pulmicort Neb] 0.25 mg IH BIDR inhsol 11/28/16 [Rx] hydrALAZINE [HydrALAZINE] 75 mg PO Q8HR tablet 11/28/16 [Rx] Acetylcysteine [J-Vhjyau-x-Cysteine] 600 mg PO BID 01/13/17 [History] Folic Acid/Vit Bcomp,C [Renal-Darinel Tablet] 0.8 mg PO DAILY 01/13/17 [History] Alendronate Sodium [Fosamax] 70 mg PO TH 02/17/17 [History] Diltiazem HCl [Diltiazem ER] 180 mg PO DAILY 02/17/17 [History] Folic Acid 1 mg PO DAILY 02/17/17 [History] Guaifenesin [Mucus Relief] 400 mg PO BID 02/17/17 [History] Acetaminophen [Tylenol] 650 mg PO Q4H PRN 05/23/17 [History] Dextrose [Glucose Gel] 30 gm PO ONCE PRN 05/23/17 [History] Guaifenesin [Tussin] 200 mg PO Q4H PRN 05/23/17 [History] L. Acidophilus/Pectin, [place] [Acidophilus Capsule] 1 each PO DAILY 05/23/17 [ History] Loperamide HCl [Imodium A-D] 2 mg PO PER PKG DI PRN MDD 16 mg 05/23/17 [History] Losartan Potassium [Cozaar] 50 mg PO DAILY 05/23/17 [History] MOM Conc [MILK OF MAGNESIA conc] 30 ml PO DAILY PRN 05/23/17 [History] Mag Hydrox/Al Hydrox/Simeth [Antacid Suspension] 10 ml PO Q4H PRN 05/23/17 [ History] Oxygen 2 l NS AD PRN 05/23/17 [History] HYDROcodone/Acet 5/325 mg [[place] 5-325 mg] 1 tab PO Q4H PRN #20 tablet 05/25/17 [Rx] Morphine Sulfate [Morphine Oral Solution] 5 mg PO Q2H PRN #100 ml 05/25/17 [Rx] Gabapentin [Neurontin] 200 mg PO BID 06/04/17 [History] Omeprazole [PriLOSEC] 20 mg PO DAILY 06/04/17 [History] Vits A and D/White Pet/Lanolin [A and D Ointment] 1 appl TP BID 06/04/17 [ History] Warfarin [Coumadin] 5 mg PO HS 06/04/17 [History] 3 Allergy/AdvReac Type Severity Reaction Status Date / Time No Known Allergies Allergy Verified 05/29/17 08:54 All Systems Reviewed: A 10-system review of systems was performed and is negative for pertinent findings except as documented above in the HPI. Physical Exam - Constitutional Vitals: Temp Pulse Resp BP Pulse Ox 99.7 F H 78 20 109/57 91 06/05/17 10:42 06/05/17 10:42 06/05/17 10:52 06/05/17 10:42 06/05/17 10:52 Exam: General Examination: CONSTITUTIONAL: Alert, oriented, poor historian, anxious, EXTREMITIES: CFT sluggish, 5-6 seconds. Edema +0 and nonpalpable pedal pulses bilaterally. SKIN: Skin with decreased turgor, decreased subcutaneous tissue, skin thin and shiny with trophic changes associated with comorbidities as described in history.. NEUROLOGIC: Intact sensation to moderate touch Right foot: There is ichemic insult to toe #5 of right foot- dry gangrene which is extending down lateral border of right foot and into toe #4 of right foot. There is no noted drainage. Foul odor noted. Patient denies any pain. No warmth , edema or erythema noted. Left foot: There is a intact bulla consistent with small hematoma of the left foot toe #3- patient states she is unaware of any injury- does not appear necrotic or infected at this time however needs to be monitored closely due to patients known history of vascular compromise and poor healing. Results - Labs Result Diagrams: 06/05/17 04:30 06/05/17 04:30 Labs: Abnormal lab results WBC 16.5 K/mcL (4.3-11.1) H 06/05/17 04:30 RBC 3.11 M/mcL (3.82-4.97) L 06/05/17 04:30 Hgb 10.1 g/dL (11.5-15.4) L 06/05/17 04:30 Hct 32.4 % (35.3-44.9) L 06/05/17 04:30 MCV 104.2 fL (83.0-100.0) H 06/05/17 04:30 MCHC 31.2 g/dL (31.6-35.5) L 06/05/17 04:30 Neutrophils # 13.7 K/mcL (1.6-8.9) H 06/05/17 04:30 ESR >= 130 mm/hr (0-15) H 06/04/17 16:10 PT 19.4 Seconds (9.4-12.1) H 06/05/17 04:30 APTT 38.1 Seconds (26.0-36.0) H 06/04/17 16:04 Chloride 96 mEq/L (98-107) L 06/05/17 04:30 BUN 35 mg/dL (8-23) H 06/05/17 04:30 Creatinine 6.35 mg/dL (0.60-1.20) H 06/05/17 04:30 Est GFR ( Amer) 8 (> 60) L 06/05/17 04:30 Est GFR (Non-Af Amer) 6 (> 60) L 06/05/17 04:30 Glucose 202 mg/dL (70-105) H 06/05/17 04:30 POC Glucose 220 (58-89) H 06/05/17 11:32 AST 9 Units/L (13-39) L 06/04/17 16:04 ALT 6 Units/L (7-52) L 06/04/17 16:04 C-Reactive Protein 98 mg/L (Less than 10) H 06/04/17 16:10 Albumin 3.3 g/dL (3.5-5.7) L 06/04/17 16:04 Globulin 4.1 g/dL (2.4-3.5) H 06/04/17 16:04 Albumin/Globulin Ratio 0.8 (1.1-2.2) L 06/04/17 16:04 Nasal Screen MRSA (PCR) Positive (Negative) A 06/05/17 02:42 H & H 06/05/17 Range/Units 04:30 Hgb 10.1 L (11.5-15.4) g/dL Hct 32.4 L (35.3-44.9) % All other labs normal. Consult Discharge Plan - Plan Referrals: Joey Richards Jr, MD [Primary Care Provider] -
[2017-06-05] MEDS ORDERED: 0.9 % Sodium Chloride 250 ML IVC PRN (15:05)
[2017-06-05] MEDS ORDERED: 0.9 % Sodium Chloride 1,000 ML PRIME SCH (15:15)
--- NOTE | 2017-06-05 19:10 | Electrocardiograph Report ---
[address] [place] [address] Test Date: 2017-06-04 Pat Name: Lulu Rico Department: 103 Room: 2A Gender: F Drafter Detail: ODELL : 1945 Requested By: Bo Riley Order Number: [id number] Reading MD: Willie Garcias DO Measurements Intervals [place] Rate: 77 P: 61 FL: 140 QRS: 5 QRSD: 102 T: 130 QT: 387 QTc: 418 Interpretive Statements SINUS RHYTHM ST DEVIATION AND MODERATE T-WAVE ABNORMALITY, CONSIDER LATERAL ISCHEMIA [-0.1+ mV T WAVE IN I/aVL/V5/V6] Electronically Signed On 06-05-2017 19:08:35 EST by Willie Garcias DO
[2017-06-05] MEDS: Gabapentin 100 MG CAPSULE PO SCH (20:22)
[2017-06-06] MEDS: Ipratropium/Albuterol Neb 3 ML IH SCH ×7 (00:07→23:46)
[2017-06-06] MEDS: *HR* Acetylcysteine 20% 600 MG/3 ML ORAL SYRINGE PO SCH ×2 (00:25→13:08)
[2017-06-06] MEDS: Insulin LISPRO 300 UNITS/3 ML VIAL SQ SCH ×4 (00:26→18:24)
[2017-06-06] MEDS ORDERED: Vancomycin 500 MG in D5% in Water 100 ML IVPB ONE (04:00)
[2017-06-06] MEDS ORDERED: Vancomycin 500 MG in D5% in Water (Mini-Bag+) 100 ML IVPB ONE (04:00)
[2017-06-06 05:14] LABS: Basophils # 0.1 K/mcL (0.0-0.2); Basophils % 0.4 %; Eosinophils # 0.2 K/mcL (0.0-0.6); Eosinophils % 1.6 %; Immature Granulocytes % 0.5 % (0-4); Lymphocytes % 14.5 %; Mean Corpuscular Hemoglobin 31.7 pg (28.0-33.3); Mean Corpuscular Volume 105.6 fL (83.0-100.0); Mean Platelet Volume 10.8 fL (9.4-12.4); Monocytes # 1.3 K/mcL (0.0-1.3); Monocytes % 9.2 %; Neutrophils # 10.3 K/mcL (1.6-8.9); Platelet Count 290 K/mcL (140-400); Red Blood Count 2.84 M/mcL (3.82-4.97); Red Cell Distribution Width 14.5 % (11.5-14.5); Segmented Neutrophils % 73.8 %
[2017-06-06 05:19] LABS: INR 1.7
[2017-06-06 05:43] LABS: Calcium 8.7 mg/dL (8.6-10.3); Potassium 4.3 mEq/L (3.5-5.1)
[2017-06-06] MEDS: Piperacillin/Tazobactam 3.375 GM/200 ML BAG IVPB SCH ×2 (06:09→20:20)
[2017-06-06] MEDS: Budesonide Neb 0.25 MG/2 ML IH SCH ×2 (08:06→20:51)
[2017-06-06] MEDS ORDERED: VANCOMYCIN IVPB ONE (10:10)
[2017-06-06] MEDS ORDERED: WATER IVPB ONE (10:10)
[2017-06-06] MEDS ORDERED: D5 IVPB ONE (10:10)
--- NOTE | 2017-06-06 10:19 | Nephrology Progress Note ---
Date of Encounter: 06/06/17 Time of Encounter: 09:55 - Assessment and Plan (1) End stage renal disease on dialysis Current Visit: No Status: Chronic CT angio-Vascular surgery consult appreciated. No HD today, keeping MWF schedule (2) Peripheral arterial occlusive disease Current Visit: No Status: Acute Subjective Interval history: Sleeping, aroeses easily . Oriented to person and place and surrounding events. States pain in right leg, "comes and goes." Objective - Vital Signs Vital signs: Vital Signs Temp Pulse Resp BP Pulse Ox 06/06/17 08:06 16 100 06/06/17 07:17 98.7 F 80 16 92 06/06/17 03:52 18 99 06/06/17 03:51 98.2 F 85 16 96/48 99 06/06/17 00:08 16 90 06/05/17 23:49 99.4 F 83 16 102/54 93 06/05/17 20:07 16 91 06/05/17 18:00 97.8 F 16 141/76 06/05/17 17:45 121/80 06/05/17 17:30 103/63 06/05/17 17:15 96/65 06/05/17 17:00 118/57 06/05/17 16:45 129/105 06/05/17 16:30 106/45 06/05/17 16:15 107/60 06/05/17 16:00 118/47 06/05/17 15:45 92/30 06/05/17 15:30 104/31 06/05/17 15:15 111/43 06/05/17 15:00 97.2 F L 19 107/55 06/05/17 10:52 20 91 06/05/17 10:42 99.7 F H 78 16 109/57 91 Intake and Output 06/05/17 06/06/17 06/06/17 23:59 07:59 15:59 Intake Total 200 / 200 Output Total 1600 / 1600 Balance -1400 / -1400 Intake: IV Fluids 200 / 200 Zosyn Premix 3.375 GM/200 ML 3. 200 / 200 375 gm In 200 ml @ 50 mls/hr IVPB Q12HR GARY Rx#:[id number] Oral 0 / 0 Output: Urine 0 / 0 Total Dialysis (HD) Output 1600 / 1600 Other: Weight 55 kg Blood Glucose* 136 171 Hemodialysis Net Fluid Removed 1000 (mL) Patient Weight 06/06/17 23:59 Weight 55 kg - General Appearance General appearance: Present: chronically ill EENT: Present: mucous membranes moist Neck: Present: no JVD Respiratory: Present: clear Cardiology: Present: no edema, regular rate, regular rhythm Gastrointestinal: Present: normoactive bowel sounds, no tenderness Integumentary: Present: warm and dry Additional Comments: Right foot appears dusky with gangrenous 5th digit and surrounding area Psychiatric: Present: mood/affect appropriate, cooperative - Lab 06/06/17 04:26 06/06/17 04:26 Most recent lab results Calcium 8.7 mg/dL (8.6-10.3) 06/06/17 04:26 Phosphorus 4.4 mg/dL (2.7-4.5) 06/05/17 04:30 Magnesium 2.2 mg/dL (1.6-2.6) 06/05/17 04:30 Consult Discharge Plan - Plan Referrals: Joey Richards Jr, MD [Primary Care Provider] - (unable to get through to office at this time)
[2017-06-06] MEDS: Furosemide 40 MG TABLET PO SCH ×2 (13:07→18:24)
[2017-06-06] MEDS: Renal Vitamin 1 MG CAPSULE PO SCH (13:07)
[2017-06-06] MEDS: Lactobacillus 1 EACH CAP.SPRINK PO SCH (13:07)
[2017-06-06] MEDS: Folic Acid 1 MG TABLET PO SCH (13:07)
[2017-06-06] MEDS: Diltiazem CD (24hr) 180 MG CAPSULE PO SCH (13:08)
[2017-06-06] MEDS: *HR* Morphine 2 MG/ML SYRINGE IVP PRN ×2 (13:09→18:25)
--- NOTE | 2017-06-06 13:42 | Internal Med Progress Note ---
Date of Encounter: 06/06/17 Time of Encounter: 13:40 - Assessment and plan (1) Toe necrosis Current Visit: Yes Status: Acute Assessment and plan: Continue with broad-spectrum antibiotics. Continue thank on Zosyn. She been seen by vascular and podiatry/orthopedics. Plan for surgery is present. She is still nothing by mouth. If no plans for surgery will feed the patient. Continue with pain control. Will hold Coumadin. She is also on Plavix which is also held . (2) Hypothyroidism Current Visit: No Status: Chronic Assessment and plan: Continue with levothyroxine. Qualifiers: Hypothyroidism type: unspecified Qualified Code(s): E03.9 - Hypothyroidism , unspecified (3) End stage renal disease on dialysis Current Visit: No Status: Chronic Assessment and plan: Nephrology consulted. The patient is end-stage renal disease on dialysis. Dialysis to be resumed per schedule. Continue with Sensipar (4) PAF (paroxysmal atrial fibrillation) Current Visit: No Status: Chronic Assessment and plan: Rate controlled on metoprolol and Cardizem. Metoprolol is held. Anticoagulated with Coumadin but that is on hold. (5) COPD (chronic obstructive pulmonary disease) Current Visit: No Status: Chronic Assessment and plan: Not in exacerbation. She is on chronic O2. Continue with inhalers. Qualifiers: COPD type: COPD with acute lower respiratory infection Qualified Code(s): J44.0 - Chronic obstructive pulmonary disease with acute lower respiratory infection (6) Diabetes mellitus Current Visit: No Status: Chronic Assessment and plan: Continue with insulin sliding scale. Continue with Accu-Cheks. 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: with intermodal owner operator truck driver use Chronic kidney disease stage: on chronic dialysis Qualified Code(s): E11.22 - Type 2 diabetes mellitus with diabetic chronic kidney disease; N18.6 - End stage renal disease; N18.6 - End stage renal disease; N18.6 - End stage renal disease; N18.6 - End stage renal disease; Z79.4 - terminal makeup operator (current) use of insulin; Z79.4 - detention (current) use of insulin; Z79.4 - terminal makeup operator (current ) use of insulin; Z79.4 - terminal makeup operator (current) use of insulin; Z99.2 - Dependence on renal dialysis; Z99.2 - Dependence on renal dialysis; Z99.2 - Dependence on renal dialysis; Z99.2 - Dependence on renal dialysis (7) HTN (hypertension) Current Visit: No Status: Chronic Assessment and plan: Blood pressure is on the lower side again. Better than yesterday. Continue to hold metoprolol . Continue to hold hydralazine. continue losartan , Cardizem , and Lasix. Qualifiers: Hypertension type: essential hypertension Qualified Code(s): I10 - Essential (primary) hypertension (8) PVD (peripheral vascular disease) Current Visit: No Status: Acute Assessment and plan: Vascular surgery has been consulted. hold Plavix. (9) DVT prophylaxis Current Visit: No Status: Acute Assessment and plan: Patient is on Coumadin but that is on hold in anticipation of any surgeries. - Subjective Interval history: Patient was seen and examined. No acute events. The patient still being evaluated for possible left fifth toe amputation. She was dialyzed yesterday with no issues. She is much more awake this morning. She has been afebrile. - Constitutional Vitals: Temp Pulse Resp BP Pulse Ox 98.4 F 86 16 115/63 100 06/06/17 11:38 06/06/17 11:38 06/06/17 12:12 06/06/17 11:38 06/06/17 12:12 General appearance: Present: A&O X 3 Exam: GEN: NAD CVS: RRR. S1, S2, No m/r/g RESP: CTAB ABD: Soft, NT, ND, +BS EXT: venous stasis discoloration to lower extremities bilaterally with possible venous stasis ulcer to right anterior aspect of leg. Appears to be dry gangrene to right fifth digit-dark with some bloody drainage NEURO: Nonfocal Internal Medicine: Result - Labs CBC & Chem 7: 06/06/17 04:26 06/06/17 04:26 Labs: Short CBC 06/06/17 Range/Units 04:26 WBC 14.0 H (4.3-11.1) K/mcL Hgb 9.0 L (11.5-15.4) g/dL Hct 30.0 L (35.3-44.9) % Plt Count 290 (140-400) K/mcL Neutrophils # 10.3 H (1.6-8.9) K/mcL BMP 06/06/17 04:26 Sodium 139 Potassium 4.3 Chloride 96 L Carbon Dioxide 29 BUN 18 Creatinine 3.86 H Glucose 100 Calcium 8.7 - ABG Interpretation ABG results: PT/INR, D-dimer PT 18.0 Seconds (9.4-12.1) H 06/06/17 04:26 - Impressions Impressions Aorta w/Runoff CTA 06/05/17 12:46 IMPRESSION: 1. Markedly limited study as there is minimal to no opacification of the abdominal aorta, common and external iliac arteries, common femoral, superficial femoral and popliteal arteries bilaterally. There is opacification of the infrageniculate runoff with 3 vessel runoff to the left ankle and 2 vessel runoff to the right ankle as discussed above. I would recommend conventional arteriography for further evaluation. 2. Bilateral lower lobe atelectasis and/or infiltrates. 3. Acquired renal cystic disease. This most likely is due to underlying renal insufficiency. D/ / Brayan Larsen MD / Brayan Larsen MD Interpreting Provider: Brayan Larsen MD Consult Discharge Plan - Plan Referrals: Joey Richards Jr, MD [Primary Care Provider] - (unable to get through to office at this time)
[2017-06-06] MEDS ORDERED: Vancomycin 250 MG in D5% in Water 100 ML IVPB ONE (14:00)
[2017-06-06] MEDS ORDERED: hydrALAZINE 25 MG TABLET PO SCH (16:00)
--- NOTE | 2017-06-06 16:19 | Vascular/[facility] Progress Note ---
Date of Encounter: 06/06/17 Time of Encounter: 16:00 - Assessment and plan (1) Altered mental status Current Visit: Yes Status: Acute . Patient has mild confusion. She asked whether the angiogram is necessary. It was explained yet once again that in order to try to save the right lower extremity she will need some type of intervention and even then it is possible the limb may not be salvageable. The patient expresses a desire to be out of the hospital by [place]. Qualifiers: Altered mental status type: delirium Qualified Code(s): R41.0 - Disorientation, unspecified (2) Cachexia Current Visit: Yes Status: Chronic Patient demonstrates overall failure to thrive. She looks older than her stated age. She appears to be in ill health on a chronic basis with diffuse muscle wasting. 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 Noninvasive testing from May 30 indicates significant disease bilaterally area on my visit this morning I cannot obtain any history and so my data is obtained from previous records. She was initially planned to have an outpatient angiogram this upcoming Saturday. Due to her mental status and elevated white count and fever I would suggest that she had a CT angiogram of her aorta with bilateral lower extremity runoff today. My initial impression is that she is a poor candidate for intervention and may actually require limb amputation. I am awaiting family members to arrive to speak to them to clarify what the patient' s overall status is and to determine the level of aggressive intervention. Nevertheless we will continue with the evaluation with a CT angiogram at this time. We will continue to hold her Coumadin and Plavix in anticipation of possible intervention but the overall prognosis is poor. On examination on the right foot remains stable. This is a chronic process. We will attempt angiography tomorrow with endovascular intervention if at all anatomically possible. She may require more than one session in the antrum suite in order to try to alleviate some of her right lower extremity ischemia. We have requested dialysis to be performed first thing in the morning and anticipate the angiogram to be performed in the late morning or early afternoon. Should the patient require amputation she does have what I believe is an [place] jorge in the right femur for the essential entire length of the bone. Therefore she would most likely require a below the knee amputation if amputation becomes necessary. - Subjective Interval history: Patient complains of right foot pain. Vital Signs, Last 4 Hours Temp Pulse Resp BP Pulse Ox 06/06/17 16:10 98.5 F 97 16 146/70 100 06/06/17 16:00 16 93 - Physical Examination General: Present: Other (Cachectic appearing and ill-appearing elderly white female) HEENT: Present: Atraumatic, Trachea midline Neck: Absent: JVD Vascular: Present: Pulse, absent (No palpable popliteal or ankle pulses bilaterally) Skin: Present: Wound/ulcer(s) (Dry gangrene of right fifth toe and lateral aspect of right fourth toe. Right foot cooler than left.) Results 06/06/17 04:26 06/06/17 04:26 Lab Results, Last 24 hours 06/06/17 06/06/17 06/06/17 04:26 04:26 04:26 WBC 14.0 H Hgb 9.0 L Hct 30.0 L Plt Count 290 INR 1.7 Sodium 139 Potassium 4.3 Chloride 96 L Carbon Dioxide 29 BUN 18 Creatinine 3.86 H Glucose 100 Calcium 8.7 Consult Discharge Plan - Plan Referrals: Joey Richards Jr, MD [Primary Care Provider] - (unable to get through to office at this time)
[2017-06-06] MEDS: Gabapentin 100 MG CAPSULE PO SCH (20:23)
[2017-06-06] MEDS ORDERED: NON-FORMULARY MEDICATION 1 EACH EACH (Alendronate Sodium [Fosamax] 70 MG) PO SCH (21:59)
[2017-06-07] MEDS: *HR* Acetylcysteine 20% 600 MG/3 ML ORAL SYRINGE PO SCH ×2 (00:26→17:32)
[2017-06-07] MEDS: Insulin LISPRO 300 UNITS/3 ML VIAL SQ SCH ×4 (00:28→20:05)
[2017-06-07] MEDS ORDERED: Ondansetron 4 MG/2 ML VIAL IVP PRN (03:40)
[2017-06-07] MEDS ORDERED: Ondansetron 4 MG/2 ML VIAL IVP STA (03:40)
[2017-06-07] MEDS: Ipratropium/Albuterol Neb 3 ML IH SCH ×6 (03:43→23:56)
[2017-06-07 04:27] LABS: ABG Base Excess 3 mEq/L (-2 to 3); ABG HCO3 29 mEq/L (21-27); ABG Oxygen Saturation 91 % (95-98); ABG PCO2 48 mmHg (35-45); ABG PH 7.38 pH Units (7.32-7.45); ABG PO2 63 mmHg (85-104); ABG TCO2 30 mEq/L (20-26)
[2017-06-07 04:53] LABS: Calcium 8.5 mg/dL (8.6-10.3); Potassium 4.8 mEq/L (3.5-5.1)
[2017-06-07 05:04] LABS: Hematocrit 26.9 % (35.3-44.9); Hemoglobin 8.3 g/dL (11.5-15.4); Mean Corpuscular HGB Conc 30.9 g/dL (31.6-35.5); Mean Corpuscular Hemoglobin 32.7 pg (28.0-33.3); Mean Corpuscular Volume 105.9 fL (83.0-100.0); Mean Platelet Volume 11.2 fL (9.4-12.4); Platelet Count 233 K/mcL (140-400); Red Blood Count 2.54 M/mcL (3.82-4.97); Red Cell Distribution Width 14.5 % (11.5-14.5)
[2017-06-07] MEDS: Piperacillin/Tazobactam 3.375 GM/200 ML BAG IVPB SCH ×2 (05:38→19:15)
[2017-06-07 05:41] LABS: Vancomycin,Random 22.8 mcg/mL
[2017-06-07] MEDS: Heparin 25,000 UNIT/500 ML D5W 25,000 UNIT/500 ML BAG IVC SCH (06:00)
[2017-06-07] MEDS ORDERED: 0.9 % Sodium Chloride 250 ML IVC PRN (07:11)
--- NOTE | 2017-06-07 07:32 | Internal Med Progress Note ---
Date of Encounter: 06/07/17 Time of Encounter: 07:30 - Assessment and plan (1) Toe necrosis Current Visit: Yes Status: Acute Assessment and plan: Continue with broad-spectrum antibiotics. Continue on Zosyn and vancomycin. She been seen by vascular and podiatry/orthopedics. Plan for surgery/ angioplasty. Continue with pain control. Will hold Coumadin. She is also on Plavix which is also held. She was started on heparin overnight due to nausea vomiting with elevated troponins. (2) Elevated troponin Current Visit: No Status: Chronic Assessment and plan: The patient has 1 elevated 5.89. She has no chest pain. She has other reasons for her to have elevated troponins including end-stage renal disease as well as sepsis from toe necrosis. She has been started on heparin drip to continue that for now pending a repeat of her troches at 10 AM. She may need a consult to cardiology. I think we should hold any surgical plans for now developed this sorted out. Continue with O2 support. Chest x-ray showed some pulmonary edema. Dialysis today should help with that. She is also on Lasix. (3) Hypothyroidism Current Visit: No Status: Chronic Assessment and plan: Continue with levothyroxine. Qualifiers: Hypothyroidism type: unspecified Qualified Code(s): E03.9 - Hypothyroidism , unspecified (4) End stage renal disease on dialysis Current Visit: No Status: Chronic Assessment and plan: Nephrology consulted. The patient is end-stage renal disease on dialysis. Dialysis to be resumed per schedule. Continue with Sensipar (5) PAF (paroxysmal atrial fibrillation) Current Visit: No Status: Chronic Assessment and plan: Rate controlled on metoprolol and Cardizem. Should hold those today given the low blood pressure. Currently on heparin drip. Anticoagulated with Coumadin usually but that is on hold. (6) COPD (chronic obstructive pulmonary disease) Current Visit: No Status: Chronic Assessment and plan: Not in exacerbation. She is on chronic O2. Continue with inhalers. Qualifiers: COPD type: COPD with acute lower respiratory infection Qualified Code(s): J44.0 - Chronic obstructive pulmonary disease with acute lower respiratory infection (7) Diabetes mellitus Current Visit: No Status: Chronic Assessment and plan: Continue with insulin sliding scale. Continue with Accu-Cheks. Qualifiers: Diabetes mellitus type: type 2 Diabetes mellitus complication status: with kidney complications Diabetes mellitus complication detail: with chronic kidney disease Diabetes mellitus terminal gauger insulin use: with usp use Chronic kidney disease stage: on chronic dialysis Qualified Code(s): E11.22 - Type 2 diabetes mellitus with diabetic chronic kidney disease; N18.6 - End stage renal disease; Z99.2 - Dependence on renal dialysis; Z99.2 - Dependence on renal dialysis; Z99.2 - Dependence on renal dialysis; N18.6 - End stage renal disease; N18.6 - End stage renal disease; N18.6 - End stage renal disease ; Z79.4 - predatory animal exterminator (current) use of insulin; Z79.4 - skilled nursing (current) use of insulin; Z79.4 - predatory animal exterminator (current) use of insulin; Z79.4 - predatory animal exterminator ( current) use of insulin; Z99.2 - Dependence on renal dialysis (8) HTN (hypertension) Current Visit: No Status: Chronic Assessment and plan: Blood pressure is on the lower side again. Better than yesterday. Hold all antihypertensives. The patient is usually on metoprolol and hydralazine + Cardizem and Lasix. Qualifiers: Hypertension type: essential hypertension Qualified Code(s): I10 - Essential (primary) hypertension (9) PVD (peripheral vascular disease) Current Visit: No Status: Acute Assessment and plan: Vascular surgery has been consulted. hold Plavix. (10) DVT prophylaxis Current Visit: No Status: Acute Assessment and plan: On heparin drip - Subjective Interval history: Patient was seen and examined. She had a rough night. She started vomiting all of a sudden. She is requiring so much oxygen. Night hospitalist was informed and ordered some labs as well as a troponin that came back elevated at 0.89. EKG was not concerning for significant ischemic changes. She was started on a heparin drip. This morning she denies any chest pain. Pulmonary extension of her complaint of chest pain. Her blood pressure has been on the lower side. MAXIMUM TEMPERATURE 100.2 - Constitutional Vitals: Temp Pulse Resp BP Pulse Ox 100.2 F H 91 18 90/48 91 06/07/17 06:53 06/07/17 06:53 06/07/17 06:53 06/07/17 06:53 06/07/17 06:53 General appearance: Present: A&O X 3 Exam: GEN: NAD CVS: RRR. S1, S2, No m/r/g RESP: CTAB ABD: Soft, NT, ND, +BS EXT: venous stasis discoloration to lower extremities bilaterally with possible venous stasis ulcer to right anterior aspect of leg. Appears to be dry gangrene to right fifth digit-dark with some bloody drainage NEURO: Nonfocal Internal Medicine: Result - Labs CBC & Chem 7: 06/07/17 04:20 06/07/17 04:20 Labs: Short CBC 06/07/17 Range/Units 04:20 WBC 16.9 H (4.3-11.1) K/mcL Hgb 8.3 L (11.5-15.4) g/dL Hct 26.9 L (35.3-44.9) % Plt Count 233 (140-400) K/mcL BMP 06/07/17 04:20 Sodium 135 L Potassium 4.8 Chloride 94 L Carbon Dioxide 26 BUN 28 H Creatinine 5.45 H Glucose 163 H Calcium 8.5 L Cardiac Enzymes 06/07/17 Range/Units 04:20 Troponin I 0.86 H* (< 0.04) ng/mL - ABG Interpretation ABG results: ABG ABG pH 7.38 pH Units (7.32-7.45) 06/07/17 04:24 ABG pCO2 48 mmHg (35-45) H 06/07/17 04:24 ABG pO2 63 mmHg (85-104) L 06/07/17 04:24 ABG O2 Saturation 91 % (95-98) L 06/07/17 04:24 PT/INR, D-dimer PT 18.0 Seconds (9.4-12.1) H 06/06/17 04:26 - Impressions Impressions Chest X-Ray 06/07/17 03:40 IMPRESSION: Pulmonary edema. D/ / Zac Greco MD / Zac Greco MD Interpreting Provider: Zac Greco MD Consult Discharge Plan - Plan Referrals: Joey Richards Jr, MD [Primary Care Provider] - (unable to get through to office at this time)
--- NOTE | 2017-06-07 08:58 | Nephrology Progress Note ---
Date of Encounter: 06/07/17 Time of Encounter: 08:30 - Assessment and Plan (1) End stage renal disease on dialysis Current Visit: No Status: Chronic CT angio-Vascular surgery consult appreciated. HD today, keeping MWF schedule. Orders given. (2) Peripheral arterial occlusive disease Current Visit: No Status: Acute Subjective Interval history: Seen on HD. Alert. Nursing states surgery may be on hold due to possible aspiration with earlier emesis. Objective - Vital Signs Vital signs: Vital Signs Temp Pulse Resp BP Pulse Ox 06/07/17 06:53 100.2 F H 91 18 90/48 91 06/07/17 03:44 35 93 06/07/17 00:25 98.2 F 100 16 97/65 94 06/06/17 23:46 18 93 06/06/17 20:51 100 06/06/17 20:48 100.6 F H 104 18 103/33 100 06/06/17 16:10 98.5 F 97 16 146/70 100 06/06/17 16:00 16 93 06/06/17 12:12 16 100 06/06/17 11:38 98.4 F 86 16 115/63 93 Intake and Output 06/06/17 06/07/17 06/07/17 23:59 07:59 15:59 Intake Total 0 / 0 200 / 200 Balance 0 / 0 200 / 200 Intake: IV Fluids 200 / 200 Zosyn Premix 3.375 GM/200 ML 3. 200 / 200 375 gm In 200 ml @ 50 mls/hr IVPB Q12HR GARY Rx#:[id number] Oral 0 / 0 Other: Blood Glucose* 259 216 - General Appearance General appearance: Present: chronically ill EENT: Present: mucous membranes dry Neck: Present: no JVD Respiratory: Present: rhonchi Cardiology: Present: no edema, regular rate, regular rhythm Gastrointestinal: Present: normoactive bowel sounds, no tenderness Integumentary: Present: warm and dry Psychiatric: Present: mood/affect appropriate, cooperative - Lab 06/07/17 04:20 06/07/17 04:20 Most recent lab results ABG pH 7.38 pH Units (7.32-7.45) 06/07/17 04:24 ABG pCO2 48 mmHg (35-45) H 06/07/17 04:24 ABG pO2 63 mmHg (85-104) L 06/07/17 04:24 ABG HCO3 29 mEq/L (21-27) H 06/07/17 04:24 ABG O2 Saturation 91 % (95-98) L 06/07/17 04:24 Calcium 8.5 mg/dL (8.6-10.3) L 06/07/17 04:20 Phosphorus 4.4 mg/dL (2.7-4.5) 06/05/17 04:30 Magnesium 2.2 mg/dL (1.6-2.6) 06/05/17 04:30 Consult Discharge Plan - Plan Referrals: Joey Richards Jr, MD [Primary Care Provider] - (unable to get through to office at this time)
[2017-06-07] MEDS: Budesonide Neb 0.25 MG/2 ML IH SCH ×2 (11:11→22:49)
[2017-06-07] MEDS ORDERED: *HR* Heparin 10,000 UNIT/10 ML VIAL ONE (11:29)
[2017-06-07] MEDS ORDERED: 0.9 % Sodium Chloride 1,000 ML ONE ×2 (11:29→11:50)
[2017-06-07] MEDS ORDERED: *HR* Midazolam HCl 2 MG/2 ML VIAL ONE ×2 (11:48→12:28)
[2017-06-07] MEDS ORDERED: *HR* FentaNYL (PF) 100 MCG/2 ML VIAL ONE (11:48)
[2017-06-07] MEDS ORDERED: 0.9 % Sodium Chloride 2,000 ML ONE (12:44)
--- NOTE | 2017-06-07 13:42 | Procedure Note ---
Date of procedure: 06/07/17 Pre-op diagnosis: Gangrene of right fifth toe/PAD/ESRD Post-op diagnosis: same Procedure: Abdominal aortogram Aortogram with runoff Selective right lower extremity angiogram Attempted intervention of right superficial femoral artery chronic total occlusion- unable to be crossed with wire Right common iliac artery stent angioplasty with 6 x 37 mm balloon expandable stent Anesthesia: [facility] Surgeon: Sylvester Barone Condition: stable (Inflow is improved with right common iliac artery stent angioplasty. Outflow to right lower extremity is markedly diseased with right superficial femoral artery chronic total occlusion and multiple tibial artery disease. Ischemia of right foot remains and prognosis remains poor for the right lower extremity.)
--- NOTE | 2017-06-07 13:57 | Invasive Diagnostic Lab Proc ---
Name: Lulu Rico Date of Study: 06/07/2017 Date: 1945 Ht: 165.0 in Medical Record#: [id number] Age: 72 Wt: 55 lb Gender: Female BSA: 1.6 Order #: [id number] BMI: 20.2 Physicians Performing MD: Sylvester Barone MD, FACS Referring MD: Referring MD: Staff Name Position Time In Matteo Richard RT (R) Scrub Toña Richard RT (R) Monitor Benito Shell RN Log Sawyer Indications Peripheral Vasc Disease Procedures Performed AORTOGRAPHY, ABDOMINAL S&I AORTOGRAPHY EXT Bilat S&I FEM/POPL REVASC W/STENT Pre-Procedure Checklist Informed consent is complete signed and on chart. H&P is on chart. ID band is on and ID verified with patient. Patient NPO for procedure The procedure was described for the patient and questions were answered. Blood Pressure: 90/48 ECG is on chart. Plan of Care Patient will tolerate the procedure without complications. Adequate level of comfort will be maintained. Hemodynamics will remain stable Patient will recover from procedure without complications. Respiratory function will be maintained. Cardiac rhythm will remain stable. Patient temperature will be maintained. Patient and/or family have verbalized understanding of the procedure. Patient Education Chief Complaint/Reason for Test: Peripheral angiogram Developmental Category: Geriatric (65+ years) Learning Barriers: None Education Needs: Procedure Education Method: Verbal Information Taught: Peripheral angiogram Educational Evaluation: Able to repeat information Intravenous Access Time IV Size Location DC'd Fluid/Drip Rate Units RN 20g 1 /" Patent On Arrival Lt Arm 0.9NaCl 25 ml/hr Allergies No Known Allergies Vital Signs Time BP Systolic BP Diastolic HR O2 Sats ASA 90 48 91 92 11:50 AM 11:50 AM 12:07 PM 12:07 PM 12:23 PM 12:38 PM 12:53 PM 01:08 PM 01:23 PM 11:47 AM 116 40 11:52 AM 104 67 125 86 11:57 AM 112 45 105 85 12:02 PM 125 41 108 91 12:07 PM 114 74 129 91 12:12 PM 109 62 140 94 12:18 PM 119 32 102 95 12:30 PM 121 49 146 95 12:34 PM 137 99 142 98 12:40 PM 147 59 137 94 01:35 PM 99 68 96 88 01:39 PM 94 59 98 90 12:45 PM 132 108 129 96 12:51 PM 128 29 135 90 12:54 PM 142 117 139 95 01:01 PM 122 48 126 94 01:08 PM 135 115 95 92 01:15 PM 74 55 98 91 01:20 PM 139 45 98 91 01:23 PM 107 70 100 91 01:30 PM 167 132 97 89 01:34 PM 88 55 96 88 Procedure Medications Time Medication Dose Units Method Route 11:50 AM Oxygen 2 L/min nasal cannula 11:50 AM Versed 1 mg Intravenous 11:50 AM Fentanyl 25 mcg Intravenous 11:56 AM Benadryl 25 mg Intravenous 11:57 AM Lidocaine 2% 10 ml Subcutaneous 12:06 PM Versed 1 mg Intravenous 12:06 PM Fentanyl 25 mcg Intravenous 12:27 PM Versed 1 mg Intravenous 12:41 PM Fentanyl 25 mcg Intravenous 12:46 PM Versed 1 mg Intravenous 01:18 PM Heparin 4000 units Intravenous 01:40 PM Plavix 75 mg Orally ASA Classification: CLASS IV- Severe systemic that is constant threat to patient's life Lupis Score Preprocedure Postprocedure Activity 2- Moves 4 extremities sustained head lift Activity Circulation 2- SBP +/= 20 points of pre-anesthetic level Circulation Consciousness 2- Awake and alert oriented x 3 Consciousness O2 Saturation 2- Able to maintain O2 satruation of 92% on room air O2 Saturation Respiratory 2- Able to deep breathe and cough well Respiratory Total Score 10 Total Score Contrast: Isovue 300- 150ml Contrast Amount: 78 ml Fluoro Dose: 578 mGy Activated Clotting Time Time Drawn ACT (sec) 01:43 PM 339 Procedure Log Time Note Entered By 11:40 AM 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 twilson 11:40 AM Procedure start 11:40 twilson 11:40 AM Matteo Richard RT (R) Position: Scrub Time in: 11:40 twilson 11:40 AM Toña Richard RT (R) Position: Monitor Time in: 11:40 twilson 11:40 AM Benito Shell RN Position: Log Sawyer Time in: 11:40 twilson 11:50 AM Case delayed: NO twilson 11:50 AM Hair removed from procedure site in procedure lab using clippers. Bilateral groin prepped with Chloraprep by Toña Richard (R), safety strap applied then patient was draped. Skin intact. twilson 11:50 AM 11:50 Oxygen at 2 L/min per nasal cannula by Benito Shell RN twilson 11:50 AM Time: 11:50 Is patient comfortable and pain free?: Yes twilson 11:50 AM Time: 11:50LOC: 5 = Fully awake and oriented or at pre-proc level twilson 11:50 AM 11:50 Versed 1 mg Intravenous Given by Benito Shell RN twilson 11:51 AM 11:50 Fentanyl 25 mcg Intravenous Given by Benito Shell RN twilson 11:51 AM Patient charges- Angio tray pack, Pulse Oximetry and ACIST tubing and transducer twilson 11:56 AM ASA Class CLASS IV- Severe systemic that is constant threat to patient's life twilson 11:56 AM 11:56 Benadryl 25 mg Intravenous Given by Benito Shell RN twilson 11:57 AM Time out perfomed twilson 11:57 AM 11:57 10 ml Lidocaine 2% to left groin Subcutaneous Given By Sylvester Barone MD, FACS twilson 11:59 AM Access obtained in the left femoral artery by percutaneous puncture. 4 Fr. 10 cm Terumo Lagrange sheath placed in left femoral artery twilson 11:59 AM 0.035 145cm J-wire wire utilized to assist with catheter placement twilson 12:00 PM Wire removed twilson 12:00 PM 3ml contrast hand injection by Dr. Barone. twilson 12:00 PM Abdominal aorta angiography performed in AP contrast injected 10/20 mls. twilson 12:01 PM Repositioning catheter. twilson 12:01 PM Setting up for stepping twilson 12:05 PM Time: 11:50LOC: 4 = Oriented but drowsy twilson 12:05 PM Time: 11:50 Is patient comfortable and pain free?: Yes twilson 12:06 PM 12:06 Versed 1 mg Intravenous Given by Benito Shell RN twilson 12:06 PM 12:06 Fentanyl 25 mcg Intravenous Given by Benito Shell RN twilson 12:07 PM Time: 12:07 Is patient comfortable and pain free?: Yes [email or web address] 12:07 PM Time: 12:07LOC: 4 = Oriented but drowsy [email or web address] 12:09 PM Abdominal angiogram with runoff completed: 5 ml/sec for a total of 50 mls [email or web address] 12:14 PM wire inserted kkallner 12:16 PM omni flush repositioned into Right Iliac kkallner 12:15 PM wire removed kkallner 12:15 PM 0.035 260cm [place]-angled wire utilized to assist with catheter placement kkallner 12:17 PM wire removed kkallner 12:20 PM Isovue 300- 150ml contrast 4 ml given by Sylvester Barone MD, FACS kkallner 12:20 PM Isovue 300- 150ml contrast 4 ml given by Sylvester Barone MD, FACS kkallner 12:20 PM glidewire reinserted kkallner 12:22 PM Time: 12:07 Is patient comfortable and pain free?: Yes kkner 12:23 PM Time: 12:07LOC: 4 = Oriented but drowsy kkallner 12:23 PM Catheter removed kkner 12:23 PM 4Fr 100cm Glidecath Angled-Taper guide catheter inserted kkner 12:27 PM 12:27 Versed 1 mg Intravenous Given by Benito Shell RN kkallner 12:27 PM glidewire removed kkallner 12:27 PM Isovue 300- 150ml contrast 2 ml given by Sylvester Barone MD, FACS kkallner 12:28 PM glide wire reinserted kkallner 12:36 PM glide wire removed kkner 12:36 PM Jwire reinserted kkallner 12:37 PM glide catheter removed kkner 12:37 PM omni flush reinserted kkallner 12:37 PM Time: 12:22 Is patient comfortable and pain free?: Yes kkner 12:38 PM Time: 12:23LOC: 4 = Oriented but drowsy kkallner 12:39 PM Diagram Region: Lower Extremity Arteries Anatomical Region: [id number]% ALL PURPOSE CLERK Lesion in Right Superficial Femoral Intervention done: 0 (1=yes, 0=no) [email or web address] 12:39 PM Diagram Region: Lower Extremity Arteries Anatomical Region: [id number]% Lesion in Right Common Iliac Intervention done: 1 (1=yes, 0=no) [email or web address] 12:39 PM Jwire removed kkallner 12:39 PM glidewire reinserted kkallner 12:40 PM glidewire removed kkallner 12:40 PM Jwire reinserted kkallner 12:41 PM 12:41 Fentanyl 25 mcg Intravenous Given by Benito Shell RN kkallner 12:42 PM omni flush catheter removed kkallner 12:42 PM Sheath exchanged for a 6 Fr 45 cm Terumo Destination sheath inserted into left femoral artery kkallner 12:44 PM [place] cath reinserted kkallner 12:46 PM glide cath removed kkallner 12:46 PM 4Fr 65cm Glidecath Non-Taper Angle guide catheter inserted kkallner 12:46 PM 12:46 Versed 1 mg Intravenous Given by Benito Shell RN kkallner 12:47 PM wire removed kkallner 12:48 PM 0.035 Amplatz Super Stiff 260cm guidewire advanced. [email or web address] 12:49 PM wire removed kkallner 12:50 PM [place] wire 260cm reinserted kkallner 12:52 PM short glidecath removed kkallner 12:52 PM long glidecath reinserted kkallner 12:52 PM Time: 12:37 Is patient comfortable and pain free?: Yes [email or web address] 12:53 PM Time: 12:38LOC: 4 = Oriented but drowsy kkallner 12:59 PM glide cath removed kkallner 12:59 PM 5Fr 135cm [place] guide catheter advanced kkallner 01:06 PM wire removed kkallner 01:06 PM 0.014 Victory 14, 30 gram 300cm guidewire advanced. [email or web address] 01:07 PM victory wire removed kkallner 01:07 PM glide wire reinserted kkallner 01:08 PM Time: 12:53LOC: 4 = Oriented but drowsy kkallner 01:10 PM glide wire removed kkallner 01:11 PM victory wire reinserted kkallner 01:12 PM wire removed kkallner 01:13 PM amplatz wire reinserted kkallner 01:14 PM rubicon removed kkallner 01:18 PM 13:18 Heparin 4000 units Intravenous by Benito Shell RN kkallner 01:19 PM 6 mm x 37 mm Express Biliary SD stent placed in right common iliac artery Lot # [id number] kkallner 01:23 PM Time: 13:07 Is patient comfortable and pain free?: Yes [email or web address] :23 PM Time: 13:08LOC: 4 = Oriented but drowsy kkallner :23 PM Stent deployed @ 12 carisa for 60 seconds kkallner :24 PM Stent delivery system removed intact [email or web address] 01:24 PM Isovue 300- 150ml contrast 4 ml given by Sylvester Barone MD, FACS kkallner :26 PM 7 mm x 40 mm Tax [employer]ist balloon catheter placed into right common iliac kkallner :28 PM Balloon removed intact kkallner :29 PM 7 x 40 balloon reinserted into right illiac inside the stent kkallner :30 PM Balloon inflated @ 12 carisa for 60 seconds kkallner :33 PM Balloon removed intact kkallner :35 PM wire removed kkallner :35 PM Procedure completed at 13:35 [email or web address] 01:36 PM Sign Out completed: Radiation Dose 578.25 mGy Fluoro Time: 27.3 minutes. Isovue 300- 150ml contrast 78 ml given by Sylvester Barone MD, FACS. Complications: None. Confirmed administered medications:Yes kkallner 01:37 PM Isovue 300- 150ml,1 bottle(s) used. 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 kkallner 01:37 PM Education needs: Procedure, Plan of Care, and Disease Process kkallner 01:37 PM Learning barriers: None kkallner 01:37 PM Education methods: Verbal kkallner 01:38 PM Education evaluation: Needs further instruction kkallner :38 PM Time: 13:23 Is patient comfortable and pain free?: Yes kkallner :38 PM Site status No bleeding/hematoma - Lt Groin as reported by Toña Richard RT (R) at 13:38 [email or web address] 01:38 PM Opsite applied kkallner :38 PM Delay to floor: No kkallner :38 PM Time: 13:23LOC: 5 = Fully awake and oriented or at pre-proc level 39 PM no family 39 PM Complications: None 39 PM Fluoro Time: 27.3 minutes PM Isovue 300- 150ml contrast 78 ml given by Sylvester Barone MD, FACS :39 PM Radiation Dose 578.25 mGy :40 PM Time: 13:40 Plavix 75 mg Orally Given by Benito Shell RN :41 PM 13:41 Post Pulses: Bilateral DP & PT Doppler. 11:39 AM PVIStat 11:41 AM [ Start or Stop Vital ] 11:46 AM NIBP STAT measurement started. 11:47 AM HJUY=942/40 mmhg 11:51 AM Vitals capture started with the following parameters, Patient=Adult, Interval=5 min, Initial Kgasmahh=877 mmHg, Deflation Rate=5 mmHg, Cuff placed on Left Arm 11:52 AM ZE=600 bpm, MLAV=900/67 mmhg, SpO2=86.0 %, Resp=11 B/min 11:56 AM Pressure channel 1 zeroed. 11:57 AM WA=028 bpm, DWEJ=286/45 mmhg, SpO2=85.0 %, Resp=13 B/min 12:00 PM Recorded Pressure: Ao, WW=209, Condition=Condition 1 (Aorta) Ao 93/34/57 12:02 PM MJ=552 bpm, MAHK=205/41 mmhg, SpO2=91.0 %, Resp=11 B/min 12:07 PM KV=930 bpm, WXVH=711/74 mmhg, SpO2=91.0 %, Resp=15 B/min 12:12 PM TQ=876 bpm, HAVF=578/62 mmhg, SpO2=94.0 %, Resp=16 B/min 12:18 PM UP=512 bpm, JTLA=442/32 mmhg, SpO2=95.0 %, Resp=16 B/min 12:23 PM Vitals capture stopped. 12:24 PM Vitals capture started with the following parameters, Patient=Adult, Interval=5 min, Initial Ppktktsl=541 mmHg, Deflation Rate=5 mmHg, Cuff placed on Left Arm 12:26 PM Vitals capture stopped. 12:29 PM Vitals capture started with the following parameters, Patient=Adult, Interval=5 min, Initial Tjgbogib=168 mmHg, Deflation Rate=5 mmHg, Cuff placed on Left Arm 12:30 PM YJ=697 bpm, LHJK=364/49 mmhg, SpO2=95 %, Resp=12 B/min 12:34 PM FW=919 bpm, GHBO=682/99 mmhg, SpO2=98 %, Resp=19 B/min 12:40 PM VW=765 bpm, GWQA=230/59 mmhg, SpO2=94 %, Resp=18 B/min 12:45 PM EG=904 bpm, ZMYE=235/108 mmhg, SpO2=96 %, Resp=26 B/min 12:51 PM WI=417 bpm, CCKO=347/29 mmhg, SpO2=90.0 %, Resp=19 B/min 01:34 PM Vitals capture stopped. 01:34 PM Vitals capture started with the following parameters, Patient=Adult, Interval=5 min, Initial Kfvuvptf=786 mmHg, Deflation Rate=5 mmHg, Cuff placed on Left Arm 01:35 PM HR=96 bpm, NIBP=99/68 mmhg, SpO2=88.0 %, Resp=13 B/min 01:39 PM HR=98 bpm, NIBP=94/59 mmhg, SpO2=90.0 %, Resp=17 B/min 12:54 PM CM=086 bpm, GRLX=472/117 mmhg, SpO2=95.0 %, Resp=22 B/min 01:01 PM FM=437 bpm, DZLG=298/48 mmhg, SpO2=94 %, Resp=15 B/min 01:06 PM Vitals capture stopped. 01:08 PM Vitals capture started with the following parameters, Patient=Adult, Interval=5 min, Initial Svjvfddp=353 mmHg, Deflation Rate=5 mmHg, Cuff placed on Left Arm 01:08 PM HR=95 bpm, DWXD=889/115 mmhg, SpO2=92.0 %, Resp=13 B/min 01:15 PM HR=98 bpm, NIBP=74/55 mmhg, SpO2=91.0 %, Resp=11 B/min 01:20 PM HR=98 bpm, APBS=004/45 mmhg, SpO2=91 %, Resp=9 B/min 01:23 PM PL=146 bpm, VDKM=824/70 mmhg, SpO2=91 %, Resp=8 B/min 01:30 PM HR=97 bpm, GPWY=882/132 mmhg, SpO2=89.0 %, Resp=15 B/min 01:34 PM HR=96 bpm, NIBP=88/55 mmhg, SpO2=88.0 %, Resp=13 B/min 01:43 PM act 339 [email or web address] 01:46 PM Report given to sanjeev MARCELINO. Pt taken to , Room # 4 13:46 [email or web address] 01:49 PM Patient out of room 13:49 [email or web address] 01:49 PM Pt taken to Room# 4 [email or web address] Hemodynamic Results Site Systolic Diastolic Mean Location Timing Ao 93 34 57 Peripheral Anatomy Vessel Pathology Lesion Stenosis Aneurysm Diameter Thrombus Type Right Superficial Femoral Lesion 100 Right Common Iliac Lesion 80 Post Procedure Information Blood Pressure: 99/68 mmHg Rhythm: NSR Post procedure instructions given Report Given To: Kathleen Feliz Checks Time Location Status Staff Sheath In? Note 1:38:00 PM Lt Groin No bleeding/ No Hematoma Toña Richard RT (R) Pulses Time Site Pre Procedure Post Procedure Note Bilateral DP & PT Doppler 1:41:00 PM Bilateral DP & PT Doppler Updated by Morelia Layton, RT (R) on 06/07/2017 1:50:01 PM electronically signed on 06/07/2017 1:50:41 PM with status of Final
--- NOTE | 2017-06-07 15:09 | Cardiology Consult Note ---
<Leonor Hart - Last Filed: 06/07/17 15:31> Date of Encounter: 06/07/17 Time of Encounter: 14:45 Assessment and Plan (1) Altered mental status Current Visit: Yes Status: Acute Per cardiology: -Patient confused. -Unable to state person, place, or time. -Unknown chronicity, no family at bedside. -Management per primary service. Qualifiers: Altered mental status type: unspecified Qualified Code(s): R41.82 - Altered mental status, unspecified (2) Toe necrosis Current Visit: Yes Status: Acute Per cardiology: -Necrotic toe noted. -Being followed by vascular surgery. -Mangement per primary and vascular surgery services. (3) Elevated troponin Current Visit: No Status: Acute Per cardiology: -Troponin 0.86, 3.21. Troponins elevated after hypoxic event in the setting of ESRD, sepsis, anemia, toe necrosis. -Denies chest pain, however confused. -ECG with no acute changes. -PRevious TTE 08/2016 with LVEF 60%, no segmental wall motion abnormalities. -2011 stress positive for ischemia. -Patient has historically declined LHC. -On plavix, and beta abbey. -Was on heparin drip, now off after vascular procedure. -Will start asa and statin. -Will check limited TTE. -Pending TTE results will discuss with patient and family regarding recommendations. -Recommend restarting heparin drip once ok with , will call . (4) ESRD (end stage renal disease) Current Visit: No Status: Chronic Per cardiology: -Known ESRD. -ON HD. -Management per primary and nephrology services. (5) PAF (paroxysmal atrial fibrillation) Current Visit: No Status: Chronic Per cardiology: -KNown PAF. -ON beta abbey. -Currently SR. -HR controlled. -Was on coumadin for anticoagulation, however has been held due to need for procedures.' -Will continue to monitor. Discussion w patient/family: The assessment and plan as outlined above was discussed with the patient. All questions were answered. Thank you for involving us in the care of your patient. Please call with any questions. Discussed and reviewed with . History of Present Illness Consult date: 06/07/17 Requesting physician: Tom Johnson Consult reason: elevated troponin Chief complaint: foot pain History of present illness: Ms. Trisha is a 72 year old female with a significant past medical history of ESRD on HD, HTN, PVD, COPD, and PAF on coumadin. Patient presented to [facility] with complaints of foot pain. Received a phone call from hospitalist requesting cardiology consult for elevated troponins. Per hospitalist conversation, patient had episode of hypoxia last night and troponins were drawn. Patient is s /p peripheral angiogram today. At time of assessment, patient confused. Patient unable to state name and birthday, time, or place. Patient did deny chest pain. Past Med Surg Social Fam HX - Past Medical History Attestation: Yes The following information was validated with the patient. Source: patient, old records reviewed Medical history: arthritis, COPD, diabetes, dialysis, GERD, hyperlipidemia, hypertension, osteoporosis, peripheral artery disease, renal disease, thyroid disease Psychiatric history: anxiety, depression, other - Past Surgical History Surgical History: appendectomy, cholecystectomy, hip replacement, hysterectomy, orthopedic, other, ABIMAEL/BSO, other - Social History Smoking Status: Current every day smoker Smokeless Tobacco Status: No Alcohol use: none Drug use: none, prescription drug abuse, other - Family History Mother History Unknown: Yes Living Status: Hx Family Cardiac Disorders: Yes (Hypertension hyperlipidemia) Hx Family Endocrine Disorder: Yes (DMII) Father History Unknown: Yes Living Status: Hx Family Cardiac Disorders: Yes (Hypertension hyperlipidemia) Hx Family Cancer: Yes (Lung cancer) Hx Family Endocrine Disorder: Yes (Diabetes) Medications and Allergies Furosemide [Lasix] 80 mg PO BID 09/28/15 [History] Levothyroxine Sodium [Tirosint] 150 mcg PO 0630 09/28/15 [History] Clopidogrel [Plavix] 75 mg PO HS 09/29/15 [History] Modafinil [Provigil] 200 mg PO QAM 09/29/15 [History] Acetaminophen [Tylenol] 1,000 mg PO Q8HR PRN 12/05/15 [History] Cinacalcet [Sensipar] 30 mg PO DAILY 12/05/15 [History] Insulin LISPRO [HumaLOG] 2 - 12 unit SQ BID 12/05/15 [History] Ipratropium/Albuterol Neb [Duoneb] 3 ml IH Q4HR 05/02/16 [History] Metoprolol [Lopressor] 100 mg PO BID 07/25/16 [History] Fexofenadine HCl [Allergy Relief] 180 mg PO DAILY 11/26/16 [History] Insulin DETEMIR [Levemir] 5 unit SQ HS 11/26/16 [History] Sevelamer [Renvela] 800 mg PO TIDWM 11/26/16 [History] Budesonide Neb [Pulmicort Neb] 0.25 mg IH BIDR inhsol 11/28/16 [Rx] hydrALAZINE [HydrALAZINE] 75 mg PO Q8HR tablet 11/28/16 [Rx] Acetylcysteine [Y-Likpsi-l-Cysteine] 600 mg PO BID 01/13/17 [History] Folic Acid/Vit Bcomp,C [Renal-Darinel Tablet] 0.8 mg PO DAILY 01/13/17 [History] Alendronate Sodium [Fosamax] 70 mg PO TH 02/17/17 [History] Diltiazem HCl [Diltiazem ER] 180 mg PO DAILY 02/17/17 [History] Folic Acid 1 mg PO DAILY 02/17/17 [History] Guaifenesin [Mucus Relief] 400 mg PO BID 02/17/17 [History] Acetaminophen [Tylenol] 650 mg PO Q4H PRN 05/23/17 [History] Dextrose [Glucose Gel] 30 gm PO ONCE PRN 05/23/17 [History] Guaifenesin [Tussin] 200 mg PO Q4H PRN 05/23/17 [History] L. Acidophilus/Pectin, Double [place] [Acidophilus Capsule] 1 each PO DAILY 05/23/17 [ History] Loperamide HCl [Imodium A-D] 2 mg PO PER PKG DI PRN MDD 16 mg 05/23/17 [History] Losartan Potassium [Cozaar] 50 mg PO DAILY 05/23/17 [History] MOM Conc [MILK OF MAGNESIA conc] 30 ml PO DAILY PRN 05/23/17 [History] Mag Hydrox/Al Hydrox/Simeth [Antacid Suspension] 10 ml PO Q4H PRN 05/23/17 [ History] Oxygen 2 l NS AD PRN 05/23/17 [History] HYDROcodone/Acet 5/325 mg [Adams 5-325 mg] 1 tab PO Q4H PRN #20 tablet 05/25/17 [Rx] Morphine Sulfate [Morphine Oral Solution] 5 mg PO Q2H PRN #100 ml 05/25/17 [Rx] Gabapentin [Neurontin] 200 mg PO BID 06/04/17 [History] Omeprazole [PriLOSEC] 20 mg PO DAILY 06/04/17 [History] Vits A and D/White Pet/Lanolin [A and D Ointment] 1 appl TP BID 06/04/17 [ History] Warfarin [Coumadin] 5 mg PO HS 06/04/17 [History] 3 Allergy/AdvReac Type Severity Reaction Status Date / Time No Known Allergies Allergy Verified 05/29/17 08:54 All Systems Review: A 10-system review of systems was performed and is negative for pertinent findings except as documented above in the HPI. - Cardiovascular Cardiovascular: as per HPI Physical Examination Vital Signs, Last 4 Hours Temp Pulse Resp BP Pulse Ox 06/07/17 14:15 99.4 F 97 16 126/49 100 06/07/17 11:11 18 126/49 93 General: Other (Consfused. ) HEENT: Atraumatic, Normocephaly, Mucus Membranes Moist Neck: No JVD, Normal carotid pulses Cardiac: Reg Rate and Rhythm, Normal S1 and S2, No Murmur Lungs: Normal Breath Sounds, No Wheeze, Rales, Rhonchi Neuro: Other (Confused. ) Abdomen: Soft, Non-Tender Skin: No rashes noted on visualized skin Musculoskeletal: No Chest Wall Tenderness Extremities: No Clubbing, No Edema, Other (Bilateral lower extremities discolored. No pulses palpable. ) Results 06/07/17 04:20 06/07/17 04:20 Lab Results Impressions Chest X-Ray 06/07/17 03:40 IMPRESSION: Pulmonary edema. D/ / Zac Greco MD / Zac Greco MD Interpreting Provider: Zac Greco MD Active Medications Acetaminophen (Tylenol) 650 mg PO Q6HR PRN PRN Reason: Mild Pain (1-3) Stop: 12/04/17 21:50 Last Admin: 06/07/17 03:09 Dose: 650 mg Acetylcysteine (Acetylcysteine 20%) 600 mg PO BID GARY Stop: 12/05/17 09:01 Last Admin: 06/07/17 00:26 Dose: Not Given Albuterol/Ipratropium (Duoneb) 3 ml IH [id number] GARY Stop: 12/05/17 00:01 Last Admin: 06/07/17 11:11 Dose: 3 ml Budesonide (Pulmicort Neb) 0.25 mg IH BIDR GARY Stop: 12/04/17 22:01 Last Admin: 06/07/17 11:11 Dose: 0.25 mg Cinacalcet (Sensipar) 30 mg PO DAILY GARY Stop: 12/05/17 09:01 Last Admin: 06/06/17 13:07 Dose: 30 mg Clopidogrel Bisulfate (Plavix) 75 mg PO HS [facility] Stop: 12/05/17 21:01 Last Admin: 06/05/17 20:22 Dose: 75 mg Dextrose/Water (Dextrose 50% (Syg)) 25 ml IVP AD PRN PRN Reason: Hypoglycemia Stop: 12/04/17 22:49 Diltiazem HCl (Cardizem Cd) 180 mg PO DAILY GARY Stop: 12/05/17 09:01 Last Admin: 06/06/17 13:08 Dose: 180 mg Folic Acid (Folic Acid) 1 mg PO DAILY [facility] Stop: 12/05/17 09:01 Last Admin: 06/06/17 13:07 Dose: 1 mg Furosemide (Lasix) 80 mg PO BIDDIURETIC GARY Stop: 12/05/17 08:01 Last Admin: 06/06/17 18:24 Dose: 80 mg Gabapentin (Neurontin) 200 mg PO HS GARY Stop: 12/05/17 21:01 Last Admin: 06/06/17 20:23 Dose: 200 mg Glucagon (Glucagen) 1 mg IM ONCE PRN PRN Reason: Hypoglycemia Stop: 12/04/17 22:49 Glucose (Gluctose) 15 gm PO ONCE PRN PRN Reason: Hypoglycemia Stop: 12/04/17 22:49 Glucose (Gluctose) 30 gm PO ONCE PRN PRN Reason: Hypoglycemia Stop: 12/04/17 22:49 Guaifenesin (Mucinex) 600 mg PO BID GARY Stop: 12/05/17 21:01 Last Admin: 12/21/17 20:22 Dose: 600 mg Hydralazine HCl (Hydralazine) 75 mg PO Q8HR GARY Stop: 12/06/17 16:01 Piperacillin Sod/Tazobactam Sod (Zosyn Premix 3.375 Gm/200 Ml) 3.375 gm in 200 mls @ 50 mls/hr IVPB Q12HR GARY Stop: 12/05/17 06:01 Last Admin: 06/07/17 05:38 Dose: 50 mls/hr Dextrose (Dextrose 5%) 1,000 mls @ 100 mls/hr IVC .Q10H PRN PRN Reason: HYPOGLYCEMIA Stop: 12/04/17 22:49 Sodium Chloride (0.9 % Sodium Chloride) 1,000 mls @ 0 mls/hr PRIME .Q0M GARY PRN Reason: As Directed Stop: 12/05/17 15:16 Heparin Sodium/Dextrose (Heparin 25,000 Unit/500 Ml D5w) 25,000 unit in 500 mls @ 15.4 mls/hr IVC .Q24H GARY; 14 UNIT/KG/HR PRN Reason: Protocol Stop: 12/07/17 05:16 Last Admin: 06/07/17 06:00 Dose: 14 unit/kg/hr, 15.4 mls/hr Sodium Chloride (0.9 % Sodium Chloride) 250 mls @ 937.5 mls/hr IVC .Q16M PRN PRN Reason: Hypotension Stop: 12/07/17 07:12 Vancomycin HCl 500 mg/ (Dextrose) 100 mls @ 100 mls/hr IVPB ONCE ONE Stop: 06/07/17 17:59 Insulin Human Lispro (Humalog) 0 units SQ Q6HR GARY PRN Reason: Protocol Stop: 12/05/17 00:01 Last Admin: 06/07/17 06:53 Dose: 4 units Lactobacillus Acidophilus/Rhamnosus (Culturelle) 1 each PO DAILY [facility] Stop: 12/05/17 09:01 Last Admin: 06/06/17 13:07 Dose: 1 each Levothyroxine Sodium (Synthroid) 150 mcg PO 0630 [facility] Stop: 12/05/17 06:31 Last Admin: 06/07/17 06:53 Dose: Not Given Losartan Potassium (Cozaar) 50 mg PO DAILY [facility] Stop: 12/05/17 09:01 Last Admin: 06/06/17 13:08 Dose: 50 mg Metoprolol Tartrate (Lopressor) 100 mg PO BID [facility] Stop: 12/05/17 09:01 Last Admin: 06/05/17 08:12 Dose: 100 mg Modafinil (Provigil) 200 mg PO QAM [facility] Stop: 12/05/17 09:01 Last Admin: 06/06/17 13:08 Dose: 200 mg Morphine Sulfate (Morphine Sulfate) 1 mg IVP Q6HR PRN PRN Reason: Severe Pain (7-10) Stop: 12/04/17 21:50 Last Admin: 06/06/17 18:25 Dose: 1 mg Naloxone HCl (Narcan) 0.4 mg IVP Q2MIN PRN PRN Reason: Opioid Reversal Stop: 12/04/17 21:50 Omeprazole (Prilosec) 20 mg PO 0630 GARY PRN Reason: Protocol Stop: 12/05/17 06:31 Last Admin: 06/07/17 06:53 Dose: Not Given Ondansetron HCl (Zofran) 4 mg IVP Q8HR PRN; Protocol PRN Reason: Nausea And Vomiting Stop: 12/07/17 03:41 Vancomycin HCl (Vancocin) 0 each IVPB RPHPROT PRN PRN Reason: PULSE DOSE Stop: 12/04/17 22:02 Vitamin B Complex/Vit C/Folic Acid (Renal Caps Softgel) 1 mg PO DAILY [facility] Stop: 12/05/17 09:01 Last Admin: 06/06/17 13:07 Dose: 1 mg Laboratory Tests 06/07/17 06/07/17 06/07/17 04:20 04:20 04:20 WBC 16.9 H Hgb 8.3 L Creatinine 5.45 H Troponin I 0.86 H* 06/07/17 10:06 WBC Hgb Creatinine Troponin I 3.21 H* - Imaging and Cardiology Chest Xray: report reviewed Echo: report reviewed - EKG Interpretation EKG results cardiology: personally reviewed (ECG with SR, HR 77. St depression noted laterally.), other (Telemetry reviewed with average HR previous 12 hours noted to be 96, SR. PVCs and PACs noted.) Consult Discharge Plan - Plan Referrals: Joey Richards Jr, MD [Primary Care Provider] - (unable to get through to office at this time) Sylvester Barone MD [Partnered Physician] - 06/26/17 11:45 am <Kerry Escalona - Last Filed: 06/08/17 10:51> Date of Encounter: 06/08/17 - Attending Attestation I examined this patient and my medical decision-making was reviewed with the SHIP LOADER. I agree with the documented findings, disposition and treatment plan as described. Patient presented with complaints of foot pain. She has subsequently undergone peripheral angiogram which was initially planned as an outpatient but she presented to the ER. Incidentally discovered were elevated troponins which are uptrending, now at 7.5. Throughout her course of stay, the patient has been confused with altered mental status, has developed fevers and leukocytosis. Additionally, her blood count has dropped from 10 on admission to 7.5 today. Traditionally, the patient had declined cath in the past. She is unable to consent and would not be a good candidate given the presence of AMS. We can check and echo for revaluation of LV systolic function and wall motion. Recommend blood transfusion to keep Hgb >8. Given her overall clinical picture and anemia, would recommend conservative management at this time. Will defer antiplatelet management to Vascular. We have stopped heparin given drop in blood count. Continue BB and statin. Assessment and Plan Discussion w patient/family: The assessment and plan as outlined above was discussed with the patient and/or family members who expressed understanding and agreement. All questions were answered. Thank you for involving us in the care of your patient. Please call with any questions. History of Present Illness History of present illness: Ms. Rico is a 72 year old female All Systems Review: A 10-system review of systems was performed and is negative for pertinent findings except as documented above in the HPI. Physical Examination Vital Signs, Last 4 Hours Temp Pulse Resp BP Pulse Ox 06/08/17 07:58 16 99 06/08/17 07:27 99.6 F 93 16 119/48 96 Results 06/08/17 03:25 06/08/17 03:25 Lab Results 06/07/17 06/07/17 06/08/17 10:06 16:07 03:25 WBC Hgb Hct Plt Count APTT Sodium 133 L Potassium 4.0 Chloride 93 L Carbon Dioxide 22 L BUN 20 Creatinine 3.63 H Glucose 201 H Calcium 8.5 L Troponin I 3.21 H* 4.49 H* 06/08/17 06/08/17 06/08/17 03:25 03:25 07:48 WBC 23.5 H Hgb 7.5 L Hct 24.8 L Plt Count 222 APTT 39.4 H Sodium Potassium Chloride Carbon Dioxide BUN Creatinine Glucose Calcium Troponin I 7.53 H*
--- NOTE | 2017-06-07 16:34 | Event Note ---
Date of Encounter: 06/07/17 Time of Encounter: 15:30 I was able to speak to the patient's daughter this afternoon following the angiogram. I explained the angiographic findings and the procedure performed. I explained that the superficial femoral artery occlusion was unable to be treated endovascularly. The patient also has tibial artery disease. I explained that the iliac artery stent angioplasty will provide some improvement of blood flow to the right lower extremity but not dramatic because of the more distal obstructive lesions. My concern is that she has significant symptoms and that she would eventually require amputation. This is not necessary in the immediate future but will require amputation to eventually control the right lower extremity pain. Earlier the patient had indicated to me that she did not want to have an amputation and wanted to go back to the retirement for [place]. I explained to the daughter that the lower extremity symptoms would remain present even if she return to the retirement. Further complicating the issue is the patient has an elevated troponin to 3 from earlier today. She is going to be having an echocardiogram later in the afternoon. Her overall status is quite poor and she is clearly not a candidate for any type of reconstructive bypass grafting.
[2017-06-07] MEDS ORDERED: Vancomycin 500 MG in D5% in Water 100 ML IVPB ONE (17:00)
[2017-06-07] MEDS: Furosemide 40 MG TABLET PO SCH ×2 (17:32→20:06)
[2017-06-07] MEDS: Folic Acid 1 MG TABLET PO SCH (17:59)
[2017-06-07] MEDS: Lactobacillus 1 EACH CAP.SPRINK PO SCH (18:00)
[2017-06-07] MEDS: Renal Vitamin 1 MG CAPSULE PO SCH (18:00)
[2017-06-07] MEDS: *HR* Morphine 2 MG/ML SYRINGE IVP PRN (18:01)
[2017-06-07] MEDS ORDERED: *HR* Atropine Sulfate 1 MG/10 ML SYRINGE ONE (21:36)
[2017-06-08] MEDS: *HR* Morphine 2 MG/ML SYRINGE IVP PRN (00:05)
[2017-06-08] MEDS: *HR* Acetylcysteine 20% 600 MG/3 ML ORAL SYRINGE PO SCH ×3 (01:41→22:18)
[2017-06-08] MEDS: Insulin LISPRO 300 UNITS/3 ML VIAL SQ SCH ×4 (01:41→17:18)
[2017-06-08] MEDS: Gabapentin 100 MG CAPSULE PO SCH ×2 (01:41→22:18)
[2017-06-08] MEDS: Ipratropium/Albuterol Neb 3 ML IH SCH ×5 (03:30→20:09)
[2017-06-08] MEDS: Heparin 25,000 UNIT/500 ML D5W 25,000 UNIT/500 ML BAG IVC SCH (03:34)
[2017-06-08 03:56] LABS: Basophils % 0.2 %; Hematocrit 24.8 % (35.3-44.9); Hemoglobin 7.5 g/dL (11.5-15.4); Immature Granulocytes % 0.9 % (0-4); Lymphocytes # 0.7 K/mcL (0.6-4.6); Mean Corpuscular HGB Conc 30.2 g/dL (31.6-35.5); Mean Corpuscular Hemoglobin 32.6 pg (28.0-33.3); Mean Corpuscular Volume 107.8 fL (83.0-100.0); Mean Platelet Volume 11.1 fL (9.4-12.4); Monocytes # 1.5 K/mcL (0.0-1.3); Monocytes % 6.5 %; Platelet Count 222 K/mcL (140-400); Red Cell Distribution Width 14.7 % (11.5-14.5); Segmented Neutrophils % 89.4 %
[2017-06-08 04:10] LABS: Calcium 8.5 mg/dL (8.6-10.3)
[2017-06-08] MEDS: Piperacillin/Tazobactam 3.375 GM/200 ML BAG IVPB SCH ×2 (06:00→17:56)
--- NOTE | 2017-06-08 07:30 | Electrocardiograph Report ---
[address] [place], [place] [address] Test Date: 2017-06-07 Pat Name: Lulu Rico Department: 112 Room: 2N04 Gender: F Adjudication Specialist: : [id number] Requested By: Shannan Bourne Order Number: [id number] Reading MD: Willie Garcias DO Measurements Intervals [place] Rate: 107 P: 47 [place]: 149 QRS: 37 QRSD: 97 T: 115 QT: 328 QTc: 391 Interpretive Statements SINUS TACHYCARDIA POSSIBLE LEFT ATRIAL ENLARGEMENT ST DEVIATION AND MODERATE T-WAVE ABNORMALITY, CONSIDER LATERAL ISCHEMIA Electronically Signed On 06-08-2017 7:28:52 EST by Willie Garcias DO
[2017-06-08] MEDS: Budesonide Neb 0.25 MG/2 ML IH SCH ×2 (07:54→20:09)
--- NOTE | 2017-06-08 08:06 | Internal Med Progress Note ---
Date of Encounter: 06/08/17 Time of Encounter: 08:00 - Assessment and plan (1) Toe necrosis Current Visit: Yes Status: Acute Assessment and plan: Continue with broad-spectrum antibiotics. Continue on Zosyn and vancomycin. Status post angioplasty to the right common iliac vascular is following with possibility of lower extremity amputation at some point. I will follow-up with them. Continue with heparin drip. Also on aspirin and Plavix. We will talk to vascular about restarting Coumadin. (2) Elevated troponin Current Visit: No Status: Chronic Assessment and plan: Likely an NSTEMI. Unclear if it is 1 versus 2.. Cardiologys following for now seems like we are conservatively managing. We will leave up to cardiology. (3) Hypothyroidism Current Visit: No Status: Chronic Assessment and plan: Continue with levothyroxine. Qualifiers: Hypothyroidism type: unspecified Qualified Code(s): E03.9 - Hypothyroidism , unspecified (4) End stage renal disease on dialysis Current Visit: No Status: Chronic Assessment and plan: Nephrology consulted. The patient is end-stage renal disease on dialysis. Dialysis to be resumed per schedule. Continue with Sensipar (5) PAF (paroxysmal atrial fibrillation) Current Visit: No Status: Chronic Assessment and plan: Rate controlled on metoprolol and Cardizem. Currently on heparin drip. Anticoagulated with Coumadin usually but that is on hold. (6) COPD (chronic obstructive pulmonary disease) Current Visit: No Status: Chronic Assessment and plan: Not in exacerbation. She is on chronic O2. Continue with inhalers. Qualifiers: COPD type: COPD with acute lower respiratory infection Qualified Code(s): J44.0 - Chronic obstructive pulmonary disease with acute lower respiratory infection (7) Diabetes mellitus Current Visit: No Status: Chronic Assessment and plan: Continue with insulin sliding scale. Continue with Accu-Cheks. Qualifiers: Diabetes mellitus type: type 2 Diabetes mellitus complication status: with kidney complications Diabetes mellitus complication detail: with chronic kidney disease Diabetes mellitus intermodal customer service insulin use: with intermodal customer service use Chronic kidney disease stage: on chronic dialysis Qualified Code(s): E11.22 - Type 2 diabetes mellitus with diabetic chronic kidney disease; N18.6 - End stage renal disease; N18.6 - End stage renal disease; N18.6 - End stage renal disease; N18.6 - End stage renal disease; Z79.4 - half-way (current) use of insulin; Z79.4 - intermediate frame tender (current) use of insulin; Z79.4 - intermediate frame tender (current ) use of insulin; Z79.4 - intermediate frame tender (current) use of insulin; Z99.2 - Dependence on renal dialysis; Z99.2 - Dependence on renal dialysis; Z99.2 - Dependence on renal dialysis; Z99.2 - Dependence on renal dialysis (8) HTN (hypertension) Current Visit: No Status: Chronic Assessment and plan: Blood pressure is better. Continue to hold Hold all antihypertensives for now and see how her blood pressure does stress of the day.. The patient is usually on metoprolol and hydralazine + Cardizem and Lasix. Qualifiers: Hypertension type: essential hypertension Qualified Code(s): I10 - Essential (primary) hypertension (9) PVD (peripheral vascular disease) Current Visit: No Status: Acute Assessment and plan: Vascular surgery has been consulted. Plan as above.. (10) DVT prophylaxis Current Visit: No Status: Acute Assessment and plan: On heparin drip (11) Goals of care, counseling/discussion Current Visit: Yes Status: Acute Assessment and plan: Need to have a realistic goals of care with family. Patient is somewhat somnolent and is not able to provide much to me. Not sure if this is from pain meds vs uremia vs infectious. Need to establish what her baseline is - Subjective Interval history: Patient was seen and examined. Status post angioplasty to the right common iliac artery. Right superficial femoral artery could not be stented. Heparin drip is on. MAXIMUM TEMPERATURE of 100.2. She still requiring high flow nasal cannula 5 L - Constitutional Vitals: Temp Pulse Resp BP Pulse Ox 99.6 F 93 16 119/48 99 06/08/17 07:27 06/08/17 07:27 06/08/17 07:58 06/08/17 07:27 06/08/17 07:58 General appearance: Present: A&O X 3 Exam: GEN: NAD CVS: RRR. S1, S2, No m/r/g RESP: CTAB ABD: Soft, NT, ND, +BS EXT: venous stasis discoloration to lower extremities bilaterally with possible venous stasis ulcer to right anterior aspect of leg. Appears to be dry gangrene to right fifth digit-dark with some bloody drainage NEURO: Nonfocal Internal Medicine: Result - Labs CBC & Chem 7: 06/08/17 03:25 06/08/17 03:25 Labs: Short CBC 06/08/17 Range/Units 03:25 WBC 23.5 H (4.3-11.1) K/mcL Hgb 7.5 L (11.5-15.4) g/dL Hct 24.8 L (35.3-44.9) % Plt Count 222 (140-400) K/mcL Neutrophils # 21.0 H (1.6-8.9) K/mcL BMP 06/08/17 03:25 Sodium 133 L Potassium 4.0 Chloride 93 L Carbon Dioxide 22 L BUN 20 Creatinine 3.63 H Glucose 201 H Calcium 8.5 L Cardiac Enzymes 06/07/17 06/07/17 Range/Units 10:06 16:07 Troponin I 3.21 H* 4.49 H* (< 0.04) ng/mL - ABG Interpretation ABG results: ABG ABG pH 7.38 pH Units (7.32-7.45) 06/07/17 04:24 ABG pCO2 48 mmHg (35-45) H 06/07/17 04:24 ABG pO2 63 mmHg (85-104) L 06/07/17 04:24 ABG O2 Saturation 91 % (95-98) L 06/07/17 04:24 PT/INR, D-dimer PT 18.0 Seconds (9.4-12.1) H 06/06/17 04:26 Consult Discharge Plan - Plan Referrals: Joey Richards Jr, MD [Primary Care Provider] - (unable to get through to office at this time) Sylvester Barone MD [Partnered Physician] - 06/26/17 11:45 am
--- NOTE | 2017-06-08 08:27 | Nephrology Progress Note ---
Date of Encounter: 06/08/17 Time of Encounter: 08:10 - Assessment and Plan (1) End stage renal disease on dialysis Current Visit: No Status: Chronic CT angio-Vascular surgery consult appreciated. S/P angio/stent right leg. HD today. Orders given. (2) Peripheral arterial occlusive disease Current Visit: No Status: Acute Subjective Interval history: Hypersomnolent, arouses to mild sternal rub. Confused. Objective - Vital Signs Vital signs: Vital Signs Temp Pulse Resp BP Pulse Ox 06/08/17 07:58 16 99 06/08/17 07:27 99.6 F 93 16 119/48 96 06/08/17 03:45 100.2 F H 96 14 139/61 100 06/08/17 03:30 18 98 06/08/17 03:00 94 120/49 06/08/17 02:30 95 130/54 06/08/17 02:00 92 113/47 06/08/17 01:45 94 118/49 06/08/17 01:30 96 129/54 06/08/17 01:15 99 130/50 06/08/17 01:00 103 133/55 06/08/17 00:55 103 123/58 06/08/17 00:50 102 133/55 06/08/17 00:40 106 131/69 06/08/17 00:35 104 128/76 06/08/17 00:30 104 139/56 06/08/17 00:25 106 146/59 06/08/17 00:20 107 144/55 06/08/17 00:15 103 136/53 97 06/07/17 23:56 20 100 06/07/17 22:50 20 99 06/07/17 20:09 20 100 06/07/17 19:53 100.2 F H 100 12 144/56 97 06/07/17 16:46 98.6 F 97 17 126/51 95 06/07/17 15:57 16 126/49 91 06/07/17 14:15 99.4 F 97 16 126/49 100 06/07/17 11:11 18 126/49 93 06/07/17 10:55 98.0 F 22 106/41 06/07/17 10:45 99/67 06/07/17 10:30 100/41 06/07/17 10:15 125/59 06/07/17 10:00 103/83 06/07/17 09:45 123/54 06/07/17 09:30 120/74 06/07/17 09:15 91/51 06/07/17 09:00 123/75 06/07/17 08:45 129/93 06/07/17 08:30 116/49 Intake and Output 06/07/17 06/08/17 06/08/17 23:59 07:59 15:59 Intake Total 200 / 200 Balance 200 / 200 Intake: IV Fluids 200 / 200 Zosyn Premix 3.375 GM/200 ML 3. 200 / 200 375 gm In 200 ml @ 50 mls/hr IVPB Q12HR GARY Rx#:[id number] Other: Stool Size Large Stool Consistency formed Stool Characteristics Normal for Patient Stool Color Brown Weight 55.7 kg Blood Glucose* 205 258 Patient Weight 06/08/17 23:59 Weight 55.7 kg - General Appearance General appearance: Present: chronically ill EENT: Present: mucous membranes moist Neck: Present: no JVD Respiratory: Present: clear Cardiology: Present: no edema, regular rate, regular rhythm Gastrointestinal: Present: normoactive bowel sounds Integumentary: Present: warm and dry Additional Comments: hypersomnolent - Lab 06/08/17 03:25 06/08/17 03:25 Most recent lab results ABG pH 7.38 pH Units (7.32-7.45) 06/07/17 04:24 ABG pCO2 48 mmHg (35-45) H 06/07/17 04:24 ABG pO2 63 mmHg (85-104) L 06/07/17 04:24 ABG HCO3 29 mEq/L (21-27) H 06/07/17 04:24 ABG O2 Saturation 91 % (95-98) L 06/07/17 04:24 Calcium 8.5 mg/dL (8.6-10.3) L 06/08/17 03:25 Phosphorus 4.4 mg/dL (2.7-4.5) 06/05/17 04:30 Magnesium 2.2 mg/dL (1.6-2.6) 06/05/17 04:30 Consult Discharge Plan - Plan Referrals: Joey Richards Jr, MD [Primary Care Provider] - (unable to get through to office at this time) Sylvester Barone MD [Partnered Physician] - 06/26/17 11:45 am
--- NOTE | 2017-06-08 09:02 | Vascular/[facility] Progress Note ---
Date of Encounter: 06/08/17 Time of Encounter: 08:59 - Assessment and plan (1) Altered mental status Current Visit: Yes Status: Acute Patient is extremely somnolent. Overall physical status is deteriorating.. Qualifiers: Altered mental status type: unspecified Qualified Code(s): R41.82 - Altered mental status, unspecified (2) Cachexia Current Visit: Yes Status: Chronic Patient demonstrates overall failure to thrive. She looks older than her stated age. She appears to be in ill health on a chronic basis with diffuse muscle wasting. 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 The right femoral pulses improved following the right common iliac artery stent angioplasty. Perfusion to the right thigh appears improved. There is no significant change in the perfusion to the right foot as expected due to the superficial femoral and tibial artery disease. As noted elsewhere the patient is not a candidate for bypass grafting. At best the patient would become a candidate for amputation in the future assuming her medical problems are corrected. I did not hear from the patient's daughter after my conversation with her yesterday regarding future plans of amputation versus return to the ECF versus palliative care. At this time I have nothing further to offer from a vascular surgery perspective. I will remain available as requested and remain available to further discuss this issue with the patient's daughter. Clearly the patient cannot make any medical decisions independently. - Subjective Interval history: Patient is extremely somnolent. She does not respond except to painful stimuli. The left groin sheath was removed late last night. Of note the patient's troponins continue to rise. Her white blood cell count is also increasing. Vital Signs, Last 4 Hours Temp Pulse Resp BP Pulse Ox 06/08/17 07:58 16 99 06/08/17 07:27 99.6 F 93 16 119/48 96 - Physical Examination General: Present: Other (Patient is very somnolent.) Vascular: Present: Pulse, normal (Right femoral pulses palpable.), Other ( Patient has Doppler signals at the popliteal and posterior tibial artery. The right thigh and calf are warm and soft to the touch. The right foot is cool but not cold. The dry gangrenous ulcerations and skin changes at the right fifth toe and the heel are stable. There is no signs of a septic foot. There is no right lower extremity edema. The left groin puncture site is without swelling or mass.) Results 06/08/17 03:25 06/08/17 03:25 Lab Results, Last 24 hours 06/07/17 06/07/17 06/08/17 10:06 16:07 03:25 WBC Hgb Hct Plt Count APTT Sodium 133 L Potassium 4.0 Chloride 93 L Carbon Dioxide 22 L BUN 20 Creatinine 3.63 H Glucose 201 H Calcium 8.5 L Troponin I 3.21 H* 4.49 H* 06/08/17 06/08/17 06/08/17 03:25 03:25 07:48 WBC 23.5 H Hgb 7.5 L Hct 24.8 L Plt Count 222 APTT 39.4 H Sodium Potassium Chloride Carbon Dioxide BUN Creatinine Glucose Calcium Troponin I 7.53 H* Consult Discharge Plan - Plan Referrals: Joey Richards Jr, MD [Primary Care Provider] - (unable to get through to office at this time) Sylvester Barone MD [Partnered Physician] - 06/26/17 11:45 am
[2017-06-08] MEDS ORDERED: 0.9 % Sodium Chloride 250 ML IVC PRN (09:13)
[2017-06-08] MEDS ORDERED: 0.9 % Sodium Chloride 1,000 ML PRIME SCH (09:15)
[2017-06-08] MEDS: Furosemide 40 MG TABLET PO SCH ×2 (09:33→17:56)
[2017-06-08] MEDS: Renal Vitamin 1 MG CAPSULE PO SCH (09:35)
[2017-06-08] MEDS: Aspirin Enteric Coated 81 MG Tablet PO SCH (09:35)
[2017-06-08] MEDS: Lactobacillus 1 EACH CAP.SPRINK PO SCH (09:35)
[2017-06-08] MEDS: Folic Acid 1 MG TABLET PO SCH (09:35)
[2017-06-08] MEDS ORDERED: Aminoglycoside Consult 1 EACH MC ONE (12:52)
[2017-06-08] MEDS ORDERED: 0.9 % Sodium Chloride 1,000 ML ONE (20:52)
[2017-06-08] MEDS ORDERED: Insulin LISPRO 300 UNITS/3 ML VIAL SQ SCH (21:00)
[2017-06-09] MEDS: *HR* Morphine 2 MG/ML SYRINGE IVP PRN (00:55)
[2017-06-09] MEDS: Ipratropium/Albuterol Neb 3 ML IH SCH ×4 (04:36→11:39)
[2017-06-09 04:48] LABS: Basophils % 0.2 %; Eosinophils % 0.2 %; Hematocrit 22.8 % (35.3-44.9); Hemoglobin 6.8 g/dL (11.5-15.4); Immature Granulocytes % 0.6 % (0-4); Lymphocytes % 4.9 %; Mean Corpuscular HGB Conc 29.8 g/dL (31.6-35.5); Mean Corpuscular Hemoglobin 31.9 pg (28.0-33.3); Mean Platelet Volume 11.4 fL (9.4-12.4); Monocytes # 1.1 K/mcL (0.0-1.3); Monocytes % 5.4 %; Neutrophils # 18.2 K/mcL (1.6-8.9); Platelet Count 212 K/mcL (140-400); Red Blood Count 2.13 M/mcL (3.82-4.97); Red Cell Distribution Width 14.9 % (11.5-14.5); Segmented Neutrophils % 88.7 %
[2017-06-09 04:49] LABS: Calcium 8.4 mg/dL (8.6-10.3); Potassium 3.7 mEq/L (3.5-5.1)
[2017-06-09] MEDS: Piperacillin/Tazobactam 3.375 GM/200 ML BAG IVPB SCH (06:00)
[2017-06-09] MEDS: Budesonide Neb 0.25 MG/2 ML IH SCH (07:40)
--- NOTE | 2017-06-09 09:52 | Internal Med Progress Note ---
Date of Encounter: 06/09/17 Time of Encounter: 07:00 - Assessment and plan (1) Acute blood loss anemia Current Visit: Yes Status: Acute Assessment and plan: she is hypotensive and tachycardic. Transfer to ICU. start pressors. transfuse 1 unit PRBCs. Need a discussion of code status. Currently full code. No signs of obvious bleed but was on a heparin drip while hospitalized here for vascular and cardiac reasons. (2) Toe necrosis Current Visit: Yes Status: Acute Assessment and plan: Continue with broad-spectrum antibiotics. Continue on Zosyn and vancomycin. Status post angioplasty to the right common iliac vascular is following with possibility of lower extremity amputation at some point. Hold aspirin and Plavix as well as Coumadin given the low hemoglobin. . (3) Elevated troponin Current Visit: No Status: Chronic Assessment and plan: Likely an NSTEMI. Unclear if it is 1 versus 2.. Cardiologys following for now seems like we are conservatively managing. We will leave up to cardiology. (4) Hypothyroidism Current Visit: No Status: Chronic Assessment and plan: Continue with levothyroxine. Qualifiers: Hypothyroidism type: unspecified Qualified Code(s): E03.9 - Hypothyroidism , unspecified (5) End stage renal disease on dialysis Current Visit: No Status: Chronic Assessment and plan: Nephrology consulted. The patient is end-stage renal disease on dialysis. Dialysis to be resumed per schedule. Continue with Sensipar (6) PAF (paroxysmal atrial fibrillation) Current Visit: No Status: Chronic Assessment and plan: Tachycardic check an EKG. on metoprolol and Cardizem but cannot give those given the low blood pressure. Anticoagulated with Coumadin usually but that is on hold. (7) COPD (chronic obstructive pulmonary disease) Current Visit: No Status: Chronic Assessment and plan: Not in exacerbation. She is on chronic O2. Continue with inhalers. Qualifiers: COPD type: COPD with acute lower respiratory infection Qualified Code(s): J44.0 - Chronic obstructive pulmonary disease with acute lower respiratory infection (8) Diabetes mellitus Current Visit: No Status: Chronic Assessment and plan: Continue with insulin sliding scale. Continue with Accu-Cheks. Qualifiers: Diabetes mellitus type: type 2 Diabetes mellitus complication status: with kidney complications Diabetes mellitus complication detail: with chronic kidney disease Diabetes mellitus termite renewal inspector insulin use: with termite renewal inspector use Chronic kidney disease stage: on chronic dialysis Qualified Code(s): E11.22 - Type 2 diabetes mellitus with diabetic chronic kidney disease; N18.6 - End stage renal disease; Z99.2 - Dependence on renal dialysis; Z99.2 - Dependence on renal dialysis; Z99.2 - Dependence on renal dialysis; N18.6 - End stage renal disease; N18.6 - End stage renal disease; N18.6 - End stage renal disease ; Z79.4 - termite helper (current) use of insulin; Z79.4 - long-term (current) use of insulin; Z79.4 - termite helper (current) use of insulin; Z79.4 - termite helper ( current) use of insulin; Z99.2 - Dependence on renal dialysis (9) HTN (hypertension) Current Visit: No Status: Chronic Assessment and plan: Hold all antihypertensives. Qualifiers: Hypertension type: essential hypertension Qualified Code(s): I10 - Essential (primary) hypertension (10) PVD (peripheral vascular disease) Current Visit: No Status: Acute Assessment and plan: Vascular surgery has been consulted. Prognosis is poor according to their notes. (11) DVT prophylaxis Current Visit: No Status: Acute (12) Goals of care, counseling/discussion Current Visit: Yes Status: Acute Assessment and plan: Need to have a realistic goals of care with family. Patient is to be transferred to the ICU for pressors. She may need to be intubated. I would like to have a real conversation with her daughter when she gets here about CODE STATUS. - Subjective Interval history: Patient was seen and examined. She is hypotensive in the 70s systolically. Tachycardic in the 140s. Hemoglobin is 6.8. I am awaiting for family to come so we can discuss CODE STATUS. She is listed as full code. She denies any chest pain. She is having respiratory distress. She is requiring 7 liters of face mask oxygen. She is afebrile. Status post angioplasty to the right common iliac artery 06/06. Right superficial femoral artery could not be stented. - Constitutional Vitals: Temp Pulse Resp BP Pulse Ox 97.9 F 98 20 99/53 100 06/09/17 04:14 06/09/17 04:14 06/09/17 04:38 06/09/17 04:14 06/09/17 04:38 General appearance: Present: A&O X 3 Exam: GEN: in moderate distress CVS: RRR. S1, S2 No m/r/g RESP: crackles heard bilaterally ABD: Soft, NT, ND, +BS EXT: venous stasis discoloration to lower extremities bilaterally with possible venous stasis ulcer to right anterior aspect of leg. Appears to be dry gangrene to right fifth digit-dark with some bloody drainage NEURO: Nonfocal Internal Medicine: Result - Labs CBC & Chem 7: 06/09/17 04:18 06/09/17 04:18 Labs: Short CBC 06/09/17 Range/Units 04:18 WBC 20.5 H (4.3-11.1) K/mcL Hgb 6.8 L (11.5-15.4) g/dL Hct 22.8 L (35.3-44.9) % Plt Count 212 (140-400) K/mcL Neutrophils # 18.2 H (1.6-8.9) K/mcL BMP 06/09/17 04:18 Sodium 138 Potassium 3.7 Chloride 98 Carbon Dioxide 22 L BUN 18 Creatinine 2.71 H Glucose 229 H Calcium 8.4 L Cardiac Enzymes 06/09/17 Range/Units 04:18 Troponin I 3.82 H* (< 0.04) ng/mL - ABG Interpretation ABG results: ABG ABG pH 7.38 pH Units (7.32-7.45) 06/07/17 04:24 ABG pCO2 48 mmHg (35-45) H 06/07/17 04:24 ABG pO2 63 mmHg (85-104) L 06/07/17 04:24 ABG O2 Saturation 91 % (95-98) L 06/07/17 04:24 PT/INR, D-dimer PT 18.0 Seconds (9.4-12.1) H 06/06/17 04:26 - Impressions Impressions Echocardiogram Limited Views 06/07/17 12:56 Impressions: LVEF 55%. Normal LV systolic function. There may be mild hypokinesis in the basal inferior and basal inferoseptal everett. Mild concentric LVH with severe basal septal hypertrophy. Normal right ventricular structure and function. Left Ventricular Wall Motion: Rest Echo Findings The basal inferior and basal inferior septal everett were hypokinetic. All other wall segments showed normal motion. Findings: Study Quality * Technically adequate exam. ECG Findings * Normal sinus rhythm. Left Ventricle * Mild concentric LVH with severe basal septal hypertrophy. * LVEF 55%. Right Ventricle * Normal right ventricular structure and function. Mitral Valve * Consult Discharge Plan - Plan Referrals: Joey Richards Jr, MD [Primary Care Provider] - (unable to get through to office at this time) Sylvester Barone MD [Partnered Physician] - 06/26/17 11:45 am
--- NOTE | 2017-06-09 11:02 | Event Note ---
Date of Encounter: 06/09/17 Time of Encounter: 10:59 - Cardiology Event Note Discussed with Dr. Escalona. Blood count continues to drop. Limited echo resulted-- LVEF 55%.Normal LV systolic function. There may be mild hypokinesis in the basal inferior and basal inferoseptal everett. Mild concentric LVH with severe basal septal hypertrophy. Normal right ventricular structure and function. Troponin now downtrending. Given current clinical course, recommend medical management from cardiac standpoint. EF overall preserved. Pt is DNR-CC. Cardiology signing off. Reconsult PRN.
[2017-06-09] MEDS: *HR* Acetylcysteine 20% 600 MG/3 ML ORAL SYRINGE PO SCH (11:55)
[2017-06-09] MEDS: Aspirin Enteric Coated 81 MG Tablet PO SCH (11:55)
[2017-06-09] MEDS: Furosemide 40 MG TABLET PO SCH (11:55)
[2017-06-09] MEDS: Lactobacillus 1 EACH CAP.SPRINK PO SCH (11:56)
[2017-06-09] MEDS: Folic Acid 1 MG TABLET PO SCH (11:56)
[2017-06-09] MEDS: Renal Vitamin 1 MG CAPSULE PO SCH (11:56)
[2017-06-09] MEDS: Insulin LISPRO 300 UNITS/3 ML VIAL SQ SCH ×2 (11:57→11:58)
--- NOTE | 2017-06-09 11:59 | Physician Discharge Referral ---
ExtendedCare Referral Info Transfer To: Extended care facility Provider in Charge: Mildred Provider in Charge after Transfer: Other (ICU physician) Institutional Level of Care: Skilled (ECF) - Transfer Medications Home Medications: Furosemide [Lasix] 80 mg PO BID 09/28/15 [History] Levothyroxine Sodium [Tirosint] 150 mcg PO 0630 09/28/15 [History] Clopidogrel [Plavix] 75 mg PO HS 09/29/15 [History] Modafinil [Provigil] 200 mg PO QAM 09/29/15 [History] Acetaminophen [Tylenol] 1,000 mg PO Q8HR PRN 12/05/15 [History] Cinacalcet [Sensipar] 30 mg PO DAILY 12/05/15 [History] Insulin LISPRO [HumaLOG] 2 - 12 unit SQ BID 12/05/15 [History] Ipratropium/Albuterol Neb [Duoneb] 3 ml IH Q4HR 05/02/16 [History] Metoprolol [Lopressor] 100 mg PO BID 07/25/16 [History] Fexofenadine HCl [Allergy Relief] 180 mg PO DAILY 11/26/16 [History] Insulin DETEMIR [Levemir] 5 unit SQ HS 11/26/16 [History] Sevelamer [Renvela] 800 mg PO TIDWM 11/26/16 [History] Budesonide Neb [Pulmicort Neb] 0.25 mg IH BIDR inhsol 11/28/16 [Rx] hydrALAZINE [HydrALAZINE] 75 mg PO Q8HR tablet 11/28/16 [Rx] Acetylcysteine [Y-Tucwfn-v-Cysteine] 600 mg PO BID 01/13/17 [History] Folic Acid/Vit Bcomp,C [Renal-Darinel Tablet] 0.8 mg PO DAILY 01/13/17 [History] Alendronate Sodium [Fosamax] 70 mg PO TH 02/17/17 [History] Diltiazem HCl [Diltiazem ER] 180 mg PO DAILY 02/17/17 [History] Folic Acid 1 mg PO DAILY 02/17/17 [History] Guaifenesin [Mucus Relief] 400 mg PO BID 02/17/17 [History] Acetaminophen [Tylenol] 650 mg PO Q4H PRN 05/23/17 [History] Dextrose [Glucose Gel] 30 gm PO ONCE PRN 05/23/17 [History] Guaifenesin [Tussin] 200 mg PO Q4H PRN 05/23/17 [History] L. Acidophilus/Pectin, [place] [Acidophilus Capsule] 1 each PO DAILY 05/23/17 [ History] Loperamide HCl [Imodium A-D] 2 mg PO PER PKG DI PRN MDD 16 mg 05/23/17 [History] Losartan Potassium [Cozaar] 50 mg PO DAILY 05/23/17 [History] MOM Conc [MILK OF MAGNESIA conc] 30 ml PO DAILY PRN 05/23/17 [History] Mag Hydrox/Al Hydrox/Simeth [Antacid Suspension] 10 ml PO Q4H PRN 05/23/17 [ History] Oxygen 2 l NS AD PRN 05/23/17 [History] HYDROcodone/Acet 5/325 mg [Toney 5-325 mg] 1 tab PO Q4H PRN #20 tablet 05/25/17 [Rx] Morphine Sulfate [Morphine Oral Solution] 5 mg PO Q2H PRN #100 ml 05/25/17 [Rx] Gabapentin [Neurontin] 200 mg PO BID 06/04/17 [History] Omeprazole [PriLOSEC] 20 mg PO DAILY 06/04/17 [History] Vits A and D/White Pet/Lanolin [A and D Ointment] 1 appl TP BID 06/04/17 [ History] Warfarin [Coumadin] 5 mg PO HS 06/04/17 [History] Allergies/Adverse Reactions: 3 Allergy/AdvReac Type Severity Reaction Status Date / Time No Known Allergies Allergy Verified 05/29/17 08:54 - Respiratory Orders Smoking Cessation: Smoking cessation has been advised. For more information, call the [place] Tobacco Quit Line at 3-461-VQWP-NOW. CERTIFICATION: I certify that the transfer of the above named patient to an Extended Care Facility is necessary for the continuing treatment of the diagnosis listed. The above information is true and accurate reflection of patient's current condition. Confidential - Redisclosure prohibited without a patient's written consent.
--- NOTE | 2017-06-09 12:02 | Discharge Summary ---
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 Priority: Primary Status: Acute - Discharge Medications Home Medications: Furosemide [Lasix] 80 mg PO BID 09/28/15 [History] Levothyroxine Sodium [Tirosint] 150 mcg PO 0630 09/28/15 [History] Clopidogrel [Plavix] 75 mg PO HS 09/29/15 [History] Modafinil [Provigil] 200 mg PO QAM 09/29/15 [History] Acetaminophen [Tylenol] 1,000 mg PO Q8HR PRN 12/05/15 [History] Cinacalcet [Sensipar] 30 mg PO DAILY 12/05/15 [History] Insulin LISPRO [HumaLOG] 2 - 12 unit SQ BID 12/05/15 [History] Ipratropium/Albuterol Neb [Duoneb] 3 ml IH Q4HR 05/02/16 [History] Metoprolol [Lopressor] 100 mg PO BID 07/25/16 [History] Fexofenadine HCl [Allergy Relief] 180 mg PO DAILY 11/26/16 [History] Insulin DETEMIR [Levemir] 5 unit SQ HS 11/26/16 [History] Sevelamer [Renvela] 800 mg PO TIDWM 11/26/16 [History] Budesonide Neb [Pulmicort Neb] 0.25 mg IH BIDR inhsol 11/28/16 [Rx] hydrALAZINE [HydrALAZINE] 75 mg PO Q8HR tablet 11/28/16 [Rx] Acetylcysteine [N-Oathvn-n-Cysteine] 600 mg PO BID 01/13/17 [History] Folic Acid/Vit Bcomp,C [Renal-Darinel Tablet] 0.8 mg PO DAILY 01/13/17 [History] Alendronate Sodium [Fosamax] 70 mg PO TH 02/17/17 [History] Diltiazem HCl [Diltiazem ER] 180 mg PO DAILY 02/17/17 [History] Folic Acid 1 mg PO DAILY 02/17/17 [History] Guaifenesin [Mucus Relief] 400 mg PO BID 02/17/17 [History] Acetaminophen [Tylenol] 650 mg PO Q4H PRN 05/23/17 [History] Dextrose [Glucose Gel] 30 gm PO ONCE PRN 05/23/17 [History] Guaifenesin [Tussin] 200 mg PO Q4H PRN 05/23/17 [History] L. Acidophilus/Pectin, [place] Pos [Acidophilus Capsule] 1 each PO DAILY 05/23/17 [ History] Loperamide HCl [Imodium A-D] 2 mg PO PER PKG DI PRN MDD 16 mg 05/23/17 [History] Losartan Potassium [Cozaar] 50 mg PO DAILY 05/23/17 [History] MOM Conc [MILK OF MAGNESIA conc] 30 ml PO DAILY PRN 05/23/17 [History] Mag Hydrox/Al Hydrox/Simeth [Antacid Suspension] 10 ml PO Q4H PRN 05/23/17 [ History] Oxygen 2 l NS AD PRN 05/23/17 [History] HYDROcodone/Acet 5/325 mg [[place] 5-325 mg] 1 tab PO Q4H PRN #20 tablet 05/25/17 [Rx] Morphine Sulfate [Morphine Oral Solution] 5 mg PO Q2H PRN #100 ml 05/25/17 [Rx] Gabapentin [Neurontin] 200 mg PO BID 06/04/17 [History] Omeprazole [PriLOSEC] 20 mg PO DAILY 06/04/17 [History] Vits A and D/White Pet/Lanolin [A and D Ointment] 1 appl TP BID 06/04/17 [ History] Warfarin [Coumadin] 5 mg PO HS 06/04/17 [History] Allergies/Adverse Reactions: 3 Allergy/AdvReac Type Severity Reaction Status Date / Time No Known Allergies Allergy Verified 05/29/17 08:54 Labs on day of discharge: Labs from last 24 hours 06/09/17 06/09/17 06/09/17 08:34 04:18 04:18 WBC 20.5 H RBC 2.13 L Hgb 6.8 L Hct 22.8 L MCV 107.0 H MCH 31.9 MCHC 29.8 L RDW 14.9 H Plt Count 212 MPV 11.4 Immature Gran % 0.6 Seg Neutrophils % 88.7 Lymphocytes % 4.9 Monocytes % 5.4 Eosinophils % 0.2 Basophils % 0.2 Neutrophils # 18.2 H Lymphocytes # 1.0 Monocytes # 1.1 Eosinophils # 0.0 Basophils # 0.0 Sodium Potassium Chloride Carbon Dioxide BUN Creatinine Est GFR ( Amer) Est GFR (Non-Af Amer) BUN/Creatinine Ratio Glucose POC Glucose 226 H Calculated Osmolality Calcium Troponin I 3.82 H* Random Vancomycin 06/09/17 06/08/17 06/08/17 04:18 21:25 17:05 WBC RBC Hgb Hct MCV MCH MCHC RDW Plt Count MPV Immature Gran % Seg Neutrophils % Lymphocytes % Monocytes % Eosinophils % Basophils % Neutrophils # Lymphocytes # Monocytes # Eosinophils # Basophils # Sodium 138 Potassium 3.7 Chloride 98 Carbon Dioxide 22 L BUN 18 Creatinine 2.71 H Est GFR ( Amer) 21 L Est GFR (Non-Af Amer) 17 L BUN/Creatinine Ratio 7 Glucose 229 H POC Glucose Calculated Osmolality 295 Calcium 8.4 L Troponin I Random Vancomycin 17.4 13.0 06/08/17 06/08/17 11:54 05:53 WBC RBC Hgb Hct MCV MCH MCHC RDW Plt Count MPV Immature Gran % Seg Neutrophils % Lymphocytes % Monocytes % Eosinophils % Basophils % Neutrophils # Lymphocytes # Monocytes # Eosinophils # Basophils # Sodium Potassium Chloride Carbon Dioxide BUN Creatinine Est GFR ( Amer) Est GFR (Non-Af Amer) BUN/Creatinine Ratio Glucose POC Glucose 127 H 258 H Calculated Osmolality Calcium Troponin I Random Vancomycin - Impressions ITS Impressions Aorta w/Runoff CTA 06/05/17 12:46 IMPRESSION: 1. Markedly limited study as there is minimal to no opacification of the abdominal aorta, common and external iliac arteries, common femoral, superficial femoral and popliteal arteries bilaterally. There is opacification of the infrageniculate runoff with 3 vessel runoff to the left ankle and 2 vessel runoff to the right ankle as discussed above. I would recommend conventional arteriography for further evaluation. 2. Bilateral lower lobe atelectasis and/or infiltrates. 3. Acquired renal cystic disease. This most likely is due to underlying renal insufficiency. D/ / Brayan Larsen MD / Brayan Larsen MD Interpreting Provider: Brayan Larsen MD Chest X-Ray 06/07/17 03:40 IMPRESSION: Pulmonary edema. D/ / Zac Greco MD / Zac Greco MD Interpreting Provider: Zac Greco MD Echocardiogram Limited Views 06/07/17 12:56 Impressions: LVEF 55%. Normal LV systolic function. There may be mild hypokinesis in the basal inferior and basal inferoseptal [place]. Mild concentric LVH with severe basal septal hypertrophy. Normal right ventricular structure and function. Left Ventricular Wall Motion: Rest Echo Findings The basal inferior and basal inferior septal [place] were hypokinetic. All other wall segments showed normal motion. Findings: Study Quality * Technically adequate exam. ECG Findings * Normal sinus rhythm. Left Ventricle * Mild concentric LVH with severe basal septal hypertrophy. * LVEF 55%. Right Ventricle * Normal right ventricular structure and function. Mitral Valve * Date of admission: 06/04/17 21:49 Primary care physician: Joey Richards Jr, MD Consults: 06/04/17 21:51 Consult to Scientific Investigator [CONS] Routine Reason for SW Consult: ecf placement 06/05/17 15:15 Consult to Dialysis [CONS] ONCE 06/07/17 07:15 Consult to Dialysis [CONS] ONCE 06/07/17 10:51 Consult to Cardiology [CONS] Stat Comment: Consulting Provider: Cardiology Theresa Reason for Consult: NSTEMI Call Completed: Yes 06/07/17 15:36 Consult to Cardiac Rehabilitation-Phase1 [CONS] Routine Comment: Reason for Consult: elevated troponin. Call Completed: No 06/08/17 09:15 Consult to Dialysis [CONS] ONCE 06/09/17 09:46 Consult to Pulmonology [CONS] Routine Consulting Provider: [facility] Theresa Reason for Consult: hypotension/tachycardia Call Completed: Yes Discharging clinician: Yoseph Cunningham date of discharge: 06/09/17 - Patient Status Disposition: Transfer SNF Condition: Fair - Discharge Instructions Follow Up With: Joey Richards Jr, MD [Primary Care Provider] - (unable to get through to office at this time) Sylvester Barone MD [Partnered Physician] - 06/26/17 11:45 am - Hospital Course Hospital course: Ms. Rico is a 72 year old female with past medical history significant for HTN , COPD, Paroxysmal atrial fibrillation, severe peripheral vascular disease with acute ischemic leg of the right foot with dry gangrene , she has stent procedure in her right ischemic leg on saturday, developed worsening altered mental status , tachycardia , hypotension developed septic shock most likely due to right foot gangrene , patient and daughter didnt want any aggressive measures so the goals of care was changed to DNRCC - Time Spent with Patient Total time spent providing and/or coordinating discharge services: Greater than 30 minutes Physical Examination Vital Signs: Vital Signs, Last 4 Hours Pulse Resp BP Pulse Ox 06/09/17 10:00 106 14 62/38 89 General appearance: appears uncomfortable Effort: mildly labored Auscultation: bilateral: rhonchi Cardiovascular: irregular rhythm Integumentary: cellulitis, other (gangrene right foor ) other (altered mental status )
[2017-06-09 12:16] VITALS: BP 85/28
--- NOTE | 2017-06-09 12:39 | Event Note ---
Date of Encounter: 06/09/17 Time of Encounter: 08:00 Had goals of care discussion as she is getting septic shock most likely due to gangrene patient is not a candidate for surgery because of multiple comorbidties she didnt want any amputation to be done , She and Daughter that she wouldnt want any aggressive measures like central line , intubation connected to ventilator doesnt want CPR so the code status was changed to DNRCC , i called spoke about the code status change and he agreed with me. So patient will be transferred to Hospice care at [place].
--- NOTE | 2017-06-11 16:40 | Electrocardiograph Report ---
[address] [place], [place] [address] Test Date: 2017-06-09 Pat Name: Lulu Rico Department: 112 Room: [facility] Gender: F [employer]: : [id number] Requested By: Sanjay Whitt Order Number: [id number] Reading MD: Jim Hunter MD Measurements Intervals [place] Rate: 133 P: [place]: 0 QRS: 20 QRSD: 106 T: 0 QT: 307 QTc: 385 Interpretive Statements ATRIAL FIBRILLATION Poor R wave progression Electronically Signed On 06-11-2017 16:38:28 EST by Jim Hunter MD
== END 2017-06-09 12:53 | DRG 252 ==
LOC: EMEROO 14:54 → 3ANU 14:54 → 2ANU 06-05 16:25 → 2NNU 06-07 13:49 → 2ANU 06-08 14:29 → ICNU 06-09 08:20
PROVIDERS: ADMIT Nurse Practitioner Acute Care; ATTEND Family Medicine